=== PATIENT | male | born 1955 | race Caucasian/White ===

== ENCOUNTER 2016-12-10 18:22 | Emergency (ER) | payer OTHER ==
[~2016-12-10] VITALS: Ht 170.2 cm; Wt 74.8 kg
[~2016-12-10 18:22] MED LIST: SULF1TAB38 PO
[2016-12-10] MEDS ORDERED: LACTATED RINGERS 1,000 ML IV ONE (18:32)
[2016-12-10 18:40] LABS: BASOPHILS # (AUTO) 0.1 10^3/uL (0.0-0.1); BASOPHILS % (AUTO) 1 % (0-10); EOSINOPHILS # (AUTO) 0.1 10^3/uL (0.0-0.3); EOSINOPHILS % (AUTO) 1 % (0-10); LYMPHOCYTES # (AUTO) 2.7 X 10^3 (1.0-4.0); LYMPHOCYTES % (AUTO) 22 % (12-44); MEAN CORPUSCULAR HEMOGLOBIN 33 PG (25-34); MEAN CORPUSCULAR HGB CONC 35 G/DL (32-36); MEAN CORPUSCULAR VOLUME 93 FL (80-99); MEAN PLATELET VOLUME 10.1 FL (7.4-10.4); MONOCYTES # (AUTO) 0.9 X 10^3 (0.0-1.0); MONOCYTES % (AUTO) 7 % (0-12); NEUTROPHILS # (AUTO) 8.6 X 10^3 (1.8-7.8); NEUTROPHILS % (AUTO) 70 % (42-75); PLATELET COUNT 273 10^3/uL (130-400); RED BLOOD COUNT 4.94 10^6/uL (4.35-5.85); RED CELL DISTRIBUTION WIDTH 12.7 % (10.0-14.5); WHITE BLOOD COUNT 12.4 10^3/uL (4.3-11.0)
[2016-12-10 18:53] LABS: ALANINE AMINOTRANSFERASE 24 U/L (0-55); ALBUMIN 4.3 G/DL (3.2-4.5); ALCOHOL 284 MG/DL (<10); ANION GAP 13 MMOL/L (5-14); ASPARTATE AMINO TRANSFERASE 26 U/L (5-34); BLOOD UREA NITROGEN 15 MG/DL (7-18); BUN/CREATININE RATIO 16; CARBON DIOXIDE 23 MMOL/L (21-32); CHLORIDE 106 MMOL/L (98-107); CREATININE SERUM 0.96 MG/DL (0.60-1.30); GFR ESTIMATED > 60; GLUCOSE 95 MG/DL (70-105); POTASSIUM 4.1 MMOL/L (3.6-5.0); SODIUM 142 MMOL/L (135-145); TOTAL PROTEIN 7.6 G/DL (6.4-8.2)
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
[2016-12-10 19:55] VITALS: BP 135/93
== END 2016-12-10 19:54 | disposition home or self-care (01) ==
LOC: ER 18:22 → EDUNIT# 18:22 → ER 19:54
DX: F10.129 Alcohol abuse with intoxication, unspecified (principal); R45.1 Restlessness and agitation; Y90.8 Blood alcohol level of 240 mg/100 ml or more
CPT/HCPCS: 36415; 80053; 80306; 80320; 85025; 96360

== ENCOUNTER 2018-05-24 10:47 | Observation (INO) | payer OTHER ==
[2018-05-24] VITALS (11 sets, daily range): BP systolic 116–158; BP diastolic 83–103
[~2018-05-24] VITALS: Ht 167.6 cm; Wt 74.1 kg
[2018-05-24] MEDS ORDERED: ADENOSINE 6 MG/2 ML (ADENOCARD) VIAL IV ONE (10:51)
[2018-05-24] MEDS ORDERED: DILTIAZEM 25 MG/5 ML INJ (CARDIZEM) VIAL ONE (10:53)
[2018-05-24] MEDS ORDERED: DILTIAZEM 125 MG/25 ML IV (CARDIZEM) IV ONE (10:54)
--- NOTE | 2018-05-24 11:09 | ED Cardiac General ---
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 He had the sense of pounding in his chest and pressure is morning and came to the emergency room. He was immediately found to have a heart rate of 160 with a blood pressure of 120/100. This appeared to be atrial fibrillation with a rapid ventricular response. He has not had any previous history of heart disease or atrial fibrillation. He reports that he has had a heart murmur for years. The patient admits to drinking vodka every day. Timing/Duration: 1 hour Severity: mild, moderate Location: central Activities at Onset: activity Prior CP/Workup: no prior chest pain Modifying Factors: improves with exercise Associated Systoms: Shortness of Air, Weakness Allergies and Home Medications Allergies Coded Allergies: No Known Drug Allergies (Unverified , 02/11/12) Patient Home Medication List Home Medication List Reviewed: Yes Review of Systems Review of Systems Constitutional: see HPI EENTM: No Symptoms Reported Respiratory: No Symptoms Reported Cardiovascular: No Symptoms Reported Gastrointestinal: No Symptoms Reported Genitourinary: No Symptoms Reported Musculoskeletal: no symptoms reported Skin: no symptoms reported Psychiatric/Neurological: No Symptoms Reported Endocrine: No Symptoms Reported Hematologic/Lymphatic: No Symptoms Reported Past Sbpnkaz-Wbydui-Yvbced Hx Patient Social History Recent Hopitalizations: No Past Medical History Abdominal, Orthopedic Fractures Physical Exam Vital Signs Vital Signs - First Documented 05/24/18 10:47 Temp 97.2 Pulse 142 Resp 18 B/P (MAP) 124/108 (113) Pulse Ox 9 Capillary Refill : Height, Weight, BMI Height: 5'7" Weight: 165lbs. oz. [id number]; 25.84 BMI Method:Stated General Appearance: No Apparent Distress, WD/WN HEENT: Normal ENT Inspection Neck: Full Range of Motion, Normal Inspection, Non Tender Respiratory: Chest Non Tender, Lungs Clear, Normal Breath Sounds, No Accessory Muscle Use, No Respiratory Distress Cardiovascular: Systolic Murmur (grade 2-3 at apex), Irregularly Irregular, Tachycardia Gastrointestinal: Normal Bowel Sounds, No Organomegaly, No Pulsatile Mass, Non Tender Extremity: Normal Capillary Refill, Normal Inspection, Normal Range of Motion, Non Tender, No Calf Tenderness, No Pedal Edema Neurologic/Psychiatric: Alert, Oriented x3, No Motor/Sensory Deficits, Normal Mood/Affect Skin: Normal Color, Warm/Dry, Other Lymphatic: No Adenopathy Progress/Results/Core Measures Results/Orders My Orders Orders - CORINNA VALENTINE MD Adenosine Injection (Adenocard Injection (05/24/18 10:51) Diltiazem Injection (Cardizem Injection) (05/24/18 10:53) Diltiazem Iv For Drip (Cardizem Iv For D (05/24/18 10:54) Medications Given in ED Current Medications Medications Dose Ordered Sig/Vibha Route Start Time Stop Time Status Last Admin Dose Admin Adenosine 6 mg STK-MED ONCE IV 05/24/18 10:51 05/24/18 10:55 DC 05/24/18 10:55 6 MG Diltiazem HCl 25 mg STK-MED ONCE .ROUTE 05/24/18 10:53 05/24/18 10:57 DC 05/24/18 10:58 25 MG Vital Signs/I&O 05/24/18 05/24/18 10:47 12:05 Temp 97.2 Pulse 142 84 Resp 18 18 B/P (MAP) 124/108 (113) 116/83 (94) Pulse Ox 9 94 Departure Communication (Admissions) The patient subsequently reverted to sinus rhythm. The case was discussed by Dr. Thomason cardiology on-call. The patient will be admitted for workup and medications. [address] Parra of the hospitalist service. Impression Primary Impression: atrial fibrillation with RVR Disposition: ADMITTED INPATIENT Condition: Improved Admissions Decision to Admit Reason: Admit from ER (General) Decision to Admit/Date: May 24, 2018 Time/Decision to Admit Time: 12:18 Departure-Patient Inst. Referrals: SHAMEKA HERNANDES MD (PCP/Family) Primary Care Physician CORINNA VALENTINE MD May 24, 2018 11:09
[2018-05-24] MEDS ORDERED: NS IV 1000 ML 1,000 ML IV SCH (12:15)
[2018-05-24] MEDS ORDERED: DILTIAZEM 25 MG/5 ML INJ (CARDIZEM) VIAL IVP ONE (12:15)
[2018-05-24 12:25] LABS: BASOPHILS # (AUTO) 0.1 10^3/uL (0.0-0.1); BASOPHILS % (AUTO) 1 % (0-10); EOSINOPHILS # (AUTO) 0.1 10^3/uL (0.0-0.3); EOSINOPHILS % (AUTO) 1 % (0-10); HEMATOCRIT 34 % (40-54); HEMOGLOBIN 11.1 G/DL (13.3-17.7); LYMPHOCYTES # (AUTO) 2.3 X 10^3 (1.0-4.0); LYMPHOCYTES % (AUTO) 25 % (12-44); MEAN CORPUSCULAR HEMOGLOBIN 28 PG (25-34); MEAN CORPUSCULAR HGB CONC 33 G/DL (32-36); MEAN CORPUSCULAR VOLUME 84 FL (80-99); MEAN PLATELET VOLUME 10.8 FL (7.4-10.4); MONOCYTES % (AUTO) 11 % (0-12); NEUTROPHILS # (AUTO) 5.8 X 10^3 (1.8-7.8); NEUTROPHILS % (AUTO) 63 % (42-75); PLATELET COUNT 262 10^3/uL (130-400); RED CELL DISTRIBUTION WIDTH 19.3 % (10.0-14.5); WHITE BLOOD COUNT 9.2 10^3/uL (4.3-11.0)
[2018-05-24 12:43] LABS: ALANINE AMINOTRANSFERASE 23 U/L (0-55); ALBUMIN 4.2 GM/DL (3.2-4.5); ALKALINE PHOSPHATASE 81 U/L (40-136); BILIRUBIN,TOTAL 0.9 MG/DL (0.1-1.0); BUN/CREATININE RATIO 13; CARBON DIOXIDE 18 MMOL/L (21-32); CHLORIDE 105 MMOL/L (98-107); CREATININE SERUM 1.07 MG/DL (0.60-1.30); GFR ESTIMATED > 60; GLUCOSE 132 MG/DL (70-105); POTASSIUM 3.6 MMOL/L (3.6-5.0); SODIUM 138 MMOL/L (135-145); TOTAL PROTEIN 7.6 GM/DL (6.4-8.2)
[2018-05-24] MEDS ORDERED: VIT59LIQ SL (14:19)
[2018-05-24] MEDS ORDERED: MILK1CAP2 PO (14:19)
--- NOTE | 2018-05-24 14:57 | Consultation-Cardiology ---
HPI-Cardiology Cardiology Consultation: Date of Consultation 05/24/18 Date of Admission Attending Physician Chante Prara MD Admitting Physician Estrada Moran MD Consulting Physician Sukhjinder THOMASON MD HPI: Time Seen by Provider: 13:00 Chief Complaint: chest discomfort, shortness of breath This is a 63 year old gentleman who denies any past medical or cardiac history. He does have a history of significant ETOH use (likely abuse). He presents with chest discomfort, shortness of breath and palpitations at 10am today. However, he has been having chest discomfort in the recent past as well. He was found to be in AF RVR but converted spontaneously to SR on cardizem and adenosine. TCW-Qpqzsg-Vkpces Hx Patient Social History Alcohol Use: Regular Use Recreational Drug Use: No Smoking Status: Never a Smoker Recent Foreign Travel: No Recent Infectious Disease Expo: No Hospitalization with Isolation: Denies Physical Abuse Screen: No Sexual Abuse: No Past Medical History PMH As described under Assessment. Allergies and Home Medications Allergies Coded Allergies: No Known Drug Allergies (Unverified , 02/11/12) Home Medications Milk Thistle Seed Extract 140 Mg Capsule, 140 MG PO DAILY PRN for NEEDED, ( Reported) Vit B2/Niacin/B-6/B-12/D-Panth 59 Ml Liquid, 1 TBS SL DAILY PRN for VITAMINS, ( Reported) Patient Home Medication List Home Medication List Reviewed: Yes Physical Exam-Cardiology Physical Exam Vital Signs/I&O 05/24/18 05/24/18 05/24/18 05/24/18 10:47 12:05 13:55 14:01 Temp 97.2 Pulse 142 84 75 Resp 18 18 B/P (MAP) 124/108 (113) 116/83 (94) Pulse Ox 9 94 95 O2 Delivery Room Air 05/24/18 14:10 Pulse Ox 95 O2 Delivery Room Air Capillary Refill : Less Than 3 Seconds Constitutional: appears stated age, AAO x 3; No apparent distress; well- developed, well-nourished HEENT: PERRL; No normal ENT inspection, No TMs normal, No pharynx normal, No scleral icterus (R), No scleral icterus (L), No pale conjunctivae (R), No pale conjunctivae (L), No photophobia, No TM abnormal (R), No TM abnormal (L), No pharyngeal erythema, No tonsillar exudate, No other, No discharge, No EOMI; hearing is well preserved; No hard of hearing; oral hygience is good; No ulceration, No xanthelasmas are seen Neck: No non-tender, No full range of motion, No supple, No normal inspection, No carotid bruit, No limited range of motion, No lymphadenopathy (R), No lymphadenopathy (L), No tender lateral, No tender midline, No thyromegaly, No other; carotid pulses are 2 + bilaterally; No with good upstrokes Respiratory: No accessory muscle use, No respiratory distress, No chest tender , No chest expansion is symmetric; chest is bilaterally symmetric; No lungs clear to percussion; lungs clear to auscultation; No crackles, No rhonchi, No rales, No stridor, No wheezing, No pleural rub, No other Cardiovascular: regular rate-rhythm; No irregularly irregular, No extra beats, No parasternal heave is noted, No JVD, No edema, No bradycardia, No tachycardia , No point of maximal impulse, No cardiac thrills are palpable; S1 and S2; No gallop/S3, No gallop/S4, No diastolic murmur; systolic murmur; No friction rub, No click, No other Gastrointestinal: No tender, No soft, No round, No distended, No pulsatile mass , No organomegaly, No guarding, No rebound, No tenderness, No hernia, No mass, No audible bowel sounds, No abnormal bowel sounds, No abdominal bruits, No spleenomegaly, No other Rectal: deferred Extremities: No normal range of motion, No non-tender, No normal inspection, No pedal edema, No calf tenderness, No normal capillary refill, No pelvis stable , No calf tenderness, No inflammation, No pedal edema, No slow capillary refill , No swelling, No other, No abrasion, No clubbing, No cyanosis, No ecchymosis, No laceration, No no lower extremity edema bilateral, No significant edema, No tenderness, No wound Neurologic/Psychiatric: no motor/sensory deficits, alert, normal mood/affect, oriented x 3, power is 5/5 both on sides Skin: No normal color, No warm/dry, No cyanosis, No cool, No diaphoresis, No damp, No ecchymosis, No jaundice, No mottled, No pallor, No rash, No tattoos/ piercings, No ulcerations, No rash on exposed areas, No ulcerations on exposed areas, No other Data Review Labs Laboratory Tests 05/24/18 09:51: White Blood Count 9.2, Red Blood Count 4.00L, Hemoglobin 11.1L, Hematocrit 34L, Mean Corpuscular Volume 84, Mean Corpuscular Hemoglobin 28, Mean Corpuscular Hemoglobin Concent 33, Red Cell Distribution Width 19.3H, Platelet Count 262, Mean Platelet Volume 10.8H, Neutrophils (%) (Auto) 63, Lymphocytes (%) (Auto) 25 , Monocytes (%) (Auto) 11, Eosinophils (%) (Auto) 1, Basophils (%) (Auto) 1, Neutrophils # (Auto) 5.8, Lymphocytes # (Auto) 2.3, Monocytes # (Auto) 1.0, Eosinophils # (Auto) 0.1, Basophils # (Auto) 0.1, Sodium Level 138, Potassium Level 3.6, Chloride Level 105, Carbon Dioxide Level 18L, Anion Gap 15H, Blood Urea Nitrogen 14, Creatinine 1.07, Estimat Glomerular Filtration Rate > 60, BUN/ Creatinine Ratio 13, Glucose Level 132H, Calcium Level 9.0, Corrected Calcium 8.8, Total Bilirubin 0.9, Aspartate Amino Transf (AST/SGOT) 28, Alanine Aminotransferase (ALT/SGPT) 23, Alkaline Phosphatase 81, Troponin I < 0.30, Total Protein 7.6, Albumin 4.2 ECG Impression ECG Initial ECG Impression: Atrial Fibrillation w/RVR A/P-Cardiology Assessment/Admission Diagnosis AF with RVR, Systolic murmur, Alcoholism, shortness of breath, Chest pain Plan AF with RVR, converted to sinus rhythm on cardizem. Based on the medical history I have, the CHADSVASC is zero. Therefore Aspirin 325mg is recommended. Etiology likely ETOH abuse. will need Echo and likely stress test (as an outpatient). Systolic murmur: Echocardiogram. Need to rule out structural heart disease. ETOH abuse: strongly recommended to quit. Shortness of breath - no evidence of CHF on examination. Echo. Chest discomfort: first trop negative. will do a rule out. Discussed AF at length with the patient. Thank you for your consultation. Please call me if you have any questions. Magalis Thomason MD, FACP, FACC, FSCAI, FHRS, CCDS Interventional Cardiology Cardiac Electrophysiology Vascular Medicine and Endovascular Interventions Clinical Quality Measures AMI/AHF: ASA po Prior to arrival: No DVT/VTE Risk/Contraindication: Risk Factor Score Per Nursin RFS Level Per Nursing on Admit: 2=Moderate Sukhjinder THOMASON MD May 24, 2018 2:57 pm
--- NOTE | 2018-05-24 17:12 | History & Physical-Hospitalist ---
History of Present Illness HPI/Chief Complaint This is a 63-year-old white male with no previous medical history of atrial fibrillation. He presents the emergency room with complaints of increased shortness of breath dizziness and chest discomfort. He was found to be in A. fib with RVR with a rate of 160 with EKG changes consistent with either rate and rate related ischemia or LVH with repolarization changes. At the time of my interview he is feeling fine and denies having any chest pain or shortness of breath. He is in sinus rhythm with no ectopy and a normal blood pressure. In retrospect he notes that this has probably happened several times before. He correlates this with the fact that he drinks a pint of vodka every evening. Source: patient Exam Limitations: no limitations Date Seen 05/24/18 Time Seen by Provider: 14:45 Attending Physician Chante Parra MD PCP Estrada Moran MD Referring Physician Date of Admission May 24, 2018 at 1:18 pm Home Medications & Allergies Home Medications Reviewed patient Home Medication Reconciliation performed by pharmacy medication reconciliations robotic weld technician and/or nursing. Patients Allergies have been reviewed. Allergies Allergies Coded Allergies No Known Drug Allergies (Unverified02/11/12) Past Upkpzsy-Xjyhza-Cdfqeu Hx Past Med/Social Hx: Reviewed Nursing Past Med/Soc Hx Patient Social History Marrital Status: Employed/Student: employed Alcohol Use: Regular Use Number of Drinks Today: FF Alcohol Beverage of Choice: Vodka Recreational Drug Use: No Smoking Status: Never a Smoker Type Used: Smokeless Tobacco Physical Abuse Screen: No Sexual Abuse: No Recent Foreign Travel: No Contact w/other who traveled: No Recent Hopitalizations: No Recent Infectious Disease Expo: No Past Medical History Surgeries: Abdominal, Orthopedic Musculoskeletal: Fractures Family History No Pertinent Family Hx Review of Systems Constitutional: see HPI EENTM: no symptoms reported Respiratory: short of breath Cardiovascular: chest pain Gastrointestinal: no symptoms reported Genitourinary: no symptoms reported Musculoskeletal: back pain (Sciatic), muscle weakness Skin: no symptoms reported Psychiatric/Neurological: No Symptoms Reported Physical Exam Physical Exam Vital Signs Vital Signs - First Documented 05/24/18 05/24/18 10:47 13:21 Temp 97.2 Pulse 142 Resp 18 B/P (MAP) 124/108 (113) Pulse Ox 9 O2 Delivery Room Air Capillary Refill : Less Than 3 Seconds Height, Weight, BMI Height: 5'6.00" Weight: 164lbs. 0.0oz. [id number]; 26.5 BMI Method:Stated General Appearance: No Apparent Distress, WD/WN HEENT: TMs Normal, Normal ENT Inspection Neck: Full Range of Motion, Normal Inspection, Non Tender, Supple Respiratory: Chest Non Tender, Lungs Clear, Normal Breath Sounds, No Accessory Muscle Use, No Respiratory Distress Cardiovascular: Regular Rate, Rhythm, No Gallop, Systolic Murmur (Area for 6) Gastrointestinal: Normal Bowel Sounds, No Organomegaly, No Pulsatile Mass, Non Tender, Soft Rectal: Deferred Back: Normal Inspection, No CVA Tenderness, No Vertebral Tenderness Extremity: Normal Capillary Refill, Normal Inspection, Normal Range of Motion, Non Tender, No Calf Tenderness, No Pedal Edema Neurologic/Psychiatric: Alert, Oriented x3, No Motor/Sensory Deficits, Normal Mood/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 Assessment/Plan Admission Diagnosis A. fib with RVR Systolic murmur Anemia with a normal MCV Heavy alcohol use Plan is to continue overnight monitoring start 325 mg of aspirin per recommendation, consider continuing diltiazem as an outpatient. Echo report pending. Will also obtain chest x-ray. We'll also Hemoccult stools although the patient said he had a colonoscopy when he was age 49. Admission Status: Observation Clinical Quality Measures AMI/AHF: ASA po Prior to arrival: No DVT/VTE Risk/Contraindication: Risk Factor Score Per Nursin RFS Level Per Nursing on Admit: 2=Moderate Copy Copies To 1: ESTRADA MORAN MD, KATHLEEN M MD May 24, 2018 17:12
[2018-05-24] MEDS ORDERED: LORazepam 0.5 MG (ATIVAN) TABLET PO PRN (17:15)
--- NOTE | 2018-05-24 18:09 | Diagnostic Imaging Report ---
EXAM: CHEST 1 VIEW, AP/PA ONLY. INDICATION: Chest pain. COMPARISON: Chest radiograph 02/24/2009. FINDINGS: Normal heart size and central pulmonary vascularity. Elevation of the right hemidiaphragm is new since the prior exam. No dense consolidation, pleural effusion, or pneumothorax. No acute osseous findings. IMPRESSION: 1. Elevation of the right hemidiaphragm is new since the prior exam. 2. Remainder unremarkable. Dictated by: Dictated on workstation # [id number]
[2018-05-25] VITALS (12 sets, daily range): BP systolic 105–140; BP diastolic 71–118
[2018-05-25 04:02] LABS: BASOPHILS # (AUTO) 0.1 10^3/uL (0.0-0.1); BASOPHILS % (AUTO) 1 % (0-10); EOSINOPHILS # (AUTO) 0.2 10^3/uL (0.0-0.3); EOSINOPHILS % (AUTO) 2 % (0-10); HEMATOCRIT 33 % (40-54); HEMOGLOBIN 10.9 G/DL (13.3-17.7); LYMPHOCYTES # (AUTO) 1.9 X 10^3 (1.0-4.0); LYMPHOCYTES % (AUTO) 23 % (12-44); MEAN CORPUSCULAR HEMOGLOBIN 28 PG (25-34); MEAN CORPUSCULAR HGB CONC 33 G/DL (32-36); MEAN CORPUSCULAR VOLUME 83 FL (80-99); MEAN PLATELET VOLUME 10.6 FL (7.4-10.4); MONOCYTES % (AUTO) 12 % (0-12); NEUTROPHILS # (AUTO) 5.2 X 10^3 (1.8-7.8); NEUTROPHILS % (AUTO) 62 % (42-75); PLATELET COUNT 227 10^3/uL (130-400); RED BLOOD COUNT 3.95 10^6/uL (4.35-5.85); RED CELL DISTRIBUTION WIDTH 19.2 % (10.0-14.5); WHITE BLOOD COUNT 8.3 10^3/uL (4.3-11.0)
[2018-05-25 04:25] LABS: SODIUM 137 MMOL/L (135-145)
[2018-05-25 04:26] LABS: ALANINE AMINOTRANSFERASE 20 U/L (0-55); ALBUMIN 3.6 GM/DL (3.2-4.5); ALKALINE PHOSPHATASE 61 U/L (40-136); BILIRUBIN,TOTAL 1.2 MG/DL (0.1-1.0); BUN/CREATININE RATIO 14; CALCIUM 8.6 MG/DL (8.5-10.1); CARBON DIOXIDE 20 MMOL/L (21-32); CHLORIDE 105 MMOL/L (98-107); CREATININE SERUM 0.91 MG/DL (0.60-1.30); GFR ESTIMATED > 60; GLUCOSE 89 MG/DL (70-105); MAGNESIUM 2.1 MG/DL (1.8-2.4); POTASSIUM 3.5 MMOL/L (3.6-5.0); TOTAL PROTEIN 6.5 GM/DL (6.4-8.2)
[2018-05-25] MEDS ORDERED: ASPIRIN E.C. 325 MG (ECOTRIN) TABLET PO SCH (09:00)
[2018-05-25] MEDS ORDERED: ASPIRIN E.C. 81 MG (ECOTRIN) TAB PO SCH (09:00)
--- NOTE | 2018-05-25 09:47 | Progress Note-Hospitalist ---
Subjective HPI/CC On Admission Date Seen by Provider: May 25, 2018 Time Seen by Provider: 09:00 This is a 63-year-old white male with no previous medical history of atrial fibrillation. He presents the emergency room with complaints of increased shortness of breath dizziness and chest discomfort. He was found to be in A. fib with RVR with a rate of 160 with EKG changes consistent with either rate and rate related ischemia or LVH with repolarization changes. At the time of my interview he is feeling fine and denies having any chest pain or shortness of breath. He is in sinus rhythm with no ectopy and a normal blood pressure. In retrospect he notes that this has probably happened several times before. He correlates this with the fact that he drinks a pint of vodka every evening. Subjective/Events-last exam Patient didn't sleep well last night but is otherwise without complaint. He denies having any further chest discomfort. Chest x-ray shows elevation of the right hemidiaphragm that's new. Hemoglobin has dropped to 10 Hemoccult stools are pending. An EKG was obtained this morning that shows diffuse T-wave inversion and LVH. Echocardiogram results are pending. Objective Exam Vital Signs Vital Signs Date Time Temp Pulse Resp B/P (MAP) Pulse Ox O2 Delivery O2 Flow Rate FiO2 05/25/18 09:00 83 32 140/80 (100) 95 Room Air 05/24/18 23:42 98.7 Capillary Refill : Less Than 3 Seconds General Appearance: No Apparent Distress, WD/WN, Anxious HEENT: Normal ENT Inspection, Pharynx Normal Neck: Normal Inspection, Non Tender, Supple Respiratory: Chest Non Tender, Lungs Clear, Normal Breath Sounds, No Accessory Muscle Use, No Respiratory Distress Cardiovascular: Regular Rate, Rhythm, No Edema, No Gallop, Normal Peripheral Pulses, Systolic Murmur (3/6) Gastrointestinal: Normal Bowel Sounds, No Organomegaly, No Pulsatile Mass, Non Tender, Soft Rectal: Deferred Back: Normal Inspection, No CVA Tenderness, No Vertebral Tenderness Extremity: Normal Capillary Refill, Normal Inspection, Normal Range of Motion, Non Tender, No Calf Tenderness Neurologic/Psychiatric: Alert, Oriented x3, No Motor/Sensory Deficits, Normal Mood/Affect Skin: Normal Color, Warm/Dry, Other (Acne rosacea) Results/Procedures Lab Laboratory Tests 05/24/18 09:51 05/25/18 03:01 Patient resulted labs reviewed. Imaging: Reviewed Imaging Films, Reviewed Imaging Report Assessment/Plan Assessment and Plan Assess & Plan/Chief Complaint 1. A. fib with RVR still in sinus rhythm. 2. Chest pain at the time of A. fib now with diffuse T-wave inversion. 3. Systolic murmur echocardiogram pending. 4. Anemia with a further drop in hemoglobin Hemoccult stool pending. 5. Elevation of the right hemidiaphragm of uncertain etiology. With both the history of alcohol abuse and anemia sonogram will be pursued either as an outpatient or if he is kept for heart catheter may get it as an inpatient 6. Acute and chronic alcohol abuse no evidence of withdrawal- counseled again Discharge planning per Dr. Thomason Clinical Quality Measures AMI/AHF: ASA po Prior to arrival: No DVT/VTE Risk/Contraindication: Risk Factor Score Per Nursin RFS Level Per Nursing on Admit: 2=Moderate Copy Copies To 1: SHAMEKA HERNANDES MD, KATHLEEN M MD May 25, 2018 09:47
[2018-05-25] MEDS ORDERED: ASPI325T32 PO (13:00)
--- NOTE | 2018-05-25 13:11 | Cardiology Progress Note ---
Cardiology SOAP Progress Note Subjective: No overnight cardiac symptoms. Objective: I&O/Vital Signs 05/25/18 05/25/18 05/25/18 05/25/18 02:00 03:00 04:00 04:00 Pulse 53 54 56 Resp 17 14 22 B/P (MAP) 105/83 (90) 117/82 (94) Pulse Ox 94 96 95 9 O2 Delivery Room Air Room Air Room Air Room Air 05/25/18 05/25/18 05/25/18 05/25/18 05:00 06:00 07:00 07:00 Pulse 60 57 60 60 Resp 19 20 16 B/P (MAP) 122/83 (96) 129/86 (100) 134/118 (123) Pulse Ox 95 90 94 O2 Delivery Room Air Room Air Room Air 05/25/18 05/25/18 05/25/18 05/25/18 08:00 08:00 09:00 10:00 Pulse 68 83 88 Resp 16 32 45 B/P (MAP) 123/88 (100) 140/80 (100) 125/75 (92) Pulse Ox 95 93 95 93 O2 Delivery Room Air Room Air Room Air Room Air 05/25/18 05/25/18 11:00 12:00 Pulse 64 63 Resp 32 12 B/P (MAP) 132/103 (113) 124/90 (101) Pulse Ox 94 94 O2 Delivery Room Air Room Air 05/25/18 00:00 Intake Total 1500 ml Output Total 775 ml Balance 725 ml Weight (Pounds): 163 Weight (Ounces): 6.0 Weight (Calculated Kilograms): [id number] Constitutional: appears stated age, AAO x 3; No apparent distress; well- developed, well-nourished Respiratory: No accessory muscle use, No respiratory distress, No chest tender , No chest expansion is symmetric; chest is bilaterally symmetric; No lungs clear to percussion; lungs clear to auscultation; No crackles, No rhonchi, No rales, No stridor, No wheezing, No pleural rub, No other Cardiovascular: regular rate-rhythm; No irregularly irregular, No extra beats, No parasternal heave is noted, No JVD, No edema, No bradycardia, No tachycardia , No point of maximal impulse, No cardiac thrills are palpable; S1 and S2; No gallop/S3, No gallop/S4, No diastolic murmur; systolic murmur; No friction rub, No click, No other Gastrointestional: No tender, No soft, No round, No distended, No pulsatile mass, No organomegaly, No guarding, No rebound, No tenderness, No hernia, No mass, No audible bowel sounds, No abnormal bowel sounds, No abdominal bruits, No spleenomegaly, No other Extremities: No normal range of motion, No non-tender, No normal inspection, No pedal edema, No calf tenderness, No normal capillary refill, No pelvis stable , No calf tenderness, No inflammation, No pedal edema, No slow capillary refill , No swelling, No other, No abrasion, No clubbing, No cyanosis, No ecchymosis, No laceration, No no lower extremity edema bilateral, No significant edema, No tenderness, No wound Neurologic/Psychiatric: no motor/sensory deficits, alert, normal mood/affect, oriented x 3, power is 5/5 both on sides Skin: No normal color, No warm/dry, No cyanosis, No cool, No diaphoresis, No damp, No ecchymosis, No jaundice, No mottled, No pallor, No rash, No tattoos/ piercings, No ulcerations, No rash on exposed areas, No ulcerations on exposed areas, No other Results/Procedures: Labs Laboratory Tests 05/24/18 15:17: Magnesium Level 1.8, Troponin I < 0.30 05/25/18 03:01: Magnesium Level 2.1, White Blood Count 8.3, Red Blood Count 3.95L, Hemoglobin 10.9L, Hematocrit 33L, Mean Corpuscular Volume 83, Mean Corpuscular Hemoglobin 28, Mean Corpuscular Hemoglobin Concent 33, Red Cell Distribution Width 19.2H, Platelet Count 227, Mean Platelet Volume 10.6H, Neutrophils (%) (Auto) 62, Lymphocytes (%) (Auto) 23, Monocytes (%) (Auto) 12, Eosinophils (%) (Auto) 2, Basophils (%) (Auto) 1, Neutrophils # (Auto) 5.2, Lymphocytes # (Auto) 1.9, Monocytes # (Auto) 1.0, Eosinophils # (Auto) 0.2, Basophils # (Auto) 0.1, Sodium Level 137, Potassium Level 3.5L, Chloride Level 105, Carbon Dioxide Level 20L, Anion Gap 12, Blood Urea Nitrogen 13, Creatinine 0.91, Estimat Glomerular Filtration Rate > 60, BUN/Creatinine Ratio 14, Glucose Level 89, Calcium Level 8.6, Corrected Calcium 8.9, Total Bilirubin 1.2H, Aspartate Amino Transf (AST/SGOT) 22, Alanine Aminotransferase (ALT/SGPT) 20, Alkaline Phosphatase 61, Total Protein 6.5, Albumin 3.6 A/P: Assessment/Dx: AF with RVR, converted to sinus rhythm. Aortic stenosis, Aortic insufficiency, Mitral regurgitation Alcoholism, shortness of breath, Chest pain, LVH with repolarization changes Plan: AF with RVR, converted to sinus rhythm on cardizem. Based on the medical history I have, the CHADSVASC is zero. Therefore Aspirin 325mg is recommended. Etiology likely ETOH abuse. No further atrial fibrillation on telemetry. Patient can be discharged with Holter monitor for 48 hours and event monitor which he can both get on Sunday. Moderate aortic stenosis with mean gradient of 20 mmHg and aortic valve area 1.1 cm. Need to follow clinically. Discussed at length with the patient. Moderate aortic insufficiency: Will continue to monitor clinically. Normal LV size. Moderate mitral regurgitation: Will continue to follow clinically. Normal LV function. LVH with secondary repolarization changes: New T-wave inversions are noted. However the patient denies any further chest pain. Could be secondary to aortic stenosis or hypertensive heart disease. ETOH abuse: strongly recommended to quit. Shortness of breath - no evidence of CHF on examination. Echocardiogram showed normal LV function. Chest discomfort: Serial troponin are negative. EKG shows T-wave inversions which are likely due to LVH. I'll recommend nuclear stress test on Sunday which is in 2 days. Discussed AF at length with the patient. Thank you for your consultation. Please call me if you have any questions. Magalis Thomason MD, FACP, FACC, FSCAI, FHRS, CCDS Interventional Cardiology Cardiac Electrophysiology Vascular Medicine and Endovascular Interventions Clinical Quality Measures AMI/AHF: ASA po Prior to arrival: Sukhjinder Ely MD May 25, 2018 1:11 pm
--- NOTE | 2018-05-25 13:13 | Discharge Summary-Hospitalist ---
Diagnosis/Chief Complaint Date of Admission May 24, 2018 at 13:18 Date of Discharge May 25, 2018 Discharge Date: May 25, 2018 Discharge Time: 13:00 Admission Diagnosis A. fib with RVR Systolic murmur Anemia with a normal MCV Heavy alcohol use Plan is to continue overnight monitoring start 325 mg of aspirin per recommendation, consider continuing diltiazem as an outpatient. Echo report pending. Will also obtain chest x-ray. We'll also Hemoccult stools although the patient said he had a colonoscopy when he was age 49. Discharge Diagnosis A. fib with RVR-resolved Aortic stenosis with aortic regurgitation Left ventricular hypertrophy Mitral regurgitation Elevation of the right hemidiaphragm of uncertain significance Alcohol abuse Discharge Summary Procedures/Consulations echocardiogram Dr. Thomason Discharge Physical Exam Allergies: Coded Allergies: No Known Drug Allergies (Unverified , 02/11/12) Vitals & I&Os Vital Signs Date Time Temp Pulse Resp B/P (MAP) Pulse Ox O2 Delivery O2 Flow Rate FiO2 05/25/18 12:00 63 12 124/90 (101) 94 Room Air 05/24/18 23:42 98.7 General Appearance: No Apparent Distress, WD/WN HEENT: TMs Normal, Normal ENT Inspection, Pharynx Normal Respiratory: Chest Non Tender, Lungs Clear, Normal Breath Sounds, No Accessory Muscle Use, No Respiratory Distress Cardiovascular: Regular Rate, Rhythm, No Gallop, Normal Peripheral Pulses, Systolic Murmur (2/3) Gastrointestinal: Normal Bowel Sounds, No Organomegaly, No Pulsatile Mass, Non Tender, Soft Extremity: Normal Capillary Refill, Normal Inspection, Normal Range of Motion, Non Tender, No Calf Tenderness Skin: Normal Color, Warm/Dry, Other (acne rosacea) Neurologic/Psychiatric: Alert, Oriented x3, No Motor/Sensory Deficits, Normal Mood/Affect, food manager II-XII Norm as Tested Hospital Course the patient presented to the emergency room in atrial fibrillation with rapid ventricular response and ST segment changes suspicious for ischemia. Serial cardiac enzymes are negative. The patient was given adenosine which revealed atrial fibrillation and then was given Cardizem which resulted in conversion to sinus rhythm. Echocardiogram revealed aortic stenosis with left ventricular hypertrophy atrial regurgitation and mitral regurgitation. Official report is pending at the time of this dictation. Dr. Thomason saw the patient in consultation and was comfortable with the patient going home on an event recorder and a follow-up appointment for a stress test 2 days after discharge. the patient was counseled about cessation of alcohol and he agreed to be compliant with this. chest x-ray did show elevation of the right hemidiaphragm of uncertain etiology. The patient was stable at the time of discharge in sinus rhythm with EKG changes that showed T-wave inversion that were felt to be secondary to LVH. Labs (last 24 hrs) Laboratory Tests 05/24/18 15:17: Magnesium Level 1.8, Troponin I < 0.30 05/25/18 03:01: Magnesium Level 2.1, White Blood Count 8.3, Red Blood Count 3.95L, Hemoglobin 10.9L, Hematocrit 33L, Mean Corpuscular Volume 83, Mean Corpuscular Hemoglobin 28, Mean Corpuscular Hemoglobin Concent 33, Red Cell Distribution Width 19.2H, Platelet Count 227, Mean Platelet Volume 10.6H, Neutrophils (%) (Auto) 62, Lymphocytes (%) (Auto) 23, Monocytes (%) (Auto) 12, Eosinophils (%) (Auto) 2, Basophils (%) (Auto) 1, Neutrophils # (Auto) 5.2, Lymphocytes # (Auto) 1.9, Monocytes # (Auto) 1.0, Eosinophils # (Auto) 0.2, Basophils # (Auto) 0.1, Sodium Level 137, Potassium Level 3.5L, Chloride Level 105, Carbon Dioxide Level 20L, Anion Gap 12, Blood Urea Nitrogen 13, Creatinine 0.91, Estimat Glomerular Filtration Rate > 60, BUN/Creatinine Ratio 14, Glucose Level 89, Calcium Level 8.6, Corrected Calcium 8.9, Total Bilirubin 1.2H, Aspartate Amino Transf (AST/SGOT) 22, Alanine Aminotransferase (ALT/SGPT) 20, Alkaline Phosphatase 61, Total Protein 6.5, Albumin 3.6 Patient resulted labs reviewed. Imaging: Reviewed Imaging Films, Reviewed Imaging Report Discussion & Recommendations Discharge Planning: >30 minutes discharge planning Discharge Home Medications: Active Scripts Active Aspirin EC (Aspirin) 325 Mg Tablet.dr 325 Mg PO DAILY 30 Days Reported B Complex Sublingual Liquid (Vit B2/Niacin/B-6/B-12/D-Panth) 59 Ml Liquid 1 Tbs SL DAILY PRN Milk Thistle (Milk Thistle Seed Extract) 140 Mg Capsule 140 Mg PO DAILY PRN Condition at discharge stable Instructions to patient/family Please see electronic discharge instructions given to patient. Clinical Quality Measures AMI/AHF: ASA po Prior to arrival: No DVT/VTE Risk/Contraindication: Risk Factor Score Per Nursin RFS Level Per Nursing on Admit: 2=Moderate JOVANY THOMAS MD May 25, 2018 13:13
== END 2018-05-25 13:02 | disposition home or self-care (01) ==
LOC: EDUNIT# 10:47 → ER 10:48 → ICU 13:18 → UNDOADMOB 13:18 → ICU 13:50 → UNDODISOB 05-25 13:30
PROVIDERS: ADMIT Internal Medicine; ATTEND Internal Medicine
DX: I48.91 Unspecified atrial fibrillation (principal); I08.0 Rheumatic disorders of both mitral and aortic valves; F10.10 Alcohol abuse, uncomplicated; Z79.82 Long term (current) use of aspirin; R06.02 Shortness of breath; R07.9 Chest pain, unspecified; R01.1 Cardiac murmur, unspecified; D64.9 Anemia, unspecified
CPT/HCPCS: 36415; 71045; 80053; 83735; 84484; 85025; 87081; 93005; 93306; 96374; 96375; G0378

== ENCOUNTER → 2018-05-27 | Outpatient (CLI) | payer OTHER ==
[~2018-05-27] VITALS: Ht 167.6 cm; Wt 73.9 kg
[~2018-05-27] MED LIST changes: +ASPI325T32 PO; +ATOR40TA PO; +CATHETER FLUSH 10 ML SYR IV PRN; +LISI-556 PO; +METO-333 PO; +MILK1CAP2 PO; +REGADENOSON 0.4 MG/5 ML SYR (LEXISCAN) IV ONE; +VIT59LIQ SL
[2018-05-27 12:26] VITALS: BP 122/93
[2018-05-27 14:07] VITALS: BP 137/97
--- NOTE | 2018-05-27 14:07 | Cardiology Stress Test Report ---
Stress Test Report Type of NM Stress Test: Test Type: LEXISCAN 0.4MG/5ML Date of Procedure/Referring: Date of Procedure: May 27, 2018 PCP Sukhjinder Thomason MD Admitting Physician Estrada Moran MD Indications: Chest pain, paroxysmal atrial fibrillation, frequent PVCs. Baseline Heart Rate: 71 Baseline Blood Pressure: Blood Pressure Systolic: 137 Blood Pressure Diastolic: 97 Baseline EKG: Baseline EKG: sinus rhythm with frequent PVCs. Summary & Conclusion: Summary: The patient was brought to the stress lab after informed consent was taken. Stress test was performed according to the Lexiscan protocol. 0.4 mg of IV Lexiscan was given. Low-grade exercise was performed. Baseline EKG showed sinus rhythm at 71 BPM with numerous RVOT origin PVC's. Initial blood pressure was 137/97 mmHg. Maximum heart rate was 117 bpm and blood pressure 191/109 mmHg. Patient did not have any chest pain, arrhythmias or ST segment changes during the stress test. 10.69 mCi of Myoview were given for rest imaging and 29.9 mCi of Myoview given for stress imaging. Transient ischemic dilatation score 1.03, EF 46 percent percent. Normal wall motion. Mild intensity, moderate sized anterior reversible defect. Conclusion: Pharmacological stress test was negative for ischemia. Borderline LV function with no wall motion abnormalities. Severe hypertension. RVOT origin frequent PVCs. Evidence of anterior ischemia, coronary angiography is recommended. Sukhjinder THOMASON MD May 27, 2018 2:07 pm
--- NOTE | 2018-05-29 15:53 | Physician Query-Final Dx ---
ALDEN ORTEGA 05/29/18 1553: Clinic Account Progress/Dx Physician Query: Please give diagnosis Date of Service May 27, 2018 at 10:53 Sukhjinder MUJICA MD 05/29/18 1617: Clinic Account Progress/Dx Physician Query: Please give diagnosis DIAGNOSIS: Diagnosis Chest pain, PAF, PVCs ALDEN ORTEGA May 29, 2018 15:53 Sukhjinder MUJICA MD May 29, 2018 16:17
== END ==
LOC: CARD 10:53
PROVIDERS: ATTEND Internal Medicine Interventional Cardiology
DX: R07.9 Chest pain, unspecified (principal); I48.0 Paroxysmal atrial fibrillation; I49.3 Ventricular premature depolarization
CPT/HCPCS: 78452; 93017

== ENCOUNTER 2018-05-30 07:30 | Day surgery (SDC) | payer OTHER ==
[2018-05-30] VITALS (8 sets, daily range): BP systolic 115–141; BP diastolic 63–93
[~2018-05-30] VITALS: Ht 167.6 cm; Wt 73.9 kg
[~2018-05-30 07:30] MED LIST changes: -ATOR40TA PO; -CATHETER FLUSH 10 ML SYR IV PRN; -LISI-556 PO; -METO-333 PO; -REGADENOSON 0.4 MG/5 ML SYR (LEXISCAN) IV ONE
[2018-05-30] MEDS ORDERED: LIDOCAINE 1% INJ 20 ML 20 ML VIAL ONE (07:33)
[2018-05-30] MEDS ORDERED: HEParin (CATH LAB) 2,000 ML IV ONE (07:33)
[2018-05-30] MEDS ORDERED: NS IV 1000 ML 1,000 ML IV SCH ×2 (07:45→10:49)
[2018-05-30 08:07] LABS: HEMOGLOBIN 12.1 G/DL (13.3-17.7); MEAN PLATELET VOLUME 10.5 FL (7.4-10.4); RED BLOOD COUNT 4.36 10^6/uL (4.35-5.85); RED CELL DISTRIBUTION WIDTH 19.6 % (10.0-14.5); WHITE BLOOD COUNT 12.5 10^3/uL (4.3-11.0)
[2018-05-30] MEDS ORDERED: MIDAZOLAM 5 MG/5 ML (VERSED) VIAL ONE (08:24)
[2018-05-30] MEDS ORDERED: fentaNYL INJECTION 100 MCG/2 ML AMP ONE (08:24)
[2018-05-30] MEDS ORDERED: VERAPAMIL 5 MG/2 ML (CALAN) VIAL IV ONE (08:24)
[2018-05-30 08:25] LABS: PROTHROMBIN TIME PATIENT 13.1 SEC (12.2-14.7)
[2018-05-30] MEDS ORDERED: NITRO DRIP 25000 MCG/D5W 250 ML IV ONE (08:25)
[2018-05-30] MEDS ORDERED: HEParin 1000 UNIT/ML (10ML VIAL) FOR BOLUS ONE (08:25)
[2018-05-30 08:31] LABS: ALANINE AMINOTRANSFERASE 22 U/L (0-55); ALBUMIN 4.3 GM/DL (3.2-4.5); ALKALINE PHOSPHATASE 62 U/L (40-136); BILIRUBIN,TOTAL 1.6 MG/DL (0.1-1.0); BUN/CREATININE RATIO 8; CALCIUM 9.3 MG/DL (8.5-10.1); CARBON DIOXIDE 23 MMOL/L (21-32); CHLORIDE 104 MMOL/L (98-107); CHOLESTEROL 166 MG/DL (< 200); CREATININE SERUM 1.04 MG/DL (0.60-1.30); GFR ESTIMATED > 60; GLUCOSE 103 MG/DL (70-105); HDL CHOLESTEROL 47 MG/DL (40-60); POTASSIUM 3.8 MMOL/L (3.6-5.0); SODIUM 137 MMOL/L (135-145); TOTAL PROTEIN 7.9 GM/DL (6.4-8.2); TRIGLYCERIDES 95 MG/DL (<150); VLDL CHOLESTEROL 19 MG/DL (5-40)
[2018-05-30] MEDS ORDERED: FLU QUADRIvalent (5+ YOA) 2018-2019 (AFLURIA) 0.5 ML IM ONE (09:00)
--- NOTE | 2018-05-30 10:49 | Cardiac Procedure Note-CS/ASA ---
Pre-Procedure Note Pre-Op Procedure Note H&P Reviewed The H&P was reviewed, patient examined and no changes noted. Date H&P Reviewed: May 30, 2018 Time H&P Reviewed: 09:30 Conscious Sedation Pre-Proced Time Reviewed: 09:30 ASA Class: 3 Airway Mallampati Classification: ([place] appropriate class) I. II. III, IV Lungs Heart ASA score ASA 1: a normal healthy patient ASA 2: a patient with a mild systemic disease (mid diabetes, controlled hypertension, obesity ASA 3: a patient with a severe systemic disease that limits activity (angina , COPD, prior Myocardial infarction) ASA 4: a patient with an incapacitating disease that is a constant threat to life (CHF, renal failure) ASA 5: a moribund patient not expected to survive 24 hrs. (ruptured aneurysm) ASA 6: a declared brain patient whose organs are being harvested. For emergent operations, add the letter E after the classification Grade 1 Sedation Plan: Analgesia, Amnesia, Plan communicated to team members, Discussed options with patient/fam, Discussed risks with patient/fam Note The patient is an appropriate candidate to undergo the planned procedure, sedation, and anesthesia. The patient immediately re-assessed prior to indication. Sukhjinder MUJICA MD May 30, 2018 10:49 am
--- NOTE | 2018-05-30 10:49 | Coronary Angiography Report ---
Coronary Angiography Report DATE OF PROCEDURE: 05/30/18 INDICATION: Chest pain, T wave inversions on EKG, PAF, PVCs, Aortic stenosis. PREOPERATIVE DIAGNOSIS: Chest pain, T wave inversions on EKG, PAF, PVCs, Aortic stenosis. POSTOPERATIVE DIAGNOSIS: Severe CAD, Severe aortic stenosis. HISTORY: 63 year old male with recent admission for chest pain and PAF. Converted to sinus rhythm. T wave inversions were noted on EKG. Abnormal nuclear stress test. Echo revealed atleast moderate with gradient of 20mmhg and ALEKS 1.1 cm2. Therefore, the patient was scheduled for coronary angiography. PROCEDURES PERFORMED: 1.Coronary angiography. 2.Left heart catheterization. 3. Aortic arch angiography. COMPLICATIONS: None. SPECIMENS: None. ESTIMATED BLOOD LOSS: 10 mL ANESTHESIA: Conscious sedation ANTICOAGULATION: IV heparin CONTRAST: 125 ml. FLUOROSCOPY: 6.1 minutes. FLOUROSCOPY DOSE: 469 mgy. PROCEDURE DETAILS: The patient is a 63 male and was brought to the [facility] after informed consent was taken. All the risks and complications were explained in detail; this included the risk of bleeding, vascular damage, stroke , [place] and even . The patient was draped and prepped in the usual sterile fashion. Access was gained in the right radial artery with a 6 Amharic sheath. Coronary angiography and left heart catheterization was performed with the [place] catheter. Aortic arch angiogram was performed with the [place] catheter. FINDINGS: 1.Left main: Calcified distal left main with at least 50 percent stenosis. 2.LAD: Severe ostial LAD stenosis. Stenosis severity 90 percent. The LAD divides into a large first diagonal artery as well as the regular LAD. 3.Left circumflex artery: Moderate mid disease. 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 4.RCA: Mild diffuse disease is noted. 5.Left heart catheterization: LV pressure 159/2 mmHg. LVEDP 19 mmHg. Aortic pressure 77/60 mmHg. Normal LV function with no wall motion abnormalities. Pullback across the aortic valve showed a peak to peak gradient of at least 72 mmHg. Heavily calcified aortic valve. 6. Aortic arch angiogram: No evidence of aneurysm or dissection. Patent proximal segments of the great arteries including brachycephalic artery, common carotid artery and left subclavian artery. CONCLUSIONS: Distal left main disease with severe ostial LAD disease. Severe aortic stenosis with normal LV function. Cardiac surgery consultation for aortic valve replacement, CABG. history of PAF. Continue aspirin, start Lipitor, low-dose beta jb and ELIA inhibitor. Magalis Thomason MD, FACP, FACC, [facility] Interventional Cardiology Sukhjinder THOMASON MD May 30, 2018 10:49
[2018-05-30] MEDS ORDERED: PATIENT MAY USE OWN MEDS, ALL PO SCH (11:00)
[2018-05-30] MEDS ORDERED: ATOR40TA PO (11:11)
[2018-05-30] MEDS ORDERED: METO-333 PO (11:12)
[2018-05-30] MEDS ORDERED: LISI-556 PO (11:13)
--- NOTE | 2018-05-30 11:16 | Discharge Inst-Post CATH ---
Discharge Inst-CATH Post Cardiac Cath D/C Inst Follow Up/Plan Dr Salvador Calles is making arrangements. Dr Thomason - 2-3 weeks CARDIAC CATH DISCHARGE INSTRUCTIONS *Hold Metformin for 48 hours post heart cath. ACTIVITY * Go Home directly and rest. * Limit activity of the leg (or wrist if it was used) for 7 days including aerobics, swimming, jogging, bicycling, etc. * Restrict stair-climbing for 7 days if possible, if not, climb up with your non -cath leg, then bring together on the same step. * Avoid lifting, pushing, pulling or excessive movement of the affected extremity for 7 days. * Customary sexual activity may be resumed after 2 days-use caution not to use a position that strains or causes pain to the affected extremity. * No driving for 24 hours. * NO SMOKING. * Avoid straining for bowel movements for 7 days. * Gentle walking on level ground is allowed. * Returning to work will depend on the type of procedure and the results. Your doctor will discuss this with you. CALL YOUR DOCTOR FOR ANY OF THE FOLLOWING: *If bleeding from the puncture site occurs- Apply gentle pressure to site with clean cloth and call your doctor or EMS. * If a knot or lump forms under the skin, increases in size, or causes pain. * If bruising appears to be worsening or moving further down your leg instead of disappearing. * Temperature above 101 F. CARE OF YOUR GROIN INCISION; * Bruising or purple discoloration of the skin near the puncture site is common. * You may shower only, no bathtub bathing for 5 days. Be careful to avoid slipping as your leg may feel stiff. * If a closure device was used on your femoral artery, please see the attached guide regarding care of the device and your leg. * Leave the dressing on, until removed by office staff. CARE OF YOUR WRIST INCISION; * Bruising or purple discoloration of the skin near the puncture site is common. * You may shower. * DO NOT submerge wrist. * Leave dressing on, until removed by office staff.. Sukhjinder THOMASON MD May 30, 2018 11:16 am
--- NOTE | 2018-05-30 13:42 | Cardiology Discharge Summary ---
Diagnosis/Chief Complaint Date of Admission 05/30/2018 Date of Discharge 05/30/2018 Admission Diagnosis Chest pain, abnormal nuclear stress test Final/Discharge Diagnosis Severe CAD, severe aortic stenosis Chief Complaint/HPI Chief Complaint/HPI 63 year old male with recent admission for chest pain and PAF. Converted to sinus rhythm. T wave inversions were noted on EKG. Abnormal nuclear stress test. Echo revealed atleast moderate with gradient of 20mmhg and ALEKS 1.1 cm2. Therefore, the patient was scheduled for coronary angiography. Discharge Summary Procedures Coronary angiography shows moderate to severe distal left main disease, severe ostial LAD stenosis. Severe aortic stenosis Discharge Physical Examination Unremarkable. Hospital Course Unremarkable. Pending Labs Laboratory Tests 05/30/18 07:53: White Blood Count 12.5, Red Blood Count 4.36, Hemoglobin 12.1, Hematocrit 36, Mean Corpuscular Volume 83, Mean Corpuscular Hemoglobin 28, Mean Corpuscular Hemoglobin Concent 33, Red Cell Distribution Width 19.6, Platelet Count 291, Mean Platelet Volume 10.5, Prothrombin Time 13.1, INR Comment 1.0, Activated Partial Thromboplast Time 33, Sodium Level 137, Potassium Level 3.8, Chloride Level 104, Carbon Dioxide Level 23, Anion Gap 10, Blood Urea Nitrogen 8, Creatinine 1.04, Estimat Glomerular Filtration Rate > 60, BUN/Creatinine Ratio 8 , Glucose Level 103, Calcium Level 9.3, Corrected Calcium 9.1, Total Bilirubin 1.6, Aspartate Amino Transf (AST/SGOT) 17, Alanine Aminotransferase (ALT/SGPT) 22, Alkaline Phosphatase 62, Total Protein 7.9, Albumin 4.3, Triglycerides Level 95, Cholesterol Level 166, LDL Cholesterol Direct 107, VLDL Cholesterol 19 , HDL Cholesterol 47 Discussion & Recommendations Discussion Patient will be recommended cardiac surgery. My office will get an appointment at with cardiac surgery early next week. Follow up appt.: Dr Thomason after surgery. Dicharge Diet: Cardiac Diet Activity as Tolerated: Yes Home Medications Reviewed patient Home Medication Reconciliation performed by pharmacy medication reconciliations medical coding technician and/or nursing. Patients Allergies have been reviewed. Discharge Home Medications: Reviewed and agree with Discharge Medication list on patient's Discharge Instruction sheet Condition at discharge Stable. Instructions to patient/family Dr Salvador Calles is making arrangements. Dr Thomason - 2-3 weeks Sukhjinder THOMASON MD May 30, 2018 1:42 pm
[2018-05-31] MEDS ORDERED: ASPIRIN E.C. 81 MG (ECOTRIN) TAB PO SCH (09:00)
== END 2018-05-30 13:40 | disposition home or self-care (01) ==
LOC: CATH 07:30
PROVIDERS: ATTEND Internal Medicine Interventional Cardiology
DX: I25.10 Atherosclerotic heart disease of native coronary artery without angina pectoris (principal); I35.0 Nonrheumatic aortic (valve) stenosis; I48.0 Paroxysmal atrial fibrillation; F10.10 Alcohol abuse, uncomplicated; Z79.82 Long term (current) use of aspirin; Z79.899 Other long term (current) drug therapy
CPT/HCPCS: 36221; 36415; 80053; 80061; 85027; 85610; 85730; 87081; 93458

== ENCOUNTER → 2018-07-04 | Outpatient (CLI) | payer OTHER ==
[~2018-07-04] MED LIST changes: +ATOR40TA PO; +LISI-556 PO; +METO-333 PO
--- NOTE | 2018-07-04 13:42 | Diagnostic Imaging Report ---
INDICATION: Persistent cough. PA and lateral chest. FINDINGS: There are postop changes from valve repair surgery. Heart size and pulmonary vascularity are normal. Lungs are clear. There are no effusions or pneumothoraces. IMPRESSION: No acute abnormalities in the chest. Dictated by: Dictated on workstation # [id number]
== END ==
LOC: RAD 10:21
DX: R05 Cough (principal)
CPT/HCPCS: 71046

== ENCOUNTER → 2018-08-12 | Outpatient (CLI) | payer OTHER ==
--- NOTE | 2018-08-12 09:28 | Diagnostic Imaging Report ---
INDICATION: Status post heart surgery 2 months ago. Patient fell 3-4 days ago now has pain anterior bilateral ribs. Time of exam 9:28 AM Multiple views bilateral ribs were obtained. There are postop changes of median sternotomy. Sternotomy sutures appear to be intact. No displaced rib fracture is detected. No parenchymal contusion, effusion or pneumothorax is seen Hemidiaphragm is elevated. IMPRESSION: No definite displaced rib fractures detected. Dictated by: Dictated on workstation # [id number]
== END ==
LOC: RAD 08:48
DX: R07.81 Pleurodynia (principal); W19.XXXA Unspecified fall, initial encounter; Z98.890 Other specified postprocedural states
CPT/HCPCS: 71110

== ENCOUNTER 2018-09-06 15:38 | Outpatient (RCR) | payer OTHER | END 2018-10-08 | disposition home or self-care (01) | LOC: CR 15:38 | PROVIDERS: ATTEND Internal Medicine Interventional Cardiology | DX: Z48.812 Encounter for surgical aftercare following surgery on the circulatory system (principal); Z95.1 Presence of aortocoronary bypass graft | CPT/HCPCS: 93798 ==

== ENCOUNTER → 2018-10-23 | Outpatient (CLI) | payer OTHER ==
--- NOTE | 2018-10-23 18:03 | Diagnostic Imaging Report ---
EXAMINATION: Cervical spine. INDICATION: Neck pain. AP, lateral, and odontoid views were obtained. FINDINGS: The previous CT cervical spine exam of 10/16/2009 noted moderate cervical spondylosis in the lower cervical spine. In the interval since the previous exam, the degenerative changes have progressed fairly significantly. There is now considerable narrowing of the disc spaces at each level from C3-4 to C6-7. There is also osteophyte formation along the ventral aspects of each vertebral body. There is no fracture or acute bony abnormality identified. There is no sign of retropharyngeal edema. The lung apices are clear. IMPRESSION: 1. There is no evidence for an acute bony abnormality. 2. The degenerative disease involving the cervical spine seen previously has progressed, and there is now severe degenerative disc and bony disease at every level from C3-4 to C6-7. 3. If there is clinical concern regarding spinal stenosis or nerve root encroachment, then MRI would be recommended for additional study. Dictated by: Dictated on workstation # [id number]
== END ==
LOC: RAD 16:47
PROVIDERS: ATTEND Nurse Practitioner Family
DX: M47.22 Other spondylosis with radiculopathy, cervical region (principal); M50.11 Cervical disc disorder with radiculopathy, high cervical region; M89.9 Disorder of bone, unspecified
CPT/HCPCS: 72040

== ENCOUNTER → 2019-08-01 | Outpatient (CLI) | payer OTHER ==
--- NOTE | 2019-08-01 17:48 | Diagnostic Imaging Report ---
HISTORY: Persistent cough. TECHNIQUE: Two views of the chest. COMPARISON: 07/04/2018 FINDINGS: There is persistent elevation of the right hemidiaphragm which is unchanged. No new consolidation is seen. The cardiac silhouette is stable in size. Sternotomy wires and post-CABG changes are seen. There is no pleural effusion or pneumothorax. IMPRESSION: 1. Stable elevation of the right hemidiaphragm with no acute pulmonary abnormality seen. Dictated by: Dictated on workstation # [id number]
== END ==
LOC: RAD 16:17
PROVIDERS: ATTEND Nurse Practitioner Family
DX: R05 Cough (principal); Z95.1 Presence of aortocoronary bypass graft
CPT/HCPCS: 71046

== ENCOUNTER 2019-09-10 | Outpatient (RCR) | payer OTHER | END 2019-11-27 | disposition home or self-care (01) | LOC: CARD | PROVIDERS: ATTEND Internal Medicine Interventional Cardiology | DX: I07.1 Rheumatic tricuspid insufficiency (principal); I48.0 Paroxysmal atrial fibrillation; Q23.0 Congenital stenosis of aortic valve; I25.10 Atherosclerotic heart disease of native coronary artery without angina pectoris; Z95.2 Presence of prosthetic heart valve | CPT/HCPCS: 93306 ==

== ENCOUNTER 2020-10-14 15:44 | Emergency (ER) | payer MEDICARE, OTHER ==
[~2020-10-14] VITALS: Ht 167.7 cm; Wt 72.5 kg
--- NOTE | 2020-10-14 16:27 | ED Fall/Injury ---
General Chief Complaint: Trauma-Non Activation Stated Complaint: FALL / NOSE AND HEAD LACERATION Nursing Triage Note: Pt brought to ED by jaz. Jaz reports pt is a heavy drinker and has drank 2 pints of vodka today. Jaz reports hearing a loud bang and rushed downstairs to find bathroom sink ripped off the wall, a pool of blood on the floor and the pt on the couch holding head. Pt was unaware of anything that happened. Pt denies complaints at this time and does not want to be at the ED. Source: patient Exam Limitations: other (intoxicated ) History of Present Illness Date Seen by Provider: Oct 14, 2020 Time Seen by Provider: 16:14 Initial Comments This is a well-appearing 65-year-old male who was dropped off at the ER by his grandson due to fall. Patient states he drinks 1 pint of vodka daily and has probably consumed 1/2 a pint today. He does not recall falling or any events surrounding the fall. He currently denies any headache, neck pain, face pain, nausea, vomiting, chest pain, abdominal pain or any extremity pain. Location Injury Occurred: home Occurred: just prior to arrival (he believes [employer] ) Severity: mild Injuries/Pain Location: face Context: unknown Loss of Consciousness: unsure Allergies and Home Medications Allergies Coded Allergies: No Known Drug Allergies (Unverified , 02/11/12) Home Medications Aspirin 325 Mg Tablet.dr, 325 MG PO DAILY Prescribed by: VIOLETA TURK on 05/25/18 1300 Atorvastatin Calcium 40 Mg Tablet, 40 MG PO DAILY Prescribed by: Sukhjinder MUJICA on 05/30/18 1111 Lisinopril 5 Mg Tablet, 5 MG PO DAILY Prescribed by: Sukhjinder MUJICA on 05/30/18 1113 Metoprolol Tartrate 25 Mg Tablet, 25 MG PO BID Prescribed by: Sukhjinder MUJICA on 05/30/18 1112 Milk Thistle Seed Extract 140 Mg Capsule, 140 MG PO DAILY PRN for NEEDED, (Reported) Vit B2/Niacin/B-6/B-12/D-Panth 59 Ml Liquid, 1 TBS SL DAILY PRN for VITAMINS, (Reported) Patient Home Medication List Home Medication List Reviewed: Yes Review of Systems Review of Systems Constitutional: no symptoms reported Eyes: No Symptoms Reported Ears, Nose, Mouth, Throat: no symptoms reported Respiratory: no symptoms reported Cardiovascular: no symptoms reported Gastrointestinal: no symptoms reported Genitourinary: no symptoms reported Musculoskeletal: no symptoms reported Skin: no symptoms reported Psychiatric/Neurological: No Symptoms Reported Past Xvvzmqj-Whtiqx-Gbnznn Hx Patient Social History Alcohol Use: Regular Use Number of Drinks Today: FF Alcohol Beverage of Choice: Vodka Type Used: Smokeless Tobacco 2nd Hand Smoke Exposure: No Recent Infectious Disease Expo: No Recent Hopitalizations: No Past Medical History Surgeries: Yes (BROKEN FEMUR 08/1992, REPEATED 05/1993, CARPAL TUNNEL RIGHT X2) Abdominal, Cardiac, Orthopedic Respiratory: No Cardiac: Yes (open heart surgery, valve replacement) Neurological: No Gastrointestinal: No Musculoskeletal: Yes (Carpal tunnel syndrome) Fractures Endocrine: No Cancer: No Psychosocial: Yes (Alcoholism) Family Medical History No Pertinent Family Hx Physical Exam Vital Signs Vital Signs - First Documented 10/14/20 15:55 Temp 36.5 Pulse 89 Resp 20 B/P (MAP) 113/76 (88) Pulse Ox 96 O2 Delivery Room Air Capillary Refill : Less Than 3 Seconds Height, Weight, BMI Height: 5'6.00" Weight: 163lbs. 0.0oz. 73.248424dl; 25.00 BMI Method:Stated General Appearance: WD/WN, no apparent distress HEENT: PERRL/EOMI, pharynx normal, other (swollen nose, deviated septum. ) Neck: full range of motion, supple, normal inspection Cardiovascular: normal peripheral pulses, regular rate, rhythm, no murmur Respiratory: chest non-tender, lungs clear, normal breath sounds, no respiratory distress Gastrointestinal: normal bowel sounds, non tender, soft Extremities: normal range of motion, non-tender, normal inspection, no pedal edema Neurologic/Psychiatric: no motor/sensory deficits, alert; No normal mood/affect (acutely intoxicated ); oriented x 3 Skin: normal color, warm/dry, other (small superficial abrasion on forehead ) [place] Coma Score Best Eye Response: (4) Open Spontaneously Best Verbal Response: (5) Oriented Best Motor Response: (6) Obeys Commands [place] Total: 15 Progress/Results/Core Measures Results/Orders My Orders Orders - LYNDSAY SANCHEZ APRN Ct Head/Face/Cervical Wo (10/14/20 16:20) Vital Signs/I&O 10/14/20 10/14/20 15:55 17:31 Temp 36.5 36.5 Pulse 89 83 Resp 20 20 B/P (MAP) 113/76 (88) 103/97 (88) Pulse Ox 96 94 O2 Delivery Room Air Room Air Blood Pressure Mean: 88 Progress Progress Note : Progress Note Pt. examined and in no acute distress. States he is an alcoholic and drinks daily. He is unsure of what caused his injuries and his grandson is unable to be located. He has no complaints at this time, however he has obvious facial trauma. Will obtain CT head, face, and C-spine. CT neg for acute findings. Patient yelling from FT-2 "I want to get the fuck out of here". Reviewed findings with him and warning signs to monitor for. RN discussed discharge with patient grandson. Reviewed discharge plan with patient and he is agreeable with plan. Diagnostic Imaging Diagonstic Imaging: CT Plain Films/CT/US/NM/MRI: c-spine, head, other Comments NAME: LAURA NOYOLA [facility] REC#: [id number] PT STATUS: REG ER : [id number] PHYSICIAN: LYNDSAY SANCHEZ APRN ADMIT DATE: 10/14/20/ER Signed Date of Exam:10/14/20 CT HEAD/FACE/CERVICAL WO PROCEDURE: CT head, face, and cervical spine without contrast. TECHNIQUE: Multiple contiguous axial images were obtained through the head, neck, and facial bones without the use of intravenous contrast. Sagittal and coronal reformations through the cervical spine and facial bones were also performed. Auto Exposure Controls were utilized during the CT exam to meet ALARA standards for radiation dose reduction. INDICATION: Fall. Facial trauma. Scalp contusion. Head and neck pain. COMPARISON: 10/16/2009. FINDINGS: CT head: No large acute territorial ischemia, mass, or hemorrhage. No midline shift or mass effect. Decreased attenuation is seen in the periventricular and subcortical white matter. The ventricles and cortical sulci are prominent. The basilar cisterns are patent and unremarkable. The calvarium is intact. CT face: No acute facial fractures are visualized. The mandible, zygomatic arches, and pterygoid plates are intact. The bilateral TMJ demonstrate normal articulation. No nasal bone fractures. The bony nasal septum is slightly deviated to the right without fracture. The paranasal sinuses and mastoid air cells are well pneumatized. The globes and orbits are symmetric and unremarkable. No evidence of orbital rim fracture. CT cervical spine: No acute fracture or dislocation is seen in the cervical spine. No focal osseous lesions. There is grade 1 anterolisthesis of C2 on C3. Reversal of the normal lordotic curvature of the cervical spine is seen centered at the C3 level. Vertebral body heights are well-maintained. The craniocervical junction is well-maintained. Moderate degenerative changes are seen in the cervical spine. Soft tissues of the neck are unremarkable. The included lung apices are clear. IMPRESSION: 1. No hemorrhage or focal intra-axial mass. No CT evidence of large acute territorial ischemia. 2. No acute fracture or dislocation in the cervical spine. 3. No acute facial fractures. 4. Generalized parenchymal volume loss with chronic microvascular disease. 5. Reversal of the normal lordotic curvature of the cervical spine centered at C3 with grade 1 anterolisthesis of C2 on C3. Dictated by: Dictated on workstation # [id number] Dict: 10/14/20 170 Trans: 10/14/20 171 [facility] [id number] Interpreted by: SHIVA RAM DO Electronically signed by: SHIVA RAM DO 10/14/20 1715 Reviewed: Reviewed by Me Departure Impression Primary Impression: Abrasion Additional Impressions: Unwitnessed fall Contusion of nose Disposition: 01 HOME, SELF-CARE Condition: Stable/Unchanged Departure-Patient Inst. Decision time for Depature: 17:19 Referrals: SHAMEKA HERNANDES MD (PCP/Family) Primary Care Physician Patient Instructions: Alcohol Abuse and Alcoholism (DC), Preventing Falls Add. Discharge Instructions: 1. Observe the patient for 24-48 hours. Contact your family physician, or return to the ER immediately if any of the following are observed: -Repeated vomiting, especially more than 3 times in 12 hours. -Confusion, delirium, or disorientation -Blurred vision or double vision -A difference in pupil size comparing left to right -Twitching or convulsions -Clear or bloody fluid from the nose or ears -Persistent headaches -Weakness of face, arm, or leg muscles -Difficulty in rousing the patient (the patient should be awakened every two hours during the first night). -Take nothing stronger than Tylenol or Advil for pain. -Do NOT drink alcohol 2. Return for any new or concerning symptoms. 3. Complete brain rest: No TV, music, reading, tablets or phones. Follow up with your doctor. All discharge instructions reviewed with patient and/or family. Voiced understanding. LYNDSAY SANCHEZ APRN Oct 14, 2020 16:27
--- NOTE | 2020-10-14 17:17 | Diagnostic Imaging Report ---
PROCEDURE: CT head, face, and cervical spine without contrast. TECHNIQUE: Multiple contiguous axial images were obtained through the head, neck, and facial bones without the use of intravenous contrast. Sagittal and coronal reformations through the cervical spine and facial bones were also performed. Auto Exposure Controls were utilized during the CT exam to meet ALARA standards for radiation dose reduction. INDICATION: Fall. Facial trauma. Scalp contusion. Head and neck pain. COMPARISON: 10/16/2009. FINDINGS: CT head: No large acute territorial ischemia, mass, or hemorrhage. No midline shift or mass effect. Decreased attenuation is seen in the periventricular and subcortical white matter. The ventricles and cortical sulci are prominent. The basilar cisterns are patent and unremarkable. The calvarium is intact. CT face: No acute facial fractures are visualized. The mandible, zygomatic arches, and pterygoid plates are intact. The bilateral TMJ demonstrate normal articulation. No nasal bone fractures. The bony nasal septum is slightly deviated to the right without fracture. The paranasal sinuses and mastoid air cells are well pneumatized. The globes and orbits are symmetric and unremarkable. No evidence of orbital rim fracture. CT cervical spine: No acute fracture or dislocation is seen in the cervical spine. No focal osseous lesions. There is grade 1 anterolisthesis of C2 on C3. Reversal of the normal lordotic curvature of the cervical spine is seen centered at the C3 level. Vertebral body heights are well-maintained. The craniocervical junction is well-maintained. Moderate degenerative changes are seen in the cervical spine. Soft tissues of the neck are unremarkable. The included lung apices are clear. IMPRESSION: 1. No hemorrhage or focal intra-axial mass. No CT evidence of large acute territorial ischemia. 2. No acute fracture or dislocation in the cervical spine. 3. No acute facial fractures. 4. Generalized parenchymal volume loss with chronic microvascular disease. 5. Reversal of the normal lordotic curvature of the cervical spine centered at C3 with grade 1 anterolisthesis of C2 on C3. Dictated by: Dictated on workstation # [id number]
[2020-10-14 17:31] VITALS: BP 103/97
== END 2020-10-14 17:31 | disposition home or self-care (01) ==
LOC: EDUNIT# 15:44 → ER 15:47
DX: S00.33XA Contusion of nose, initial encounter (principal); S00.81XA Abrasion of other part of head, initial encounter; R40.2410 Glasgow coma scale score 13-15, unspecified time; Z79.82 Long term (current) use of aspirin; W19.XXXA Unspecified fall, initial encounter
CPT/HCPCS: 70450; 70486; 72125

== ENCOUNTER 2020-10-21 00:30 | Emergency (ER) | payer MEDICARE ==
[~2020-10-21] VITALS: Ht 167.7 cm; Wt 72.5 kg
[~2020-10-21 00:30] MED LIST changes: -LISI-556 PO; +LISI-729 PO
[2020-10-21] MEDS ORDERED: fentaNYL INJECTION 100 MCG/2 ML AMP IVP ONE ×2 (02:15→07:45)
[2020-10-21 02:21] LABS: BASOPHILS # (AUTO) 0.1 10^3/uL (0.0-0.1); BASOPHILS % (AUTO) 0 % (0-10); EOSINOPHILS % (AUTO) 0 % (0-10); HEMATOCRIT 39 % (40-54); HEMOGLOBIN 13.2 g/dL (13.3-17.7); LYMPHOCYTES # (AUTO) 0.5 10^3/uL (1.0-4.0); LYMPHOCYTES % (AUTO) 3 % (12-44); MEAN CORPUSCULAR HEMOGLOBIN 35 pg (25-34); MEAN CORPUSCULAR HGB CONC 34 g/dL (32-36); MEAN CORPUSCULAR VOLUME 105 fL (80-99); MEAN PLATELET VOLUME 10.2 fL (9.0-12.2); MONOCYTES % (AUTO) 6 % (0-12); NEUTROPHILS # (AUTO) 13.4 10^3/uL (1.8-7.8); NEUTROPHILS % (AUTO) 89 % (42-75); PLATELET COUNT 329 10^3/uL (130-400)
[2020-10-21 02:39] LABS: ALBUMIN 4.1 GM/DL (3.2-4.5); CHLORIDE 90 MMOL/L (98-107); POTASSIUM 3.3 MMOL/L (3.6-5.0); SODIUM 131 MMOL/L (135-145)
[2020-10-21 02:40] LABS: CALCIUM 8.4 MG/DL (8.5-10.1)
[2020-10-21 02:41] LABS: GLUCOSE 161 MG/DL (70-105)
[2020-10-21 02:42] LABS: TOTAL PROTEIN 8.6 GM/DL (6.4-8.2)
[2020-10-21 02:43] LABS: BILIRUBIN,TOTAL 2.9 MG/DL (0.1-1.0); CARBON DIOXIDE 18 MMOL/L (21-32)
[2020-10-21 02:44] LABS: BAND NEUTROPHILS 1 %; LYMPHOCYTES % (MANUAL) 2 %; MONOCYTES % (MANUAL) 4 %; NEUTROPHILS % (MANUAL) 93 %; RBC MORPH NORMAL
[2020-10-21 02:45] LABS: ALKALINE PHOSPHATASE 127 U/L (40-136); CREATININE SERUM 1.08 MG/DL (0.60-1.30); GFR ESTIMATED > 60
[2020-10-21 02:46] LABS: BUN/CREATININE RATIO 8
[2020-10-21 02:48] LABS: ALANINE AMINOTRANSFERASE 76 U/L (0-55)
[2020-10-21 02:50] LABS: ERYTHROCYTE SEDIMENTATION RATE 54 MM/HR (0-30)
[2020-10-21] MEDS ORDERED: morphine INJ 10 MG/ML 1ML (SYR OR VIAL) IVP STA ×2 (03:10→04:35)
[2020-10-21] MEDS ORDERED: cefTRIAXone FOR IV USE 1,000 MG in WATER (STERILE) FOR INJECTION 10 ML IV ONE (03:15)
[2020-10-21] MEDS ORDERED: LORazepam INJ 2 MG/ML (ATIVAN) VIAL IVP ONE (03:15)
--- NOTE | 2020-10-21 03:44 | ED Upper Extremity ---
General Chief Complaint: Upper Extremity Stated Complaint: POSS BROKEN RT WRIST Nursing Triage Note: right hand swelling x3 days, no known injury worse since 1800 10/20/20 Nursing Sepsis Screen: No Definite Risk Source: patient Exam Limitations: no limitations (VIRGIE JIMÉNEZ MD) History of Present Illness Date Seen by Provider: Oct 21, 2020 Time Seen by Provider: 00:55 Initial Comments This 65-year-old gentleman presents to the emergency room with acute onset of right hand pain, swelling, erythema, and ecchymosis that started within the past 24 hours. He does not recall injuring his hand but does admit to daily drinking alcohol. He admits he may have injured it without recognizing it or remembering it due to alcohol use. He retains sensation and capillary refill in his fi ngers. Range of motion throughout the hand and wrist is significantly reduced. He has pain into the wrist and extending up the distal forearm. He is afebrile. He reports having a history of gout in his hand once previously but states that was more localized to the joint. He denies use of any anticoagulants. (VIRGIE JIMÉNEZ MD) Allergies and Home Medications Allergies Coded Allergies: No Known Drug Allergies (Unverified , 02/11/12) Home Medications Aspirin 325 Mg Tablet.dr, 325 MG PO DAILY Prescribed by: VIOLETA TURK on 05/25/18 1300 Atorvastatin Calcium 40 Mg Tablet, 40 MG PO DAILY Prescribed by: Sukhjinder MUJICA on 05/30/18 1111 Colchicine 0.6 Mg Tablet, 0.6 MG PO BID 1 tablet 3 times a day on the first day of flare and then 2 times a day until symptoms resolve. Prescribed by: JACQUIE MERINO on 10/21/20 1020 Hydrocodone/Acetaminophen 1 Each Tablet, 1 TAB PO Q6H PRN for PAIN-MODERATE (5- 7) Prescribed by: JACQUIE MERINO on 10/21/20 1021 Lisinopril 5 Mg Tablet, 5 MG PO DAILY Prescribed by: Sukhjinder MUJICA on 05/30/18 1113 Methylprednisolone 4 Mg Tab.ds.pk, 4 MG PO UD PER DOSE PACK INSTRUCTIONS Prescribed by: JACQUIE MERINO on 10/21/20 1020 Metoprolol Tartrate 25 Mg Tablet, 25 MG PO BID Prescribed by: Sukhjinder MUJICA on 05/30/18 1112 Milk Thistle Seed Extract 140 Mg Capsule, 140 MG PO DAILY PRN for NEEDED, (Reported) Vit B2/Niacin/B-6/B-12/D-Panth 59 Ml Liquid, 1 TBS SL DAILY PRN for VITAMINS, (Reported) Patient Home Medication List Home Medication List Reviewed: Yes (VIRGIE JIMÉNEZ MD) Home Medication List Reviewed: Yes (JACQUIE MERINO) Review of Systems Constitutional: no symptoms reported EENTM: no symptoms reported Respiratory: no symptoms reported Cardiovascular: no symptoms reported Gastrointestinal: no symptoms reported Genitourinary: no symptoms reported Musculoskeletal: see HPI Skin: see HPI Psychiatric/Neurological: No Symptoms Reported (VIRGIE JIMÉNEZ MD) Past Yknwzso-Jrzdoe-Oihbbf Hx Past Med/Social Hx: Reviewed Nursing Past Med/Soc Hx (VIRGIE JIMÉNEZ MD) Patient Social History Alcohol Use: Regular Use Number of Drinks Today: 1 Alcohol Beverage of Choice: Vodka Type Used: Smokeless Tobacco 2nd Hand Smoke Exposure: No Recent Infectious Disease Expo: No Recent Hopitalizations: No (VIRGIE JIMÉNEZ MD) Immunizations Up To Date Tetanus Booster (TDap): Less than 5yrs (VIRGIE JIMÉNEZ MD) Past Medical History Surgeries: Yes (BROKEN FEMUR 08/1992, REPEATED 05/1993, CARPAL TUNNEL RIGHT X2) Abdominal, Cardiac, Orthopedic, Valve Replacement Respiratory: No Cardiac: Yes Coronary Artery Disease, High Cholesterol, Valvular Heart Disease (Aortic valve stenosis) Neurological: No Genitourinary: No Gastrointestinal: No Musculoskeletal: Yes (Carpal tunnel syndrome) Fractures Endocrine: No HEENT: No Cancer: No Psychosocial: Yes Anxiety Integumentary: No Blood Disorders: No (VIRGIE JIMÉNEZ MD) Family Medical History No Pertinent Family Hx (VIRGIE JIMÉNEZ MD) Physical Exam Vital Signs Vital Signs - First Documented 10/21/20 00:37 Temp 36.2 Pulse 89 Resp 18 B/P (MAP) 139/96 (110) Pulse Ox 98 O2 Delivery Room Air (JACQUIE MERINO) Vital Signs Capillary Refill : Less Than 3 Seconds (VIRGIE JIMÉNEZ MD) Height, Weight, BMI Height: 5'6.00" Weight: 163lbs. 0.0oz. 73.368361cj; 25.00 BMI Method:Stated General Appearance: WD/WN, mild distress HEENT: normal ENT inspection Neck: normal inspection Cardiovascular: regular rate, rhythm, no edema, no murmur Respiratory: lungs clear, normal breath sounds, no respiratory distress Gastrointestinal: non tender, soft Shoulder: normal inspection, non-tender Elbow/Forearm: normal inspection, non-tender, no evidence of injury, normal ROM Wrist: Yes bone tenderness, Yes limited ROM, Yes pain, Yes swelling Hand: Right, bone tenderness, ecchymosis, limited ROM, stiffness, swelling Neurologic/Tendon: responds to pain, no evidence tendon injury Neurologic/Psychiatric: social director II-XII nml as tested, no motor/sensory deficits, alert, normal mood/affect, oriented x 3, other (Tremor) Skin: warm/dry, ecchymosis, other (Warmth and erythema of the right hand) (VIRGIE JIMÉNEZ MD) Procedures/Interventions Progress Joint aspiration right carpal/wrist. Sterile technique was observed in all procedure. Skin was thoroughly cleaned and scrubbed using chlorhexidine and sterile saline, flushed and then soaked for 2 minutes with iodine. Was allowed to dry and then recleaned with chlorhexidine and sterile saline after being draped in the usual sterile fashion. The skin was prepped with a wheal of 1 cc of 1% lidocaine superficially. The landmarks were ascertained and in the usual dorsal approach we placed a 27- gauge 1-1/2 inch needle into the carpal joint aspirating 2.5 cc of thick, turbid brownish-yellow aspirate. Needle entered the skin lateral to the right tendon of the extensor carpi radialis brevis and tendon of the extensor pollicis longus muscles respectively. Skin was recleaned using chlorhexidine, dried using sterile gauze and a sterile bandage was applied. The patient was not bleeding and tolerated the procedure very well. (JACQUIE MERINO) Progress/Results/Core Measures Results/Orders Lab Results Laboratory Tests Test 10/21/20 02:00 10/21/20 02:05 10/21/20 04:17 10/21/20 07:35 Range/Units White Blood Count 15.0 H 4.3-11.0 10^3/uL Red Blood Count 3.74 L 4.30-5.52 10^6/uL Hemoglobin 13.2 L 13.3-17.7 g/dL Hematocrit 39 L 40-54 % Mean Corpuscular Volume 105 H 80-99 fL Mean Corpuscular Hemoglobin 35 H 25-34 pg Mean Corpuscular Hemoglobin Concent 34 32-36 g/dL Red Cell Distribution Width 13.1 10.0-14.5 % Platelet Count 329 130-400 10^3/uL Mean Platelet Volume 10.2 9.0-12.2 fL Immature Granulocyte % (Auto) 1 % Neutrophils (%) (Auto) 89 H 42-75 % Lymphocytes (%) (Auto) 3 L 12-44 % Monocytes (%) (Auto) 6 0-12 % Eosinophils (%) (Auto) 0 0-10 % Basophils (%) (Auto) 0 0-10 % Neutrophils # (Auto) 13.4 H 1.8-7.8 10^3/uL Lymphocytes # (Auto) 0.5 L 1.0-4.0 10^3/uL Monocytes # (Auto) 1.0 0.0-1.0 10^3/uL Eosinophils # (Auto) 0.0 0.0-0.3 10^3/uL Basophils # (Auto) 0.1 0.0-0.1 10^3/uL Immature Granulocyte # (Auto) 0.1 0.0-0.1 10^3/uL Neutrophils % (Manual) 93 % Lymphocytes % (Manual) 2 % Monocytes % (Manual) 4 % Band Neutrophils 1 % Blood Morphology Comment NORMAL Erythrocyte Sedimentation Rate 54 H 0-30 MM/HR Prothrombin Time 13.1 12.2-14.7 SEC INR Comment 1.0 0.8-1.4 Sodium Level 131 L 135-145 MMOL/L Potassium Level 3.3 L 3.6-5.0 MMOL/L Chloride Level 90 L 98-107 MMOL/L Carbon Dioxide Level 18 L 21-32 MMOL/L Anion Gap 23 H 5-14 MMOL/L Blood Urea Nitrogen 9 7-18 MG/DL Creatinine 1.08 0.60-1.30 MG/DL Estimat Glomerular Filtration Rate > 60 BUN/Creatinine Ratio 8 Glucose Level 161 H 70-105 MG/DL Uric Acid 7.0 2.6-7.2 MG/DL Calcium Level 8.4 L 8.5-10.1 MG/DL Corrected Calcium 8.3 L 8.5-10.1 MG/DL Total Bilirubin 2.9 H 0.1-1.0 MG/DL Aspartate Amino Transf (AST/SGOT) 99 H 5-34 U/L Alanine Aminotransferase (ALT/SGPT) 76 H 0-55 U/L Alkaline Phosphatase 127 40-136 U/L C-Reactive Protein High Sensitivity 9.26 H 0.00-0.50 MG/DL Total Protein 8.6 H 6.4-8.2 GM/DL Albumin 4.1 3.2-4.5 GM/DL Lactic Acid Level 2.63 *H 1.42 0.50-2.00 MMOL/L Body Fluid Source SYNOVIAL Body Fluid Color DRK YELLOW Body Fluid Appearance MKD CLDY Body Fluid WBC 491312 /uL Body Fluid RBC 04561 /uL Body Fluid Polynuclear WBCs 91 % Body Fluid Mononuclear WBCs % Body Fluid Lymphocytes 9 % Body Fluid Other Cells % Body Fluid Crystals SEE FOOTNOTE (JACQUIE MERINO) My Orders Orders - JACQUIE MERINO Fentanyl Injection (Sublimaze Injection (10/21/20 07:45) Body Fluid Cell Count (10/21/20 07:36) Crystals,Body Fluid (10/21/20 07:36) Body Fluid Culture (10/21/20 07:36) Lactated Ringers (Lr 1000 Ml Iv Solution (10/21/20 07:45) Methylprednisolone Sod Succ (Solu-Medrol (10/21/20 10:15) Colchicine Tablet (Colcrys Tablet) (10/21/20 10:15) (JACQUIE MERINO) Medications Given in ED Current Medications Medications Dose Ordered Sig/Vibha Route Start Time Stop Time Status Last Admin Dose Admin Ceftriaxone Sodium 1000 mg/ Sterile Water 10 ml @ 200 mls/hr ONCE ONCE IV 10/21/20 03:15 10/21/20 03:17 DC 10/21/20 03:29 200 MLS/HR Fentanyl Citrate 50 mcg ONCE ONCE IVP 10/21/20 07:45 10/21/20 07:46 DC 10/21/20 07:50 50 MCG Fentanyl Citrate 75 mcg ONCE ONCE IVP 10/21/20 02:15 10/21/20 02:16 DC 10/21/20 02:14 75 MCG Lactated Ringer's 1,000 ml @ 0 mls/hr Q0M ONCE IV 10/21/20 07:45 10/21/20 07:46 DC 10/21/20 07:50 1,000 MLS/HR Lorazepam 1 mg ONCE ONCE IVP 10/21/20 03:15 10/21/20 03:16 DC 10/21/20 03:30 1 MG (JACQUIE MERINO) Vital Signs/I&O 10/21/20 10/21/20 10/21/20 00:37 02:14 06:30 Temp 36.2 36.2 Pulse 89 107 Resp 18 18 B/P (MAP) 139/96 (110) 150/97 (114) Pulse Ox 98 96 O2 Delivery Room Air Room Air (JACQUIE MERINO) Blood Pressure Mean: 110 Progress Progress Note #1: Time: 04:51 Progress Note Initial plain films showed no fractures or dislocations. Labs were obtained to evaluate for gout and infection. WBC, CRP, and ESR were all elevated. Uric aci d was normal. I discussed the case with Dr. Claros at [facility]. He is not available in the morning to address this patient's infection. He recommended checking with [place]. I then spoke with Dr. Jones at [facility] in [place]. He recommended advanced imaging with CT or MRI. I am to call him back if there is evidence of abscess. If there is only cellulitis, he recommends admission locally with IV antibiotic therapy until improvement. CT of the hand and forearm was obtained. Unfortunately, because of the patient's inability to completely straighten his arm, we did not get good views of the hand. Wrist and forearm were obtained. There appears to be moderate panarthritis of the carpal bones. And effusion and inflammation of the carpal joint likely representing synovitis or infectious etiology. Aspiration is recommended if there is suspicion of infectious process. Patient was given Ativan for tremors related to alcohol withdrawal. Progress Note #2: Time: 06:44 Progress Note More complete imaging of the hand was obtained with CT. The read was similar, suggesting inflammatory process of the joint capsule, possibly infectious. I discussed the case again with Dr. Jones who requires aspiration and assessment of synovial fluid for crystals before determining if transfer is appropriate. Case was discussed with Dr. Merino who will be assuming ER care of this patient. Patient is stable regarding withdrawal symptoms and pain at this time. He reports his last alcoholic beverage was on October 19. Progress Note #3: Progress Note 10/23/20, 10:41 -I followed up with patient by phone. He reports that the colchicine and steroids have him proved his condition tremendously. Pain and swelling is down. He still has some stiffness but has resumed function of his hand and wrist. (VIRGIE JIMÉNEZ MD) Progress Note #1: Progress Note Assumed care of the patient after shift change and agree with the above documented history and physical exam. Plan is to aspirate his wrist joint using a standard, sterile dorsal approach lateral to the extensor carpi radialis brevis and extensor pollicis longus. Plan to put a small wheal of lidocaine in the skin superficial to the joint. We have continue to enforce his n.p.o. status. We will give him a liter of lactated ringer since he is feeling thirsty. He is not tachycardic. He does have mildly dry oral mucosa. 50 mcg of fentanyl for discomfort were ordered. Cell culture, cell count, crystal examination of the synovial fluid was ordered. Based on the results of this we will contact the surgeon if it does appear to be bacterial which is highly suspicious. Progress Note #2: Time: 10:08 Progress Note The aspirate is consistent with a gout and pseudogout inflammatory arthropathy. There is not any bacteria identified on initial cell count. Cultures have been obtained. Were going to discontinue antibiotics and give him a dose of Solu- Medrol, colchicine p.o. and encourage Tylenol. Patient has a history of coronary artery disease so he is not a candidate for NSAIDs. Will encourage follow-up within the next [address] Hernandes to examine starting allopurinol. Patient states he did have 1 flare of this and his second proximal MCP years ago but it spontaneously resolved over a couple days. We did extensive counseling on prevention and treatment of gout flares. We encouraged him to decrease his alcohol intake as well as dietary changes. We will provide him with a handout. Return precautions were given. We did call and advise [facility] that we were no longer going to need a transfer. (JACQUIE MERINO) Initial ECG Impression: 2nd Degree AV Block (VIRGIE JIMÉNEZ MD) Diagnostic Imaging Diagonstic Imaging: Xray Plain Films/CT/US/NM/MRI: hand (and wrist) Comments X-rays of the right hand and wrist were reviewed by me. Due to degenerative changes and questionable widening of the scapholunate space, interpretation by stat rad was sought. No fractures or dislocations were identified. Degenerative changes were noted. Reviewed: Reviewed by Me Diagonstic Imaging: CT Plain Films/CT/US/NM/MRI: forearm, hand Comments CT of the forearm and incomplete CT of the right hand were reviewed by me and stat rad report reviewed. There is significant effusion and inflammation of the carpal joint capsule. This likely represents synovitis or infectious or inflammatory etiology if suspicion for infectious process aspiration is recom mended. 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 Diagonstic Imaging: CT Plain Films/CT/US/NM/MRI: other (Repeat CT scan of the right hand with more complete view) Comments Repeat CT with more complete view demonstrates similar findings of joint capsule inflammation, possibly suggested infectious cause. No additional abscesses were identified. (VIRGIE JIMÉNEZ MD) Comments [facility] [place], [place] NAME: LAURA NOYOLA [facility] REC#: [id number] PT STATUS: REG ER : 1955 PHYSICIAN: VIRGIE JIMÉNEZ MD ADMIT DATE: 10/21/20/ER Draft Date of Exam:10/21/20 WRIST, RIGHT, 3 VIEWS OR MORE HISTORY: Right wrist pain and swelling TECHNIQUE: 3 views of the right wrist COMPARISON: None FINDINGS: There are moderate degenerative changes at the base of the right thumb and in the carpus. The scapholunate ligament is upper normal in width. There is chondrocalcinosis. The ulnar styloid process is flattened, may be from old trauma or possibly erosive change although the distal ulna is well-corticated and smooth. No acute fracture is seen. Alignment appears normal. No definite cortical erosions are seen. There is moderate soft tissue swelling about the right wrist. No radiopaque foreign body or soft tissue gas is seen. IMPRESSION: 1. Chronic findings in the wrist with no acute osseous abnormality seen. 2. Soft tissue swelling about the right wrist. Dictated on workstation # [id number] Dict: 10/21/20 0656 Trans: 10/21/20 07 ELLYN [id number] Interpreted by: MISSAEL RODRIGUEZ MD Electronically signed by: [facility] [place], [place] NAME: LAURA NOYOLA [facility] REC#: [id number] PT STATUS: REG ER : 1955 PHYSICIAN: VIRGIE JIMÉNEZ MD ADMIT DATE: 10/21/20/ER Draft Date of Exam:10/21/20 HAND, RIGHT, 3 VIEWS HISTORY: Right hand pain and swelling COMPARISON: 11/01/2010 TECHNIQUE: 3 views of the right hand FINDINGS: The scapholunate interval is upper normal in width. There are moderate degenerative changes at the base of the thumb and in the carpus. Advanced degenerative changes are seen in the interphalangeal joints, particularly the distal interphalangeal joints. There is chondrocalcinosis. A hook osteophyte is seen at the 3rd metacarpal head, may be due to CPPD arthropathy. No cortical erosion is seen. There is diffuse moderate soft tissue swelling about the right hand. No soft tissue gas or radiopaque foreign body seen. IMPRESSION: 1. Chronic findings in the right hand with no acute osseous abnormality seen. 2. Moderate diffuse soft tissue swelling about the right hand. Dictated on workstation # [id number] Dict: 10/21/20 0654 Trans: 10/21/20 07 ELLYN [id number] Interpreted by: MISSAEL RODRIGUEZ MD Electronically signed by: Marisela [facility] [place], [place] NAME: LAURA NOYOLA [facility] REC#: [id number] PT STATUS: REG ER : 1955 PHYSICIAN: VIRGIE JIMÉNEZ MD ADMIT DATE: 10/21/20/ER Signed Date of Exam:10/21/20 CT EXTREMITY UPPER RIGHT W PROCEDURE: CT right upper extremity with contrast. TECHNIQUE: Axial images were obtained through the right upper extremity after intravenous contrast and reformatted into coronal and sagittal oblique planes. Auto Exposure Controls were utilized during the CT exam to meet ALARA standards for radiation dose reduction. INDICATION: Swelling of the right hand COMPARISON: Radiographs from the same day FINDINGS: Evaluation is performed from the elbow down to the wrist. No acute fracture is seen in the right forearm. The wrist and carpus are dictated separately. No cortical erosion or periosteal reaction is seen to suggest osteomyelitis in the forearm. There are degenerative changes in the elbow. There is no elbow joint effusion. There is moderate fluid in the 6th extensor compartment tendon sheath. No focal muscular atrophy is seen. No soft tissue fluid collections are seen in the forearm. IMPRESSION: 1. No CT evidence of osteomyelitis in the right forearm. No rim-enhancing soft tissue fluid collections in the forearm. 2. Tenosynovitis of the 6th extensor compartment, may be infectious or inflammatory. 3. Additional findings at the wrist and hand, please refer to separately dictated report. Dictated by: Dictated on workstation # [id number] Dict: 10/21/20701 Trans: 10/21/20922 [facility] [id number] Interpreted by: MISSAEL RODRIGUEZ MD Electronically signed by: MISSAEL RODRIGUEZ MD 10/21/20922 Reviewed: Reviewed Night [facility] Study, Reviewed by Me Comments [facility] [place] [place] NAME: LAURA NOYOLA [facility] REC#: [id number] PT STATUS: REG ER : 1955 PHYSICIAN: VIRGIE JIMÉNEZ MD ADMIT DATE: 10/21/20/ER Signed Date of Exam:10/21/20 CT EXTREMITY UPPER RIGHT W PROCEDURE: CT right upper extremity with contrast. TECHNIQUE: Axial images were obtained through the right upper extremity after intravenous contrast and reformatted into coronal and sagittal oblique planes. Auto Exposure Controls were utilized during the CT exam to meet ALARA standards for radiation dose reduction. INDICATION: Swelling and cellulitis of the right hand. Evaluate for abscess. COMPARISON: Radiographs from the same day. FINDINGS: There is motion artifact during the exam resulting in suboptimal evaluation, particularly at the wrist and distal forearm. No acute fracture is seen in the right wrist. There are phgmxoei-qu-ajosky degenerative changes in the carpus. There is dorsal tilt of the lunate, suggestive of dorsal intercalated segmental instability. There is chondrocalcinosis in the carpus. No cortical erosions are seen. There is complete joint space loss in the second and third MCP joints. The ulnar styloid process appears absent, but the distal ulna is well-corticated. There is ulnar deviation at the second and third MCP joints. There is severe degenerative change in the interphalangeal joints. There is marked soft tissue swelling about the wrist. There is fluid about the carpus with surrounding enhancement, appears to be a carpal joint effusion. There appears to be some fluid at the third MCP joint, with synovitis. There is a mildly rim-enhancing irregular fluid collection located within the first dorsal interosseous muscle measuring about 1.4 x 0.7 cm on axial imaging and 1.4 cm craniocaudal. IMPRESSION: 1. Effusion and synovitis of the right carpus. This is nonspecific, but given concern for infection, aspiration could be considered. 2. Joint effusion/synovitis at the third MCP joint. 3. Irregular small hypodense intramuscular region in the first dorsal interosseous muscle, could represent a small abscess. 4. Extensive chronic osseous findings in the right hand with no CT findings of osteomyelitis, although MRI is more sensitive. Dictated by: Dictated on workstation # [id number] Dict: 10/21/20820 Trans: 10/21/20922 [facility] [id number] Interpreted by: MISSAEL RODRIGUEZ MD Electronically signed by: MISSAEL RODRIGUEZ MD 10/21/20922 Reviewed: Reviewed Night [facility] Study, Reviewed by Me (JACQUIE MERINO) Departure Impression Primary Impression: Gout attack Qualified Codes: M10.9 - Gout, unspecified Additional Impression: Pseudogout of right wrist Disposition: 01 HOME, SELF-CARE Condition: Stable Departure-Patient Inst. Decision time for Depature: 10:11 (JACQUIE MERINO) Referrals: SHAMEKA HERNANDES MD (PCP/Family) Primary Care Physician Patient Instructions: Gout (DC), Calcium Pyrophosphate Deposition Disease, Low Purine Diet Add. Discharge Instructions: Unfortunately you have the pleasure of having gout and pseudogout which are 2 very similar diseases that cause crystals to form in your joint spaces which can be exceedingly painful and cause a lot of swelling. These will flare when exposed to risk factors such as cold weather, dehydration, alcohol and you should do your best to avoid these stimuli. Review the handout for further instructions on dietary changes. To get this flare under control we have given you some steroids and I would expect you to pick up attendant the Medrol Dosepak from the pharmacy and take it to completion. Steroids can sometimes give you an extra feeling of energy feeling wired or even difficulty sleeping at night and this is temporary. We have started you on colchicine to get this under control as well. Colchicine should be taken twice a day until the flare resolves. You should take colchicine a total of 3 times on the first day and then twice daily from then on until you are no longer having swelling and pain in your wrist. You should avoid NSAIDs such as ibuprofen, Aleve, naproxen as these are liable to cause problems with your heart disease. Aspirin daily is okay. Tylenol 650 mg every 6 hours as necessary for pain. Heat can be helpful for resolution of symptoms. Topical creams such as icy hot, Biofreeze, capsaicin oil etc. can be helpful for pain. If you have severe, intractable pain despite this then you may use 1 tablet of hydrocodone every 6 hours as necessary for breakthrough pain. Hydrocodone will cause constipation as well as can contribute to drowsiness and should not be mixed with alcohol. Colace or MiraLAX can be helpful for opiate related constipation. Return to the ER promptly if you have redness and swelling going up your arm above the elbow or you experience fever or new worrisome symptoms. Plan to follow-up within the next 1 to 2 weeks with your primary care provider for reexamination and to discuss other medical therapies that may help prevent gout flares as well as managing your risk factors such as alcohol intake and diet. All discharge instructions reviewed with patient and/or family. Voiced understanding. Scripts Hydrocodone/Acetaminophen (Hydrocodone-Acetamin 5-325 mg) 1 Each Tablet 1 TAB PO Q6H PRN for PAIN-MODERATE (5-7), #12 TAB 0 Refills Prov: JACQUIE MERINO 10/21/20 Methylprednisolone (Methylprednisolone Dose Pack) 4 Mg Tab.ds.pk 4 MG PO UD for 6 Days, #21 PKG 0 Refills PER DOSE PACK INSTRUCTIONS Prov: JACQUIE MERINO 10/21/20 Colchicine (Colchicine) 0.6 Mg Tablet 0.6 MG PO BID for 7 Days, #15 TAB 0 Refills 1 tablet 3 times a day on the first day of flare and then 2 times a day until symptoms resolve. Prov: JACQUIE MERINO 10/21/20 Copy Copies To 1: SHAMEKA HERNANDES MD, JOSHUA T MD Oct 21, 2020 03:44 JACQUIE MERINO Oct 21, 2020 07:23
[2020-10-21 04:10] LABS: PROTHROMBIN TIME PATIENT 13.1 SEC (12.2-14.7)
--- NOTE | 2020-10-21 07:00 | Diagnostic Imaging Report ---
HISTORY: Right hand pain and swelling COMPARISON: 11/01/2010 TECHNIQUE: 3 views of the right hand FINDINGS: The scapholunate interval is upper normal in width. There are moderate degenerative changes at the base of the thumb and in the carpus. Advanced degenerative changes are seen in the interphalangeal joints, particularly the distal interphalangeal joints. There is chondrocalcinosis. A hook osteophyte is seen at the 3rd metacarpal head, may be due to CPPD arthropathy. No cortical erosion is seen. There is diffuse moderate soft tissue swelling about the right hand. No soft tissue gas or radiopaque foreign body seen. IMPRESSION: 1. Chronic findings in the right hand with no acute osseous abnormality seen. 2. Moderate diffuse soft tissue swelling about the right hand. Dictated by: Dictated on workstation # [id number]
--- NOTE | 2020-10-21 07:01 | Diagnostic Imaging Report ---
HISTORY: Right wrist pain and swelling TECHNIQUE: 3 views of the right wrist COMPARISON: None FINDINGS: There are moderate degenerative changes at the base of the right thumb and in the carpus. The scapholunate ligament is upper normal in width. There is chondrocalcinosis. The ulnar styloid process is flattened, may be from old trauma or possibly erosive change although the distal ulna is well-corticated and smooth. No acute fracture is seen. Alignment appears normal. No definite cortical erosions are seen. There is moderate soft tissue swelling about the right wrist. No radiopaque foreign body or soft tissue gas is seen. IMPRESSION: 1. Chronic findings in the wrist with no acute osseous abnormality seen. 2. Soft tissue swelling about the right wrist. Dictated by: Dictated on workstation # [id number]
[2020-10-21] MEDS ORDERED: LACTATED RINGERS 1,000 ML IV ONE (07:45)
--- NOTE | 2020-10-21 08:42 | Diagnostic Imaging Report ---
PROCEDURE: CT right upper extremity with contrast. TECHNIQUE: Axial images were obtained through the right upper extremity after intravenous contrast and reformatted into coronal and sagittal oblique planes. Auto Exposure Controls were utilized during the CT exam to meet ALARA standards for radiation dose reduction. INDICATION: Swelling and cellulitis of the right hand. Evaluate for abscess. COMPARISON: Radiographs from the same day. FINDINGS: There is motion artifact during the exam resulting in suboptimal evaluation, particularly at the wrist and distal forearm. No acute fracture is seen in the right wrist. There are dtvegqum-wl-exhuhf degenerative changes in the carpus. There is dorsal tilt of the lunate, suggestive of dorsal intercalated segmental instability. There is chondrocalcinosis in the carpus. No cortical erosions are seen. There is complete joint space loss in the second and third MCP joints. The ulnar styloid process appears absent, but the distal ulna is well-corticated. There is ulnar deviation at the second and third MCP joints. There is severe degenerative change in the interphalangeal joints. There is marked soft tissue swelling about the wrist. There is fluid about the carpus with surrounding enhancement, appears to be a carpal joint effusion. There appears to be some fluid at the third MCP joint, with synovitis. There is a mildly rim-enhancing irregular fluid collection located within the first dorsal interosseous muscle measuring about 1.4 x 0.7 cm on axial imaging and 1.4 cm craniocaudal. IMPRESSION: 1. Effusion and synovitis of the right carpus. This is nonspecific, but given concern for infection, aspiration could be considered. 2. Joint effusion/synovitis at the third MCP joint. 3. Irregular small hypodense intramuscular region in the first dorsal interosseous muscle, could represent a small abscess. 4. Extensive chronic osseous findings in the right hand with no CT findings of osteomyelitis, although MRI is more sensitive. Dictated by: Dictated on workstation # [id number]
--- NOTE | 2020-10-21 08:46 | Diagnostic Imaging Report ---
PROCEDURE: CT right upper extremity with contrast. TECHNIQUE: Axial images were obtained through the right upper extremity after intravenous contrast and reformatted into coronal and sagittal oblique planes. Auto Exposure Controls were utilized during the CT exam to meet ALARA standards for radiation dose reduction. INDICATION: Swelling of the right hand COMPARISON: Radiographs from the same day FINDINGS: Evaluation is performed from the elbow down to the wrist. No acute fracture is seen in the right forearm. The wrist and carpus are dictated separately. No cortical erosion or periosteal reaction is seen to suggest osteomyelitis in the forearm. There are degenerative changes in the elbow. There is no elbow joint effusion. There is moderate fluid in the 6th extensor compartment tendon sheath. No focal muscular atrophy is seen. No soft tissue fluid collections are seen in the forearm. IMPRESSION: 1. No CT evidence of osteomyelitis in the right forearm. No rim-enhancing soft tissue fluid collections in the forearm. 2. Tenosynovitis of the 6th extensor compartment, may be infectious or inflammatory. 3. Additional findings at the wrist and hand, please refer to separately dictated report. Dictated by: Dictated on workstation # [id number]
[2020-10-21 09:05] LABS: BODY FLUID SOURCE SYNOVIAL
[2020-10-21 09:06] LABS: BODY FLUID APPEARENCE MKD CLDY; BODY FLUID COLOR DRK YELLOW; BODY FLUID RBC COUNT 38000 /uL; BODY FLUID WBC TOTAL COUNT 164600 /uL
[2020-10-21 09:07] LABS: LYMPHOCYTES,BODY FLUID 9 %
[2020-10-21] MEDS ORDERED: methylPREDNISolone 125 MG (Solu-MEDROL) VIAL IVP ONE (10:15)
[2020-10-21] MEDS ORDERED: COLCHICINE 0.6 MG (COLCRYS) TABLET PO ONE (10:15)
[2020-10-21] MEDS ORDERED: ACHD5005 PO (10:20)
[2020-10-21] MEDS ORDERED: METH4TAB10 PO (10:20)
[2020-10-21] MEDS ORDERED: COLC0.6T59 PO (10:20)
[2020-10-21 10:26] VITALS: BP 132/105
== END 2020-10-21 10:26 | disposition home or self-care (01) ==
LOC: EDUNIT# 00:30 → ER 00:33
DX: M10.9 Gout, unspecified (principal); M11.231 Other chondrocalcinosis, right wrist; E78.00 Pure hypercholesterolemia, unspecified; Z79.82 Long term (current) use of aspirin; Z79.52 Long term (current) use of systemic steroids
CPT/HCPCS: 36415; 73110; 73130; 73201; 80053; 83605; 84550; 85007; 85027; 85610; 85652; 86141; 87040; 87070; 87205; 89051; 89060; 96361; 96374; 96375; 96376

== ENCOUNTER → 2021-09-03 | Day surgery (SDC) | payer MEDICARE ==
[~2021-09-03] VITALS: Ht 167.7 cm; Wt 80.0 kg
[~2021-09-03] MED LIST changes: +ACHD5005 PO; +COLC0.6T59 PO; -LISI-729 PO; +LISI5TAB20 PO; +METH4TAB10 PO; +MIDAZOLAM 2 MG/2 ML (VERSED) VIAL ONE; +PROPOFOL INJECTION 50 ML IV ONE
--- NOTE | 2021-09-03 10:15 | ED GI ---
General Chief Complaint: Foreign Body Stated Complaint: FB IN RECTUM Nursing Triage Note: AMB TO ED REPORTS THAT HE HAS A TOOTH BRUSH IN RECTUM Source of Information: Patient History of Present Illness Date Seen by Provider: Sep 03, 2021 Time Seen by Provider: 09:40 Initial Comments PT ARRIVES VIA POV FROM HOME PT STATES HE HAS A TOOTBRUSH STUCK IN HIS RECTUM STATES THE BRISTLE PART OF THE BRUSH IS BROKEN OFF STATES HE PUT IT IN THERE HIMSELF AROUND NOON YESTERDAY THEN STATES "I DIDN'T EVEN KNOW IT WAS IN THERE TIL TODAY" STATES HIS BUTT WAS HURTING TODAY--STATES HE HAS BEEN TRYING TO DIG IT OUT PT STATES HE HAS BEEN PASSING GAS BUT HAS NOT HAD A BM SINCE THIS OCCURRED NO NAUSEA/VOMITING NO ABDOMINAL PAIN NO FEVER NO URINARY SYMPTOMS DENIES HISTORY OF SIMILAR. PCP: DR. HERNANDES Allergies and Home Medications Allergies Coded Allergies: No Known Drug Allergies (Unverified , 02/11/12) Patient Home Medication List Home Medication List Reviewed: Yes Aspirin (Aspirin EC) 325 Mg Tablet.dr, 325 MG PO DAILY Prescribed by: VIOLETA TURK on 05/25/18 1300 Atorvastatin Calcium (Lipitor) 40 Mg Tablet, 40 MG PO DAILY Prescribed by: Sukhjinder MUJICA on 05/30/18 1111 Colchicine (Colchicine) 0.6 Mg Tablet, 0.6 MG PO BID Prescribed by: JACQUIE CHOUDHURY on 10/21/20 1020 Hydrocodone/Acetaminophen (Hydrocodone-Acetamin 5-325 mg) 1 Each Tablet, 1 TAB PO Q6H PRN for PAIN-MODERATE (5-7) Prescribed by: JACQUIE CHOUDHURY on 10/21/20 1021 Lisinopril (Lisinopril) 5 Mg Tablet, 5 MG PO DAILY Prescribed by: Sukhjinder MUJICA on 05/30/18 1113 Methylprednisolone (Methylprednisolone Dose Pack) 4 Mg Tab.ds.pk, 4 MG PO UD Prescribed by: JACQUIE CHOUDHURY on 10/21/20 1020 Metoprolol Tartrate (Metoprolol Tartrate) 25 Mg Tablet, 25 MG PO BID Prescribed by: Sukhjinder MUJICA on 05/30/18 1112 Milk Thistle Seed Extract (Milk Thistle) 140 Mg Capsule, 140 MG PO DAILY PRN for NEEDED, (Reported) Entered as Reported by: KENROY CLEANING on 05/24/181418 Vit B2/Niacin/B-6/B-12/D-Panth (B Complex Sublingual Liquid) 59 Ml Liquid, 1 TBS SL DAILY PRN for VITAMINS, (Reported) Entered as Reported by: KENROY CLEANING on 05/24/181418 Review of Systems Review of Systems Constitutional: no symptoms reported Respiratory: No Symptoms Reported Cardiovascular: No Symptoms Reported Gastrointestinal: See HPI Genitourinary: No Symptoms Reported Past Xrafvrc-Tlklga-Rmvhrh Hx Patient Social History Tobacco Use?: No Substance use?: No Alcohol Use?: Yes Alcohol Frequency: Daily Pt feels they are or have been: No Immunizations Up To Date Tetanus Booster (TDap): Less than 5yrs First/Initial COVID19 Vaccinat: MARCH COVID19 Vaccine 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: [employer] Past Medical History Surgery/Hospitalization HX: LEFT HIP ORIF Surgeries: Yes (BROKEN FEMUR 08/1992, REPEATED 05/1993, CARPAL TUNNEL RIGHT X2) Abdominal, Cardiac, CABG, Orthopedic, Valve Replacement Respiratory: No Cardiac: Yes (CABG) Coronary Artery Disease, High Cholesterol, Valvular Heart Disease Neurological: No Genitourinary: No Gastrointestinal: No Musculoskeletal: Yes (Carpal tunnel syndrome;LEFT HIP FX/ORIF-SURGERY X 2) Fractures Endocrine: No HEENT: No Cancer: No Psychosocial: Yes Anxiety Integumentary: No Blood Disorders: No Family Medical History No Pertinent Family Hx Physical Exam Vital Signs Vital Signs - First Documented 09/03/21 09:16 Pulse 120 Resp 18 B/P (MAP) 125/91 (102) Pulse Ox 98 Capillary Refill : Less Than 3 Seconds Height/Weight/BMI Height: 5'6.00" Weight: 163lbs. 0.0oz. [id number]; 28.00 BMI Method:Stated General Appearance: WD/WN, no apparent distress, other (+ ODOR OF ETOH, TALKS VERY LOUDLY; WALKS WITHOUT DIFFICULTY) Respiratory: normal breath sounds Cardiovascular: regular rate, rhythm, no murmur Gastrointestinal: non tender, soft Rectal: other (EXTERNAL EXAM WITH SMALL BRUISE AT 2:00, MILD INFLAMMATION TO PERIRECTAL AREA. NO GROSS BLEEDING, BUT PINK TINGE ON TISSUE AFTER EXAM. RECTAL EXAM IS WITHOUT PALPABLE MASS OR FOREIGN BODY. NO GROSS BLOOD OR DISCHARGE. ) Extremities: normal inspection Back: no CVA tenderness Progress/Results/Core Measures Results/Orders Lab Results Laboratory Tests Test 09/03/21 10:15 09/03/21 10:29 Range/Units White Blood Count 7.8 4.3-11.0 10^3/uL Red Blood Count 4.07 L 4.30-5.52 10^6/uL Hemoglobin 13.8 13.3-17.7 g/dL Hematocrit 40 40-54 % Mean Corpuscular Volume 98 80-99 fL Mean Corpuscular Hemoglobin 34 25-34 pg Mean Corpuscular Hemoglobin Concent 35 32-36 g/dL Red Cell Distribution Width 13.8 10.0-14.5 % Platelet Count 260 130-400 10^3/uL Mean Platelet Volume 10.4 9.0-12.2 fL Immature Granulocyte % (Auto) 0 % Neutrophils (%) (Auto) 58 42-75 % Lymphocytes (%) (Auto) 27 12-44 % Monocytes (%) (Auto) 11 0-12 % Eosinophils (%) (Auto) 1 0-10 % Basophils (%) (Auto) 2 0-10 % Neutrophils # (Auto) 4.6 1.8-7.8 10^3/uL Lymphocytes # (Auto) 2.1 1.0-4.0 10^3/uL Monocytes # (Auto) 0.9 0.0-1.0 10^3/uL Eosinophils # (Auto) 0.1 0.0-0.3 10^3/uL Basophils # (Auto) 0.1 0.0-0.1 10^3/uL Immature Granulocyte # (Auto) 0.0 0.0-0.1 10^3/uL Sodium Level 141 135-145 MMOL/L Potassium Level 3.1 L 3.6-5.0 MMOL/L Chloride Level 102 98-107 MMOL/L Carbon Dioxide Level 23 21-32 MMOL/L Anion Gap 16 H 5-14 MMOL/L Blood Urea Nitrogen 13 7-18 MG/DL Creatinine 0.99 0.60-1.30 MG/DL Estimat Glomerular Filtration Rate 75 BUN/Creatinine Ratio 13 Glucose Level 108 H 70-105 MG/DL Calcium Level 8.3 L 8.5-10.1 MG/DL Corrected Calcium 8.5 8.5-10.1 MG/DL Total Bilirubin 1.0 0.1-1.0 MG/DL Aspartate Amino Transf (AST/SGOT) 50 H 5-34 U/L Alanine Aminotransferase (ALT/SGPT) 31 0-55 U/L Alkaline Phosphatase 97 40-136 U/L Total Protein 7.6 6.4-8.2 GM/DL Albumin 3.7 3.2-4.5 GM/DL Serum Alcohol 181 H <10 MG/DL Urine Opiates Screen NEGATIVE NEGATIVE Urine Oxycodone Screen NEGATIVE NEGATIVE Urine Methadone Screen NEGATIVE NEGATIVE Urine Propoxyphene Screen NEGATIVE NEGATIVE Urine Barbiturates Screen NEGATIVE NEGATIVE Ur Tricyclic Antidepressants Screen NEGATIVE NEGATIVE Urine Phencyclidine Screen NEGATIVE NEGATIVE Urine Amphetamines Screen POSITIVE H NEGATIVE Urine Methamphetamines Screen POSITIVE H NEGATIVE Urine Benzodiazepines Screen NEGATIVE NEGATIVE Urine Cocaine Screen NEGATIVE NEGATIVE Urine Cannabinoids Screen NEGATIVE NEGATIVE My Orders Orders - DAMARIS HUITRON DO Acute Abd Series (09/03/21 09:53) Ed Iv/Invasive Line Start (09/03/21 09:53) Alcohol (09/03/21 09:53) Cbc With Automated Diff (09/03/21 09:53) Comprehensive Metabolic Panel (09/03/21 09:53) Drug Screen Stat (Urine) (09/03/21 09:53) Vital Signs/I&O 09/03/21 09:16 Pulse 120 Resp 18 B/P (MAP) 125/91 (102) Pulse Ox 98 Blood Pressure Mean: 102 Diagnostic Imaging Comments ABDOMEN XRAYS--PER RADIOLOGIST REPORT AT 1030 FINDINGS: The patient is status post prior sternotomy and bypass grafting. There has been aortic valve replacement as well as placement of an atrial appendage exclusion device. There is stable elevation of the right hemidiaphragm. The lungs appear clear. Pulmonary vascularity is normal The bowel gas pattern appears nonobstructed. No abnormal bowel dilation is evident. There is no definable foreign body. There had been a previous left proximal femoral ORIF. IMPRESSION: 1. Stable appearance the chest without evidence of an acute cardiopulmonary process 2. Nonobstructive bowel gas pattern. No identified foreign body. Reviewed: Reviewed by Me Departure Communication (Admissions) [id number]--SPOKE WITH DR. VAZQUEZ, SURGEON, HE ADVISES TO CALL IN OR AND ENDOSCOPY CREW. 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 VAZQUEZ HERE TO SEE PT, IS ANESTHESIA Impression Primary Impression: Rectal foreign body Additional Impressions: Alcohol intoxication Methamphetamine use Disposition: 09 ADMITTED INPATIENT (TO OR/ENDOSCOPY LAB) Condition: Stable Admissions Decision to Admit Reason: Admit from ER (General) (TO OR/ENDOSCOPY LAB) Decision to Admit/Date: Sep 03, 2021 Time/Decision to Admit Time: 09:52 Departure-Patient Inst. Referrals: SHAMEKA HERNANDES MD (PCP/Family) Primary Care Physician DAMARIS HUITRON DO Sep 03, 2021 10:15
--- NOTE | 2021-09-03 10:19 | Diagnostic Imaging Report ---
Acute abdominal series with PA chest. INDICATION: Abdominal pain. Comparison made with the chest radiograph from 08/01/2019. FINDINGS: The patient is status post prior sternotomy and bypass grafting. There has been aortic valve replacement as well as placement of an atrial appendage exclusion device. There is stable elevation of the right hemidiaphragm. The lungs appear clear. Pulmonary vascularity is normal The bowel gas pattern appears nonobstructed. No abnormal bowel dilation is evident. There is no definable foreign body. There had been a previous left proximal femoral ORIF. IMPRESSION: 1. Stable appearance the chest without evidence of an acute cardiopulmonary process 2. Nonobstructive bowel gas pattern. No identified foreign body. Dictated by: Dictated on workstation # [id number]
[2021-09-03 10:23] LABS: BASOPHILS # (AUTO) 0.1 10^3/uL (0.0-0.1); BASOPHILS % (AUTO) 2 % (0-10); EOSINOPHILS # (AUTO) 0.1 10^3/uL (0.0-0.3); EOSINOPHILS % (AUTO) 1 % (0-10); HEMATOCRIT 40 % (40-54); HEMOGLOBIN 13.8 g/dL (13.3-17.7); LYMPHOCYTES # (AUTO) 2.1 10^3/uL (1.0-4.0); LYMPHOCYTES % (AUTO) 27 % (12-44); MEAN CORPUSCULAR HEMOGLOBIN 34 pg (25-34); MEAN CORPUSCULAR HGB CONC 35 g/dL (32-36); MEAN CORPUSCULAR VOLUME 98 fL (80-99); MEAN PLATELET VOLUME 10.4 fL (9.0-12.2); MONOCYTES # (AUTO) 0.9 10^3/uL (0.0-1.0); MONOCYTES % (AUTO) 11 % (0-12); NEUTROPHILS # (AUTO) 4.6 10^3/uL (1.8-7.8); NEUTROPHILS % (AUTO) 58 % (42-75); PLATELET COUNT 260 10^3/uL (130-400); WHITE BLOOD COUNT 7.8 10^3/uL (4.3-11.0)
[2021-09-03 10:33] LABS: ALBUMIN 3.7 GM/DL (3.2-4.5); POTASSIUM 3.1 MMOL/L (3.6-5.0)
[2021-09-03 10:34] LABS: CALCIUM 8.3 MG/DL (8.5-10.1)
[2021-09-03 10:36] LABS: TOTAL PROTEIN 7.6 GM/DL (6.4-8.2)
[2021-09-03 10:39] LABS: CREATININE SERUM 0.99 MG/DL (0.60-1.30)
[2021-09-03 10:48] LABS: AMPHETAMINE SCREEN, URINE POSITIVE (NEGATIVE); BARBITURATE SCREEN URINE NEGATIVE (NEGATIVE); BENZODIAZEPINES SCREEN URINE NEGATIVE (NEGATIVE); CANNABINOID SCREEN, URINE NEGATIVE (NEGATIVE); COCAINE SCREEN URINE NEGATIVE (NEGATIVE); METHADONE STAT NEGATIVE (NEGATIVE); METHAMPHETAMINE SCREEN URINE S POSITIVE (NEGATIVE); OPIATE SCREEN URINE NEGATIVE (NEGATIVE); OXYCODONE STAT NEGATIVE (NEGATIVE); PROPOXYPHENE STAT NEGATIVE (NEGATIVE); TRICYCLIC ANTIDEPRESSANTS SCRE NEGATIVE (NEGATIVE)
--- NOTE | 2021-09-03 11:27 | Consultation - Surgery ---
History of Present Illness History of Present Illness Patient Consulted On(freda/time) 09/03/21 11:23 Date Seen by Provider: Sep 03, 2021 Time Seen by Provider: 11:23 History of Present Illness Consult requested by Dr. Piedra for foreign body in rectum Patient is a 66-year-old male who presented to emergency department after having a foreign body which he states is a toothbrush that is stuck into the rectum. He did eat yesterday afternoon or morning. Patient is having uncomfortable sensation. No sharp pain no blood in the stool. Patient has no abdominal pain. He has attempted to try to remove it also had his girlfriend tried to remove it without any success. Patient is positive for methamphetamines and alcohol. Patient no other complaints at this time. Denies any nausea vomiting fever sweats chills shortness of breath or chest pain Allergies and Home Medications Allergies Coded Allergies: No Known Drug Allergies (Unverified , 02/11/12) Patient Home Medication List Home Medication List Reviewed: Yes Aspirin (Aspirin EC) 325 Mg Tablet.dr, 325 MG PO DAILY Prescribed by: VIOLETA TURK on 05/25/18 1300 Atorvastatin Calcium (Lipitor) 40 Mg Tablet, 40 MG PO DAILY Prescribed by: Sukhjinder MUJICA on 05/30/18 1111 Colchicine (Colchicine) 0.6 Mg Tablet, 0.6 MG PO BID Prescribed by: JACQUIE CHOUDHURY on 10/21/20 1020 Hydrocodone/Acetaminophen (Hydrocodone-Acetamin 5-325 mg) 1 Each Tablet, 1 TAB PO Q6H PRN for PAIN-MODERATE (5-7) Prescribed by: JACQUIE CHOUDHURY on 10/21/20 1021 Lisinopril (Lisinopril) 5 Mg Tablet, 5 MG PO DAILY Prescribed by: Sukhjinder MUJICA on 05/30/18 1113 Methylprednisolone (Methylprednisolone Dose Pack) 4 Mg Tab.ds.pk, 4 MG PO UD Prescribed by: JACQUIE CHOUDHURY on 10/21/20 1020 Metoprolol Tartrate (Metoprolol Tartrate) 25 Mg Tablet, 25 MG PO BID Prescribed by: Sukhjinder MUJICA on 05/30/18 1112 Milk Thistle Seed Extract (Milk Thistle) 140 Mg Capsule, 140 MG PO DAILY PRN for NEEDED, (Reported) Entered as Reported by: KENROY CLEANING on 05/24/18 1419 Vit B2/Niacin/B-6/B-12/D-Panth (B Complex Sublingual Liquid) 59 Ml Liquid, 1 TBS SL DAILY PRN for VITAMINS, (Reported) Entered as Reported by: KENROY CLEANING on 05/24/18 1419 Past Hfpysnq-Nlicgl-Hafddu Hx Patient Social History Smoking Status: Former Smoker Type Used: Smokeless Tobacco 2nd Hand Smoke Exposure: No Recent Hopitalizations: No Alcohol Use?: Yes Substance type: Amphetamines Have you traveled recently?: No Immunizations Up To Date Tetanus Booster (TDap): Less than 5yrs Surgeries History of Surgeries: Yes (BROKEN FEMUR 08/1992, REPEATED 05/1993, CARPAL TUNNEL RIGHT X2) Surgeries: Abdominal, Cardiac, CABG, Orthopedic, Valve Replacement Respiratory History of Respiratory Disorde: No Cardiovascular History of Cardiac Disorders: Yes (CABG) Cardiac Disorders: Coronary Artery Disease, High Cholesterol, Valvular Heart Disease Neurological History of Neurological Disord: No Genitourinary History of Genitourinary Disor: No Gastrointestinal History of Gastrointestinal Di: No Musculoskeletal History of Musculoskeletal Dis: Yes (Carpal tunnel syndrome;LEFT HIP FX/ORIF- SURGERY X 2) Musculoskeletal Disorders: Fractures Endocrine History of Endocrine Disorders: No HEENT History of HEENT Disorders: No Cancer History of Cancer: No Psychosocial History of Psychiatric Problem: Yes Behavioral Health Disorders: Anxiety Integumentary History of Skin or Integumenta: No Blood Transfusions History of Blood Disorders: No Reviewed Nursing Assessment Reviewed/Agree w Nursing PMH: Yes Family Medical History Significant Family History: No Pertinent Family Hx Review of Systems-General Constitutional: No chills, No diaphoresis EENTM: No blurred vision, No double vision Respiratory: No cough, No dyspnea on exertion Cardiovascular: No chest pain, No palpitations Gastrointestinal: No abdominal pain; other (rectal discomfort) Genitourinary: No decreased output, No discharge Musculoskeletal: No gout, No joint pain Skin: No change in color, No change in hair/nails Psychiatric/Neurological: Denies Depressed, Denies Emotional Problems All Other Systems Reviewed Negative Unless Noted: Yes (Negative excepted noted.) Physical Exam-General Problems Physical Exam Vital Signs Vital Signs - First Documented 09/03/21 09:16 Pulse 120 Resp 18 B/P (MAP) 125/91 (102) Pulse Ox 98 Capillary Refill : Less Than 3 Seconds General Appearance: WD/WN, no apparent distress HEENT: PERRL/EOMI, normal ENT inspection Neck: non-tender, supple Respiratory: chest non-tender, no respiratory distress, no accessory muscle use Cardiovascular: regular rate, rhythm, no JVD Gastrointestinal: non tender, soft Rectal: other (no palpable abnormality, slight bruising at anus) Back: no CVA tenderness Extremities: non-tender, normal inspection Neurologic/Psychiatric: alert, normal mood/affect, oriented x 3 Skin: normal color, warm/dry Lymphatic: no adenopathy Data Review Labs Laboratory Tests 09/03/21 10:15: White Blood Count 7.8, Red Blood Count 4.07L, Hemoglobin 13.8, Hematocrit 40, Mean Corpuscular Volume 98, Mean Corpuscular Hemoglobin 34, Mean Corpuscular Hemoglobin Concent 35, Red Cell Distribution Width 13.8, Platelet Count 260, Mean Platelet Volume 10.4, Immature Granulocyte % (Auto) 0, Neutrophils (%) (A uto) 58, Lymphocytes (%) (Auto) 27, Monocytes (%) (Auto) 11, Eosinophils (%) (Auto) 1, Basophils (%) (Auto) 2, Neutrophils # (Auto) 4.6, Lymphocytes # (Auto) 2.1, Monocytes # (Auto) 0.9, Eosinophils # (Auto) 0.1, Basophils # (Auto) 0.1, Immature Granulocyte # (Auto) 0.0, Sodium Level 141, Potassium Level 3.1L, Chloride Level 102, Carbon Dioxide Level 23, Anion Gap 16H, Blood Urea Nitrogen 13, Creatinine 0.99, Estimat Glomerular Filtration Rate 75, BUN/Creatinine Ratio 13, Glucose Level 108H, Calcium Level 8.3L, Corrected Calcium 8.5, Total Bilirubin 1.0, Aspartate Amino Transf (AST/SGOT) 50H, Alanine Aminotransferase (ALT/SGPT) 31, Alkaline Phosphatase 97, Total Protein 7.6, Albumin 3.7, Serum Alcohol 181H 09/03/21 10:29: Urine Opiates Screen NEGATIVE, Urine Oxycodone Screen NEGATIVE, Urine Methadone Screen NEGATIVE, Urine Propoxyphene Screen NEGATIVE, Urine Barbiturates Screen NEGATIVE, Ur Tricyclic Antidepressants Screen NEGATIVE, Urine Phencyclidine Screen NEGATIVE, Urine Amphetamines Screen POSITIVEH, Urine Methamphetamines Screen POSITIVEH, Urine Benzodiazepines Screen NEGATIVE, Urine Cocaine Screen NEGATIVE, Urine Cannabinoids Screen NEGATIVE Assessment/Plan Assessment/Plan Assessment/Plan foreign body rectum meth/alcohol + Discussed risk and benefits of doing a flexible sigmoidoscopy all indicated procedures. Patient also understands may need surgical intervention if perforation or any other problem where he also may need a colostomy. Patient understands all risk and benefits and will wishes to proceed. Patient to go to the OR for procedure. KORY VAZQUEZ DO Sep 03, 2021 11:27
[2021-09-03 11:50] VITALS: BP 112/83
[2021-09-03 12:00] VITALS: BP 121/83
[2021-09-03 12:10] VITALS: BP 115/88
--- NOTE | 2021-09-03 12:19 | Discharge Inst-Simple/Standard ---
Discharge Inst-Standard Patient Instructions/Follow Up Plan of Care/Instructions/FU: Teresa 1 month, any issues before that be seen at that time. Need to have colonoscopy. Activity as Tolerated: Yes Discharge Diet: Regular Diet KORY VAZQUEZ DO Sep 03, 2021 12:19
[2021-09-03 12:20] VITALS: BP 132/105
--- NOTE | 2021-09-03 12:23 | Progress Note-Post Operative ---
Post-Operative Progess Note Surgeon (s)/Supervisor Stave Cutting (s) Surgeon KORY VAZQUEZ DO Supervisor Stave Cutting: na Pre-Operative Diagnosis foreign body rectum Post-Operative Diagnosis retcal irritation, small rectal polyp, no foreign body. Procedure & Operative Findings Date of Procedure 09/03/21 Procedure Performed/Findings flex sig Anesthesia Type mac Estimated Blood Loss Estimated blood loss (mL): none Specimens/Packing Specimens Removed na KORY VAZQUEZ DO Sep 03, 2021 12:23
[2021-09-03 13:28] VITALS: BP 145/100
--- NOTE | 2021-09-03 14:39 | OPERATIVE REPORT ---
DATE OF SERVICE: 09/03/2021 PREOPERATIVE DIAGNOSIS: Foreign body in rectum. POSTOPERATIVE DIAGNOSIS: Rectal irritation, small rectal polyp. No foreign body. PROCEDURE: Flexible sigmoidoscopy. SURGEON: Kory Moore DO ANESTHESIA: MAC. ESTIMATED BLOOD LOSS: None. COMPLICATIONS: None. INDICATIONS: The patient is a 66-year-old male, who bleed. He has a toothbrush in the rectum. He states that he believes it is there since yesterday around noon or so. He has some rectal irritation. He states that he has tried multiple attempts of having removed and his girlfriend tried as well, but states unable to have it removed. He was discussed risks and benefits of procedure and wishes to proceed, this was not visualized on x-ray. DESCRIPTION OF PROCEDURE: The patient was taken to the operating suite, placed in left lateral recumbent position. Timeout was performed. Digital rectal exam was performed. No palpable polyps, masses or ulcerations. No foreign body palpable. Scope was inserted into the rectum, noting some rectal irritation. A small rectal polyp present as well. Scope was then continued slowly advanced through the rectum into the sigmoid colon until encountering significant stool load. No foreign body visualized. Scope was unable to be passed by the stool. Therefore, the scope was then slowly retracted back. No polyps, masses, ulcerations or foreign body visualized in the sigmoid colon. As the scope was being slowly withdrawn in the rectum, noting rectal irritation and a small polyp present. Scope was retroflexed noting no other pathology. Scope was returned to its normal position, slowly withdrawn until completely removed. The patient tolerated procedure well without any complications and taken to recovery room in stable condition. RECOMMENDATIONS: The patient if has any change in condition, he should be reevaluated at that time. I think the sensation that he is having is from rectal irritation from the previous foreign body. If he has any change in condition, he should be returned to the Emergency Department at that time. The patient will need a full colonoscopy to take care of small rectal polyp and also to evaluate the remainder of the colon. The patient will have an appointment in approximately 1 month to discuss proceeding with this. Any issues before that be seen at that time. Cc: Dr. Moran - requested, unable to deliver. Job ID: [id number] DocumentID: [id number] Dictated Date: 09/03/2021 12:46:21 Publicity Writer Date: 09/03/2021 14:39:12 Dictated By: KORY MOORE DO
--- NOTE | 2021-09-04 10:38 | Anesthesia-General Post-Op ---
MAC Post Op Complications Complications None Follow Up Care/Instructions Patient Instructions None needed. Anesthesiology Discharge Order Discharge Order Patient discharged, Chart reviewed, no apparent adverse anesthesia problems noted READINGPAWAN CRNA Sep 04, 2021 10:38
== END ==
LOC: EDUNIT# 08:45 → ER 08:47 → SDC 11:09
PROVIDERS: ATTEND Surgery
DX: K62.1 Rectal polyp (principal); Z79.82 Long term (current) use of aspirin; Z79.899 Other long term (current) drug therapy; I25.10 Atherosclerotic heart disease of native coronary artery without angina pectoris; E78.00 Pure hypercholesterolemia, unspecified
CPT/HCPCS: 45330; 74022; 80053; 80306; 85025; 99284; G0480; 36415; 80320

== ENCOUNTER 2021-09-18 15:41 | Emergency (ER) | payer MEDICARE ==
[~2021-09-18] VITALS: Ht 168 cm; Wt 72.6 kg
[~2021-09-18 15:41] MED LIST changes: -MIDAZOLAM 2 MG/2 ML (VERSED) VIAL ONE; -PROPOFOL INJECTION 50 ML IV ONE
[2021-09-18 15:57] LABS: BASOPHILS # (AUTO) 0.1 10^3/uL (0.0-0.1); BASOPHILS % (AUTO) 1 % (0-10); EOSINOPHILS % (AUTO) 0 % (0-10); HEMATOCRIT 38 % (40-54); HEMOGLOBIN 13.1 g/dL (13.3-17.7); LYMPHOCYTES # (AUTO) 1.2 X 10^3 (1.0-4.0); LYMPHOCYTES % (AUTO) 13 % (12-44); MEAN CORPUSCULAR HEMOGLOBIN 33 pg (25-34); MEAN CORPUSCULAR HGB CONC 35 g/dL (32-36); MEAN CORPUSCULAR VOLUME 95 fL (80-99); MEAN PLATELET VOLUME 9.7 fL (9.0-12.2); MONOCYTES # (AUTO) 0.9 X 10^3 (0.0-1.0); MONOCYTES % (AUTO) 10 % (0-12); NEUTROPHILS # (AUTO) 7.1 X 10^3 (1.8-7.8); NEUTROPHILS % (AUTO) 76 % (42-75); PLATELET COUNT 315 10^3/uL (130-400); WHITE BLOOD COUNT 9.4 10^3/uL (4.3-11.0)
[2021-09-18] MEDS ORDERED: LORazepam INJ 2 MG/ML (ATIVAN) VIAL IVP ONE ×2 (16:00→17:45)
[2021-09-18] MEDS ORDERED: LACTATED RINGERS 1,000 ML IV SCH (16:00)
[2021-09-18 16:03] LABS: BILIRUBIN,URINE NEGATIVE (NEGATIVE); CLARITY,URINE CLEAR; COLOR,URINE YELLOW; GLUCOSE, URINE (UA) 1+ (NEGATIVE); KETONES,URINE NEGATIVE (NEGATIVE); LEUKOCYTE ESTERASE ,URINE NEGATIVE (NEGATIVE); NITRITE,URINE NEGATIVE (NEGATIVE); PH,URINE 7.5 (5-9); PROTEIN,URINE 1+ (NEGATIVE)
--- NOTE | 2021-09-18 16:03 | ED General ---
General Stated Complaint: CHILLS,RANGEL,SOB,SHAKY Source of Information: Patient Exam Limitations: No Limitations History of Present Illness Date Seen by Provider: Sep 18, 2021 Time Seen by Provider: 15:59 Initial Comments to ER by EMS from home with reports of fever chills nausea vomiting high blood pressure. He drinks 5-6 drinks of whiskey a day and has not had any since yesterday because he did not feel like drinking today. EMS arrived and gave Zofran for nausea. He does feel quite anxious as well. Does report some left lower abdominal tenderness to palpation. Was here on for reported toothbrush inserted into the rectum. Not able to be seen on x-ray or sigmoidoscopy in OR due to the stool burden. He was methamphetamine positive at that time. Unclear if this was a delusion or if he actually did put a toothbrush up there. Timing/Duration: 1-2 Days Severity: Moderate Associated Systoms: Denies Symptoms Allergies and Home Medications Allergies Coded Allergies: No Known Drug Allergies (Unverified , 02/11/12) Patient Home Medication List Home Medication List Reviewed: Yes Aspirin (Aspirin EC) 325 Mg Tablet.dr, 325 MG PO DAILY Prescribed by: VIOLETA TURK on 05/25/18 1300 Atorvastatin Calcium (Lipitor) 40 Mg Tablet, 40 MG PO DAILY Prescribed by: Sukhjinder MUJICA on 05/30/18 1111 Colchicine (Colchicine) 0.6 Mg Tablet, 0.6 MG PO BID Prescribed by: JACQUIE CHOUDHURY on 10/21/20 1020 Hydrocodone/Acetaminophen (Hydrocodone-Acetamin 5-325 mg) 1 Each Tablet, 1 TAB P O Q6H PRN for PAIN-MODERATE (5-7) Prescribed by: JACQUIE CHOUDHURY on 10/21/20 1021 Lisinopril (Lisinopril) 5 Mg Tablet, 5 MG PO DAILY Prescribed by: Sukhjinder MUJICA on 05/30/18 1113 Methylprednisolone (Methylprednisolone Dose Pack) 4 Mg Tab.ds.pk, 4 MG PO UD Prescribed by: JACQUIE CHOUDHURY on 10/21/20 1020 Metoprolol Tartrate (Metoprolol Tartrate) 25 Mg Tablet, 25 MG PO BID Prescribed by: Sukhjinder MUJICA on 05/30/18 1112 Milk Thistle Seed Extract (Milk Thistle) 140 Mg Capsule, 140 MG PO DAILY PRN for NEEDED, (Reported) Entered as Reported by: KENROY CLEANING on 05/24/18 1419 Trazodone HCl (Trazodone HCl) 50 Mg Tablet, 50 MG PO HS Prescribed by: GREY DUMONT on 09/18/21 1742 Vit B2/Niacin/B-6/B-12/D-Panth (B Complex Sublingual Liquid) 59 Ml Liquid, 1 TBS SL DAILY PRN for VITAMINS, (Reported) Entered as Reported by: KENROY CLEANING on 05/24/18 1419 Review of Systems Review of Systems Constitutional: see HPI, chills, fever, weakness EENTM: see HPI Respiratory: no symptoms reported Cardiovascular: no symptoms reported Genitourinary: no symptoms reported Musculoskeletal: no symptoms reported Skin: no symptoms reported Psychiatric/Neurological: See HPI, Anxiety Immunological/Allergic: no symptoms reported Past Afylvqb-Otyhnu-Kusohd Hx Immunizations Up To Date Tetanus Booster (TDap): Less than 5yrs First/Initial COVID19 Vaccinat: MARCH Past Medical History Surgery/Hospitalization HX: LEFT HIP ORIF Surgeries: Yes (BROKEN FEMUR 08/1992, REPEATED 05/1993, CARPAL TUNNEL RIGHT X2) Abdominal, Cardiac, CABG, Orthopedic, Valve Replacement Respiratory: No Cardiac: Yes (CABG) Coronary Artery Disease, High Cholesterol, Valvular Heart Disease Neurological: No Genitourinary: No Gastrointestinal: No Musculoskeletal: Yes (Carpal tunnel syndrome;LEFT HIP FX/ORIF-SURGERY X 2) Fractures Endocrine: No HEENT: No Cancer: No Psychosocial: Yes Anxiety Integumentary: No Blood Disorders: No Family Medical History No Pertinent Family Hx Physical Exam Vital Signs Vital Signs - First Documented 09/18/21 15:43 Temp 36.3 Pulse 106 Resp 22 B/P (MAP) 187/130 (149) Pulse Ox 95 O2 Delivery Room Air Capillary Refill : Height, Weight, BMI Height: 5'6.00" Weight: 163lbs. 0.0oz. 73.092127zz; 28.00 BMI Method:Stated General Appearance: No Apparent Distress, WD/WN, Other (Anxious appearing hypertensive tachycardic 180/100; gcs 15, alert and oriented. ) Eyes: Bilateral Eye Normal Inspection, Bilateral Eye PERRL, Bilateral Eye EOMI HEENT: PERRL/EOMI, TMs Normal Respiratory: No Accessory Muscle Use, No Respiratory Distress Cardiovascular: Normal Peripheral Pulses, Tachycardia Gastrointestinal: Normal Bowel Sounds, Soft, Tenderness (Slight tenderness to palpation left lower abdomen) Extremity: Normal Capillary Refill, Normal Inspection Neurologic/Psychiatric: Alert, Oriented x3 Skin: Normal Color, Warm/Dry Focused Exam Lactate Level 09/18/21 15:55: Lactic Acid Level 6.10*H Lactic Acid Level Laboratory Tests Test 09/18/21 15:55 Lactic Acid Level 6.10 MMOL/L (0.50-2.00) *H Progress/Results/Core Measures Suspected Sepsis SIRS Temperature: Pulse: Respiratory Rate: Laboratory Tests 09/18/21 15:50: White Blood Count 9.4 Blood Pressure / Mean: 09/18/21 15:55: Lactic Acid Level 6.10*H Laboratory Tests 09/18/21 15:50: Creatinine 0.82, INR Comment 1.0, Platelet Count 315, Total Bilirubin 1.4H Results/Orders Lab Results Laboratory Tests Test 09/18/21 15:44 09/18/21 15:50 09/18/21 15:55 Range/Units Influenza Type A (RT-PCR) Not Detected Not Detecte Influenza Type B (RT-PCR) Not Detected Not Detecte SARS-CoV-2 RNA (RT-PCR) Not Detected Not Detecte White Blood Count 9.4 4.3-11.0 10^3/uL Red Blood Count 3.97 L 4.30-5.52 10^6/uL Hemoglobin 13.1 L 13.3-17.7 g/dL Hematocrit 38 L 40-54 % Mean Corpuscular Volume 95 80-99 fL Mean Corpuscular Hemoglobin 33 25-34 pg Mean Corpuscular Hemoglobin Concent 35 32-36 g/dL Red Cell Distribution Width 13.6 10.0-14.5 % Platelet Count 315 130-400 10^3/uL Mean Platelet Volume 9.7 9.0-12.2 fL Immature Granulocyte % (Auto) 0 % Neutrophils (%) (Auto) 76 H 42-75 % Lymphocytes (%) (Auto) 13 12-44 % Monocytes (%) (Auto) 10 0-12 % Eosinophils (%) (Auto) 0 0-10 % Basophils (%) (Auto) 1 0-10 % Neutrophils # (Auto) 7.1 1.8-7.8 X 10^3 Lymphocytes # (Auto) 1.2 1.0-4.0 X 10^3 Monocytes # (Auto) 0.9 0.0-1.0 X 10^3 Eosinophils # (Auto) 0.0 0.0-0.3 10^3/uL Basophils # (Auto) 0.1 0.0-0.1 10^3/uL Immature Granulocyte # (Auto) 0.0 0.0-0.1 10^3/uL Prothrombin Time 13.3 12.2-14.7 SEC INR Comment 1.0 0.8-1.4 Activated Partial Thromboplast Time 30 24-35 SEC Sodium Level 136 135-145 MMOL/L Potassium Level 3.0 L 3.6-5.0 MMOL/L Chloride Level 94 L 98-107 MMOL/L Carbon Dioxide Level 24 21-32 MMOL/L Anion Gap 18 H 5-14 MMOL/L Blood Urea Nitrogen 8 7-18 MG/DL Creatinine 0.82 0.60-1.30 MG/DL Estimat Glomerular Filtration Rate 94 BUN/Creatinine Ratio 10 Glucose Level 137 H 70-105 MG/DL Calcium Level 8.0 L 8.5-10.1 MG/DL Corrected Calcium 8.1 L 8.5-10.1 MG/DL Total Bilirubin 1.4 H 0.1-1.0 MG/DL Aspartate Amino Transf (AST/SGOT) 44 H 5-34 U/L Alanine Aminotransferase (ALT/SGPT) 34 0-55 U/L Alkaline Phosphatase 79 40-136 U/L Total Protein 7.6 6.4-8.2 GM/DL Albumin 3.9 3.2-4.5 GM/DL Serum Alcohol < 10 <10 MG/DL Urine Color YELLOW Urine Clarity CLEAR Urine pH 7.5 5-9 Urine Specific [place] 1.020 1.016-1.022 Urine Protein 1+ H NEGATIVE Urine Glucose (UA) 1+ H NEGATIVE Urine Ketones NEGATIVE NEGATIVE Urine Nitrite NEGATIVE NEGATIVE Urine Bilirubin NEGATIVE NEGATIVE Urine Urobilinogen 0.2 < = 1.0 MG/DL Urine Leukocyte Esterase NEGATIVE NEGATIVE Urine RBC (Auto) 1+ H NEGATIVE Urine RBC NONE /HPF Urine WBC 0-2 /HPF Urine Squamous Epithelial Cells RARE /HPF Urine Renal Epithelial Cells NONE /HPF Urine Crystals NONE /LPF Urine Bacteria NEGATIVE /HPF Urine Casts NONE /LPF Urine Mucus NEGATIVE /LPF Urine Culture Indicated CULTURE PENDING Lactic Acid Level 6.10 *H 0.50-2.00 MMOL/L Urine Opiates Screen NEGATIVE NEGATIVE Urine Oxycodone Screen NEGATIVE NEGATIVE Urine Methadone Screen NEGATIVE NEGATIVE Urine Propoxyphene Screen NEGATIVE NEGATIVE Urine Barbiturates Screen NEGATIVE NEGATIVE Ur Tricyclic Antidepressants Screen NEGATIVE NEGATIVE Urine Phencyclidine Screen NEGATIVE NEGATIVE Urine Amphetamines Screen POSITIVE H NEGATIVE Urine Methamphetamines Screen POSITIVE H NEGATIVE Urine Benzodiazepines Screen NEGATIVE NEGATIVE Urine Cocaine Screen NEGATIVE NEGATIVE Urine Cannabinoids Screen NEGATIVE NEGATIVE My Orders Orders - GREY DUMONT FEDERAL JUDGE Cbc With Automated Diff (09/18/21 15:47) Comprehensive Metabolic Panel (09/18/21 15:47) Blood Culture (09/18/21 15:47) Sputum Culture (09/18/21 15:47) Urinalysis (09/18/21 15:47) Urine Culture (09/18/21 15:47) Protime With Inr (09/18/21 15:47) Partial Thromboplastin Time (09/18/21 15:47) Chest 1 View, Ap/Pa Only (09/18/21 15:47) Ed Iv/Invasive Line Start (09/18/21 15:47) Ed Iv/Invasive Line Start (09/18/21 15:47) Vital Signs Adult Sepsis Patie Q15M (09/18/21 15:47) O2 (09/18/21 15:47) Remove Rings In Anticipation O (09/18/21 15:47) Lactic Acid Analyzer (09/18/21 15:47) Lorazepam Injection (Ativan Injection) (09/18/21 16:00) Lactated Ringers (Lr 1000 Ml Iv Solution (09/18/21 16:00) Alcohol (09/18/21 15:47) Drug Screen Stat (Urine) (09/18/21 15:47) Ct Abdomen/Pelvis W (09/18/21 15:47) Covid 19 Inhouse Test (09/18/21 15:47) Influenza A And B By Pcr (09/18/21 15:47) Iohexol Injection (Omnipaque 350 Mg/Ml 1 (09/18/21 16:30) Received Contrast (Hold Metformin- Contr (09/18/21 16:30) Ns (Ivpb) (Sodium Chloride 0.9% Ivpb Bag (09/18/21 16:30) Lorazepam Injection (Ativan Injection) (09/18/21 17:45) Medications Given in ED Current Medications Medications Dose Ordered Sig/Vibha Route Start Time Stop Time Status Last Admin Dose Admin Iohexol 100 ml ONCE ONCE IV 09/18/21 16:30 09/18/21 16:31 DC 09/18/21 17:04 92 ML Lorazepam 2 mg ONCE ONCE IVP 09/18/21 16:00 09/18/21 16:01 DC 09/18/21 16:27 2 MG Sodium Chloride 100 ml ONCE ONCE IV 09/18/21 16:30 09/18/21 16:31 DC 09/18/21 17:04 80 ML Vital Signs/I&O 09/18/21 15:43 Temp 36.3 Pulse 106 Resp 22 B/P (MAP) 187/130 (149) Pulse Ox 95 O2 Delivery Room Air Capillary Refill : Departure Communication (Admissions) 0544-he feels quite a bit better after 2 mg IV lorazepam. However, still has some tremors, anxiety and tachycardia noted. I will give another 2 mg. He plans to go home and drink. He states that after a heavy tee he does not feel like eating or drinking much the next day. He like to get some Ensure and try that. He also would like something to help him sleep at night because he does not sleep well. I will do trazodone 50 mg at at bedtime. Lactic acid was quite elevated but is likely secondary to his liver disease. I do not find any other infectious symptoms or labs. Alert and oriented and appreciative of care. Impression Primary Impression: Methamphetamine use Additional Impression: Alcohol withdrawal Disposition: 01 HOME, SELF-CARE Condition: Stable Departure-Patient Inst. Decision time for Depature: 17:02 Referrals: SHAMEKA HERNANDES MD (PCP/Family) Primary Care Physician Patient Instructions: Alcohol Withdrawal (DC) Scripts Trazodone HCl (Trazodone HCl) 50 Mg Tablet 50 MG PO HS, #10 TAB Prov: GREY DUMONT FEDERAL JUDGE 09/18/21 GREY DUMONT FEDERAL JUDGE Sep 18, 2021 16:03
[2021-09-18 16:09] LABS: ALBUMIN 3.9 GM/DL (3.2-4.5)
[2021-09-18 16:10] LABS: CHLORIDE 94 MMOL/L (98-107); PROTHROMBIN TIME PATIENT 13.3 SEC (12.2-14.7); SODIUM 136 MMOL/L (135-145)
[2021-09-18 16:10] LABS: BACTERIA,URINE NEGATIVE /HPF; SQUAMOUS EPITHELIAL CELL,UR RARE /HPF; WBC,URINE 0-2 /HPF
[2021-09-18 16:12] LABS: GLUCOSE 137 MG/DL (70-105); TOTAL PROTEIN 7.6 GM/DL (6.4-8.2)
[2021-09-18 16:13] LABS: CARBON DIOXIDE 24 MMOL/L (21-32)
[2021-09-18 16:14] LABS: BILIRUBIN,TOTAL 1.4 MG/DL (0.1-1.0)
[2021-09-18 16:15] LABS: AMPHETAMINE SCREEN, URINE POSITIVE (NEGATIVE); BARBITURATE SCREEN URINE NEGATIVE (NEGATIVE); BENZODIAZEPINES SCREEN URINE NEGATIVE (NEGATIVE); CANNABINOID SCREEN, URINE NEGATIVE (NEGATIVE); COCAINE SCREEN URINE NEGATIVE (NEGATIVE); METHADONE STAT NEGATIVE (NEGATIVE); METHAMPHETAMINE SCREEN URINE S POSITIVE (NEGATIVE); OPIATE SCREEN URINE NEGATIVE (NEGATIVE); OXYCODONE STAT NEGATIVE (NEGATIVE); PROPOXYPHENE STAT NEGATIVE (NEGATIVE); TRICYCLIC ANTIDEPRESSANTS SCRE NEGATIVE (NEGATIVE)
[2021-09-18 16:16] LABS: ALKALINE PHOSPHATASE 79 U/L (40-136); CREATININE SERUM 0.82 MG/DL (0.60-1.30); GFR ESTIMATED 94
[2021-09-18 16:17] LABS: BUN/CREATININE RATIO 10
[2021-09-18 16:19] LABS: ALANINE AMINOTRANSFERASE 34 U/L (0-55)
[2021-09-18] MEDS ORDERED: HOLD METFORMIN - RECEIVED CONTRAST 20 ML VIAL IV SCH (16:30)
[2021-09-18] MEDS ORDERED: NS 100 ML (IVPB) BAG IV ONE (16:30)
[2021-09-18] MEDS ORDERED: IOHEXOL 350 MG/ML 100 ML (OMNIPAQUE 350) VIAL IV ONE (16:30)
--- NOTE | 2021-09-18 17:04 | Diagnostic Imaging Report ---
INDICATION: Fever, left lower quadrant pain. TECHNIQUE: Single view chest 4:40 PM. CORRELATION STUDY: 08/01/2019 FINDINGS: Prior sternotomy changes with presence of a perclosure device. Heart size, mediastinum and vasculature overall relatively stable. There has been increase in the severity of the elevation of the right diaphragm with right lung volume loss. Lung go overall appearing relatively clear. IMPRESSION: 1. Postoperative changes sternotomy. Slight increasing progression of the elevated right diaphragm with right lung volume loss. No acute abnormality. Dictated by: Dictated on workstation # [id number]
--- NOTE | 2021-09-18 17:26 | Diagnostic Imaging Report ---
PROCEDURE: CT abdomen and pelvis with contrast. TECHNIQUE: Multiple contiguous axial images were obtained through the abdomen and pelvis after administration of intravenous contrast. Auto Exposure Controls were utilized during the CT exam to meet ALARA standards for radiation dose reduction. All CT scans use one or more of the following dose optimizing techniques: automated exposure control, MA and/or KvP adjustment based on patient size and exam type or iterative reconstruction. INDICATION: Left lower quadrant pain. Fever. Chills. Shortness of air. COMPARISON: Abdominal series radiographs 09/03/2021. FINDINGS: Elevation of the right hemidiaphragm results in some atelectasis in the right lung base. Diffuse fatty infiltration of the liver. The gallbladder, pancreas, spleen, adrenals, kidneys, collecting systems and bladder are negative. Normal appendix. No free intraperitoneal air or fluid. No lymphadenopathy. No evidence of bowel obstruction or inflammation. Advanced spondylotic changes in the lumbar spine. Bilateral L4 pars defects with grade 2 anterolisthesis. There are also bilateral L5 pars defects with grade 1 anterolisthesis. No acute appearing osseous findings. Partially visualized sternotomy. Partially visualized left femoral intramedullary floridalma. Small fat-containing right inguinal hernia. IMPRESSION: 1. No acute CT findings in the abdomen or pelvis. 2. Hepatic steatosis. 3. Advanced spondylotic changes in the lumbar spine including bilateral L4 and L5 pars defects with anterolisthesis. Dictated by: Dictated on workstation # [id number]
[2021-09-18] MEDS ORDERED: TRZ50T PO (17:42)
[2021-09-18 18:04] VITALS: BP 156/123
== END 2021-09-18 18:04 | disposition home or self-care (01) ==
LOC: EDUNIT# 15:41 → ER 15:42
DX: F15.90 Other stimulant use, unspecified, uncomplicated (principal); F10.239 Alcohol dependence with withdrawal, unspecified; E78.00 Pure hypercholesterolemia, unspecified; I25.10 Atherosclerotic heart disease of native coronary artery without angina pectoris; F41.9 Anxiety disorder, unspecified; Z20.822 Contact with and (suspected) exposure to COVID-19; Z79.82 Long term (current) use of aspirin; Z79.899 Other long term (current) drug therapy
CPT/HCPCS: 71045; 74177; 80053; 80306; 81000; 83605; 85025; 85610; 85730; 87040; 87088; 87636; 96361; 96374; 96376; 99284; G0480; 36415; 80320

== ENCOUNTER 2022-01-14 16:06 | Emergency (ER) | payer MEDICARE, OTHER ==
[~2022-01-14] VITALS: Ht 170.1 cm; Wt 77.1 kg
[~2022-01-14 16:06] MED LIST changes: +TRZ50T PO
--- NOTE | 2022-01-14 16:39 | ED General ---
General Chief Complaint: General Problems/Pain Stated Complaint: LEGS SWELLING/CHEST PAIN HAS BEEN DRINKING Nursing Triage Note: pt to room by wheelchair. pt states he is intoxicated and has had a pint of liquor today. pt states his kids brought him here today and "he does not know why." pt checked in for "leg swelling, chest pain, and intoxication," however pt states he does not know why he is here. pt denies having any pain and states his legs do not look swollen to him Source of Information: Patient, Family Exam Limitations: Intoxication (LILI SYKES) History of Present Illness Date Seen by Provider: January 14, 2022 Time Seen by Provider: 16:39 Initial Comments Patient is a 66-year-old male with a history of coronary artery disease and alcohol abuse who presents to ED for evaluation. Initially on arrival patient states he does not know why he is here. Patient was dropped off by his grandkids. After contacting [facility] they state patient wanted to go to the ER. Patient states he has no current complaints however he has been having some intermittent chest pain over the past several months. Also reports daily shortness of breath without any worsening breathing today. States he drinks about a pint of [place] deluxe daily. Denies nausea, vomiting, abdominal pain, cough, current chest pain, headache, dizziness. Patient does appear intoxicated. Patient denies of any leg swelling, leg pain, history of diabetes or hypertension. Difficulty obtaining history from patient secondary to his intoxication. Grandkids state that patient was wanting to get evaluated for his chest pain and leg swelling. Patient denies fever, back pain, joint pain, weakness, visual disturbances, hallucinations, unilateral muscle weakness or sensory changes (LILI SYKES) Allergies and Home Medications Allergies Coded Allergies: No Known Drug Allergies (Unverified , 02/11/12) Patient Home Medication List Home Medication List Reviewed: Yes (LILI SYKES) Albuterol Sulfate (Proair Hfa) 1 Puff Puff, 2 PUFF IH Q4H PRN for shortness of breath Prescribed by: CHIQUITA THOMPSON on 01/14/22 1902 Amoxicillin/Potassium Clav (Amox Tr-K Clv 875-125 mg Tab) 875 Mg-125 Mg Tablet, 1 EACH PO BID Prescribed by: CHIQUITA THOMPSON on 01/14/22 190 Aspirin (Aspirin EC) 325 Mg Tablet.dr, 325 MG PO DAILY Prescribed by: VIOLETA TURK on 05/25/18 1300 Atorvastatin Calcium (Lipitor) 40 Mg Tablet, 40 MG PO DAILY Prescribed by: Sukhjinder MUJICA on 05/30/18 1111 Azithromycin (Azithromycin) 250 Mg Tablet, 250 MG PO UD Prescribed by: CHIQUITA THOMPSON on 01/14/22 190 Colchicine (Colchicine) 0.6 Mg Tablet, 0.6 MG PO BID Prescribed by: JACQUIE CHOUDHURY on 10/21/20 1020 Furosemide (Lasix) 20 Mg Tablet, 20 MG PO DAILY Prescribed by: CHIQUITA THOMPSON on 01/14/221901 Hydrocodone/Acetaminophen (Hydrocodone-Acetamin 5-325 mg) 1 Each Tablet, 1 TAB PO Q6H PRN for PAIN-MODERATE (5-7) Prescribed by: JACQUIE CHOUDHURY on 10/21/20 1021 Lisinopril (Lisinopril) 5 Mg Tablet, 5 MG PO DAILY Prescribed by: Sukhjinder MUJICA on 05/30/18 1113 Methylprednisolone (Methylprednisolone Dose Pack) 4 Mg Tab.ds.pk, 4 MG PO UD Prescribed by: JACQUIE CHOUDHURY on 10/21/20 1020 Metoprolol Tartrate (Metoprolol Tartrate) 25 Mg Tablet, 25 MG PO BID Prescribed by: Sukhjinder MUJICA on 05/30/18 1112 Milk Thistle Seed Extract (Milk Thistle) 140 Mg Capsule, 140 MG PO DAILY PRN for NEEDED, (Reported) Entered as Reported by: KENROY CLEANING on 05/24/18 1419 Trazodone HCl (Trazodone HCl) 50 Mg Tablet, 50 MG PO HS Prescribed by: GREY DUMONT on 09/18/21 1742 Vit B2/Niacin/B-6/B-12/D-Panth (B Complex Sublingual Liquid) 59 Ml Liquid, 1 TBS SL DAILY PRN for VITAMINS, (Reported) Entered as Reported by: KENROY CLEANING on 05/24/18 1419 Discontinued Medications Albuterol Sulfate (Proair Hfa) 1 Puff Puff, 2 PUFF IH Q4H Prescribed by: CHIQUITA THOMPSON on 01/14/221818 Amoxicillin/Potassium Clav (Amox Tr-K Clv 875-125 mg Tab) 875 Mg-125 Mg Tablet, 1 EACH PO BID Prescribed by: CHIQUITA THOMPSON on 01/14/221818 Amoxicillin/Potassium Clav (Amox Tr-K Clv 875-125 mg Tab) 875 Mg-125 Mg Tablet, 1 EACH PO BID Prescribed by: CHIQUITA THOMPSON on 01/14/22 185 Azithromycin (Azithromycin) 250 Mg Tablet, 250 MG PO UD Prescribed by: CHIQUITA THOMPSON on 01/14/221818 Furosemide (Lasix) 20 Mg Tablet, 20 MG PO DAILY Prescribed by: CHIQUITA THOMPSON on 01/14/221829 Review of Systems Review of Systems Constitutional: No chills, No diaphoresis, No malaise, No weakness EENTM: No vision loss, No dental problems, No mouth swelling Respiratory: short of breath Cardiovascular: chest pain; No edema Gastrointestinal: No abdominal pain, No diarrhea, No nausea, No vomiting Musculoskeletal: No back pain, No joint pain Skin: No change in color (LILI SYKES) All Other Systems Reviewed Negative Unless Noted: Yes (LILI SYKES) Past Egkirwk-Gdqbfo-Ynogak Hx Immunizations Up To Date Tetanus Booster (TDap): Less than 5yrs First/Initial COVID19 Vaccinat: MARCH 2021 (LILI SYKES) Past Medical History Surgery/Hospitalization HX: LEFT HIP ORIF Surgeries: Yes (BROKEN FEMUR 08/1992, REPEATED 05/1993, CARPAL TUNNEL RIGHT X2) Abdominal, Cardiac, CABG, Orthopedic, Valve Replacement Respiratory: No Cardiac: Yes (CABG) Coronary Artery Disease, High Cholesterol, Valvular Heart Disease Neurological: No Genitourinary: No Gastrointestinal: No Musculoskeletal: Yes (Carpal tunnel syndrome;LEFT HIP FX/ORIF-SURGERY X 2) Fractures Endocrine: No HEENT: No Cancer: No Psychosocial: Yes Anxiety Integumentary: No Blood Disorders: No (LILI SYKES) Family Medical History No Pertinent Family Hx (LILI SYKES) Physical Exam Vital Signs Vital Signs - First Documented 01/14/22 16:20 Pulse 89 Resp 22 B/P (MAP) 135/91 (106) Pulse Ox 93 (DAMARIS HUITRON DO) Vital Signs Capillary Refill : (LILI SYKES) Height, Weight, BMI Height: 5'6.00" Weight: 163lbs. 0.0oz. 73.540089vh; 26.00 BMI Method:Stated General Appearance: No Apparent Distress, WD/WN Eyes: Bilateral Eye Normal Inspection, Bilateral Eye PERRL, Bilateral Eye EOMI HEENT: PERRL/EOMI, TMs Normal, Normal ENT Inspection, Pharynx Normal Neck: Full Range of Motion, Normal Inspection, Non Tender, Supple Respiratory: Chest Non Tender, Lungs Clear, Normal Breath Sounds, No Accessory Muscle Use, No Respiratory Distress Cardiovascular: Regular Rate, Rhythm, No Edema, No Gallop, No JVD Gastrointestinal: Normal Bowel Sounds, No Organomegaly, Non Tender Back: Normal Inspection, No CVA Tenderness Extremity: Normal Capillary Refill, Normal Inspection, Normal Range of Motion, Non Tender Neurologic/Psychiatric: Alert, Oriented x3, No Motor/Sensory Deficits, Normal Mood/Affect, operations vice president II-XII Norm as Tested Skin: Normal Color, Warm/Dry (LILI SYKES) Progress/Results/Core Measures Suspected Sepsis SIRS Temperature: Pulse: 89 Respiratory Rate: 22 Laboratory Tests 01/14/22 16:40: White Blood Count 6.7 Blood Pressure 135 /91 Mean: 106 Laboratory Tests 01/14/22 16:40: Creatinine 0.98, INR Comment 1.0, Platelet Count 190, Total Bilirubin 0.8 (LILI SYKES) Results/Orders Lab Results Laboratory Tests Test 01/14/22 16:40 01/14/22 17:50 Range/Units White Blood Count 6.7 4.3-11.0 10^3/uL Red Blood Count 3.77 L 4.30-5.52 10^6/uL Hemoglobin 12.0 L 13.3-17.7 g/dL Hematocrit 36 L 40-54 % Mean Corpuscular Volume 95 80-99 fL Mean Corpuscular Hemoglobin 32 25-34 pg Mean Corpuscular Hemoglobin Concent 34 32-36 g/dL Red Cell Distribution Width 15.2 H 10.0-14.5 % Platelet Count 190 130-400 10^3/uL Mean Platelet Volume 9.7 9.0-12.2 fL Immature Granulocyte % (Auto) 0 % Neutrophils (%) (Auto) 42 42-75 % Lymphocytes (%) (Auto) 46 H 12-44 % Monocytes (%) (Auto) 9 0-12 % Eosinophils (%) (Auto) 2 0-10 % Basophils (%) (Auto) 1 0-10 % Neutrophils # (Auto) 2.8 1.8-7.8 10^3/uL Lymphocytes # (Auto) 3.1 1.0-4.0 10^3/uL Monocytes # (Auto) 0.6 0.0-1.0 10^3/uL Eosinophils # (Auto) 0.1 0.0-0.3 10^3/uL Basophils # (Auto) 0.1 0.0-0.1 10^3/uL Immature Granulocyte # (Auto) 0.0 0.0-0.1 10^3/uL Prothrombin Time 14.0 12.2-14.7 SEC INR Comment 1.0 0.8-1.4 Activated Partial Thromboplast Time 30 24-35 SEC Sodium Level 143 135-145 MMOL/L Potassium Level 3.7 3.6-5.0 MMOL/L Chloride Level 106 98-107 MMOL/L Carbon Dioxide Level 23 21-32 MMOL/L Anion Gap 14 5-14 MMOL/L Blood Urea Nitrogen 19 H 7-18 MG/DL Creatinine 0.98 0.60-1.30 MG/DL Estimat Glomerular Filtration Rate 85 BUN/Creatinine Ratio 19 Glucose Level 99 70-105 MG/DL Calcium Level 8.0 L 8.5-10.1 MG/DL Corrected Calcium 8.1 L 8.5-10.1 MG/DL Magnesium Level 1.9 1.6-2.4 MG/DL Total Bilirubin 0.8 0.1-1.0 MG/DL Aspartate Amino Transf (AST/SGOT) 54 H 5-34 U/L Alanine Aminotransferase (ALT/SGPT) 44 0-55 U/L Alkaline Phosphatase 61 40-136 U/L Myoglobin 100.3 H 10.0-92.0 NG/ML Troponin I < 0.028 <0.028 NG/ML B-Type Natriuretic Peptide 113.7 H <100.0 PG/ML Total Protein 7.1 6.4-8.2 GM/DL Albumin 3.9 3.2-4.5 GM/DL Serum Alcohol 373 *H <10 MG/DL Urine Opiates Screen NEGATIVE NEGATIVE Urine Oxycodone Screen NEGATIVE NEGATIVE Urine Methadone Screen NEGATIVE NEGATIVE Urine Propoxyphene Screen NEGATIVE NEGATIVE Urine Barbiturates Screen NEGATIVE NEGATIVE Ur Tricyclic Antidepressants Screen NEGATIVE NEGATIVE Urine Phencyclidine Screen NEGATIVE NEGATIVE Urine Amphetamines Screen NEGATIVE NEGATIVE Urine Methamphetamines Screen NEGATIVE NEGATIVE Urine Benzodiazepines Screen POSITIVE H NEGATIVE Urine Cocaine Screen NEGATIVE NEGATIVE Urine Cannabinoids Screen NEGATIVE NEGATIVE (DAMARIS HUITRON DO) Vital Signs/I&O 01/14/22 01/14/22 16:20 18:46 Pulse 89 94 Resp 22 20 B/P (MAP) 135/91 (106) 137/95 Pulse Ox 93 94 (DAMARIS HUITRON DO) Vital Signs/I&O Capillary Refill : (LILI SYKES) Blood Pressure Mean: 106 ECG Comment Sinus rhythm, 90 bpm, QRS duration 116 MS, QTc 448 MS. (LILI SYKES) Departure Communication (PCP) Patient was intoxicated on arrival. Reports drinking a pint of [place] deluxe daily. Patient initially was unaware why he was here. After sitting down and talking to patient for length amount of time he states he would like to be checked out with lab work. Difficulty obtaining history as he was intoxicated. He states he has been having intermittent chest pain shortness of breath for sev eral months. No increasing chest pain or shortness of breath today. Denies of any current chest pain or abdominal pain at this time. Patient initially states his family sent him here as they were concerned that his legs were swollen. He states his legs do not appear swollen. Does maybe have some very mild swelling to the feet bilateral. Denies of any pain, redness or bruising. He reports chronic numbness and tingling to the lower extremity. Equal pulses bilateral. Patient EKG showed no evidence of ST elevation, depression. Patient with normal white blood count. Hemoglobin of 12. Normal kidney function, liver function. He has no abdominal tenderness on palpation. Initial troponin was negative. Slight elevated BNP around 113. Chest x-ray shows interval development of mid right basilar atelectasis versus infiltrate. Stable elevation of the right hemidiaphragm. Patient denies history of smoking. Patient believes he may have underlying COPD. Does have a nebulizer at home which he does not use. Patient oxygen level was ranging between 94 to 89% on room air. Does report a cough. Did have a small right pleural effusion. Patient with history of coronary artery disease. Patient is unclear if he is taking a blood thinner. Due to patient's current health history I will treat for potential pneumonia with azithromycin and Augmentin. Patient does have core morbidities. Once again difficulty obtaining history from patient as he is intoxicated and states he has been coughing. Concern for the slight elevation in his BNP. We will try a trial of 4 days worth of Lasix at 20 mg due to the mild swelling in the lower extremities and the slight elevated BNP. Concerned that patient may not follow-up with primary care physician. I strongly recommend follow-up with cardiology for further evaluation of this ongoing chest pain and shortness of breath. Recommend recheck of the chest x-ray. If not able to see Dr. Hernandes recommend follow-up with [facility]. Recommend returning if symptoms worsen. Patient did become tearful here in the ED and concern for his alcohol consumption. He states he has been drinking alcohol for several years since loss of his and daughter. No suicidal or homicidal thoughts discussed the importance of health maintenance and following up with PCP. Discussed the complications of alcohol on the heart. Patient acknowledges. Provided outpatient resources for alcohol detox. Return precautions were discussed with patient. . (LILI SYKES) Impression Primary Impression: Alcohol intoxication Disposition: 01 HOME, SELF-CARE Condition: Stable Departure-Patient Inst. Decision time for Depature: 18:17 (LILI SYKES) Referrals: SHAMEKA HERNANDES MD (PCP/Family) Primary Care Physician Patient Instructions: Alcohol Intoxication ED Scripts Amoxicillin/Potassium Clav (Amox Tr-K Clv 875-125 mg Tab) 875 Mg-125 Mg Tablet 1 EACH PO BID for 5 Days, #10 TAB Prov: LILI SYKES 01/14/22 Azithromycin (Azithromycin) 250 Mg Tablet 250 MG PO UD, #6 TAB TAKE 2 TABLETS ON DAY ONE THEN TAKE 1 TABLET DAILY FOR FOUR MORE DAYS Prov: LILI SYKES 01/14/22 Furosemide (Lasix) 20 Mg Tablet 20 MG PO DAILY for 4 Days, #4 TAB Prov: LILI SYKES 01/14/22 Albuterol Sulfate (PROAIR HFA) 1 Puff Puff 2 PUFF IH Q4H PRN for shortness of breath, #1 EA 1 PUFF = 90 MCG Prov: LILI SYKES 01/14/22 ATTENDING PHYSICIAN NOTE: I WAS PHYSICALLY PRESENT ER PHYSICIAN, BUT I WAS NOT INVOLVED IN ANY DECISION MAKING OR ANY CARE OF THIS PATIENT. (DAMARIS HUITRON DO) LILI SYKES January 14, 2022 16:39 DAMARIS HUITRON DO January 18, 2022 06:14
[2022-01-14] MEDS ORDERED: NS IV 1000 ML 1,000 ML IV STA (16:42)
[2022-01-14] MEDS ORDERED: ASPIRIN 81 MG CHEW (CHILDREN'S ASA) PO ONE (16:45)
[2022-01-14 16:49] LABS: BASOPHILS # (AUTO) 0.1 10^3/uL (0.0-0.1); BASOPHILS % (AUTO) 1 % (0-10); EOSINOPHILS # (AUTO) 0.1 10^3/uL (0.0-0.3); EOSINOPHILS % (AUTO) 2 % (0-10); HEMATOCRIT 36 % (40-54); LYMPHOCYTES # (AUTO) 3.1 10^3/uL (1.0-4.0); LYMPHOCYTES % (AUTO) 46 % (12-44); MEAN CORPUSCULAR HEMOGLOBIN 32 pg (25-34); MEAN CORPUSCULAR HGB CONC 34 g/dL (32-36); MEAN CORPUSCULAR VOLUME 95 fL (80-99); MEAN PLATELET VOLUME 9.7 fL (9.0-12.2); MONOCYTES # (AUTO) 0.6 10^3/uL (0.0-1.0); MONOCYTES % (AUTO) 9 % (0-12); NEUTROPHILS # (AUTO) 2.8 10^3/uL (1.8-7.8); NEUTROPHILS % (AUTO) 42 % (42-75); PLATELET COUNT 190 10^3/uL (130-400); WHITE BLOOD COUNT 6.7 10^3/uL (4.3-11.0)
[2022-01-14 16:59] LABS: ALBUMIN 3.9 GM/DL (3.2-4.5); POTASSIUM 3.7 MMOL/L (3.6-5.0)
[2022-01-14 17:02] LABS: TOTAL PROTEIN 7.1 GM/DL (6.4-8.2)
[2022-01-14 17:04] LABS: BILIRUBIN,TOTAL 0.8 MG/DL (0.1-1.0)
[2022-01-14 17:05] LABS: CREATININE SERUM 0.98 MG/DL (0.60-1.30)
[2022-01-14 17:08] LABS: MAGNESIUM 1.9 MG/DL (1.6-2.4)
--- NOTE | 2022-01-14 17:22 | Diagnostic Imaging Report ---
CLINICAL INDICATION: Patient with chest pain. EXAM: Portable chest x-ray upright view. COMPARISON: Chest x-ray dated 09/18/2021. FINDINGS: There is stable elevation of the right hemidiaphragm. There is interval development of mild right basilar and right midlung field atelectasis, but subtle superimposed infiltrates cannot be completely excluded. There is blunting of the right costophrenic angle and small right pleural effusion may be present. Left lung is clear and stable. Pulmonary vasculature and cardiac silhouette are within normal limits. Stable postop change to the chest with sternotomy wires and mediastinal clips. There is no pneumothorax. There are degenerative spurs involving the thoracic spine. IMPRESSION: 1: There is interval development of mild right basilar atelectasis versus infiltrate. Stable elevation of right hemidiaphragm. 2: The remainder of this exam shows no significant interval change compared to the prior study of comparison. Dictated by: Dictated on workstation # [id number]
[2022-01-14 18:11] LABS: AMPHETAMINE SCREEN, URINE NEGATIVE (NEGATIVE); BARBITURATE SCREEN URINE NEGATIVE (NEGATIVE); BENZODIAZEPINES SCREEN URINE POSITIVE (NEGATIVE); CANNABINOID SCREEN, URINE NEGATIVE (NEGATIVE); COCAINE SCREEN URINE NEGATIVE (NEGATIVE); METHADONE STAT NEGATIVE (NEGATIVE); OPIATE SCREEN URINE NEGATIVE (NEGATIVE); OXYCODONE STAT NEGATIVE (NEGATIVE); PROPOXYPHENE STAT NEGATIVE (NEGATIVE); TRICYCLIC ANTIDEPRESSANTS SCRE NEGATIVE (NEGATIVE)
[2022-01-14] MEDS ORDERED: AMOX1TAB12 PO ×3 (18:19→19:02)
[2022-01-14] MEDS ORDERED: AZIT250T12 PO ×2 (18:19→19:02)
[2022-01-14] MEDS ORDERED: RT-ALBUINH IH ×2 (18:19→19:02)
[2022-01-14] MEDS ORDERED: FURO-125 PO ×2 (18:30→19:02)
[2022-01-14] MEDS ORDERED: FUROSEMIDE 20 MG (LASIX) TAB ONE (18:38)
[2022-01-14 18:46] VITALS: BP 137/95
[2022-01-15] MEDS ORDERED: FUROSEMIDE 40 MG (LASIX) TAB PO SCH (09:00)
== END 2022-01-14 18:48 | disposition home or self-care (01) ==
LOC: EDUNIT# 16:06 → ER 16:08
DX: F10.229 Alcohol dependence with intoxication, unspecified (principal); Y90.8 Blood alcohol level of 240 mg/100 ml or more
CPT/HCPCS: 71045; 80053; 80306; 83735; 83874; 83880; 84484; 85025; 85610; 85730; 93005; 93041; 99284; G0480; 36415; 80320

== ENCOUNTER 2023-07-11 07:40 | Emergency (ER) | payer MEDICARE, OTHER ==
[~2023-07-11] VITALS: Ht 167.7 cm; Wt 74.8 kg
[~2023-07-11 07:40] MED LIST changes: +ALBU8.5H6 IH; +AMOX1TAB12 PO; +AZIT250T12 PO; +FURO-125 PO
--- NOTE | 2023-07-11 07:48 | ED Fall/Injury ---
General Stated Complaint: FALL History of Present Illness Date Seen by Provider: Jul 11, 2023 Time Seen by Provider: 07:47 Initial Comments 68-year-old male presents with left ankle pain and swelling. He reports that yesterday afternoon he was walking in his kitchen when he stumbled and fell. He has swelling to the left ankle and difficulty bearing weight. Allergies and Home Medications Allergies Coded Allergies: No Known Drug Allergies (Unverified , 02/11/12) Patient Home Medication List Home Medication List Reviewed: Yes Albuterol Sulfate (Ventolin Hfa) 1 Puff Puff, 2 PUFF IH Q4H PRN for shortness of breath Prescribed by: CHIQUITA THOMPSON on 01/14/221901 Amoxicillin/Potassium Clav (Amox Tr-K Clv 875-125 mg Tab) 875 Mg-125 Mg Tablet, 1 EACH PO BID Prescribed by: CHIQUITA THOMPSON on 01/14/221901 Aspirin (Aspirin EC) 325 Mg Tablet.dr, 325 MG PO DAILY Prescribed by: VIOLETA TURK on 05/25/18 1300 Atorvastatin Calcium (Lipitor) 40 Mg Tablet, 40 MG PO DAILY Prescribed by: Sukhjinder MUJICA on 05/30/18 1111 Azithromycin (Azithromycin) 250 Mg Tablet, 250 MG PO UD Prescribed by: CHIQUITA THOMPSON on 01/14/221901 Colchicine (Colchicine) 0.6 Mg Tablet, 0.6 MG PO BID Prescribed by: JACQUIE CHOUDHURY on 10/21/20 1020 Furosemide (Lasix) 20 Mg Tablet, 20 MG PO DAILY Prescribed by: CHIQUITA THOMPSON on 01/14/221901 Hydrocodone/Acetaminophen (Hydrocodone-Acetamin 5-325 mg) 1 Each Tablet, 1 TAB PO Q6H PRN for PAIN-MODERATE (5-7) Prescribed by: JACQUIE CHOUDHURY on 10/21/20 1021 Lisinopril (Lisinopril) 5 Mg Tablet, 5 MG PO DAILY Prescribed by: Sukhjinder MUJICA on 05/30/18 1113 Methylprednisolone (Methylprednisolone Dose Pack) 4 Mg Tab.ds.pk, 4 MG PO UD Prescribed by: JACQUIE CHOUDHURY on 10/21/20 1020 Metoprolol Tartrate (Metoprolol Tartrate) 25 Mg Tablet, 25 MG PO BID Prescribed by: Sukhjinder MUJICA on 05/30/18 1112 Milk Thistle Seed Extract (Milk Thistle) 140 Mg Capsule, 140 MG PO DAILY PRN for NEEDED, (Reported) Entered as Reported by: KENROY CLEANING on 05/24/18 1419 Trazodone HCl (Trazodone HCl) 50 Mg Tablet, 50 MG PO HS Prescribed by: GREY DUMONT on 09/18/21 1742 Vit B2/Niacin/B-6/B-12/D-Panth (B Complex Sublingual Liquid) 59 Ml Liquid, 1 TBS SL DAILY PRN for VITAMINS, (Reported) Entered as Reported by: KENROY CLEANING on 05/24/18 141 Review of Systems Review of Systems Constitutional: see HPI; No chills, No fever Eyes: No Symptoms Reported Respiratory: no symptoms reported Cardiovascular: no symptoms reported Gastrointestinal: no symptoms reported Musculoskeletal: see HPI Skin: see HPI Psychiatric/Neurological: No Symptoms Reported Past Occmcfg-Aaawsk-Flfznh Hx Immunizations Up To Date Tetanus Booster (TDap): Less than 5yrs First/Initial COVID19 Vaccinat: MARCH 2021 Past Medical History Surgery/Hospitalization HX: LEFT HIP ORIF Surgeries: Yes (BROKEN FEMUR 08/1992, REPEATED 05/1993, CARPAL TUNNEL RIGHT X2) Abdominal, Cardiac, CABG, Orthopedic, Valve Replacement Respiratory: No Cardiac: Yes (CABG) Coronary Artery Disease, High Cholesterol, Valvular Heart Disease Neurological: No Genitourinary: No Gastrointestinal: No Musculoskeletal: Yes (Carpal tunnel syndrome;LEFT HIP FX/ORIF-SURGERY X 2) Fractures Endocrine: No HEENT: No Cancer: No Psychosocial: Yes Anxiety Integumentary: No Blood Disorders: No Family Medical History No Pertinent Family Hx Physical Exam Vital Signs Vital Signs - First Documented 07/11/23 07:48 Temp 37.5 Pulse 133 Resp 20 B/P (MAP) 111/71 (84) Pulse Ox 95 Capillary Refill : Height, Weight, BMI Height: 5'6.00" Weight: 163lbs. 0.0oz. 73.964108td; 26.00 BMI Method:Stated General Appearance: WD/WN, no apparent distress Cardiovascular: regular rate, rhythm, no edema Respiratory: lungs clear, normal breath sounds, no respiratory distress Gastrointestinal: non tender, soft Extremities: normal capillary refill, swelling (Left ankle) Neurologic/Psychiatric: alert, normal mood/affect, oriented x 3 Skin: ecchymosis (Left ankle) Progress/Results/Core Measures Results/Orders My Orders Orders - MARIZA MCGUIRE DO Ankle, Left, 3 Views (07/11/23 08:00) Ortho Glass (07/11/23 08:26) Crutches (07/11/23 08:26) Vital Signs/I&O 07/11/23 07/11/23 07:48 08:45 Temp 37.5 37.5 Pulse 133 133 Resp 20 20 B/P (MAP) 111/71 (84) 111/71 Pulse Ox 95 95 Progress Progress Note : Progress Note Patient's x-ray was ordered reviewed with initial interpretation distal fibula fracture with final interpretation per radiology report. Patient to be splinted with a posterior and sugar-tong splint, provided crutches and recommended follow-up with air pollution specialist in the next couple days for definitive care. Patient was stable and discharged home Diagnostic Imaging Diagonstic Imaging: Xray Plain Films/CT/US/NM/MRI: ankle Comments Date of Exam:07/11/23 ANKLE, LEFT, 3 VIEWS INDICATION: Fall yesterday down stairs, continued ankle pain and swelling TECHNIQUE: Three views of the left ankle 8:27 AM CORRELATION STUDY: None FINDINGS: Obliquely oriented fracture of the distal fibula diaphyseal shaft. There is lateral and dorsal displacement of the distal fracture fragment approximately one 3rd of the width of the bone. Distal tibia intact. There is however prominence of the medial ankle clear space with what appears to be slight lateral subluxation of the talus regards to the distal tibia. Rather prominent soft tissue swelling present. Vascular calcification is noted. IMPRESSION: Mildly displaced obliquely oriented fracture distal left fibula diaphyseal shaft. Findings suggest underlying ligamentous injury as well with a slight lateral subluxation of the talus regards to the distal tibia. Associated soft tissue swelling.. Reviewed: Reviewed by Me, Reviewed/Discussed Departure Impression Primary Impression: Fracture of distal end of left fibula Qualified Codes: S82.832A - Other fracture of upper and lower end of left fibula, initial encounter for closed fracture Disposition: HOME, SELF-CARE Condition: Stable Departure-Patient Inst. Referrals: PAWAN ALEJANDRO MD, RICK D MD (PCP/Family) Primary Care Physician Patient Instructions: Ankle fracture, How to Use Crutches Add. Discharge Instructions: Please keep leg elevated when not ambulating. Do not bear weight on your left leg and use crutches. Please call Dr. Alejandro's office upon discharge or the air pollution specialist of your choice for follow-up in the next couple days for definitive care. Ice for the next 24 hours for 15 to 20 minutes at a time 4-5 times daily MARIZA MCGUIRE DO Jul 11, 2023 07:48
[2023-07-11 08:45] VITALS: BP 111/71
--- NOTE | 2023-07-11 08:48 | Diagnostic Imaging Report ---
INDICATION: Fall yesterday down stairs, continued ankle pain and swelling TECHNIQUE: Three views of the left ankle 8:27 AM CORRELATION STUDY: None FINDINGS: Obliquely oriented fracture of the distal fibula diaphyseal shaft. There is lateral and dorsal displacement of the distal fracture fragment approximately one 3rd of the width of the bone. Distal tibia intact. There is however prominence of the medial ankle clear space with what appears to be slight lateral subluxation of the talus regards to the distal tibia. Rather prominent soft tissue swelling present. Vascular calcification is noted. IMPRESSION: Mildly displaced obliquely oriented fracture distal left fibula diaphyseal shaft. Findings suggest underlying ligamentous injury as well with a slight lateral subluxation of the talus regards to the distal tibia. Associated soft tissue swelling.. Dictated by: Dictated on workstation # [id number]
== END 2023-07-11 09:17 | disposition home or self-care (01) ==
LOC: EDUNIT# 07:40 → ER 07:41
DX: S82.832A Other fracture of upper and lower end of left fibula, initial encounter for closed fracture (principal); W01.0XXA Fall on same level from slipping, tripping and stumbling without subsequent striking against object, initial encounter; Y93.01 Activity, walking, marching and hiking
CPT/HCPCS: 73610

== ENCOUNTER 2023-07-12 18:47 | Inpatient (IN) | payer MEDICARE ==
[~2023-07-12] VITALS: Ht 170.2 cm; Wt 84.0 kg
--- NOTE | 2023-07-12 18:53 | ED General ---
General Chief Complaint: Respiratory Problems Stated Complaint: WEAKNESS Source of Information: Patient (POOR HISTORIAN), EMS, Old Records History of Present Illness Date Seen by Provider: Jul 12, 2023 Time Seen by Provider: 18:47 Initial Comments PT ARRIVES VIA EMS FROM HOME--PT LIVES ALONE, STATES HE HAS 1 OR 2 GIRLS THAT COME IN TO HELP HIM\\ PT WAS HERE YESTERDAY FOR LEFT ANKLE FRACTURE, SPLINT IS IN PLACE, BUT SPLINT IS FILTHY. PT RETURNS TODAY FOR A MULTITUDE OF COMPLAINTS. PT IS UNABLE TO STATE WHEN SYMPTOMS BEGAN C/O GENERALIZED WEAKNESS C/O SHORTNESS OF BREATH, ESPECIALLY WITH EXERTION "JUST DON'T FEEL GOOD" "HURTS ALL OVER" HE STATES HE HAS NOT HAD VERY MUCH TO EAT TODAY, HAS BEEN DRINKING SOME GATORADE NOT SURE HOW MUCH HE IS URINATING NO CHEST PAIN NO ABDOMINAL PAIN OR NAUSEA/VOMITING/DIARRHEA PT WITH LONGSTANDING ALCOHOLISM--DRINKS AT LEAST 2 PINTS OF HARD LIQUOR / DAY. HAS NOT HAD ANY ALCOHOL FOR 2 OR 3 DAYS PT ALSO USES MARIJUANA ON REGULAR BASIS AND HAS HISTORY OF METHAMPHETAMINE USE--STATES HE SMOKES IT HAS HISTORY OF ATRIAL FIBRILLATION, NOT CURRENTLY ON BLOOD THINNERS. HE HAS HISTORY OF CAD WITH CABG Allergies and Home Medications Allergies Coded Allergies: No Known Drug Allergies (Unverified , 02/11/12) Patient Home Medication List Home Medication List Reviewed: Yes Albuterol Sulfate (Ventolin Hfa) 1 Puff Puff, 2 PUFF IH Q4H PRN for shortness of breath Prescribed by: CHIQUITA THOMPSON on 01/14/221901 Amoxicillin/Potassium Clav (Amox Tr-K Clv 875-125 mg Tab) 875 Mg-125 Mg Tablet, 1 EACH PO BID Prescribed by: CHIQUITA THOMPSON on 01/14/221901 Aspirin (Aspirin EC) 325 Mg Tablet.dr, 325 MG PO DAILY Prescribed by: VIOLETA TURK on 05/25/18 1300 Atorvastatin Calcium (Lipitor) 40 Mg Tablet, 40 MG PO DAILY Prescribed by: Sukhjinder MUJICA on 05/30/18 1111 Azithromycin (Azithromycin) 250 Mg Tablet, 250 MG PO UD Prescribed by: CHIQUITA THOMPSON on 01/14/221901 Colchicine (Colchicine) 0.6 Mg Tablet, 0.6 MG PO BID Prescribed by: JACQUIE CHOUDHURY on 10/21/20 1020 Furosemide (Lasix) 20 Mg Tablet, 20 MG PO DAILY Prescribed by: CHIQUITA THOMPSON on 01/14/22 1902 Hydrocodone/Acetaminophen (Hydrocodone-Acetamin 5-325 mg) 1 Each Tablet, 1 TAB PO Q6H PRN for PAIN-MODERATE (5-7) Prescribed by: JACQUIE CHOUDHURY on 10/21/20 1021 Lisinopril (Lisinopril) 5 Mg Tablet, 5 MG PO DAILY Prescribed by: Sukhjinder MUJICA on 05/30/18 1113 Methylprednisolone (Methylprednisolone Dose Pack) 4 Mg Tab.ds.pk, 4 MG PO UD Prescribed by: JACQUIE CHOUDHURY on 10/21/20 1020 Metoprolol Tartrate (Metoprolol Tartrate) 25 Mg Tablet, 25 MG PO BID Prescribed by: Sukhjinder MUJICA on 05/30/18 1112 Milk Thistle Seed Extract (Milk Thistle) 140 Mg Capsule, 140 MG PO DAILY PRN for NEEDED, (Reported) Entered as Reported by: [employer] on 05/24/18 1419 Trazodone HCl (Trazodone HCl) 50 Mg Tablet, 50 MG PO HS Prescribed by: GREY DUMONT on 09/18/21 1742 Vit B2/Niacin/B-6/B-12/D-Panth (B Complex Sublingual Liquid) 59 Ml Liquid, 1 TBS SL DAILY PRN for VITAMINS, (Reported) Entered as Reported by: [employer] on 05/24/18 1419 Review of Systems Review of Systems Constitutional: see HPI, malaise, weakness Respiratory: see HPI, dyspnea on exertion Cardiovascular: No chest pain Gastrointestinal: see HPI; No abdominal pain, No constipation, No diarrhea; loss of appetite; No nausea, No vomiting Genitourinary: see HPI Musculoskeletal: see HPI Skin: no symptoms reported Psychiatric/Neurological: No Symptoms Reported Hematologic/Lymphatic: No Symptoms Reported Immunological/Allergic: no symptoms reported Past Zgxvufd-Yyrwym-Alaymo Hx Patient Social History Tobacco Use?: No Smokeless Tobacco Frequency: Current Everyday User Substance use?: Yes Substance type: Amphetamines, Methamphetamine, Marijuana Substance frequency: Daily Alcohol Use?: Yes Alcohol type: Hard Liquor Alcohol Frequency: Daily Immunizations Up To Date Tetanus Booster (TDap): Less than 5yrs First/Initial COVID19 Vaccinat: MARCH 2021 Second COVID19 Vaccination Navdeep: MARCH 2021 Third COVID19 Vaccination Date: MARCH 2021 Past Medical History Surgery/Hospitalization HX: LEFT HIP ORIF Surgeries: Yes (BROKEN FEMUR 08/1992, REPEATED 05/1993, CARPAL TUNNEL RIGHT X2) Abdominal, Cardiac, CABG, Orthopedic, Valve Replacement Respiratory: No Cardiac: Yes (CABG) Atrial Fibrillation, Coronary Artery Disease, High Cholesterol, Hypertension, Valvular Heart Disease Neurological: No Genitourinary: No Gastrointestinal: No Musculoskeletal: Yes (Carpal tunnel syndrome;LEFT HIP FX/ORIF-SURGERY X 2;GOUT/PSEUDOGOUT) Fractures, Gout Endocrine: No HEENT: No Cancer: No Psychosocial: Yes Anxiety Integumentary: No Blood Disorders: No Family Medical History No Pertinent Family Hx Physical Exam Vital Signs Vital Signs - First Documented 07/12/23 18:50 Temp 37.6 Pulse 117 Resp 18 B/P (MAP) 114/59 (77) Pulse Ox 96 O2 Delivery Nasal Cannula O2 Flow Rate 2.00 Capillary Refill : Height, Weight, BMI Height: 5'6.00" Weight: 163lbs. 0.0oz. 73.073275gz; 26.00 BMI Method:Stated General Appearance: WD/WN, Other (VERY TREMULOUS. SOMEWHAT LETHARGIC. ) HEENT: PERRL/EOMI Neck: Full Range of Motion, Normal Inspection Respiratory: Normal Breath Sounds, No Accessory Muscle Use, No Respiratory Distress Cardiovascular: No Edema, No JVD, No Murmur, Irregularly Irregular, Tachycardia Gastrointestinal: Normal Bowel Sounds, Non Tender, Soft Back: No CVA Tenderness Extremity: Normal Capillary Refill, Other (RIGHT LEG APPEARS NORMAL; LEFT LOWER LEG IN SPLINT. ) Neurologic/Psychiatric: Alert, Oriented x3, No Motor/Sensory Deficits, safety net maker II- XII Norm as Tested, Other (ANXIOUS) Skin: Normal Color, Warm/Dry Focused Exam Sepsis Stage: Sepsis Possible Source: Unknown Lactate Level 07/12/23 18:58: Lactic Acid Level 9.06*H 07/12/23 21:26: Lactic Acid Level 3.63*H Time of Focused Exam: 21:30 Respiratory: Normal Breath Sounds, No Accessory Muscle Use, No Respiratory Distress Cardiovascular: Irregularly Irregular, Tachycardia Capillary Refill: Less Than 3 Seconds Skin: normal color, warm/dry Lactic Acid Level Laboratory Tests Test 07/12/23 18:58 07/12/23 21:26 Lactic Acid Level 9.06 MMOL/L (0.50-2.00) *H 3.63 MMOL/L (0.50-2.00) *H Within 3hrs of presentation: Admin fluids, Admin ABX, Blood cultures prior to ABX's, Focus exam, Lactate level Progress/Results/Core Measures Suspected Sepsis SIRS Temperature: Pulse: Respiratory Rate: Laboratory Tests 07/12/23 18:58: White Blood Count 18.8H Blood Pressure / Mean: 07/12/23 18:58: Lactic Acid Level 9.06*H 07/12/23 21:26: Lactic Acid Level 3.63*H Laboratory Tests 07/12/23 18:58: Creatinine 1.67H, INR Comment 1.2, Platelet Count 191, Total Bilirubin 3.9H Results/Orders Lab Results Laboratory Tests Test 07/12/23 18:58 07/12/23 19:17 07/12/23 19:30 07/12/23 19:43 Range/Units White Blood Count 18.8 H 4.3-11.0 10^3/uL Red Blood Count 1.72 L 4.30-5.52 10^6/uL Hemoglobin 5.7 *L 13.3-17.7 g/dL Hematocrit 19 *L 40-54 % Mean Corpuscular Volume 108 H 80-99 fL Mean Corpuscular Hemoglobin 33 25-34 pg Mean Corpuscular Hemoglobin Concent 31 L 32-36 g/dL Red Cell Distribution Width 21.0 H 10.0-14.5 % Platelet Count 191 130-400 10^3/uL Mean Platelet Volume 11.5 9.0-12.2 fL Immature Granulocyte % (Auto) 2 % Neutrophils (%) (Auto) 83 H 42-75 % Lymphocytes (%) (Auto) 2 L 12-44 % Monocytes (%) (Auto) 13 H 0-12 % Eosinophils (%) (Auto) 0 0-10 % Basophils (%) (Auto) 0 0-10 % Neutrophils # (Auto) 15.6 H 1.8-7.8 10^3/uL Lymphocytes # (Auto) 0.5 L 1.0-4.0 10^3/uL Monocytes # (Auto) 2.4 H 0.0-1.0 10^3/uL Eosinophils # (Auto) 0.0 0.0-0.3 10^3/uL Basophils # (Auto) 0.0 0.0-0.1 10^3/uL Immature Granulocyte # (Auto) 0.3 H 0.0-0.1 10^3/uL Neutrophils % (Manual) 86 % Lymphocytes % (Manual) 6 % Monocytes % (Manual) 8 % Nucleated Red Blood Cells 2 Polychromasia SLIGHT Anisocytosis MODERATE Erythrocyte Sedimentation Rate 72 H 0-30 MM/HR Prothrombin Time 15.3 H 12.2-14.7 SEC INR Comment 1.2 0.8-1.4 Activated Partial Thromboplast Time 29 24-35 SEC D-Dimer 0.77 H 0.00-0.49 UG/ML Sodium Level 133 L 135-145 MMOL/L Potassium Level 3.2 L 3.6-5.0 MMOL/L Chloride Level 93 L 98-107 MMOL/L Carbon Dioxide Level 18 L 21-32 MMOL/L Anion Gap 22 H 5-14 MMOL/L Blood Urea Nitrogen 44 H 7-18 MG/DL Creatinine 1.67 H 0.60-1.30 MG/DL Estimat Glomerular Filtration Rate 44 BUN/Creatinine Ratio 26 Glucose Level 161 H 70-105 MG/DL Lactic Acid Level 9.06 *H 0.50-2.00 MMOL/L Calcium Level 9.0 8.5-10.1 MG/DL Corrected Calcium 9.1 8.5-10.1 MG/DL Magnesium Level 1.8 1.6-2.4 MG/DL Total Bilirubin 3.9 H 0.1-1.0 MG/DL Aspartate Amino Transf (AST/SGOT) 174 H 5-34 U/L Alanine Aminotransferase (ALT/SGPT) 119 H 0-55 U/L Alkaline Phosphatase 107 40-136 U/L Total Creatine Kinase 147 30-200 U/L Creatine Kinase MB 4.0 <6.6 NG/ML Myoglobin 354.2 H 10.0-92.0 NG/ML Troponin I 0.618 *H <0.028 NG/ML C-Reactive Protein High Sensitivity 11.66 H 0.00-0.50 MG/DL B-Type Natriuretic Peptide 1283.0 H <100.0 PG/ML Total Protein 7.3 6.4-8.2 GM/DL Albumin 3.9 3.2-4.5 GM/DL Amylase Level 48 25-125 U/L Lipase 26 8-78 U/L Serum Alcohol < 10 <10 MG/DL Urine Color ORANGE Urine Clarity CLOUDY Urine pH 5.5 5-9 Urine Specific [place] 1.025 H 1.016-1.022 Urine Protein 1+ H NEGATIVE Urine Glucose (UA) NEGATIVE NEGATIVE Urine Ketones 1+ H NEGATIVE Urine Nitrite NEGATIVE NEGATIVE Urine Bilirubin 2+ H NEGATIVE Urine Urobilinogen 2.0 < = 1.0 MG/DL Urine Leukocyte Esterase NEGATIVE NEGATIVE Urine RBC (Auto) TRACE H NEGATIVE Urine RBC 2-5 H /HPF Urine WBC 2-5 /HPF Urine Squamous Epithelial Cells RARE /HPF Urine Crystals NONE /LPF Urine Bacteria FEW H /HPF Urine Casts PRESENT /LPF Urine Hyaline Casts 10-25 H /LPF Urine Mucus SMALL H /LPF Urine Culture Indicated CULTURE PENDING Urine Opiates Screen NEGATIVE NEGATIVE Urine Oxycodone Screen NEGATIVE NEGATIVE Urine Methadone Screen NEGATIVE NEGATIVE Urine Barbiturates Screen NEGATIVE NEGATIVE Ur Tricyclic Antidepressants Screen NEGATIVE NEGATIVE Urine Phencyclidine Screen NEGATIVE NEGATIVE Urine Amphetamines Screen NEGATIVE NEGATIVE Urine Methamphetamines Screen NEGATIVE NEGATIVE Urine Benzodiazepines Screen NEGATIVE NEGATIVE Urine Cocaine Screen NEGATIVE NEGATIVE Urine Cannabinoids Screen POSITIVE H NEGATIVE Influenza Type A (RT-PCR) Not Detected Not Detecte Influenza Type B (RT-PCR) Not Detected Not Detecte SARS-CoV-2 RNA (RT-PCR) Not Detected Not Detecte Test 07/12/23 21:26 Range/Units Lactic Acid Level 3.63 *H 0.50-2.00 MMOL/L My Orders Orders - DAMARIS HUITRON DO Ed Iv/Invasive Line Start (07/12/23 18:49) Catheter(Urinary) Insert & Ass 03,15 (07/12/23 18:49) O2 (07/12/23 18:49) Monitor-Rhythm Ecg Trace Only (07/12/23 18:49) Alcohol (07/12/23 18:49) Amylase (07/12/23 18:49) Bnp Joan (07/12/23 18:49) Cbc And Automated Diff (07/12/23 18:49) Comprehensive Metabolic Panel (07/12/23 18:49) Creatine Kinase (07/12/23 18:49) Creatine Kinase Mb (07/12/23 18:49) Hs C Reactive Protein (07/12/23 18:49) Fibrin Degradation Products (07/12/23 18:49) Lactic Acid Analyzer (07/12/23 18:49) Lipase (07/12/23 18:49) Magnesium (07/12/23 18:49) Protime With Inr (07/12/23 18:49) Partial Thromboplastin Time (07/12/23 18:49) Ua Culture If Indicated (07/12/23 18:49) Erythrocyte Sedimentation Rate (07/12/23 18:49) Myoglobin Serum (07/12/23 18:49) Troponin I [place] (07/12/23 18:49) Chest 1 View, Ap/Pa Only (07/12/23 18:49) Ed Iv/Invasive Line Start (07/12/23 18:49) Lactated Ringers 1,000 Ml (Lactated Ring (07/12/23 19:00) Lidocaine 2% (Urojet) (Lidocaine 2% (Uro (07/12/23 19:00) Drug Screen Stat (Urine) (07/12/23 18:51) Lorazepam Injection (Lorazepam Injection (07/12/23 19:00) Blood Culture (07/12/23 18:58) Urine Culture (07/12/23 18:58) Ed Iv/Invasive Line Start (07/12/23 18:58) Ed Iv/Invasive Line Start (07/12/23 18:58) Vital Signs Adult Sepsis Patie Q15M (07/12/23 18:58) O2 (07/12/23 18:58) Remove Rings In Anticipation O (07/12/23 18:58) Ekg Tracing (07/12/23 19:20) Manual Differential (07/12/23 18:58) Red Cells Leukocytes Reduced (07/12/23 19:21) Pantoprazole Injection (Pantoprazole Inj (07/12/23 19:30) Type And Screen (07/12/23 19:21) Ct [place] Chest/Noang Abd-Pelv W (07/12/23 19:23) Covid 19 Inhouse Test (07/12/23 19:27) Influenza A And B By Pcr (07/12/23 19:27) Hepatitis Panel Acute (07/12/23 19:28) Hiv 1&2 Antibody (07/12/23 19:28) Fecal Occult Bedside (07/12/23 19:31) Ed Iv/Invasive Line Start (07/12/23 19:33) Ns Iv 1000 Ml (Ns Iv 1000 Ml) (07/12/23 19:45) Iohexol Injection (Omnipaque 350 Mg/Ml 1 (07/12/23 19:45) Received Contrast (Hold Metformin- Contr (07/12/23 19:45) Ns (Ivpb) 100 Ml (Sodium Chloride 0.9% 1 (07/12/23 19:45) Ed Iv/Invasive Line Start (07/12/23 19:45) Ns Iv 1000 Ml (Ns Iv 1000 Ml) (07/12/23 19:45) Red Cells Leukocytes Reduced (07/12/23 19:45) Ns Iv 500 Ml (Ns Iv 500 Ml) (07/12/23 20:27) Lorazepam Injection (Lorazepam Injection (07/12/23 21:00) Medications Given in ED Current Medications Medications Dose Ordered Sig/Vibha Route Start Time Stop Time Status Last Admin Dose Admin Iohexol 100 ml ONCE ONCE IV 07/12/23 19:45 07/12/23 19:57 DC 07/12/23 20:10 75 ML Lactated Ringer's 1,000 ml @ 0 mls/hr Q0M ONCE IV 07/12/23 19:00 07/12/23 19:01 DC 07/12/23 19:04 1,000 MLS/HR Lidocaine HCl 10 ml ONCE ONCE TOP 07/12/23 19:00 07/12/23 19:01 DC 07/12/23 19:04 10 ML Lorazepam 2 mg ONCE ONCE IVP 07/12/23 19:00 07/12/23 19:01 DC 07/12/23 19:03 1 MG Lorazepam 2 mg ONCE ONCE IVP 07/12/23 21:00 07/12/23 21:01 DC 07/12/23 20:58 2 MG Pantoprazole 80 mg ONCE ONCE IV 07/12/23 19:30 07/12/23 19:31 DC 07/12/23 19:43 80 MG Sodium Chloride 100 ml ONCE ONCE IV 07/12/23 19:45 07/12/23 19:57 DC 07/12/23 20:10 80 ML Vital Signs/I&O 07/12/23 07/12/23 07/12/23 07/12/23 18:50 18:55 20:34 20:54 Temp 37.6 37.6 37.5 Pulse 117 113 Resp 18 22 17 B/P (MAP) 114/59 (77) 94/80 110/75 Pulse Ox 96 95 92 O2 Delivery Nasal Cannula Nasal Cannula Nasal Cannula Nasal Cannula O2 Flow Rate 2.00 2.00 3.00 4.00 07/12/23 07/12/23 21:11 21:28 Temp 37.5 38.6 Pulse 122 Resp 16 16 B/P (MAP) 115/84 111/97 Pulse Ox 93 O2 Delivery Nasal Cannula Nasal Cannula O2 Flow Rate 4.00 07/12/23 23:59 Intake Total 2000 ml Balance 2000 ml Capillary Refill : Progress Note : Progress Note VITALS ON ARRIVAL: TEMP 37.6=99.6, HR 117, RR 18, BP 114/54, O2 SAT 96% ON 2L/NC SEPSIS PROTOCOL INITIATED GIVEN: -IV FLUIDS -ATIVAN ORDERED ON ARRIVAL DUE TO SIGNIFICANT TREMORS. -ANTIBIOTICS LABS: -CBC WITH WBC 18.8, HGB 5.7, PLT 191,000 -CMP WITH NA 133, K 3.2, CL 93, CO2 18, ANION GAP 22, BUN 44, CR 1.67, GLU 161, BILI 3.9, AST 174, ALT 119, ALK PHOS 107 -MG 1.8 -CK 147 -CK-MB 4.0 -VELVET 354.2 -AMYLASE/LIPASE NORMAL -TROPONIN 0.618 -BNP 1283 -LACTIC ACID 9.06 -PT 15.3/PTT 29/ INR 1.2 -D-DIMER 0.77 -UA WITH 1+ PROTEIN, 1+ KETONES, FEW BACTERIA -UDS + FOR MARIJUANA -ETOH < 10 -COVID/FLU NEGATIVE EKG WITH DIFFUSE INFERIOR AND ANTERIOR/LATERAL ST DEPRESSION/ISCHEMIC CHANGES CXR--ATELECTASIS/INFILTRATE IN LEFT LUNG BASE CT ANGIOGRAM CHEST/ABDOMEN/PELVIS--NO ACUTE FINDINGS. PT HAD SOME LOW BP'S IN 80'S-90'S SYSTOLIC--BP UP WITH FLUIDS, ALSO GIVEN BLOOD TRANSFUSION HAD BM AND WAS BLACK/TARRY AND HEMOCCULT + 2024--PT IS VERY CONFUSED, TALKING NON-STOP COMPLETELY NON-SENSICIAL, SOMEWHAT AGITATED, REACHING FOR THINGS, ADDITIONAL ATIVAN ORDERED 2129--PT HAS SPIKED TEMP OF 101.3 HR DOWN, BP UP, AT TIME OF ADMIT REVIEWED PRIOR RECORDS, INCLUDING ER VISITS/ADMITS/H&P'S/CONSULTS/DISCHARGE SUMMARIES/TESTS/PROCEDURES. ECG Initial ECG Impression Date: Jul 12, 2023 Initial ECG Impression Time: 19:40 Initial ECG Rate: 123 Initial ECG Rhythm: A Fib/Flutter Initial ECG Intervals IL -N/A QRS 102 QT/QTC 315/388 Initial ECG Impression: Atrial Fibrillation w/RVR Initial ECG Comparisson: Changed Comment INTERPRETED BY ME Diagnostic Imaging Comments CXR--PER RADIOLOGIST REPORT AT 1934 FINDINGS: The heart size is stable. There is some elevation of the right hemidiaphragm. There is some left basilar discoid atelectasis and/or pneumonitis. There is no pleural effusion or pneumothorax. Mediastinum is unremarkable. There has been previous median sternotomy. IMPRESSION: Minimal discoid atelectasis and/or pneumonitis in the left lung base. Unchanged elevation of the right hemidiaphragm. CT ANGIOGRAM OF CHEST / ABDOMEN-PELVIS--PER RADIOLOGIST REPORT AT 2054 CTA chest: No evidence of pulmonary emboli to the subsegmental pulmonary arteries. No aneurysm or dissection of the thoracic aorta. The heart size is within normal limits. No pericardial effusion is present. There is no mediastinal, hilar, or axillary lymphadenopathy. There is elevation of the right hemidiaphragm with right basilar atelectasis. No focal masses or consolidations. No pleural effusion or pneumothorax. No acute osseous abnormalities. CT abdomen and pelvis: There is hepatic steatosis. No focal hepatic lesions. The portal vein is patent. The gallbladder is decompressed. The spleen, pancreas, adrenal glands, and kidneys have a normal appearance. There is no pathologically enlarged mesenteric or retroperitoneal adenopathy. The bowel loops are nondilated. The appendix is visualized in the right lower quadrant and has a normal appearance. There is no free fluid or free air. No acute osseous abnormalities. There is grade 1 anterolisthesis of L4 on L5 and L5 on S1. Bilateral pars defects are seen at L4 and L5. There is calcified aortic and iliac atherosclerotic plaque without aneurysm. The urinary bladder is decompressed with Epps in place. There is no free air, loculated collection, or adenopathy in the pelvis. IMPRESSION: 1. No evidence of pulmonary emboli to the subsegmental pulmonary arteries. 2. Elevated right hemidiaphragm with right basilar atelectasis. 3. Hepatic steatosis. 4. Grade 1 anterolisthesis of L4 on L5 and L5 on S1 with bilateral pars defects at L4 and L5. Reviewed: Reviewed by Me Critical Care Note Critical Care Start Time: 18:47 Stop Time: 21:30 Departure Communication (Admissions) Family Conversation 2044--REPORT TO E-ICU PHYSICIAN 2054--SPOKE WITH DR. VAZQUEZ HERE IN ER FOR SURGICAL CONSULT 2099--SPOKE WITH DR. SPAIN, HOSPITALIST, ACCEPTS PT FOR ADMIT Impression Primary Impression: GI bleed Additional Impressions: Severe anemia Elevated troponin ISCHEMIC CHANGES ON EKG Alcoholism ALCOHOL WITHDRAWL WITH DELIRIUM AND TREMORS Closed left ankle fracture Chronic atrial fibrillation CHF (congestive heart failure) Lactic acid acidosis Severe sepsis SEVERE SEPSIS UNKNOWN ETIOLOGY Marijuana use History of methamphetamine use Acute renal insufficiency Elevated liver enzymes Disposition: ADMITTED INPATIENT Condition: Stable Admissions Decision to Admit Reason: Admit from ER (General) Decision to Admit/Date: Jul 12, 2023 Time/Decision to Admit Time: 21:00 Departure-Patient Inst. Referrals: SHAMEKA HERNANDES MD (PCP/Family) Primary Care Physician DAMARIS HUITRON DO Jul 12, 2023 18:53
[2023-07-12] MEDS ORDERED: LIDOCAINE UROJET 2% GEL 10 ML PKG TOP ONE (19:00)
[2023-07-12] MEDS ORDERED: LACTATED RINGERS 1,000 ML 1,000 ML IV ONE (19:00)
[2023-07-12 19:08] LABS: BASOPHILS % (AUTO) 0 % (0-10); EOSINOPHILS % (AUTO) 0 % (0-10); LYMPHOCYTES # (AUTO) 0.5 10^3/uL (1.0-4.0); LYMPHOCYTES % (AUTO) 2 % (12-44); MEAN CORPUSCULAR HEMOGLOBIN 33 pg (25-34); MEAN CORPUSCULAR HGB CONC 31 g/dL (32-36); MEAN CORPUSCULAR VOLUME 108 fL (80-99); MEAN PLATELET VOLUME 11.5 fL (9.0-12.2); MONOCYTES # (AUTO) 2.4 10^3/uL (0.0-1.0); MONOCYTES % (AUTO) 13 % (0-12); NEUTROPHILS # (AUTO) 15.6 10^3/uL (1.8-7.8); NEUTROPHILS % (AUTO) 83 % (42-75); PLATELET COUNT 191 10^3/uL (130-400); WHITE BLOOD COUNT 18.8 10^3/uL (4.3-11.0)
[2023-07-12 19:17] LABS: ALBUMIN 3.9 GM/DL (3.2-4.5); CHLORIDE 93 MMOL/L (98-107); POTASSIUM 3.2 MMOL/L (3.6-5.0); SODIUM 133 MMOL/L (135-145)
[2023-07-12 19:19] LABS: AMYLASE 48 U/L (25-125)
[2023-07-12 19:20] LABS: GLUCOSE 161 MG/DL (70-105); HEMATOCRIT 19 % (40-54); HEMOGLOBIN 5.7 g/dL (13.3-17.7); TOTAL PROTEIN 7.3 GM/DL (6.4-8.2)
[2023-07-12 19:21] LABS: BILIRUBIN,TOTAL 3.9 MG/DL (0.1-1.0); CARBON DIOXIDE 18 MMOL/L (21-32)
[2023-07-12 19:23] LABS: ALKALINE PHOSPHATASE 107 U/L (40-136); CREATININE SERUM 1.67 MG/DL (0.60-1.30); GFR ESTIMATED 44
[2023-07-12 19:24] LABS: BUN/CREATININE RATIO 26
[2023-07-12 19:26] LABS: ALANINE AMINOTRANSFERASE 119 U/L (0-55); MAGNESIUM 1.8 MG/DL (1.6-2.4)
[2023-07-12 19:27] LABS: CREATINE KINASE 147 U/L (30-200); LIPASE 26 U/L (8-78)
[2023-07-12 19:28] LABS: INR 1.2 (0.8-1.4); PROTHROMBIN TIME PATIENT 15.3 SEC (12.2-14.7)
[2023-07-12 19:29] LABS: ERYTHROCYTE SEDIMENTATION RATE 72 MM/HR (0-30)
[2023-07-12] MEDS ORDERED: PANTOPRAZOLE INJECTION 40 MG VIAL IV ONE (19:30)
[2023-07-12 19:31] LABS: FIBRIN DEGRADATION PRODUCTS 0.77 UG/ML (0.00-0.49)
--- NOTE | 2023-07-12 19:33 | Diagnostic Imaging Report ---
INDICATION: Shortness of breath. Comparison is made with prior examination of 01/14/2022. FINDINGS: The heart size is stable. There is some elevation of the right hemidiaphragm. There is some left basilar discoid atelectasis and/or pneumonitis. There is no pleural effusion or pneumothorax. Mediastinum is unremarkable. There has been previous median sternotomy. IMPRESSION: Minimal discoid atelectasis and/or pneumonitis in the left lung base. Unchanged elevation of the right hemidiaphragm. Dictated by: Dictated on workstation # [id number]
[2023-07-12 19:38] LABS: BACTERIA,URINE FEW /HPF; BILIRUBIN,URINE 2+ (NEGATIVE); CLARITY,URINE CLOUDY; COLOR,URINE ORANGE; GLUCOSE, URINE (UA) NEGATIVE (NEGATIVE); KETONES,URINE 1+ (NEGATIVE); LEUKOCYTE ESTERASE ,URINE NEGATIVE (NEGATIVE); NITRITE,URINE NEGATIVE (NEGATIVE); PH,URINE 5.5 (5-9); PROTEIN,URINE 1+ (NEGATIVE); SQUAMOUS EPITHELIAL CELL,UR RARE /HPF
[2023-07-12] MEDS ORDERED: HOLD METFORMIN - RECEIVED CONTRAST 20 ML VIAL IV SCH (19:45)
[2023-07-12] MEDS ORDERED: NS 100 ML (IVPB) BAG IV ONE (19:45)
[2023-07-12] MEDS ORDERED: NS IV 1000 ML 1,000 ML IV SCH ×2 (19:45)
[2023-07-12] MEDS ORDERED: IOHEXOL 350 MG/ML 100 ML (OMNIPAQUE 350) VIAL IV ONE (19:45)
[2023-07-12 19:47] LABS: ANISOCYTOSIS MODERATE; LYMPHOCYTES % (MANUAL) 6 %; MONOCYTES % (MANUAL) 8 %; NEUTROPHILS % (MANUAL) 86 %; NUCLEATED RED BLOOD CELLS 2; POLYCHROMASIA SLIGHT
[2023-07-12 19:54] LABS: AMPHETAMINE SCREEN, URINE NEGATIVE (NEGATIVE); BARBITURATE SCREEN URINE NEGATIVE (NEGATIVE); CANNABINOID SCREEN, URINE POSITIVE (NEGATIVE); COCAINE SCREEN URINE NEGATIVE (NEGATIVE); METHADONE STAT NEGATIVE (NEGATIVE); OPIATE SCREEN URINE NEGATIVE (NEGATIVE); OXYCODONE STAT NEGATIVE (NEGATIVE); TRICYCLIC ANTIDEPRESSANTS SCRE NEGATIVE (NEGATIVE)
[2023-07-12] MEDS ORDERED: NS IV 500 ML 500 ML ONE (20:27)
[2023-07-12 20:34] VITALS: BP 94/80
--- NOTE | 2023-07-12 20:50 | Diagnostic Imaging Report ---
INDICATION: Chest pain. Dyspnea. Elevated D-dimer. Recent left tibia and fibula fracture. Abdominal pain. CTA chest, abdomen and pelvis Thin axial sections through the chest, abdomen and pelvis are obtained following intravenous contrast bolus. Multiplanar MIP images were reconstructed and reviewed. All CT scans use one or more of the following dose optimizing techniques: automated exposure control, MA and/or KvP adjustment based on patient size and exam type or iterative reconstruction. COMPARISON: 09/18/2021. CTA chest: No evidence of pulmonary emboli to the subsegmental pulmonary arteries. No aneurysm or dissection of the thoracic aorta. The heart size is within normal limits. No pericardial effusion is present. There is no mediastinal, hilar, or axillary lymphadenopathy. There is elevation of the right hemidiaphragm with right basilar atelectasis. No focal masses or consolidations. No pleural effusion or pneumothorax. No acute osseous abnormalities. CT abdomen and pelvis: There is hepatic steatosis. No focal hepatic lesions. The portal vein is patent. The gallbladder is decompressed. The spleen, pancreas, adrenal glands, and kidneys have a normal appearance. There is no pathologically enlarged mesenteric or retroperitoneal adenopathy. The bowel loops are nondilated. The appendix is visualized in the right lower quadrant and has a normal appearance. There is no free fluid or free air. No acute osseous abnormalities. There is grade 1 anterolisthesis of L4 on L5 and L5 on S1. Bilateral pars defects are seen at L4 and L5. There is calcified aortic and iliac atherosclerotic plaque without aneurysm. The urinary bladder is decompressed with Epps in place. There is no free air, loculated collection, or adenopathy in the pelvis. IMPRESSION: 1. No evidence of pulmonary emboli to the subsegmental pulmonary arteries. 2. Elevated right hemidiaphragm with right basilar atelectasis. 3. Hepatic steatosis. 4. Grade 1 anterolisthesis of L4 on L5 and L5 on S1 with bilateral pars defects at L4 and L5. Dictated by: Dictated on workstation # [id number]
[2023-07-12 20:54] VITALS: BP 110/75
[2023-07-12 21:11] VITALS: BP 115/84
[2023-07-12 21:28] VITALS: BP 111/97
[2023-07-12] MEDS ORDERED: SENNA W/DOCUSATE TABLET PO PRN (23:00)
[2023-07-12] MEDS ORDERED: D5 1/2 NS 1,000 ML IV 1,000 ML IV PRN (23:00)
[2023-07-12] MEDS ORDERED: 1/2 NS IV SOLUTION 1000 ML 1,000 ML IV PRN (23:00)
[2023-07-12] MEDS ORDERED: ONDANSETRON INJECTION 4 MG/2 ML (SDV) IV PRN (23:00)
[2023-07-12] MEDS ORDERED: ONDANSETRON 4 MG ORAL DISSOLVE TABLET SL PRN (23:00)
[2023-07-12] MEDS ORDERED: LORazepam 1 MG TABLET PO PRN (23:00)
[2023-07-12] MEDS ORDERED: ANTACID SUSPENSION 30 ML UDC PO PRN (23:00)
[2023-07-12] MEDS ORDERED: EPINEPHrine 1 MG INJECTION 4 MG in NS (IVPB) 250 ML 248 ML IV SCH (23:00)
[2023-07-12 23:07] VITALS: BP 92/41
[2023-07-12] MEDS: NS + KCL 20 MEQ/L 1000 ML 1,000 ML IV SCH (23:15)
[2023-07-12] MEDS: CEFEPIME 1,000 MG/NS 50 ML IVPB IV SCH ×2 (23:15)
[2023-07-12] MEDS: RT-ALBUTEROL SULF 2.5 MG/3 ML PRE-MIX VIAL INH PRN (23:28)
[2023-07-12] MEDS: NOREPINEPHRINE 8 MG/250 ML 250 ML IV SCH (23:29)
[2023-07-12] MEDS: VASOPRESSIN INJECTION 20 UNIT in NS (IVPB) 100 ML 100 ML IV SCH (23:29)
[2023-07-12] MEDS: PANTOPRAZOLE DRIP 200 MG/NS 100 ML IV SCH ×2 (23:46)
[2023-07-13] VITALS (12 sets, daily range): BP systolic 91–150; BP diastolic 54–96
--- NOTE | 2023-07-13 01:12 | Tele-ICU Progress Note ---
Progress Note 68M with CAD, etoh abuse/dependence being admitted with multiple medical problems. Seen in ED yesterday for ankle fracture. Labs not checked. Discharged with a spling and instructions for ortho follow up. He otherwise had no reported complaints. He returns today with weakness, SOB and WORKMAN. A/P: - EtOH: on arrival showing early withdrawal signs. EtOH negative. CIWA initiated. - severe sepsis: severe lactic acidosis with LA initially 9, then 3.6 then 1.6. Secondary to sepsis vs hypovolemia/hypoperfusion. Cultures pending. Cefepime ongoing. - anemia: secondary to acute blood loss. 2nd unit infusing. - GIB: NPO. Protonix BID. Surgery consult for EGD. - ARLYN: mild with creatinine 1.6. Volume resuscitation ongoing. - hyperbilirubinemia: likely secondary to etoh. Repeat in AM. No concerning RUQ pain. - troponemia: likely demand in setting of acute anemia. Trend troponins. No AC secondary to GIB. Initial 0.61, repeat 0.3. - afib: chronic. Rate 111. Monitor on tele. Hold AC in setting of GIB. - ankle fx: pain control, supportive care Patient assessed via real time audiovisual communication system. CCT 22 min Focused Exam Lactate Level 07/12/23 18:58: Lactic Acid Level 9.06*H 07/12/23 21:26: Lactic Acid Level 3.63*H 07/12/23 22:27: Lactic Acid Level 1.69 Height, Weight, BMI Height: 5'6.00" Weight: 163lbs. 0.0oz. 73.535512iw; 26.54 BMI Method:Stated Time of Focused Exam: 21:30 Lactic Acid Level Laboratory Tests Test 07/12/23 21:26 07/12/23 22:27 Lactic Acid Level 3.63 MMOL/L (0.50-2.00) *H 1.69 MMOL/L (0.50-2.00) EFRAÍN GOMEZ MD Jul 13, 2023 01:12
[2023-07-13 02:07] LABS: BASOPHILS % (AUTO) 0 % (0-10); HEMOGLOBIN 7.1 g/dL (13.3-17.7); MEAN CORPUSCULAR VOLUME 100 fL (80-99); MONOCYTES % (AUTO) 18 % (0-12)
[2023-07-13 02:09] LABS: EOSINOPHILS % (AUTO) 0 % (0-10); HEMATOCRIT 22 % (40-54); LYMPHOCYTES # (AUTO) 0.9 10^3/uL (1.0-4.0); LYMPHOCYTES % (AUTO) 7 % (12-44); MEAN CORPUSCULAR HEMOGLOBIN 32 pg (25-34); MEAN CORPUSCULAR HGB CONC 32 g/dL (32-36); MEAN PLATELET VOLUME 11.4 fL (9.0-12.2); MONOCYTES # (AUTO) 2.7 10^3/uL (0.0-1.0); NEUTROPHILS # (AUTO) 10.8 10^3/uL (1.8-7.8); NEUTROPHILS % (AUTO) 74 % (42-75); PLATELET COUNT 123 10^3/uL (130-400); WHITE BLOOD COUNT 14.5 10^3/uL (4.3-11.0)
[2023-07-13 02:16] LABS: POTASSIUM 3.6 MMOL/L (3.6-5.0)
[2023-07-13 02:17] LABS: ALBUMIN 3.2 GM/DL (3.2-4.5)
[2023-07-13 02:18] LABS: CALCIUM 7.7 MG/DL (8.5-10.1)
[2023-07-13 02:19] LABS: TOTAL PROTEIN 5.9 GM/DL (6.4-8.2)
[2023-07-13 02:21] LABS: BILIRUBIN,TOTAL 3.5 MG/DL (0.1-1.0)
[2023-07-13 02:23] LABS: CREATININE SERUM 1.35 MG/DL (0.60-1.30); PHOSPHORUS 4.1 MG/DL (2.3-4.7)
[2023-07-13 02:26] LABS: MAGNESIUM 1.5 MG/DL (1.6-2.4)
[2023-07-13] MEDS ORDERED: RT-ALBUTEROL SULF 2.5 MG/3 ML PRE-MIX VIAL ONE (04:54)
[2023-07-13] MEDS ORDERED: methylPREDNISolone INJ 40 MG/ML VIAL IV ONE (05:00)
[2023-07-13] MEDS ORDERED: RT-ALBUTEROL SULF 2.5 MG/3 ML PRE-MIX VIAL INH PRN (05:00)
[2023-07-13] MEDS: RT-ALBUTEROL SULF 2.5 MG/3 ML PRE-MIX VIAL INH PRN (05:07)
[2023-07-13] MEDS ORDERED: NS IV 500 ML 500 ML IV PRN (05:15)
[2023-07-13] MEDS ORDERED: POTASSIUM CL 10MEQ/50ML IVPB 200 ML IV ONE (05:26)
[2023-07-13] MEDS ORDERED: MAGNESIUM 1 GM/100 ML IVPB 400 ML IV ONE (05:26)
[2023-07-13] MEDS: NS + KCL 20 MEQ/L 1000 ML 1,000 ML IV SCH ×4 (05:40→22:00)
[2023-07-13] MEDS: POTASSIUM CL 10MEQ/50ML IVPB 50 ML IV SCH ×3 (05:40→07:30)
[2023-07-13] MEDS: MAGNESIUM 1 GM/100 ML IVPB 100 ML IV SCH ×4 (05:40→08:41)
[2023-07-13] MEDS: POTASSIUM CHLORIDE 20 MEQ TABLET PO SCH (05:45)
[2023-07-13] MEDS: POTASSIUM BICARB 20 MEQ effervescent TABLET PO SCH (05:45)
[2023-07-13] MEDS ORDERED: NS (IVPB) 50 ML 50 ML ONE (06:49)
[2023-07-13] MEDS: CEFEPIME 1,000 MG/NS 50 ML IVPB IV SCH ×6 (06:54→23:11)
[2023-07-13] MEDS ORDERED: RT-Ipratropium/Albuterol NEB 3 ML VIAL INH SCH ×2 (07:00→08:00)
[2023-07-13 08:26] LABS: ABG BASE EXCESS -0.9 MMOL/L (-2.5-2.5); ABG OXYGEN SATURATION 96 % (94-100); ABG PCO2 36 MMHG (35-45); ABG PH 7.42 (7.37-7.43); ABG PO2 75 MMHG (79-93); ABG TCO2 24.5 MMOL/L (21.0-31.0)
[2023-07-13 08:28] LABS: INSPIRED O2 40%; VENTILATOR NO
--- NOTE | 2023-07-13 08:52 | Consultation-Cardiology ---
HPI-Cardiology Cardiology Consultation: Date of Consultation 07/13/23 Time Seen by a Provider: 08:45 Date of Admission 07-12-23 Attending Physician Rachell,[facility] Physician Admitting Physician Admitting Physician: Jarred Diggs MD Attending Physician: Jarred Diggs MD Consulting Physician Maria Arriola MD HPI: Chief Complaint: PAF NSTEMI Mr. Noyola is a 68 yr old male admitted to ICU 4 from the ED. He is currently lethargic and on Bi-pap. Unable to obtain any information from the patient d/t AMS. Review of ED records show he was seen in the ED on 07-11-23 d/t left ankle fracture and was to see Dr. Youngblood. He came is yesterday with gen weakness and SOB. Review of Systems-Cardiology Review of Systems Other comments Unable to obtain d/t AMS DPW-Cnjblz-Jjhqqa Hx Patient Social History 2nd Hand Smoke Exposure: No Alcohol Use?: Yes Substance type: Amphetamines, Methamphetamine, Marijuana Pt feels they are or have been: No Immunizations Up To Date Tetanus Booster (TDap): Less than 5yrs Past Medical History PMH As described under Assessment. Family Medical History Family Medical History: Unable to obtain Allergies and Home Medications Allergies Coded Allergies: No Known Drug Allergies (Unverified , 02/11/12) Patient Home Medication List Aspirin (Aspirin EC) 81 Mg Tablet., 81 MG PO DAILY, (Reported) Entered as Reported by: AIMEE SANTAMARIA on 07/16/23846 Last Action: Reviewed Magnesium Citrate and Oxide (Magnesium) 250 Mg Capsule, 250 MG PO DAILY, (Report ed) Entered as Reported by: AIMEE SANTAMARIA on 07/16/23846 Last Action: Reviewed Multivitamin (Multivitamin) 1 Each Tablet, 1 EACH PO DAILY, (Reported) Entered as Reported by: AIMEE SANTAMARIA on 07/16/23846 Last Action: Reviewed Omeprazole Magnesium (Omeprazole Magnesium) 20 Mg Capsule., 20 MG PO DAILY PRN for HEARTBURN, (Reported) Entered as Reported by: AIMEE SANTAMARIA on 07/16/23846 Last Action: Reviewed Discontinued Medications Albuterol Sulfate (Ventolin Hfa) 1 Puff Puff, 2 PUFF IH Q4H PRN for shortness of breath Discontinued Reason: No Longer Taking Prescribed by: CHIQUITA THOMPSON on 01/14/221901 Last Action: Discontinued Amoxicillin/Potassium Clav (Amox Tr-K Clv 875-125 mg Tab) 875 Mg-125 Mg Tablet, 1 EACH PO BID Discontinued Reason: No Longer Taking Prescribed by: CHIQUITA THOMPSON on 01/14/221901 Last Action: Discontinued Aspirin (Aspirin EC) 325 Mg Tablet.dr, 325 MG PO DAILY Discontinued Reason: No Longer Taking Prescribed by: VIOLETA TURK on 05/25/18 1300 Last Action: Discontinued Atorvastatin Calcium (Lipitor) 40 Mg Tablet, 40 MG PO DAILY Discontinued Reason: No Longer Taking Prescribed by: Sukhjinder THOMASON on 05/30/18 1111 Last Action: Discontinued Azithromycin (Azithromycin) 250 Mg Tablet, 250 MG PO UD Discontinued Reason: No Longer Taking Prescribed by: CHIQUITA THOMPSON on 01/14/221901 Last Action: Discontinued Colchicine (Colchicine) 0.6 Mg Tablet, 0.6 MG PO BID Discontinued Reason: No Longer Taking Prescribed by: JACQUIE CHOUDHURY on 10/21/20 1020 Last Action: Discontinued Furosemide (Lasix) 20 Mg Tablet, 20 MG PO DAILY Discontinued Reason: No Longer Taking Prescribed by: CHIQUITA THOMPSON on 01/14/221901 Last Action: Discontinued Hydrocodone/Acetaminophen (Hydrocodone-Acetamin 5-325 mg) 1 Each Tablet, 1 TAB PO Q6H PRN for PAIN-MODERATE (5-7) Discontinued Reason: No Longer Taking Prescribed by: JACQUIE CHOUDHURY on 10/21/20 1021 Last Action: Discontinued Lisinopril (Lisinopril) 5 Mg Tablet, 5 MG PO DAILY Discontinued Reason: No Longer Taking Prescribed by: Sukhjinder THOMASON on 05/30/18 1113 Last Action: Discontinued Methylprednisolone (Methylprednisolone Dose Pack) 4 Mg Tab.ds.pk, 4 MG PO UD Discontinued Reason: No Longer Taking Prescribed by: JACQUIE CHOUDHURY on 10/21/20 1020 Last Action: Discontinued Metoprolol Tartrate (Metoprolol Tartrate) 25 Mg Tablet, 25 MG PO BID Discontinued Reason: No Longer Taking Prescribed by: Sukhjinder THOMASON on 05/30/18 1112 Last Action: Discontinued Milk Thistle Seed Extract (Milk Thistle) 140 Mg Capsule, 140 MG PO DAILY PRN for NEEDED, (Reported) Discontinued Reason: No Longer Taking Entered as Reported by: [employer] on 05/24/18 141 Last Action: Discontinued Trazodone HCl (Trazodone HCl) 50 Mg Tablet, 50 MG PO HS Discontinued Reason: No Longer Taking Prescribed by: GREY DUMONT on 09/18/21 1742 Last Action: Discontinued Vit B2/Niacin/B-6/B-12/D-Panth (B Complex Sublingual Liquid) 59 Ml Liquid, 1 TBS SL DAILY PRN for VITAMINS, (Reported) Discontinued Reason: No Longer Taking Entered as Reported by: [employer] on 05/24/18 141 Last Action: Discontinued Physical Exam-Cardiology Physical Exam Vital Signs/I&O 07/17/23 07/17/23 07/18/23 07/18/23 23:03 23:44 02:50 03:10 Temp 37.1 36.1 Pulse 79 81 76 Resp 20 20 19 19 B/P (MAP) 133/89 (104) 143/97 (112) Pulse Ox 94 86 96 O2 Delivery Nasal Cannula NIV Bilevel O2 Flow Rate 2.00 35.00 35.00 35.00 2.00 35.00 07/18/23 07/18/23 07:16 07:44 Temp 35.6 Pulse 73 Resp 16 B/P (MAP) 129/84 (99) Pulse Ox 99 93 O2 Delivery NIV Bilevel Nasal Cannula O2 Flow Rate 2.00 07/18/23 00:00 Intake Total 815 ml Output Total 450 ml Balance 365 ml Capillary Refill : Less Than 3 Seconds Constitutional: other (AMS; lethargic) Neck: No carotid bruit; carotid pulses are 2 + bilaterally Respiratory: other (lung sounds coarse throughout; currently on Bi-pap tx) Cardiovascular: regular rate-rhythm; No JVD; S1 and S2, systolic murmur Gastrointestinal: soft, audible bowel sounds Extremities: other (dressing to left ankle - not removed), no lower extremity edema bilateral Neurologic/Psychiatric: other (moves extremities) Skin: normal color, warm/dry; No rash on exposed areas, No ulcerations on ex posed areas Data Review Labs Laboratory Tests 07/18/23 05:45: White Blood Count 8.7, Red Blood Count 3.36L, Hemoglobin 10.9L, Hematocrit 33L, Mean Corpuscular Volume 97, Mean Corpuscular Hemoglobin 32, Mean Corpuscular Hemoglobin Concent 34, Red Cell Distribution Width 17.1H, Platelet Count 217, Mean Platelet Volume 10.8, Immature Granulocyte % (Auto) 1, Neutrophils (%) (Auto) 74, Lymphocytes (%) (Auto) 8L, Monocytes (%) (Auto) 15H, Eosinophils (%) (Auto) 2, Basophils (%) (Auto) 0, Neutrophils # (Auto) 6.4, Lymphocytes # (Auto) 0.7L, Monocytes # (Auto) 1.3H, Eosinophils # (Auto) 0.2, Basophils # (Auto) 0.0, Immature Granulocyte # (Auto) 0.1, Sodium Level 135, Potassium Level 3.4L, Chloride Level 103, Carbon Dioxide Level 23, Anion Gap 9, Blood Urea Nitrogen 9, Creatinine 0.72, Estimat Glomerular Filtration Rate 99, BUN/Creatinine Ratio 13, Glucose Level 95, Calcium Level 6.5L, Corrected Calcium 7.5L, Phosphorus Level 2.7, Magnesium Level 1.5L, Total Bilirubin 2.3H, Aspartate Amino Transf (AST/SGOT) 78H, Alanine Aminotransferase (ALT/SGPT) 75H, Alkaline Phosphatase 116, Total Protein 5.6L, Albumin 2.8L Microbiology 07/12/23 MRSA Screen - Final, Complete MRSA not isolated 07/12/23 Blood Culture - Preliminary, Resulted 07/12/23 Urine Culture - Final, Complete NO GROWTH Radiology NAME: LAURA NOYOLA [facility] REC#: [id number] PT STATUS: REG ER : 1955 PHYSICIAN: DAMARIS HUITRON DO ADMIT DATE: 07/12/23/ER Signed Date of Exam:07/12/23 CHEST 1 VIEW, AP/PA ONLY INDICATION: Shortness of breath. Comparison is made with prior examination of 01/14/2022. FINDINGS: The heart size is stable. There is some elevation of the right hemidiaphragm. There is some left basilar discoid atelectasis and/or pneumonitis. There is no pleural effusion or pneumothorax. Mediastinum is unremarkable. There has been previous median sternotomy. IMPRESSION: Minimal discoid atelectasis and/or pneumonitis in the left lung base. Unchanged elevation of the right hemidiaphragm. Dictated by: Dictated on workstation # [id number] Dict: 07/12/231929 Trans: 07/12/231937 [id number] Interpreted by: NEFTALY MORALES MD Electronically signed by: NEFTALY MORALES MD 07/12/231937 NAME: LAURA NOYOLA [facility] REC#: [id number] PT STATUS: REG ER : 1955 PHYSICIAN: DAMARIS HUITRON DO ADMIT DATE: 07/12/23/ER Signed Date of Exam:07/12/23 CT CONNOR CHEST/NOANG ABD-PELV W INDICATION: Chest pain. Dyspnea. Elevated D-dimer. Recent left tibia and fibula fracture. Abdominal pain. CTA chest, abdomen and pelvis Thin axial sections through the chest, abdomen and pelvis are obtained following intravenous contrast bolus. Multiplanar MIP images were reconstructed and reviewed. All CT scans use one or more of the following dose optimizing techniques: automated exposure control, MA and/or KvP adjustment based on patient size and exam type or iterative reconstruction. COMPARISON: 09/18/2021. CTA chest: No evidence of pulmonary emboli to the subsegmental pulmonary arteries. No aneurysm or dissection of the thoracic aorta. The heart size is within normal limits. No pericardial effusion is present. There is no mediastinal, hilar, or axillary lymphadenopathy. There is elevation of the right hemidiaphragm with right basilar atelectasis. No focal masses or consolidations. No pleural effusion or pneumothorax. No acute osseous abnormalities. CT abdomen and pelvis: There is hepatic steatosis. No focal hepatic lesions. The portal vein is patent. The gallbladder is decompressed. The spleen, pancreas, adrenal glands, and kidneys have a normal appearance. There is no pathologically enlarged mesenteric or retroperitoneal adenopathy. The bowel loops are nondilated. The appendix is visualized in the right lower quadrant and has a normal appearance. There is no free fluid or free air. No acute osseous abnormalities. There is grade 1 anterolisthesis of L4 on L5 and L5 on S1. Bilateral pars defects are seen at L4 and L5. There is calcified aortic and iliac atherosclerotic plaque without aneurysm. The urinary bladder is decompressed with Epps in place. There is no free air, loculated collection, or adenopathy in the pelvis. IMPRESSION: 1. No evidence of pulmonary emboli to the subsegmental pulmonary arteries. 2. Elevated right hemidiaphragm with right basilar atelectasis. 3. Hepatic steatosis. 4. Grade 1 anterolisthesis of L4 on L5 and L5 on S1 with bilateral pars defects at L4 and L5. ECG Impression ECG Comment A-fib A/P-Cardiology Assessment/Admission Diagnosis GIB - management per medical/eICU services Sepsis - management per medical/eICU services Pneumonia - management per medical services NSTEMI - likely Type 2 d/t profound anemia H/O PAF - h/o SHAWN ligation at time of CABG 06-11-2018 at [facility] - PAF seen on EKG on 07-12 and 07/13/2023 CAD - Cardiac cath by Dr. Thomason 05-30-2018: Distal left main disease with severe ostial LAD disease. Severe aortic stenosis with normal LV function. Referred for CABG/AoVR at that time - H/O 3 vessel CABG 06-11-2018 (RSVG to the first OM; RSVG to the first diagonal; ANTHONY to the mid-distal LAD) with ligation SHAWN; AoV replacement with 23 mm pericardial tissue valve with Maya Magna ease, model 3300TFX by Dr. Wren at [facility] H/O AoVR - AoV replacement with 23 mm pericardial tissue valve with Maya Magna ease, model 3300TFX by Dr. Wren at [facility] - Echocardiogram of 08-29-[address] Thomason showed LVEF 55-65%. PASP 35-40 m mHg H/O methamphetamine use - smokes per ED report Marijuana use - (+) at the time of this admission ETOH abuse - PER ED report: DRINKS AT LEAST 2 PINTS OF HARD LIQUOR / DAY. HAS NOT HAD ANY ALCOHOL FOR 2 OR 3 DAYS Discussion and Recomendations Complex management issue d/t multiple co-morbidities as outline above Management of sepsis per medical services/eICU GIB - management by medical services - H/H improved following transfusion of 2 units - advise Hgb be 10mg/dL d/t CAD and PAF PAF - likely d/t supply/demand imbalance d/t critical anemia - h/o SHAWN ligation at time of CABG 2017 at [facility] - start Amiodarone for rhythm/rate control NSTEMI vs Type 2 d/t profound anemia Sepsis - management per medical services Heavy ETOH/methamphetamine/marijuana usage - management of withdrawal per medical/eICU services Liver enzyme elevation - management per medical services Monitor lab closely Further recs will be based on his hospital course We have reviewed the records from [facility] We would like to thank medical services for this consult AYDEE ANDERSON Jul 13, 2023 08:52
[2023-07-13] MEDS ORDERED: PANTOPRAZOLE INJECTION 40 MG VIAL IV SCH (09:00)
--- NOTE | 2023-07-13 09:25 | Diagnostic Imaging Report ---
INDICATION: Followup. Dyspnea. Sepsis. COMPARISON: 07/12/2023 FINDINGS: Single frontal radiographic view of the chest was obtained and shows normal cardiac silhouette and pulmonary vasculature. Lungs show moderate asymmetric elevation of the right hemidiaphragm, but are otherwise clear. There is no large effusion or pneumothorax. Sternotomy wires are noted. Osseous structures show no gross acute abnormalities. IMPRESSION: 1. Asymmetric elevation of the right hemidiaphragm, but no new focal infiltrate or evidence of failure. Dictated by: Dictated on workstation # [id number]
--- NOTE | 2023-07-13 09:39 | History & Physical-Hospitalist ---
History of Present Illness HPI/Chief Complaint Pt is a 68yoCM with a PMH of a -fib, CAD s/p CABG, HTN, HLD, Labes who presented to the emergency department due to weakness. He was seen in the emergency department on the first due to a fall and ankle pain. He apparently had fallen on the and did not seek care until his grandson got home and brought him to the hospital. He was found to have a left left ankle fracture. This was splinted and he was discharged and sent home. It is unclear what exactly happened since that time as the grandson had left for work and thought he had been fine after leaving the ER. He returned to the emergency department with weakness. He was found to have a GI bleed and his hemoglobin was 5.7. The patient is unable to provide me any of this history and this all comes from the records and from his son Armin. He was also found to have a lactic acidosis of 9.06. He had an elevated troponin of 0.618. He was requiring nasal cannula in the ER but needed BiPAP upon arrival to the ICU. He had reported shortness of breath to the emergency department but did not to me. He states he wants BiPAP off but did say he would be okay with a tube in his throat to help him breathe if it was needed. He was ultimately willing to put BiPAP back on. He has been given a unit of blood nad Hgb has increased to 7.1. Source: patient Date Seen 07/13/23 Time Seen by a Provider: 09:35 Attending Physician No,Local Physician PCP Admitting Physician: Jarred Diggs MD Attending Physician: Jarred Diggs MD Referring Physician Date of Admission Jul 12, 2023 at 21:39 Home Medications & Allergies Home Medications Reviewed patient Home Medication Reconciliation performed by pharmacy medication reconciliations technician chemical cleaning and/or nursing. Patients Allergies have been reviewed. Allergies Allergies Coded Allergies No Known Drug Allergies (Unverified02/11/12) Past Lzwahfb-Eeoimg-Rpdskp Hx Patient Social History Marrital Status: Employed/Student: retired Tobacco Use?: No Smokeless Tobacco Frequency: Current Everyday User Use of E-Cig and/or Vaping dev: No Substance use?: Yes Substance type: Amphetamines, Methamphetamine, Marijuana Substance frequency: Daily Alcohol Use?: Yes Alcohol type: Hard Liquor Additional alcohol type: [place] DELUXE Alcohol Frequency: Daily Additional Alcohol Comments: STATES IS WITHDRAWLING FROM [place] LAST DRINK 3 DAYS AGO Pt feels they are or have been: No Immunizations Up To Date First/Initial COVID19 Vaccinat: MARCH 2021 Second COVID19 Vaccination Navdeep: MARCH 2021 Tetanus Booster (TDap): Unknown Current Status Advance Directives: No Communicates: Verbally Primary Language: Greek Preferred Spoken Language: Greek Is interpretation needed?: No Sensory deficits: Vision impairment Implanted or Applied Medical D: None Past Medical History Surgeries: Abdominal, Cardiac, CABG, Orthopedic, Valve Replacement Atrial Fibrillation, Coronary Artery Disease, High Cholesterol, Hypertension, Valvular Heart Disease Fractures, Gout Anxiety Blood Disorders: No Family Medical History No Pertinent Family Hx Review of Systems Constitutional: see HPI Physical Exam Physical Exam Vital Signs Vital Signs - First Documented 07/12/23 07/12/23 18:50 23:07 Temp 37.6 Pulse 117 Resp 18 B/P (MAP) 114/59 (77) Pulse Ox 96 O2 Delivery Nasal Cannula O2 Flow Rate 2.00 FiO2 32 Capillary Refill : Less Than 3 Seconds Height, Weight, BMI Height: 5'6.00" Weight: 163lbs. 0.0oz. 73.759254rr; 26.54 BMI Method:Stated General Appearance: Chronically ill, Mild Distress HEENT: PERRL/EOMI; No Scleral Icterus (L), No Scleral Icterus (R) Respiratory: Other (increased work of breathing, decreased breath sounds) Cardiovascular: No Murmur, Irregularly Irregular Gastrointestinal: Normal Bowel Sounds, Soft Neurologic/Psychiatric: Alert, Oriented x3 Results Results/Procedures Labs Laboratory Tests 07/12/23 18:58 07/13/23 02:01 Patient resulted labs reviewed. Imaging: Reviewed Imaging Report Imaging [facility]. [place], [place] NAME: LAURA NOYOLA [facility] REC#: [id number] PT STATUS: REG ER : 1955 PHYSICIAN: DAMARIS HUITRON DO ADMIT DATE: 07/12/23/ER Signed Date of Exam:07/12/23 CHEST 1 VIEW, AP/PA ONLY INDICATION: Shortness of breath. Comparison is made with prior examination of 01/14/2022. FINDINGS: The heart size is stable. There is some elevation of the right hemidiaphragm. There is some left basilar discoid atelectasis and/or pneumonitis. There is no pleural effusion or pneumothorax. Mediastinum is unremarkable. There has been previous median sternotomy. IMPRESSION: Minimal discoid atelectasis and/or pneumonitis in the left lung base. Unchanged elevation of the right hemidiaphragm. Dictated by: Dictated on workstation # [id number] Dict: 07/12/231929 Trans: 07/12/231937 [id number] Interpreted by: NEFTALY MORALES MD Electronically signed by: NEFTALY MORALES MD 07/12/231937 [facility] [place], [place] NAME: LAURA NOYOLA [facility] REC#: [id number] PT STATUS: REG ER : 1955 PHYSICIAN: DAMARIS HUITRON DO ADMIT DATE: 07/12/23/ER Signed Date of Exam:07/12/23 CT CONNOR CHEST/NOANG ABD-PELV W INDICATION: Chest pain. Dyspnea. Elevated D-dimer. Recent left tibia and fibula fracture. Abdominal pain. CTA chest, abdomen and pelvis Thin axial sections through the chest, abdomen and pelvis are obtained following intravenous contrast bolus. Multiplanar MIP images were reconstructed and reviewed. All CT scans use one or more of the following dose optimizing techniques: automated exposure control, MA and/or KvP adjustment based on patient size and exam type or iterative reconstruction. COMPARISON: 09/18/2021. CTA chest: No evidence of pulmonary emboli to the subsegmental pulmonary arteries. No aneurysm or dissection of the thoracic aorta. The heart size is within normal limits. No pericardial effusion is present. There is no mediastinal, hilar, or axillary lymphadenopathy. There is elevation of the right hemidiaphragm with right basilar atelectasis. No focal masses or consolidations. No pleural effusion or pneumothorax. No acute osseous abnormalities. CT abdomen and pelvis: There is hepatic steatosis. No focal hepatic lesions. The portal vein is patent. The gallbladder is decompressed. The spleen, pancreas, adrenal glands, and kidneys have a normal appearance. There is no pathologically enlarged mesenteric or retroperitoneal adenopathy. The bowel loops are nondilated. The appendix is visualized in the right lower quadrant and has a normal appearance. There is no free fluid or free air. No acute osseous abnormalities. There is grade 1 anterolisthesis of L4 on L5 and L5 on S1. Bilateral pars defects are seen at L4 and L5. There is calcified aortic and iliac atherosclerotic plaque without aneurysm. The urinary bladder is decompressed with Epps in place. There is no free air, loculated collection, or adenopathy in the pelvis. IMPRESSION: 1. No evidence of pulmonary emboli to the subsegmental pulmonary arteries. 2. Elevated right hemidiaphragm with right basilar atelectasis. 3. Hepatic steatosis. 4. Grade 1 anterolisthesis of L4 on L5 and L5 on S1 with bilateral pars defects at L4 and L5. Dictated by: Dictated on workstation # [id number] Dict: 07/12/232039 Trans: 07/12/232053 [id number] [id number] Interpreted by: SHIVA RAM DO Electronically signed by: SHIVA RAM DO 07/12/232053 Assessment/Plan Admission Diagnosis GI Bleed Admission Status: Inpatient Order (span 2 midnights) Reason for Inpatient Admission: see below Assessment and Plan GI Bleed Alcohol abuse Lactic acidosis 1 unit transfused, 2 more ordered Telemetry [facility] Surgery consulted, appreciate recs Protonix Banana Bag Acute respiratory failure On BiPAP currently TeleICU consulted Consents to vent if needed MAT protocol Cefepime prophylactically for now A fib CAD/so CABG HTN NSTEMI Cardiology consulted, appreciate recs Amiodarone ordered No anticoagulation due to GI bleed Telemetry Called and spoke with son who reports pt has been a long standing alcoholic and has attempted to get sober preivously. Discussed prognosis at this time and difficulties currently with GIB and, elevated troponin/a fib. He expressed understanding and plans to come to the hospital later today. DEON SKINNER MD Jul 13, 2023 09:39
[2023-07-13] MEDS ORDERED: NS IV 500 ML 500 ML IV SCH (10:00)
[2023-07-13] MEDS ORDERED: AMIODARONE FOR BOLUS 150 MG in NS (IVPB) 100 ML 100 ML IV ONE (10:00)
[2023-07-13] MEDS: THIAMINE INJECTION 100 MG, FOLIC ACID INJECTION 1 MG, MAGNESIUM SULFATE 2 GM, MULTIVITA... IV SCH ×5 (10:24)
[2023-07-13] MEDS: VASOPRESSIN INJECTION 20 UNIT in NS (IVPB) 100 ML 100 ML IV SCH ×2 (10:26→22:25)
[2023-07-13] MEDS: RT-Ipratropium/Albuterol NEB 3 ML VIAL INH SCH ×4 (10:44→21:09)
[2023-07-13] MEDS: AMIODARONE FOR DRIP 450 MG in NORMAL SALINE (EXCEL) 250 ML 250 ML IV SCH ×2 (10:50→18:25)
[2023-07-13 13:21] LABS: HEPATITIS C ANTIBODY C Non-Reactive (Non-Reactive)
[2023-07-13] MEDS ORDERED: FUROSEMIDE INJECTION 40 MG/4 ML VIAL IVP ONE (14:30)
[2023-07-13] MEDS: NOREPINEPHRINE 8 MG/250 ML 250 ML IV SCH (15:27)
--- NOTE | 2023-07-13 15:30 | Consultation - Surgery ---
History of Present Illness History of Present Illness Patient Consulted On(freda/time) 07/13/23 11:21 Date Seen by Provider: Jul 13, 2023 Time Seen by Provider: 11:21 History of Present Illness Consult requested for possible GI bleed. Tod is a 68 year old male who with recent left ankle fracture. He was having weakness and brought to ED by grandson. Patient not able to provide any information at the time of me seeing him. Had hgb 5.7 and transfused prbc. He is currently on bipap. Hgb is up to 7.1. No family at bedside. Elevated troponin and lactic. Allergies and Home Medications Allergies Coded Allergies: No Known Drug Allergies (Unverified , 02/11/12) Patient Home Medication List Home Medication List Reviewed: Yes Albuterol Sulfate (Ventolin Hfa) 1 Puff Puff, 2 PUFF IH Q4H PRN for shortness of breath Prescribed by: CHIQUITA THOMPSON on 01/14/22 190 Amoxicillin/Potassium Clav (Amox Tr-K Clv 875-125 mg Tab) 875 Mg-125 Mg Tablet, 1 EACH PO BID Prescribed by: CHIQUITA THOMPSON on 01/14/22 190 Aspirin (Aspirin EC) 325 Mg Tablet.dr, 325 MG PO DAILY Prescribed by: VIOLETA TURK on 05/25/18 1300 Atorvastatin Calcium (Lipitor) 40 Mg Tablet, 40 MG PO DAILY Prescribed by: Sukhjinder MUJICA on 05/30/18 1111 Azithromycin (Azithromycin) 250 Mg Tablet, 250 MG PO UD Prescribed by: CHIQUITA THOMPSON on 01/14/22 190 Colchicine (Colchicine) 0.6 Mg Tablet, 0.6 MG PO BID Prescribed by: JACQUIE CHOUDHURY on 10/21/20 1020 Furosemide (Lasix) 20 Mg Tablet, 20 MG PO DAILY Prescribed by: CHIQUITA THOMPSON on 01/14/22 190 Hydrocodone/Acetaminophen (Hydrocodone-Acetamin 5-325 mg) 1 Each Tablet, 1 TAB PO Q6H PRN for PAIN-MODERATE (5-7) Prescribed by: JACQUIE CHOUDHURY on 10/21/20 1021 Lisinopril (Lisinopril) 5 Mg Tablet, 5 MG PO DAILY Prescribed by: Sukhjinder MUJICA on 05/30/18 1113 Methylprednisolone (Methylprednisolone Dose Pack) 4 Mg Tab.ds.pk, 4 MG PO UD Prescribed by: JACQUIE CHOUDHURY on 10/21/20 1020 Metoprolol Tartrate (Metoprolol Tartrate) 25 Mg Tablet, 25 MG PO BID Prescribed by: Sukhjinder MUJICA on 05/30/18 1112 Milk Thistle Seed Extract (Milk Thistle) 140 Mg Capsule, 140 MG PO DAILY PRN for NEEDED, (Reported) Entered as Reported by: KENROY CLEANING on 05/24/18 1419 Trazodone HCl (Trazodone HCl) 50 Mg Tablet, 50 MG PO HS Prescribed by: GREY DUMONT on 09/18/21 1742 Vit B2/Niacin/B-6/B-12/D-Panth (B Complex Sublingual Liquid) 59 Ml Liquid, 1 TBS SL DAILY PRN for VITAMINS, (Reported) Entered as Reported by: KENROY CLEANING on 05/24/18 1419 Past Eavfviz-Sdvlgk-Opccyb Hx Patient Social History Type Used: Smokeless Tobacco 2nd Hand Smoke Exposure: No Recent Hopitalizations: No Alcohol Use?: Yes Substance type: Amphetamines, Methamphetamine, Marijuana Immunizations Up To Date Tetanus Booster (TDap): Less than 5yrs Surgeries History of Surgeries: Yes (BROKEN FEMUR 08/1992, REPEATED 05/1993, CARPAL TUNNEL RIGHT X2) Surgeries: Abdominal, Cardiac, CABG, Orthopedic, Valve Replacement Respiratory History of Respiratory Disorde: No Cardiovascular History of Cardiac Disorders: Yes (CABG) Cardiac Disorders: Atrial Fibrillation, Coronary Artery Disease, High Cholester ol, Hypertension, Valvular Heart Disease Neurological History of Neurological Disord: No Genitourinary History of Genitourinary Disor: No Gastrointestinal History of Gastrointestinal Di: No Musculoskeletal History of Musculoskeletal Dis: Yes (Carpal tunnel syndrome;LEFT HIP FX/ORIF- SURGERY X 2;GOUT/PSEUDOGOUT) Musculoskeletal Disorders: Fractures, Gout Endocrine History of Endocrine Disorders: No HEENT History of HEENT Disorders: No Cancer History of Cancer: No Psychosocial History of Psychiatric Problem: Yes Behavioral Health Disorders: Anxiety Integumentary History of Skin or Integumenta: No Blood Transfusions History of Blood Disorders: No Reviewed Nursing Assessment Reviewed/Agree w Nursing PMH: Yes Family Medical History Significant Family History: No Pertinent Family Hx Review of Systems-General ROS-Unable to Obtain: unable to obtain secondary to condition Physical Exam-General Problems Physical Exam Vital Signs Vital Signs - First Documented 07/12/23 07/12/23 18:50 23:07 Temp 37.6 Pulse 117 Resp 18 B/P (MAP) 114/59 (77) Pulse Ox 96 O2 Delivery Nasal Cannula O2 Flow Rate 2.00 FiO2 32 Capillary Refill : Less Than 3 Seconds General Appearance: WD/WN, no apparent distress, other (on bipap) HEENT: normal ENT inspection Neck: non-tender, full range of motion, supple Respiratory: chest non-tender, no respiratory distress, no accessory muscle use Cardiovascular: regular rate, rhythm, no JVD Gastrointestinal: non tender, soft Rectal: deferred Back: normal inspection, no CVA tenderness Extremities: non-tender, other (left lower extremity in brace) Neurologic/Psychiatric: No alert; other (does not communicate with me on bipap) Skin: normal color, warm/dry Lymphatic: no adenopathy Data Review Labs Laboratory Tests 07/12/23 18:58: White Blood Count 18.8H, Red Blood Count 1.72L, Hemoglobin 5.7*L, Hematocrit 19*L, Mean Corpuscular Volume 108H, Mean Corpuscular Hemoglobin 33, Mean Corpuscular Hemoglobin Concent 31L, Red Cell Distribution Width 21.0H, Platelet Count 191, Mean Platelet Volume 11.5, Immature Granulocyte % (Auto) 2, Neutrophils (%) (Auto) 83H, Lymphocytes (%) (Auto) 2L, Monocytes (%) (Auto) 13H, Eosinophils (%) (Auto) 0, Basophils (%) (Auto) 0, Neutrophils # (Auto) 15.6H, Lymphocytes # (Auto) 0.5L, Monocytes # (Auto) 2.4H, Eosinophils # (Auto) 0.0, Basophils # (Auto) 0.0, Immature Granulocyte # (Auto) 0.3H, Neutrophils % (Manual) 86, Lymphocytes % (Manual) 6, Monocytes % (Manual) 8, Nucleated Red Blood Cells 2, Polychromasia SLIGHT, Anisocytosis MODERATE, Erythrocyte Sedimentation Rate 72H, Prothrombin Time 15.3H, INR Comment 1.2, Activated Partial Thromboplast Time 29, D-Dimer 0.77H, Sodium Level 133L, Potassium Level 3.2L, Chloride Level 93L, Carbon Dioxide Level 18L, Anion Gap 22H, Blood Urea Nitrogen 44H, Creatinine 1.67H, Estimat Glomerular Filtration Rate 44, BUN/Creatinine Ratio 26, Glucose Level 161H, Lactic Acid Level 9.06*H, Calcium Level 9.0, Corrected Calcium 9.1, Magnesium Level 1.8, Total Bilirubin 3.9H, Aspartate Amino Transf (AST/SGOT) 174H, Alanine Aminotransferase (ALT/SGPT) 119H , Alkaline Phosphatase 107, Total Creatine Kinase 147, Creatine Kinase MB 4.0, Myoglobin 354.2H, Troponin I 0.618*H, C-Reactive Protein High Sensitivity 11.66H , B-Type Natriuretic Peptide 1283.0H, Total Protein 7.3, Albumin 3.9, Amylase Level 48, Lipase 26, Serum Alcohol < 10 07/12/23 19:17: Urine Color ORANGE, Urine Clarity CLOUDY, Urine pH 5.5, Urine Specific [place] 1.025H, Urine Protein 1+H, Urine Glucose (UA) NEGATIVE, Urine Ketones 1+H, Urine Nitrite NEGATIVE, Urine Bilirubin 2+H, Urine Urobilinogen 2.0, Urine Leukocyte Esterase NEGATIVE, Urine RBC (Auto) TRACEH, Urine RBC 2-5H, Urine WBC 2-5, Urine Squamous Epithelial Cells RARE, Urine Crystals NONE, Urine Bacteria FEWH, Urine Casts PRESENT, Urine Hyaline Casts 10-25H, Urine Mucus SMALLH, Urine Culture Indicated CULTURE PENDING, Urine Opiates Screen NEGATIVE, Urine Oxycodone Screen NEGATIVE, Urine Methadone Screen NEGATIVE, Urine Barbiturates Screen NEGATIVE, Ur Tricyclic Antidepressants Screen NEGATIVE, Urine Phencyclidine Screen NEGATIVE, Urine Amphetamines Screen NEGATIVE, Urine Methamphetamines Screen NEGATIVE, Urine Benzodiazepines Screen NEGATIVE, Urine Cocaine Screen NEGATIVE, Urine Cannabinoids Screen POSITIVEH 07/12/23 19:30: Influenza Type A (RT-PCR) Not Detected, Influenza Type B (RT-PCR) Not Detected, SARS-CoV-2 RNA (RT-PCR) Not Detected 07/12/23 19:43: Hepatitis A IgM Antibody Non-Reactive, Hepatitis B Surface Antigen Non-Reactive, Hepatitis B Core IgM Antibody Non-Reactive, Hepatitis C Antibody Non-Reactive, HIV (1&2) Ag and Ab Screen Referral Non-Reactive 07/12/23 21:26: Lactic Acid Level 3.63*H 07/12/23 22:27: Lactic Acid Level 1.69, Troponin I 0.393*H 07/13/23 01:35: Glucometer 120H 07/13/23 02:01: Troponin I 0.496*H, White Blood Count 14.5H, Red Blood Count 2.20L, Hemoglobin 7.1#L, Hematocrit 22L, Mean Corpuscular Volume 100H, Mean Corpuscular Hemoglobin 32, Mean Corpuscular Hemoglobin Concent 32, Red Cell Distribution Width 20.6H, Platelet Count 123L, Mean Platelet Volume 11.4, Immature Granulocyte % (Auto) 1, Neutrophils (%) (Auto) 74, Lymphocytes (%) (Auto) 7L, Monocytes (%) (Auto) 18H, Eosinophils (%) (Auto) 0, Basophils (%) (Auto) 0, Neutrophils # (Auto) 10.8H, Lymphocytes # (Auto) 0.9L, Monocytes # (Auto) 2.7H, Eosinophils # (Auto) 0.0, Basophils # (Auto) 0.0, Immature Granulocyte # (Auto) 0.1, Percent Immature Platelet Fraction 8.1H, Sodium Level 138, Potassium Level 3.6, Chloride Level 103, Carbon Dioxide Level 20L, Anion Gap 15H, Blood Urea Nitrogen 42H, Creatinine 1.35H, Estimat Glomerular Filtration Rate 57, BUN/Creatinine Ratio 31, Glucose Level 109H, Calcium Level 7.7L, Corrected Calcium 8.3L, Phosphorus Level 4.1, Magnesium Level 1.5L, Total Bilirubin 3.5H, Aspartate Amino Transf (AST/SGOT) 146H, Alanine Aminotransferase (ALT/SGPT) 96H, Alkaline Phosphatase 90, Total Protein 5.9L, Albumin 3.2, Triglycerides Level 129, Cholesterol Level 133, LDL Cholesterol Direct 94, VLDL Cholesterol 26, HDL Cholesterol 28L 07/13/23 08:13: Arterial Blood pH 7.42, Arterial Blood Partial Pressure CO2 36, Arterial Blood Partial Pressure O2 75L, Arterial Blood HCO3 23, Arterial Blood Total CO2 24.5, Arterial Blood Oxygen Saturation 96, Arterial Blood Base Excess -0.9, Blood Gas Ventilator Setting NO, Blood Gas Inspired Oxygen 40% 07/13/23 08:26: Ammonia 31 07/13/23 11:19: Glucometer 169H Assessment/Plan Assessment/Plan Assessment/Plan anemia possible gi bleed etoh withdrawal left ankle fracture currently on bipap follow hgb and transfuse as needed protonix bid NPO May need EGD. KORY GHOSH DO Jul 13, 2023 15:30
--- NOTE | 2023-07-13 15:37 | Consultation-Cardiology ---
HPI-Cardiology Cardiology Consultation: Date of Consultation 07/13/23 Time Seen by a Provider: 09:30 Date of Admission Attending Physician Rachell,Local Physician Admitting Physician Admitting Physician: Jarred Diggs MD Attending Physician: Jarred Diggs MD Physician requesting consult: Dr Contreras Consulting Physician JACINTA MCNULTY MD, MA, FACP, FACC, FSCAI, CCDS HPI: Chief Complaint: Reason for Card consult: Elevated troponin Mr. Lopes is a 68 yr old male admitted to ICU 4 from the ED. He is currently lethargic and on Bi-pap. Unable to obtain any information from the patient d/t AMS. Review of ED records show he was seen in the ED on 07-11-23 d/t left ankle fracture and was to see Dr. Youngblood. He came is yesterday with gen weakness and SOB. Review of Systems-Cardiology Review of Systems Constitutional: other (unable to provide ROS) YDH-Ephtwo-Ofmkkg Hx Patient Social History Marrital Status: Employed/Student: retired 2nd Hand Smoke Exposure: No Alcohol Use?: Yes Substance type: Amphetamines, Methamphetamine, Marijuana Pt feels they are or have been: No Immunizations Up To Date Tetanus Booster (TDap): Less than 5yrs Past Medical History PMH As described under Assessment. Family Medical History Family Medical History: Unable to obtain Allergies and Home Medications Allergies Coded Allergies: No Known Drug Allergies (Unverified , 02/11/12) Patient Home Medication List Home Medication List Reviewed: Yes Albuterol Sulfate (Ventolin Hfa) 1 Puff Puff, 2 PUFF IH Q4H PRN for shortness of breath Prescribed by: CHIQUITA THOMPSON on 01/14/221901 Amoxicillin/Potassium Clav (Amox Tr-K Clv 875-125 mg Tab) 875 Mg-125 Mg Tablet, 1 EACH PO BID Prescribed by: CHIQUITA THOMPSON on 01/14/221901 Aspirin (Aspirin EC) 325 Mg Tablet., 325 MG PO DAILY Prescribed by: VIOLETA TURK on 05/25/18 1300 Atorvastatin Calcium (Lipitor) 40 Mg Tablet, 40 MG PO DAILY Prescribed by: Sukhjinder THOMASON on 05/30/18 1111 Azithromycin (Azithromycin) 250 Mg Tablet, 250 MG PO UD Prescribed by: CHIQUITA THOMPSON on 01/14/221901 Colchicine (Colchicine) 0.6 Mg Tablet, 0.6 MG PO BID Prescribed by: JACQUIE CHOUDHURY on 10/21/20 1020 Furosemide (Lasix) 20 Mg Tablet, 20 MG PO DAILY Prescribed by: CHIQUITA THOMPSON on 01/14/221901 Hydrocodone/Acetaminophen (Hydrocodone-Acetamin 5-325 mg) 1 Each Tablet, 1 TAB PO Q6H PRN for PAIN-MODERATE (5-7) Prescribed by: JACQUIE CHOUDHURY on 10/21/20 1021 Lisinopril (Lisinopril) 5 Mg Tablet, 5 MG PO DAILY Prescribed by: Sukhjinder THOMASON on 05/30/18 1113 Methylprednisolone (Methylprednisolone Dose Pack) 4 Mg Tab.ds.pk, 4 MG PO UD Prescribed by: JACQUIE CHOUDHURY on 10/21/20 1020 Metoprolol Tartrate (Metoprolol Tartrate) 25 Mg Tablet, 25 MG PO BID Prescribed by: Sukhjinder THOMASON on 05/30/18 1112 Milk Thistle Seed Extract (Milk Thistle) 140 Mg Capsule, 140 MG PO DAILY PRN for NEEDED, (Reported) Entered as Reported by: KENROY CLEANING on 05/24/18 1419 Trazodone HCl (Trazodone HCl) 50 Mg Tablet, 50 MG PO HS Prescribed by: GREY DUMONT on 09/18/21 1742 Vit B2/Niacin/B-6/B-12/D-Panth (B Complex Sublingual Liquid) 59 Ml Liquid, 1 TBS SL DAILY PRN for VITAMINS, (Reported) Entered as Reported by: KENROY CLEANING on 05/24/18 1419 Physical Exam-Cardiology Physical Exam Vital Signs/I&O 07/13/23 07/13/23 07/13/23 07/13/23 04:00 04:03 05:00 05:00 Pulse 109 105 Resp 28 28 B/P (MAP) 96/78 (84) 99/74 (82) Pulse Ox 99 100 100 O2 Delivery Nasal Cannula Nasal Cannula NIV Bilevel Nasal Cannula O2 Flow Rate 4.00 2.00 40.00 4.00 07/13/23 07/13/23 07/13/23 07/13/23 05:09 06:00 07:00 07:00 Pulse 104 107 104 106 Resp 33 B/P (MAP) 107/81 (90) 100/89 (93) Pulse Ox 100 100 100 O2 Delivery NIV Bilevel NIV Bilevel O2 Flow Rate 40.00 40.00 40.00 07/13/23 07/13/23 07/13/23 07/13/23 07:00 07:52 08:00 08:00 Temp 36.4 Pulse 107 101 Resp 37 B/P (MAP) 96/76 (83) Pulse Ox 100 99 99 O2 Delivery NIV Bilevel NIV Bilevel O2 Flow Rate 40.00 40.00 FiO2 40 07/13/23 07/13/23 07/13/23 07/13/23 09:00 10:00 10:41 10:44 Pulse 99 93 97 101 Resp 34 B/P (MAP) 95/73 (82) 84/65 (72) 91/69 Pulse Ox 99 99 100 O2 Delivery NIV Bilevel NIV Bilevel O2 Flow Rate 40.00 40.00 40.00 07/13/23 07/13/23 07/13/23 07/13/23 11:00 11:15 12:00 12:03 Temp 36.5 Pulse 96 95 B/P (MAP) 90/62 (71) 112/59 (79) Pulse Ox 100 100 100 O2 Delivery NIV Bilevel NIV Bilevel NIV Bilevel O2 Flow Rate 40.00 40.00 FiO2 40 07/13/23 07/13/23 07/13/23 07/13/23 12:43 12:44 13:00 13:03 Temp 36.2 36.1 Pulse 94 95 90 90 Resp 34 29 31 B/P (MAP) 107/67 118/71 (92) 118/71 Pulse Ox 100 100 100 O2 Delivery NIV Bilevel NIV Bilevel NIV Bilevel O2 Flow Rate 40.00 FiO2 40 40 07/13/23 07/13/23 07/13/23 07/13/23 14:00 14:32 14:44 15:00 Temp 36.2 Pulse 87 85 86 88 Resp 11 22 17 32 B/P (MAP) 116/88 (98) 119/65 131/66 (90) Pulse Ox 100 100 100 100 O2 Delivery NIV Bilevel NIV Bilevel NIV Bilevel O2 Flow Rate 40.00 40.00 40.00 FiO2 40 07/13/23 00:00 Intake Total 2050 ml Output Total 0 ml Balance 2050 ml Capillary Refill : Less Than 3 Seconds Constitutional: other Neck: carotid pulses are 2 + bilaterally Respiratory: other Cardiovascular: regular rate-rhythm, S1 and S2, systolic murmur Gastrointestinal: soft, audible bowel sounds Extremities: other, no lower extremity edema bilateral Neurologic/Psychiatric: other Skin: normal color, warm/dry Data Review Labs Laboratory Tests 07/12/23 18:58: White Blood Count 18.8H, Red Blood Count 1.72L, Hemoglobin 5.7*L, Hematocrit 19*L, Mean Corpuscular Volume 108H, Mean Corpuscular Hemoglobin 33, Mean Corpuscular Hemoglobin Concent 31L, Red Cell Distribution Width 21.0H, Platelet Count 191, Mean Platelet Volume 11.5, Immature Granulocyte % (Auto) 2, Neutrophils (%) (Auto) 83H, Lymphocytes (%) (Auto) 2L, Monocytes (%) (Auto) 13H, Eosinophils (%) (Auto) 0, Basophils (%) (Auto) 0, Neutrophils # (Auto) 15.6H, Lymphocytes # (Auto) 0.5L, Monocytes # (Auto) 2.4H, Eosinophils # (Auto) 0.0, Basophils # (Auto) 0.0, Immature Granulocyte # (Auto) 0.3H, Neutrophils % (Manual) 86, Lymphocytes % (Manual) 6, Monocytes % (Manual) 8, Nucleated Red Blood Cells 2, Polychromasia SLIGHT, Anisocytosis MODERATE, Erythrocyte Sedimentation Rate 72H, Prothrombin Time 15.3H, INR Comment 1.2, Activated Partial Thromboplast Time 29, D-Dimer 0.77H, Sodium Level 133L, Potassium Level 3.2L, Chloride Level 93L, Carbon Dioxide Level 18L, Anion Gap 22H, Blood Urea Nitrogen 44H, Creatinine 1.67H, Estimat Glomerular Filtration Rate 44, BUN/Creatinine Ratio 26, Glucose Level 161H, Lactic Acid Level 9.06*H, Calcium Level 9.0, Corrected Calcium 9.1, Magnesium Level 1.8, Total Bilirubin 3.9H, Aspartate Amino Transf (AST/SGOT) 174H, Alanine Aminotransferase (ALT/SGPT) 119H , Alkaline Phosphatase 107, Total Creatine Kinase 147, Creatine Kinase MB 4.0, Myoglobin 354.2H, Troponin I 0.618*H, C-Reactive Protein High Sensitivity 11.66H , B-Type Natriuretic Peptide 1283.0H, Total Protein 7.3, Albumin 3.9, Amylase Level 48, Lipase 26, Serum Alcohol < 10 07/12/23 19:17: Urine Color ORANGE, Urine Clarity CLOUDY, Urine pH 5.5, Urine Specific [place] 1.025H, Urine Protein 1+H, Urine Glucose (UA) NEGATIVE, Urine Ketones 1+H, Urine Nitrite NEGATIVE, Urine Bilirubin 2+H, Urine Urobilinogen 2.0, Urine Leukocyte Esterase NEGATIVE, Urine RBC (Auto) TRACEH, Urine RBC 2-5H, Urine WBC 2-5, Urine Squamous Epithelial Cells RARE, Urine Crystals NONE, Urine Bacteria FEWH, Urine Casts PRESENT, Urine Hyaline Casts 10-25H, Urine Mucus SMALLH, Urine Culture Indicated CULTURE PENDING, Urine Opiates Screen NEGATIVE, Urine Oxycodone Screen NEGATIVE, Urine Methadone Screen NEGATIVE, Urine Barbiturates Screen NEGATIVE, Ur Tricyclic Antidepressants Screen NEGATIVE, Urine Phencyclidine Screen NEGATIVE, Urine Amphetamines Screen NEGATIVE, Urine Methamphetamines Screen NEGATIVE, Urine Benzodiazepines Screen NEGATIVE, Urine Cocaine Screen NEGATIVE, Urine Cannabinoids Screen POSITIVEH 07/12/23 19:30: Influenza Type A (RT-PCR) Not Detected, Influenza Type B (RT-PCR) Not Detected, SARS-CoV-2 RNA (RT-PCR) Not Detected 07/12/23 19:43: Hepatitis A IgM Antibody Non-Reactive, Hepatitis B Surface Antigen Non-Reactive, Hepatitis B Core IgM Antibody Non-Reactive, Hepatitis C Antibody Non-Reactive, HIV (1&2) Ag and Ab Screen Referral Non-Reactive 07/12/23 21:26: Lactic Acid Level 3.63*H 07/12/23 22:27: Lactic Acid Level 1.69, Troponin I 0.393*H 07/13/23 01:35: Glucometer 120H 07/13/23 02:01: Troponin I 0.496*H, White Blood Count 14.5H, Red Blood Count 2.20L, Hemoglobin 7.1#L, Hematocrit 22L, Mean Corpuscular Volume 100H, Mean Corpuscular Hemoglobin 32, Mean Corpuscular Hemoglobin Concent 32, Red Cell Distribution Width 20.6H, Platelet Count 123L, Mean Platelet Volume 11.4, Immature Granulocyte % (Auto) 1, Neutrophils (%) (Auto) 74, Lymphocytes (%) (Auto) 7L, Monocytes (%) (Auto) 18H, Eosinophils (%) (Auto) 0, Basophils (%) (Auto) 0, Neutrophils # (Auto) 10.8H, Lymphocytes # (Auto) 0.9L, Monocytes # (Auto) 2.7H, Eosinophils # (Auto) 0.0, Basophils # (Auto) 0.0, Immature Granulocyte # (Auto) 0.1, Percent Immature Platelet Fraction 8.1H, Sodium Level 138, Potassium Level 3.6, Chloride Level 103, Carbon Dioxide Level 20L, Anion Gap 15H, Blood Urea Nitrogen 42H, Creatinine 1.35H, Estimat Glomerular Filtration Rate 57, BUN/Creatinine Ratio 31, Glucose Level 109H, Calcium Level 7.7L, Corrected Calcium 8.3L, Phosphorus Level 4.1, Magnesium Level 1.5L, Total Bilirubin 3.5H, Aspartate Amino Transf (AST/SGOT) 146H, Alanine Aminotransferase (ALT/SGPT) 96H, Alkaline Phosphatase 90, Total Protein 5.9L, Albumin 3.2, Triglycerides Level 129, Cholesterol Level 133, LDL Cholesterol Direct 94, VLDL Cholesterol 26, HDL Cholesterol 28L 07/13/23 08:13: Arterial Blood pH 7.42, Arterial Blood Partial Pressure CO2 36, Arterial Blood Partial Pressure O2 75L, Arterial Blood HCO3 23, Arterial Blood Total CO2 24.5, Arterial Blood Oxygen Saturation 96, Arterial Blood Base Excess -0.9, Blood Gas Ventilator Setting NO, Blood Gas Inspired Oxygen 40% 07/13/23 08:26: Ammonia 31 07/13/23 11:19: Glucometer 169H Microbiology 07/12/23 Urine Culture - Final, Complete NO GROWTH A/P-Cardiology Assessment/Admission Diagnosis GIB - management per medical/eICU services Sepsis - management per medical/eICU services Pneumonia - management per medical services NSTEMI - likely Type 2 d/t profound anemia (reduce supply, increased demand) - Echo on 07-13-23: LVEF 45-50%, mod to severe MAC, mod MR, mod TR, PASP 60-65 mmHg H/O PAF - h/o SHAWN ligation at time of CABG 06-11-2018 at [facility] - PAF seen on EKG on 07-12 and 07/13/2023 CAD - Cardiac cath by Dr. Thomason 05-30-2018: Distal left main disease with severe ostial LAD disease. Severe aortic stenosis with normal LV function. Referred for CABG/AoVR at that time - H/O 3 vessel CABG 06-11-2018 (RSVG to the first OM; RSVG to the first diagonal; ANTHONY to the mid-distal LAD) with ligation SHAWN; AoV replacement with 23 mm pericardial tissue valve with Maya Magna ease, model 3300TFX by Dr. Wren at [facility] H/O AoVR - AoV replacement with 23 mm pericardial tissue valve with Maya Magna ease, model [id number] by Dr. Wren at [facility] - Echocardiogram of 08-29-[address] Thomason showed LVEF 55-65%. PASP 35-40 mmHg H/O methamphetamine use - smokes per ED report Marijuana use - (+) at the time of this admission ETOH abuse - PER ED report: DRINKS AT LEAST 2 PINTS OF HARD LIQUOR / DAY. HAS NOT HAD ANY ALCOHOL FOR 2 OR 3 DAYS Discussion and Recomendations Complex management issue d/t multiple co-morbidities as outline above Management of sepsis per medical services/eICU GIB and Type 2 ME - management by medical services - H/H improved following transfusion of 2 units - advise Hgb be 10mg/dL d/t CAD and NSTEMI (Type 2 due profound supply demand imbalance) PAF - h/o SHAWN ligation at time of CABG 2017 at [facility] protects to some degree against ischemic stroke - cannot give OAC due to profound anemia due to active GIB - start Amiodarone for rhythm/rate control Sepsis - management per medical services Heavy ETOH/methamphetamine/marijuana usage - management of withdrawal per medical/eICU services Liver enzyme elevation - management per medical services Monitor lab closely Further recs will be based on his hospital course We have reviewed the records from [facility] We would like to thank Medical services for this consult JACINTA MCNULTY MD FACP [facility] CCDS Jul 13, 2023 15:37
[2023-07-13] MEDS: inSUlin ASPART 1 UNIT/0.01 ML (PER UNIT) SQ SCH (18:15)
[2023-07-13] MEDS: PANTOPRAZOLE DRIP 200 MG/NS 100 ML IV SCH ×2 (22:00)
[2023-07-14] VITALS (9 sets, daily range): BP systolic 99–156; BP diastolic 67–95
[2023-07-14] MEDS: RT-Ipratropium/Albuterol NEB 3 ML VIAL INH SCH ×6 (02:36→22:03)
[2023-07-14 04:35] LABS: BASOPHILS % (AUTO) 0 % (0-10); EOSINOPHILS % (AUTO) 0 % (0-10); HEMOGLOBIN 8.5 g/dL (13.3-17.7); WHITE BLOOD COUNT 10.8 10^3/uL (4.3-11.0)
[2023-07-14 04:38] LABS: HEMATOCRIT 25 % (40-54); LYMPHOCYTES # (AUTO) 0.5 10^3/uL (1.0-4.0); LYMPHOCYTES % (AUTO) 4 % (12-44); MEAN CORPUSCULAR HEMOGLOBIN 33 pg (25-34); MEAN CORPUSCULAR HGB CONC 34 g/dL (32-36); MEAN CORPUSCULAR VOLUME 97 fL (80-99); MEAN PLATELET VOLUME 11.2 fL (9.0-12.2); MONOCYTES # (AUTO) 1.5 10^3/uL (0.0-1.0); MONOCYTES % (AUTO) 14 % (0-12); NEUTROPHILS # (AUTO) 8.7 10^3/uL (1.8-7.8); NEUTROPHILS % (AUTO) 80 % (42-75); PLATELET COUNT 139 10^3/uL (130-400)
[2023-07-14 04:51] LABS: ALBUMIN 2.9 GM/DL (3.2-4.5)
[2023-07-14 04:52] LABS: POTASSIUM 3.5 MMOL/L (3.6-5.0)
[2023-07-14 04:53] LABS: CALCIUM 6.9 MG/DL (8.5-10.1)
[2023-07-14 04:54] LABS: TOTAL PROTEIN 5.4 GM/DL (6.4-8.2)
[2023-07-14 04:56] LABS: BILIRUBIN,TOTAL 2.4 MG/DL (0.1-1.0)
[2023-07-14 04:57] LABS: PHOSPHORUS 2.6 MG/DL (2.3-4.7)
[2023-07-14 04:58] LABS: CREATININE SERUM 0.96 MG/DL (0.60-1.30)
[2023-07-14 05:00] LABS: MAGNESIUM 2.2 MG/DL (1.6-2.4)
[2023-07-14] MEDS: NS + KCL 20 MEQ/L 1000 ML 1,000 ML IV SCH ×3 (05:08→17:57)
[2023-07-14] MEDS ORDERED: POTASSIUM CL 10MEQ/50ML IVPB 200 ML IV ONE (05:13)
[2023-07-14] MEDS: POTASSIUM CL 10MEQ/50ML IVPB 50 ML IV SCH ×4 (05:46→08:02)
[2023-07-14] MEDS: POTASSIUM CHLORIDE 20 MEQ TABLET PO SCH (05:58)
[2023-07-14] MEDS: POTASSIUM BICARB 20 MEQ effervescent TABLET PO SCH (05:58)
[2023-07-14] MEDS: MAGNESIUM 1 GM/100 ML IVPB 100 ML IV SCH (05:58)
[2023-07-14] MEDS: inSUlin ASPART 1 UNIT/0.01 ML (PER UNIT) SQ SCH ×4 (05:59→17:51)
[2023-07-14] MEDS: CEFEPIME 1,000 MG/NS 50 ML IVPB IV SCH ×6 (06:41→18:02)
[2023-07-14] MEDS: VASOPRESSIN INJECTION 20 UNIT in NS (IVPB) 100 ML 100 ML IV SCH ×2 (07:35→19:28)
--- NOTE | 2023-07-14 08:20 | Progress Note - Surgery ---
Subjective Date Seen by a Provider: Jul 14, 2023 Time Seen by a Provider: 08:20 Subjective/Events-last exam Alert this morning and having conversation with me. Is not having any abdominal pain. Has some pain in the left leg where he broke his ankle. Some slight confusion about events that got him admitted. Denies n/v fever sweats chills shortness of breath or chest pain at this time. Focused Exam Lactate Level 07/12/23 18:58: Lactic Acid Level 9.06*H 07/12/23 21:26: Lactic Acid Level 3.63*H 07/12/23 22:27: Lactic Acid Level 1.69 Time of Focused Exam: 21:30 Objective Exam Vital Signs Date Time Temp Pulse Resp B/P (MAP) Pulse Ox O2 Delivery O2 Flow Rate FiO2 07/14/23 08:00 87 32 145/35 (95) 99 Nasal Cannula 4.00 07/14/23 07:25 36.5 Nasal Cannula 4.00 07/14/23 07:00 80 07/14/23 07:00 84 29 144/84 (110) 100 NIV Bilevel 40.00 07/14/23 06:30 NIV Bilevel 40.00 07/14/23 06:00 89 20 116/85 (95) 99 Nasal Cannula 4.00 07/14/23 05:14 Nasal Cannula 4.00 07/14/23 05:00 80 26 118/87 (97) 99 NIV Bilevel 40.00 07/14/23 04:00 98 NIV Bilevel 40 07/14/23 04:00 81 19 118/54 (75) 98 NIV Bilevel 40.00 07/14/23 03:00 79 27 115/72 (86) 97 NIV Bilevel 40.00 07/14/23 02:36 84 26 98 40.00 07/14/23 02:00 92 32 107/68 (81) 98 NIV Bilevel 40.00 07/14/23 01:00 84 22 117/43 (67) 98 NIV Bilevel 40.00 07/14/23 01:00 90 07/14/23 00:00 100 NIV Bilevel 40 07/14/23 00:00 36.4 07/14/23 00:00 81 24 129/90 (103) 100 NIV Bilevel 40.00 07/13/23 23:00 80 24 128/56 (80) 99 NIV Bilevel 40.00 07/13/23 22:00 85 26 148/39 (75) 100 NIV Bilevel 40.00 07/13/23 21:09 87 24 99 40.00 07/13/23 21:00 81 22 150/71 (97) 99 NIV Bilevel 40.00 07/13/23 20:00 84 22 152/73 (99) 100 NIV Bilevel 40.00 07/13/23 20:00 100 NIV Bilevel 40 07/13/23 19:54 36.6 07/13/23 19:00 85 22 135/81 (99) 100 NIV Bilevel 40.00 07/13/23 19:00 85 07/13/23 18:38 82 28 100 40.00 07/13/23 18:00 85 23 139/108 (113) 93 NIV Bilevel 40.00 07/13/23 17:59 36.2 82 31 143/54 94 NIV Bilevel 40 07/13/23 17:00 79 26 120/72 (89) 99 NIV Bilevel 40.00 07/13/23 16:51 98 NIV Bilevel 40 07/13/23 16:01 36.2 89 21 130/96 100 NIV Bilevel 40 07/13/23 16:00 86 130/96 (101) 100 NIV Bilevel 40.00 07/13/23 15:56 36.2 07/13/23 15:41 37.0 93 28 118/88 96 NIV Bilevel 40 07/13/23 15:00 88 32 131/66 (90) 100 NIV Bilevel 40.00 07/13/23 14:44 36.2 86 17 119/65 100 NIV Bilevel 40 07/13/23 14:32 85 22 100 40.00 07/13/23 14:00 87 11 116/88 (98) 100 NIV Bilevel 40.00 07/13/23 13:03 36.1 90 31 118/71 100 NIV Bilevel 40 07/13/23 13:00 90 29 118/71 (92) 100 NIV Bilevel 40.00 07/13/23 12:44 95 07/13/23 12:43 36.2 94 34 107/67 100 NIV Bilevel 40 07/13/23 12:03 100 NIV Bilevel 40 07/13/23 12:00 95 112/59 (79) 100 NIV Bilevel 40.00 07/13/23 11:15 36.5 07/13/23 11:00 96 90/62 (71) 100 NIV Bilevel 40.00 07/13/23 10:44 101 34 100 40.00 07/13/23 10:41 97 91/69 07/13/23 10:00 93 84/65 (72) 99 NIV Bilevel 40.00 07/13/23 09:00 99 95/73 (82) 99 NIV Bilevel 40.00 I & O 07/14/23 07:00 Intake Total 5227.2 ml Output Total 3425 ml Balance 1802.2 ml Capillary Refill : Less Than 3 Seconds General Appearance: No Apparent Distress, Chronically ill HEENT: PERRL/EOMI, Normal ENT Inspection; No Scleral Icterus (L), No Scleral Icterus (R) Neck: Full Range of Motion, Normal Inspection Respiratory: Chest Non Tender, No Accessory Muscle Use, No Respiratory Distress Cardiovascular: No Murmur, Irregularly Irregular Gastrointestinal: non tender, soft Extremity: Normal Capillary Refill, Other (left leg splinted) Neurologic/Psychiatric: Alert, Oriented x3 Skin: Normal Color, Warm/Dry Lymphatic: No Adenopathy Results Lab Laboratory Tests 07/13/23 08:26: Ammonia 31 07/13/23 11:19: Glucometer 169H 07/13/23 17:48: Glucometer 277H 07/14/23 00:57: Glucometer 133H 07/14/23 04:06: White Blood Count 10.8, Red Blood Count 2.58L, Hemoglobin 8.5L, Hematocrit 25L, Mean Corpuscular Volume 97, Mean Corpuscular Hemoglobin 33, Mean Corpuscular Hemoglobin Concent 34, Red Cell Distribution Width 19.1H, Platelet Count 139, Mean Platelet Volume 11.2, Immature Granulocyte % (Auto) 1, Neutrophils (%) (Auto) 80H, Lymphocytes (%) (Auto) 4L, Monocytes (%) (Auto) 14H, Eosinophils (%) (Auto) 0, Basophils (%) (Auto) 0, Neutrophils # (Auto) 8.7H, Lymphocytes # (Auto) 0.5L, Monocytes # (Auto) 1.5H, Eosinophils # (Auto) 0.0, Basophils # (Auto) 0.0, Immature Granulocyte # (Auto) 0.1, Percent Immature Platelet Fraction 8.2H, Sodium Level 139, Potassium Level 3.5L, Chloride Level 109H, Carbon Dioxide Level 20L, Anion Gap 10, Blood Urea Nitrogen 27H, Creatinine 0.96, Estimat Glomerular Filtration Rate 86, BUN/Creatinine Ratio 28, Glucose Level 133H, Calcium Level 6.9L, Corrected Calcium 7.8L, Phosphorus Level 2.6, Magnesium Level 2.2, Total Bilirubin 2.4H, Aspartate Amino Transf (AST/SGOT) 131H, Alanine Aminotransferase (ALT/SGPT) 91H, Alkaline Phosphatase 104, Total Protein 5.4L, Albumin 2.9L Microbiology 07/12/23 MRSA Screen - Final, Complete MRSA not isolated 07/12/23 Blood Culture - Preliminary, Resulted 07/12/23 Urine Culture - Final, Complete NO GROWTH Assessment/Plan Assessment/Plan Assessment/Plan anemia possible gi bleed etoh withdrawal left ankle fracture off bipap follow hgb and transfuse as needed - 4 units prbc at this time may need EGD if needing further transfusion, since off bipap now safer if needs to be done. protonix bid Start clears KORY GHOSH DO Jul 14, 2023 08:20
[2023-07-14] MEDS: THIAMINE INJECTION 100 MG, FOLIC ACID INJECTION 1 MG, MAGNESIUM SULFATE 2 GM, MULTIVITA... IV SCH ×5 (09:07)
[2023-07-14] MEDS: NOREPINEPHRINE 8 MG/250 ML 250 ML IV SCH (09:08)
--- NOTE | 2023-07-14 09:50 | Diagnostic Imaging Report ---
EXAM: CHEST 1 VIEW, AP/PA ONLY INDICATION: Dyspnea. Sepsis. COMPARISON: 07/13/2023. FINDINGS: Elevation the right hemidiaphragm is stable. Sternotomy. Left atrial appendage occlusion device. Left PICC tip mid SVC. No pleural effusion or pneumothorax. Stable heart size and pulmonary vascularity. IMPRESSION: Stable chest including marked elevation of the right hemidiaphragm. Dictated by: Dictated on workstation # [id number]
--- NOTE | 2023-07-14 10:35 | CONSULTATION REPORT ---
DATE OF SERVICE: 07/13/2023 INPATIENT CONSULTATION ROOM: ICU, bed #4. SERVICE: Orthopedic Service. CHIEF COMPLAINT: Right ankle pain. HISTORY OF PRESENT ILLNESS: This 68-year-old male, who is currently admitted for inpatient care due to profound weakness and multiple comorbidities. At the time of the consult, he was sedated and sleeping. Patient had fallen at home 2 days ago and was evaluated in the emergency department and x-rays noted a right ankle fracture and he was placed into a splint and discharged home the following day, however, he was readmitted due to increasing weakness and is currently being evaluated for multiple medical issues including acute substance withdrawal. He does have a history of illicit drug use, tobacco use and alcohol consumption. He is currently being treated for sepsis. MEDICATIONS: Recent medical list include albuterol, amoxicillin, aspirin, atorvastatin, azithromycin, colchicine, furosemide, [place] 5/325, lisinopril, methylprednisone, metoprolol, trazodone and vitamin supplement. PHYSICAL EXAMINATION: Right ankle examination today showed mild diffuse swelling. Skin was otherwise intact and right lower extremity was immobilized with a large air splint. Capillary refill was 2 seconds throughout the toes. Range of motion and tenderness was unable to be assessed due to patient's status. Review of x-rays, three views, right ankle from [facility] dated 07/12/2023, showed a mildly displaced Dhaliwal B lateral malleolus fracture. There was no evidence of significant widening of either the syndesmosis or mortise. No other acute changes or bony abnormalities were noted. IMPRESSION: Stable right ankle lateral malleolus fracture. PLAN: [ ] and I had evaluated his x-rays and we have recommended continued immobilization upon discharge from hospital. We recommend he will be converted to a tall Cam walker boot. Weightbearing as tolerated. We recommend outpatient followup as well. Dr. Youngblood, I believe was notified when the patient was initially evaluated in the emergency department, but he can follow up with doctors [ ] or with Dr. Youngblood. Job ID: [id number] DocumentID: [id number] Dictated Date: 07/14/2023 09:22:53 [employer] Installer Date: 07/14/2023 10:33:00 Dictated By: ADRIANNA JOLLEY
[2023-07-14] MEDS ORDERED: FUROSEMIDE INJECTION 40 MG/4 ML VIAL IVP NR ×2 (10:45→17:00)
[2023-07-14] MEDS ORDERED: NS IV 500 ML 500 ML IV SCH (10:45)
[2023-07-14] MEDS ORDERED: POTASSIUM CHLORIDE 20 MEQ TABLET PO NR (11:00)
[2023-07-14] MEDS: AMIODARONE 200 MG TABLET PO SCH ×2 (11:04→20:52)
--- NOTE | 2023-07-14 11:39 | Tele-ICU Progress Note ---
Subjective Date Seen by a Provider: Jul 14, 2023 Time Seen by a Provider: 11:32 Subjective/Events-last exam 68M with CAD, etoh abuse/dependence being admitted with multiple medical problems. Seen in ED yesterday for ankle fracture. Labs not checked. Discharged with a spling and instructions for ortho follow up. He otherwise had no reported complaints. He returns today with weakness, SOB and WORKMAN. A/P: - EtOH: on arrival showing early withdrawal signs. EtOH negative. CIWA IN PLACE - severe sepsis: severe lactic acidosis with LA initially 9, then 3.6 then 1.6. Secondary to sepsis vs hypovolemia/hypoperfusion. Cultures pending. Cefepime ongoing. - anemia: secondary to acute blood loss. Received 4 units of prbc's now stable - GIB: NPO. Protonix BID. Surgery consult appreciated - ARLYN: mild with creatinine 1.6. Volume resuscitation ongoing. improving - Abnormal Liver profile due to Etoh and bleedind . trend improving - troponemia: likely demand in setting of acute anemia. Trend troponins. No AC secondary to GIB. Initial 0.61, repeat 0.3. - afib: chronic. Rate 111. Monitor on tele. Hold AC in setting of GIB. - ankle fx: pain control, supportive care. Ortho consult appreciated Patient assessed via real time audiovisual communication system. CCT 20 min Sepsis Event Evaluation Height, Weight, BMI Height: 5'6.00" Weight: 163lbs. 0.0oz. [id number]; 28.65 BMI Method:Stated Focused Exam Lactate Level 07/12/23 18:58: Lactic Acid Level 9.06*H 07/12/23 21:26: Lactic Acid Level 3.63*H 07/12/23 22:27: Lactic Acid Level 1.69 Time of Focused Exam: 21:30 Exam Exam Patient acknowledged, consented, and participated in this virtual visit which was conducted using real time audio/video Vital Signs Date Time Temp Pulse Resp B/P (MAP) Pulse Ox O2 Delivery O2 Flow Rate FiO2 07/14/23 11:00 89 26 131/78 (99) 99 Nasal Cannula 4.00 07/14/23 10:46 96 Nasal Cannula 4.00 07/14/23 10:00 89 36 158/73 (87) 100 Nasal Cannula 4.00 07/14/23 09:00 93 35 131/102 (112) 98 Nasal Cannula 4.00 07/14/23 08:00 100 Nasal Cannula 4.00 07/14/23 08:00 87 32 145/35 (95) 99 Nasal Cannula 4.00 07/14/23 07:25 36.5 Nasal Cannula 4.00 07/14/23 07:00 80 07/14/23 07:00 84 29 144/84 (110) 100 NIV Bilevel 40.00 07/14/23 06:30 NIV Bilevel 40.00 07/14/23 06:00 89 20 116/85 (95) 99 Nasal Cannula 4.00 07/14/23 05:14 Nasal Cannula 4.00 07/14/23 05:00 80 26 118/87 (97) 99 NIV Bilevel 40.00 07/14/23 04:00 98 NIV Bilevel 40 07/14/23 04:00 81 19 118/54 (75) 98 NIV Bilevel 40.00 07/14/23 03:00 79 27 115/72 (86) 97 NIV Bilevel 40.00 07/14/23 02:36 84 26 98 40.00 07/14/23 02:00 92 32 107/68 (81) 98 NIV Bilevel 40.00 07/14/23 01:00 84 22 117/43 (67) 98 NIV Bilevel 40.00 07/14/23 01:00 90 07/14/23 00:00 100 NIV Bilevel 40 07/14/23 00:00 36.4 07/14/23 00:00 81 24 129/90 (103) 100 NIV Bilevel 40.00 07/13/23 23:00 80 24 128/56 (80) 99 NIV Bilevel 40.00 07/13/23 22:00 85 26 148/39 (75) 100 NIV Bilevel 40.00 07/13/23 21:09 87 24 99 40.00 07/13/23 21:00 81 22 150/71 (97) 99 NIV Bilevel 40.00 07/13/23 20:00 84 22 152/73 (99) 100 NIV Bilevel 40.00 07/13/23 20:00 100 NIV Bilevel 40 07/13/23 19:54 36.6 07/13/23 19:00 85 22 135/81 (99) 100 NIV Bilevel 40.00 07/13/23 19:00 85 07/13/23 18:38 82 28 100 40.00 07/13/23 18:00 85 23 139/108 (113) 93 NIV Bilevel 40.00 07/13/23 17:59 36.2 82 31 143/54 94 NIV Bilevel 40 07/13/23 17:00 79 26 120/72 (89) 99 NIV Bilevel 40.00 07/13/23 16:51 98 NIV Bilevel 40 07/13/23 16:01 36.2 89 21 130/96 100 NIV Bilevel 40 07/13/23 16:00 86 130/96 (101) 100 NIV Bilevel 40.00 07/13/23 15:56 36.2 07/13/23 15:41 37.0 93 28 118/88 96 NIV Bilevel 40 07/13/23 15:00 88 32 131/66 (90) 100 NIV Bilevel 40.00 07/13/23 14:44 36.2 86 17 119/65 100 NIV Bilevel 40 07/13/23 14:32 85 22 100 40.00 07/13/23 14:00 87 11 116/88 (98) 100 NIV Bilevel 40.00 07/13/23 13:03 36.1 90 31 118/71 100 NIV Bilevel 40 07/13/23 13:00 90 29 118/71 (92) 100 NIV Bilevel 40.00 07/13/23 12:44 95 07/13/23 12:43 36.2 94 34 107/67 100 NIV Bilevel 40 07/13/23 12:03 100 NIV Bilevel 40 07/13/23 12:00 95 112/59 (79) 100 NIV Bilevel 40.00 I & O 07/14/23 07:00 Intake Total 5227.2 ml Output Total 3425 ml Balance 1802.2 ml Height & Weight Height: 5'6.00" Weight: 163lbs. 0.0oz. 73.068722ur; 28.65 BMI Method:Stated General Appearance: No Apparent Distress, Chronically ill HEENT: PERRL/EOMI, Normal ENT Inspection; No Scleral Icterus (L), No Scleral Icterus (R) Neck: Full Range of Motion, Normal Inspection Respiratory: Chest Non Tender, No Accessory Muscle Use, No Respiratory Distress Cardiovascular: No Murmur, Irregularly Irregular Capillary Refill: Less Than 3 Seconds Gastrointestinal: non tender, soft Extremity: Normal Capillary Refill, Other (left leg splinted) Neurologic/Psychiatric: Alert, Oriented x3 Skin: Normal Color, Warm/Dry Lymphatic: No Adenopathy Results Lab Laboratory Tests 07/12/23 18:58 07/13/23 02:01 07/14/23 04:06 Assessment/Plan Assessment/Plan as above Critical Care: Critically Ill Patient Time spent with patient (mins): 20 ALFA MCNAMARA MD Jul 14, 2023 11:39
--- NOTE | 2023-07-14 12:22 | Progress Note - Hospitalist ---
Subjective HPI/CC On Admission Date Seen by Provider: Jul 14, 2023 Pt is a 68yoCM with a PMH of a -fib, CAD s/p CABG, HTN, HLD, Labes who presented to the emergency department due to weakness. He was seen in the emergency department on the first due to a fall and ankle pain. He apparently had fallen on the and did not seek care until his grandson got home and brought him to the hospital. He was found to have a left left ankle fracture. This was splinted and he was discharged and sent home. It is unclear what exactly happened since that time as the grandson had left for work and thought he had been fine after leaving the ER. He returned to the emergency department with weakness. He was found to have a GI bleed and his hemoglobin was 5.7. The patient is unable to provide me any of this history and this all comes from the records and from his son Armin. He was also found to have a lactic acidosis of 9.06. He had an elevated troponin of 0.618. He was requiring nasal cannula in the ER but needed BiPAP upon arrival to the ICU. He had reported shortness of breath to the emergency department but did not to me. He states he wants BiPAP off but did say he would be okay with a tube in his throat to help him breathe if it was needed. He was ultimately willing to put BiPAP back on. He has been given a unit of blood nad Hgb has increased to 7.1. Subjective/Events-last exam Pt reports doing much better today. No complaints. sBreathing improved. No belly pain. Returned to room to talk to son and family and updated on progress. ALl questions answered. RN with no new concerns. Focused Exam Lactate Level 07/12/23 18:58: Lactic Acid Level 9.06*H 07/12/23 21:26: Lactic Acid Level 3.63*H 07/12/23 22:27: Lactic Acid Level 1.69 Time of Focused Exam: 21:30 Objective Exam Vital Signs Vital Signs Date Time Temp Pulse Resp B/P (MAP) Pulse Ox O2 Delivery O2 Flow Rate FiO2 07/14/23 12:02 36.9 91 32 99/81 99 Nasal Cannula 4.00 07/14/23 04:00 40 Capillary Refill : Less Than 3 Seconds General Appearance: No Apparent Distress, Chronically ill Respiratory: Lungs Clear, No Respiratory Distress, Other (slightly labored breathing but much better than yesterday) Cardiovascular: Regular Rate, Rhythm Gastrointestinal: Normal Bowel Sounds, Soft Neurologic/Psychiatric: Alert, Oriented x3 Results/Procedures Lab Laboratory Tests 07/14/23 04:06 Patient resulted labs reviewed. Imaging: Reviewed Imaging Report Assessment/Plan Assessment and Plan Assess & Plan/Chief Complaint GI Bleed Alcohol abuse Lactic acidosis 4 units of pRBCs given so far, [address] Arriola Telemetry [facility] Surgery consulted, appreciate recs Protonix Banana Bag Hgb improved Acute respiratory failure Off BiPAP this AM TeleICU consulted MAT protocol Cefepime prophylactically given but will DC and monitor off abx as cultures negative A fib CAD/so CABG HTN NSTEMI- type II [place] Cardiology consulted, appreciate recs Amiodarone gtt No anticoagulation due to GI bleed Telemetry DVT ppx: SCDs only due to GI bleed but high risk Critical Care Critically Ill Patient DEON SKINNER MD Jul 14, 2023 12:21
--- NOTE | 2023-07-14 12:52 | Progress Note - Cardiology ---
Cardiology SOAP Progress Note Subjective: Gen malaise Shortness of breath No cp or palp or syncope No n/v/d Has gen weakness but does not report focal weakness Objective: I&O/Vital Signs 07/14/23 07/14/23 07/14/23 07/14/23 01:00 01:00 02:00 02:36 Pulse 90 84 92 84 Resp 22 32 26 B/P (MAP) 117/43 (67) 107/68 (81) Pulse Ox 98 98 98 O2 Delivery NIV Bilevel NIV Bilevel O2 Flow Rate 40.00 40.00 40.00 07/14/23 07/14/23 07/14/23 07/14/23 03:00 04:00 04:00 05:00 Pulse 79 81 80 Resp 27 19 26 B/P (MAP) 115/72 (86) 118/54 (75) 118/87 (97) Pulse Ox 97 98 98 99 O2 Delivery NIV Bilevel NIV Bilevel NIV Bilevel NIV Bilevel O2 Flow Rate 40.00 40.00 40.00 FiO2 40 07/14/23 07/14/23 07/14/23 07/14/23 05:14 06:00 06:30 07:00 Pulse 89 84 Resp 20 29 B/P (MAP) 116/85 (95) 144/84 (110) Pulse Ox 99 100 O2 Delivery Nasal Cannula Nasal Cannula NIV Bilevel NIV Bilevel O2 Flow Rate 4.00 4.00 40.00 40.00 07/14/23 07/14/23 07/14/23 07/14/23 07:00 07:25 08:00 08:00 Temp 36.5 Pulse 80 87 Resp 32 B/P (MAP) 145/35 (95) Pulse Ox 99 100 O2 Delivery Nasal Cannula Nasal Cannula Nasal Cannula O2 Flow Rate 4.00 4.00 4.00 07/14/23 07/14/23 07/14/23 07/14/23 09:00 10:00 10:46 11:00 Pulse 93 89 89 Resp 35 36 26 B/P (MAP) 131/102 (112) 158/73 (87) 131/78 (99) Pulse Ox 98 100 96 99 O2 Delivery Nasal Cannula Nasal Cannula Nasal Cannula Nasal Cannula O2 Flow Rate 4.00 4.00 4.00 4.00 07/14/23 07/14/23 07/14/23 07/14/23 11:43 11:48 12:00 12:00 Temp 37.0 37.2 Pulse 87 92 Resp 22 33 B/P (MAP) 138/73 99/81 (86) Pulse Ox 99 99 100 O2 Delivery Nasal Cannula Nasal Cannula Nasal Cannula O2 Flow Rate 4.00 4.00 4.00 07/14/23 07/14/23 12:02 12:41 Temp 36.9 Pulse 91 94 Resp 32 B/P (MAP) 99/81 Pulse Ox 99 O2 Delivery Nasal Cannula O2 Flow Rate 4.00 07/13/23 23:59 Intake Total 2474.2 ml Output Total 2900 ml Balance -425.8 ml Weight (Pounds): 163 Weight (Ounces): 0.0 Weight (Calculated Kilograms): 73.194190 Constitutional: AAO x 3, well-developed, well-nourished Respiratory: other Cardiovascular: regular rate-rhythm, S1 and S2, systolic murmur Gastrointestional: soft, audible bowel sounds Extremities: other, no lower extremity edema bilateral Neurologic/Psychiatric: oriented x 3, other (moves all limbs) Skin: normal color, warm/dry Results/Procedures: Labs Laboratory Tests 07/13/23 17:48: Glucometer 277H 07/14/23 00:57: Glucometer 133H 07/14/23 04:06: White Blood Count 10.8, Red Blood Count 2.58L, Hemoglobin 8.5L, Hematocrit 25L, Mean Corpuscular Volume 97, Mean Corpuscular Hemoglobin 33, Mean Corpuscular Hemoglobin Concent 34, Red Cell Distribution Width 19.1H, Platelet Count 139, Mean Platelet Volume 11.2, Immature Granulocyte % (Auto) 1, Neutrophils (%) (Auto) 80H, Lymphocytes (%) (Auto) 4L, Monocytes (%) (Auto) 14H, Eosinophils (%) (Auto) 0, Basophils (%) (Auto) 0, Neutrophils # (Auto) 8.7H, Lymphocytes # (Auto) 0.5L, Monocytes # (Auto) 1.5H, Eosinophils # (Auto) 0.0, Basophils # (Au to) 0.0, Immature Granulocyte # (Auto) 0.1, Percent Immature Platelet Fraction 8.2H, Sodium Level 139, Potassium Level 3.5L, Chloride Level 109H, Carbon Dioxide Level 20L, Anion Gap 10, Blood Urea Nitrogen 27H, Creatinine 0.96, Estimat Glomerular Filtration Rate 86, BUN/Creatinine Ratio 28, Glucose Level 133H, Calcium Level 6.9L, Corrected Calcium 7.8L, Phosphorus Level 2.6, Magnesium Level 2.2, Total Bilirubin 2.4H, Aspartate Amino Transf (AST/SGOT) 131H, Alanine Aminotransferase (ALT/SGPT) 91H, Alkaline Phosphatase 104, Total Protein 5.4L, Albumin 2.9L 07/14/23 12:07: Glucometer 157H Microbiology 07/12/23 MRSA Screen - Final, Complete MRSA not isolated 07/12/23 Blood Culture - Preliminary, Resulted 07/12/23 Urine Culture - Final, Complete NO GROWTH Laboratory Tests 07/12/23 18:58 07/13/23 02:01 07/14/23 04:06 A/P: Assessment: GIB - management per medical/eICU services Sepsis - management per medical/eICU services Pneumonia - management per medical services NSTEMI - likely Type 2 d/t profound anemia (reduced supply, increased demand) H/O PAF - h/o SHAWN ligation at time of CABG 06-11-2018 at [facility] - PAF seen on EKG on 07-12 and 07/13/2023 CAD - Cardiac cath by Dr. Thomason 05-30-2018: Distal left main disease with severe ostial LAD disease. Severe aortic stenosis with normal LV function. Referred for CABG/AoVR at that time - H/O 3 vessel CABG 06-11-2018 (RSVG to the first OM; RSVG to the first diagonal; ANTHONY to the mid-distal LAD) with ligation SHAWN; AoV replacement with 23 mm pericardial tissue valve with Maya Magna ease, model 3300TFX by Dr. Wren at [facility] H/O AoVR - AoV replacement with 23 mm pericardial tissue valve with Maya Magna ease, model 3300TFX by Dr. Wren at [facility] - Echo on 07-13-23: LVEF 45-50%, mod to severe MAC, mod MR, mod TR, PASP 60-65 mmHg H/O methamphetamine use - smokes per ED report Marijuana use - (+) at the time of this admission ETOH abuse - PER ED report: DRINKS AT LEAST 2 PINTS OF HARD LIQUOR / DAY. HAS NOT HAD ANY ALCOHOL FOR 2 OR 3 DAYS Plan: * Appears to have continuing bleed. Hgb has not improved to the goal of 10 despite 4 units PRBCs. Recommend 2 more units of PRBCs * Furosemide to precede transfusions (given mildly impaired LV systolic function and large volume load since admission) * Replenish K * Continue amiodarone. Change to oral * Monitor labs closely JACINTA MCNULTY MD [facility] Jul 14, 2023 12:52
--- NOTE | 2023-07-14 13:39 | Physical Therapy Evaluation ---
PT Evaluation-General Medical Diagnosis Admission Date Jul 12, 2023 at 21:39 Medical Diagnosis: sepsis Onset Date: Jul 12, 2023 Therapy Diagnosis Therapy Diagnosis: debility Height/Weight Height (Feet): 5 Height (Inches): 6.00 Weight (Pounds): 163 Weight (Ounces): 0.0 Precautions Precautions/Isolations: Fall Prevention, Standard Precautions Weight Bear Status Full Weight Bearing Full Weight Bearing Referral Physician: Chip Reason for Referral: Evaluation/Treatment Social History Home: Single Level Current Living Status: Other Family PT Steps Into Home: 2 Prior Prior Level of Function SCALE: Activities may be completed with or without assistive devices. 1-Uhkzzklixo-sebrqct completes the activity by him/herself with no assistance from a helper. 5-Set-up or Clean-up Assistance-helper sets up or cleans up; patient completes activity. [place] assists only prior to or following the activity. 4-Supervision or Touching Assistance-helper provides verbal cues and/or touching/steadying and/or contact guard assistance as patient completes activity. Assistance may be provided throughout the activity or intermittently. 3-Partial/Moderate Assistance-helper does LESS THAN HALF the effort. [place] lifts, holds or supports trunk or limbs, but provides less than half the effort. 2-Substantial/Maximal Assistance-helper does MORE THAN HALF the effort. [place] lifts or holds trunk or limbs and provides more than half the effort. 3-Arhnyxfsp-oidwnt does ALL the effort. Patient does none of the effort to complete the activity. Or, the assistance of 2 or more helpers is required for the patient to complete the activity. If activity was not attempted, code reason: 7-Patient Refused. 9-Not Applicable-not attempted and the patient did not perform the activity before the current illness, exacerbation or injury. 10-Not Attempted due to Environmental Limitations-(lack of equipment, weather restraints, etc.). 88-Not Attempted due to Medical Conditions or Safety Concerns. Bed Mobility: 6 Transfers (B,C,W/C): 6 Gait: 6 Stairs: 6 Indoor Mobility (Ambulation): Independent Stairs: Independent PT Evaluation-Current Subjective The patient had some confusion so difficult to obtain good subjective info. Pain Numeric Pain Scale: 5-Moderate Pain ROM/Strength Strength Lower Extremities 5/5 strength except in (L) ankle that is splinted Transfers no transfers performed secondary to nursing advising staying in bed secondary to getting blood Gait Does the Patient Walk?: No and Walking Goal IS indicated Mode of Locomotion: Walk Assessment/Needs 68 y.o. with a diagnosis of sepsis. He has a recent left ankle fracture that is splinted. The patient has functional mobility limitations that require skilled therapy. Rehab Potential: Good PT Machine Sander Goals Penitentiary Goals PT Penitentiary Goals Time Frame: Jul 21, 2023 Roll Left & Right (QC): 6 Sit to Lying (QC): 6 Lying-Sitting on Side/Bed(QC): 6 Sit to Stand (QC): 6 Chair/Bzr-ny-Xuomy Xfer(QC): 6 Toilet Transfer (QC): 6 Car Transfer (QC): 6 Does the Patient Walk: Yes Walk 10 feet (QC): 6 Walk 50ft with 2 Turns (QC): 6 Walk 150 ft (QC): 6 Walking 10ft on Uneven Surface: 6 1 Step (curb) (QC): 6 4 Steps (QC): 6 12 Steps (QC): 6 Picking up an Object (QC): 6 PT Plan Problem List Problem List: Activity Tolerance, Functional Strength, Safety, Balance, Gait, Transfer, Bed Mobility, ROM Treatment/Plan Treatment Plan: Continue Plan of Care Treatment Plan: Bed Mobility, Education, Functional Activity Dennise, Functional Strength, Gait, Safety, Therapeutic Exercise, Transfers Treatment Duration: Jul 21, 2023 Frequency: 11 times per week Estimated Hrs Per Day: 1 hour per day Time Time In: 1320 Time Out: 1330 DATE: Jul 14, 2023 Total Billed Treatment Time: 10 Total Billed Treatment 1, EV low complexity x 10' JERRY SUE PT Jul 14, 2023 13:39
[2023-07-14] MEDS: PANTOPRAZOLE DRIP 200 MG/NS 100 ML IV SCH ×2 (20:52)
[2023-07-15] MEDS: CEFEPIME 1,000 MG/NS 50 ML IVPB IV SCH ×4 (01:46→06:29)
[2023-07-15] MEDS: RT-Ipratropium/Albuterol NEB 3 ML VIAL INH SCH ×6 (02:50→22:24)
[2023-07-15] MEDS: NS + KCL 20 MEQ/L 1000 ML 1,000 ML IV SCH (03:09)
[2023-07-15] MEDS: inSUlin ASPART 1 UNIT/0.01 ML (PER UNIT) SQ SCH ×5 (03:53→23:21)
[2023-07-15] MEDS: NOREPINEPHRINE 8 MG/250 ML 250 ML IV SCH (03:53)
[2023-07-15 04:57] LABS: BASOPHILS % (AUTO) 0 % (0-10); EOSINOPHILS # (AUTO) 0.1 10^3/uL (0.0-0.3); EOSINOPHILS % (AUTO) 1 % (0-10); HEMATOCRIT 32 % (40-54); HEMOGLOBIN 10.7 g/dL (13.3-17.7); LYMPHOCYTES # (AUTO) 0.7 10^3/uL (1.0-4.0); LYMPHOCYTES % (AUTO) 8 % (12-44); MEAN CORPUSCULAR HEMOGLOBIN 32 pg (25-34); MEAN CORPUSCULAR HGB CONC 33 g/dL (32-36); MEAN CORPUSCULAR VOLUME 95 fL (80-99); MEAN PLATELET VOLUME 10.9 fL (9.0-12.2); MONOCYTES # (AUTO) 1.6 10^3/uL (0.0-1.0); MONOCYTES % (AUTO) 17 % (0-12); NEUTROPHILS # (AUTO) 6.7 10^3/uL (1.8-7.8); NEUTROPHILS % (AUTO) 73 % (42-75); PLATELET COUNT 154 10^3/uL (130-400); WHITE BLOOD COUNT 9.1 10^3/uL (4.3-11.0)
[2023-07-15 05:10] LABS: POTASSIUM 3.6 MMOL/L (3.6-5.0)
[2023-07-15 05:11] LABS: CALCIUM 6.5 MG/DL (8.5-10.1)
[2023-07-15 05:13] LABS: TOTAL PROTEIN 5.4 GM/DL (6.4-8.2)
[2023-07-15 05:14] LABS: BILIRUBIN,TOTAL 3.9 MG/DL (0.1-1.0)
[2023-07-15 05:16] LABS: PHOSPHORUS 1.8 MG/DL (2.3-4.7)
[2023-07-15 05:17] LABS: CREATININE SERUM 0.97 MG/DL (0.60-1.30)
[2023-07-15 05:19] LABS: MAGNESIUM 1.6 MG/DL (1.6-2.4)
[2023-07-15] MEDS: POTASSIUM CHLORIDE 20 MEQ TABLET PO SCH (05:51)
[2023-07-15] MEDS: POTASSIUM CL 10MEQ/50ML IVPB 50 ML IV SCH (05:51)
[2023-07-15] MEDS: POTASSIUM BICARB 20 MEQ effervescent TABLET PO SCH (05:51)
[2023-07-15] MEDS: MAGNESIUM 1 GM/100 ML IVPB 100 ML IV SCH ×4 (05:51→08:15)
[2023-07-15] MEDS: VASOPRESSIN INJECTION 20 UNIT in NS (IVPB) 100 ML 100 ML IV SCH (05:52)
[2023-07-15] MEDS ORDERED: MAGNESIUM 1 GM/100 ML IVPB 400 ML IV ONE (06:29)
--- NOTE | 2023-07-15 06:54 | Progress Note - Hospitalist ---
Subjective HPI/CC On Admission Date Seen by Provider: Jul 15, 2023 Pt is a 68yoCM with a PMH of a -fib, CAD s/p CABG, HTN, HLD, Labes who presented to the emergency department due to weakness. He was seen in the emergency department on the first due to a fall and ankle pain. He apparently had fallen on the and did not seek care until his grandson got home and brought him to the hospital. He was found to have a left left ankle fracture. This was splinted and he was discharged and sent home. It is unclear what exactly happened since that time as the grandson had left for work and thought he had been fine after leaving the ER. He returned to the emergency department with weakness. He was found to have a GI bleed and his hemoglobin was 5.7. The patient is unable to provide me any of this history and this all comes from the records and from his son Armin. He was also found to have a lactic acidosis of 9.06. He had an elevated troponin of 0.618. He was requiring nasal cannula in the ER but needed BiPAP upon arrival to the ICU. He had reported shortness of breath to the emergency department but did not to me. He states he wants BiPAP off but did say he would be okay with a tube in his throat to help him breathe if it was needed. He was ultimately willing to put BiPAP back on. He has been given a unit of blood nad Hgb has increased to 7.1. Subjective/Events-last exam Pt reports doing well. No complaints other than being thirsty. Was on BiPAP overnight. RN with no concerns. Off amio gtt. Focused Exam Lactate Level 07/12/23 18:58: Lactic Acid Level 9.06*H 07/12/23 21:26: Lactic Acid Level 3.63*H 07/12/23 22:27: Lactic Acid Level 1.69 Time of Focused Exam: 21:30 Objective Exam Vital Signs Vital Signs Date Time Temp Pulse Resp B/P (MAP) Pulse Ox O2 Delivery O2 Flow Rate FiO2 07/15/23 06:00 88 15 163/93 (116) 90 NIV Bilevel 35.00 07/15/23 04:00 36.2 07/14/23 17:00 35 Capillary Refill : Less Than 3 Seconds General Appearance: No Apparent Distress, Chronically ill Respiratory: Lungs Clear, No Respiratory Distress Cardiovascular: Regular Rate, Rhythm, No Murmur Gastrointestinal: Normal Bowel Sounds, Soft Neurologic/Psychiatric: Alert, Oriented x3 Results/Procedures Lab Laboratory Tests 07/15/23 04:47 Patient resulted labs reviewed. Imaging: Reviewed Imaging Report Assessment/Plan Assessment and Plan Assess & Plan/Chief Complaint GI Bleed Alcohol abuse Lactic acidosis 6 units of pRBCs given total, Hgb 10.7 Telemetry CIWA Surgery consulted, appreciate recs Protonix Banana Bag transaminitis stable Acute respiratory failure Off BiPAP this AM- only used overnight TeleICU consulted MAT protocol Cefepime prophylactically given but will DC and monitor off abx as cultures negative A fib CAD/so CABG HTN NSTEMI- type II HI Cardiology consulted, appreciate recs Amiodarone gtt- transitioned to oral yesterday, doing well No anticoagulation due to GI bleed Telemetry Anklel fracture-POA Ortho consulted, appreciate recs DVT ppx: SCDs only due to GI bleed but high risk Critical Care Critically Ill Patient DEON SKINNER MD Jul 15, 2023 06:54
[2023-07-15] MEDS ORDERED: POTASSIUM CHLORIDE 20 MEQ TABLET PO ONE (08:00)
[2023-07-15] MEDS: AMIODARONE 200 MG TABLET PO SCH ×2 (08:15→21:14)
[2023-07-15] MEDS: THIAMINE INJECTION 100 MG, FOLIC ACID INJECTION 1 MG, MAGNESIUM SULFATE 2 GM, MULTIVITA... IV SCH ×5 (08:48)
--- NOTE | 2023-07-15 09:18 | Tele-ICU Progress Note ---
Subjective Date Seen by a Provider: Jul 15, 2023 Subjective/Events-last exam This virtual visit was conducted using real time audio/video. Thank you for asking us to see this patient for respiratory insufficiency, GIB and alc withdrawal. Recent events: Now on NC 4 LPM PE: VSS. O2 sat 95% on 4 LPM. HEENT: No obvious masses, adenopathy or JVD. Chest: coarse on auscultation. CV: RRR S1 S2 No murmur or added sounds. Abd: Non-tender. Bowel sounds Y. : Unremarkable. Epps Y. SAILMAKER/psychiatric: Grossly intact. No obvious focal findings. Extremities: No edema. Capillary refill < 3 seconds. Skin: unremarkable. Results: Elevated Troponin 0.496. Decreased Hb 10.7, improved after 6 Units PRBCs. CXR: Stable with chronic elevated R hemidiaphragm. Available chart/ vitals / labs / images reviewed. Video assessment done using teleICU camera, rest of exam as per RN. A/P: Respiratory insufficiency: Continue present management with NC, duonebs, PRN BiPAP Monitor for increasing oxygenation needs and/or need for intubation. Critical Care: critically ill patient. Cont.SCDs, CIWA, PPI, IVF, Amiodarone. Discussed with RN EARNESTINE. Asked RN to reach out to eICU if any questions or concerns later. Time spent with patient/coordination of care with other health professionals (mins): 18 Sepsis Event Evaluation Height, Weight, BMI Height: 5'6.00" Weight: 163lbs. 0.0oz. [id number]; 28.47 BMI Method:Stated Focused Exam Lactate Level 07/12/23 18:58: Lactic Acid Level 9.06*H 07/12/23 21:26: Lactic Acid Level 3.63*H 07/12/23 22:27: Lactic Acid Level 1.69 Time of Focused Exam: 21:30 Exam Exam Patient acknowledged, consented, and participated in this virtual visit which was conducted using real time audio/video Vital Signs Date Time Temp Pulse Resp B/P (MAP) Pulse Ox O2 Delivery O2 Flow Rate FiO2 07/15/23 08:00 95 31 127/81 (91) 93 NIV Bilevel 35.00 07/15/23 08:00 37.2 07/15/23 07:00 89 07/15/23 07:00 87 27 147/98 (116) 96 NIV Bilevel 35.00 07/15/23 06:55 94 Nasal Cannula 4.00 07/15/23 06:00 88 15 163/93 (116) 90 NIV Bilevel 35.00 07/15/23 05:00 85 28 141/87 (105) 97 NIV Bilevel 35.00 07/15/23 04:00 36.2 07/15/23 04:00 92 14 135/93 (107) 92 NIV Bilevel 35.00 07/15/23 03:58 96 Nasal Cannula 4.00 07/15/23 03:00 88 39 125/88 (100) 97 NIV Bilevel 35.00 07/15/23 02:50 94 Nasal Cannula 4.00 07/15/23 02:00 86 11 147/78 (101) 97 NIV Bilevel 35.00 07/15/23 01:00 86 28 133/112 (119) 95 NIV Bilevel 35.00 07/15/23 00:04 112 07/15/23 00:00 92 15 142/76 (98) 98 NIV Bilevel 35.00 07/15/23 00:00 96 Nasal Cannula 4.00 07/14/23 23:00 109 30 143/95 (111) 97 NIV Bilevel 35.00 07/14/23 22:04 97 31 98 35.00 07/14/23 22:00 97 17 146/74 (98) 96 Nasal Cannula 4.00 07/14/23 22:00 NIV Bilevel 35.00 07/14/23 21:00 97 24 128/78 (95) 97 Nasal Cannula 4.00 07/14/23 20:00 37.9 96 30 145/101 (116) 90 Nasal Cannula 4.00 07/14/23 19:43 97 Nasal Cannula 4.00 07/14/23 19:00 96 15 155/88 (110) 97 Nasal Cannula 4.00 07/14/23 18:58 97 07/14/23 18:56 97 Nasal Cannula 4.00 07/14/23 18:00 98 33 162/98 (131) 96 Nasal Cannula 4.00 07/14/23 17:53 Nasal Cannula 4.00 07/14/23 17:00 92 20 156/92 (114) 96 NIV Bilevel 35.00 07/14/23 17:00 36.7 95 30 156/92 96 NIV Bilevel 35 07/14/23 16:44 97 NIV Bilevel 35 07/14/23 16:00 37.2 07/14/23 16:00 90 30 153/76 (110) 96 NIV Bilevel 35.00 07/14/23 15:15 36.9 88 30 148/93 97 NIV Bilevel 35 07/14/23 15:09 NIV Bilevel 35.00 07/14/23 15:00 87 33 144/90 (101) 98 NIV Bilevel 40.00 07/14/23 14:56 37.2 86 30 153/87 98 NIV Bilevel 40 07/14/23 14:39 NIV Bilevel 40.00 07/14/23 14:30 86 29 98 35.00 07/14/23 14:00 100 33 146/91 (111) 95 Nasal Cannula 4.00 07/14/23 13:42 36.8 88 30 145/95 96 Nasal Cannula 4.00 07/14/23 13:00 92 28 132/94 (101) Nasal Cannula 4.00 07/14/23 12:41 94 07/14/23 12:02 36.9 91 32 99/81 99 Nasal Cannula 4.00 07/14/23 12:00 37.2 07/14/23 12:00 92 33 99/81 (86) 100 Nasal Cannula 4.00 07/14/23 11:48 99 Nasal Cannula 4.00 07/14/23 11:43 37.0 87 22 138/73 99 Nasal Cannula 4.00 07/14/23 11:00 89 26 131/78 (99) 99 Nasal Cannula 4.00 07/14/23 10:46 96 Nasal Cannula 4.00 07/14/23 10:00 89 36 158/73 (87) 100 Nasal Cannula 4.00 I & O 07/15/23 07:00 Intake Total 5604.2 ml Output Total 5900 ml Balance -295.8 ml Height & Weight Height: 5'6.00" Weight: 163lbs. 0.0oz. [id number]; 28.47 BMI Method:Stated General Appearance: No Apparent Distress, Chronically ill HEENT: PERRL/EOMI, Normal ENT Inspection; No Scleral Icterus (L), No Scleral Icterus (R) Neck: Full Range of Motion, Normal Inspection Respiratory: Lungs Clear, No Respiratory Distress Cardiovascular: Regular Rate, Rhythm, No Murmur Capillary Refill: Less Than 3 Seconds Gastrointestinal: non tender, soft Extremity: Normal Capillary Refill, Other (left leg splinted) Neurologic/Psychiatric: Alert, Oriented x3 Skin: Normal Color, Warm/Dry Lymphatic: No Adenopathy Results Lab Laboratory Tests 07/14/23 04:06 07/15/23 04:47 Assessment/Plan Assessment/Plan See free text. Critical Care: Critically Ill Patient FOUZIA HAMLIN MD Jul 15, 2023 09:17
--- NOTE | 2023-07-15 09:46 | Diagnostic Imaging Report ---
INDICATION: Dyspnea, sepsis, ICU management. TECHNIQUE: Single view chest 3:49 AM CORRELATION STUDY: 07/14/2023 FINDINGS: Prior sternotomy change. Marked elevated right diaphragm with right lower lung volume loss. Increasing particularly left perihilar opacity favors edema. Heart partially obscured but appears generally stable with the prior sternotomy and atrial clipping device. IMPRESSION: 1. Increasing left perihilar opacities favors probable edema. Dictated by: Dictated on workstation # [id number]
--- NOTE | 2023-07-15 09:49 | Progress Note - Surgery ---
Subjective Date Seen by a Provider: Jul 15, 2023 Time Seen by a Provider: 09:27 Subjective/Events-last exam Having shortness of breath still. On nasal canula at this time. No abdominal pain. Hgb 10.7. Some dark stools. Was given 2 units of prbc yesterday to get hgb to goal of 10. No new complaints. Denies n/v fever sweats chills or chest pain. Focused Exam Lactate Level 07/12/23 18:58: Lactic Acid Level 9.06*H 07/12/23 21:26: Lactic Acid Level 3.63*H 07/12/23 22:27: Lactic Acid Level 1.69 Time of Focused Exam: 21:30 Objective Exam Vital Signs Date Time Temp Pulse Resp B/P (MAP) Pulse Ox O2 Delivery O2 Flow Rate FiO2 07/15/23 09:00 93 16 165/100 (123) 95 NIV Bilevel 35.00 07/15/23 08:00 95 31 127/81 (91) 93 NIV Bilevel 35.00 07/15/23 08:00 37.2 07/15/23 08:00 100 Nasal Cannula 4.00 07/15/23 07:00 89 07/15/23 07:00 87 27 147/98 (116) 96 NIV Bilevel 35.00 07/15/23 06:55 94 Nasal Cannula 4.00 07/15/23 06:00 88 15 163/93 (116) 90 NIV Bilevel 35.00 07/15/23 05:00 85 28 141/87 (105) 97 NIV Bilevel 35.00 07/15/23 04:00 36.2 07/15/23 04:00 92 14 135/93 (107) 92 NIV Bilevel 35.00 07/15/23 03:58 96 Nasal Cannula 4.00 07/15/23 03:00 88 39 125/88 (100) 97 NIV Bilevel 35.00 07/15/23 02:50 94 Nasal Cannula 4.00 07/15/23 02:00 86 11 147/78 (101) 97 NIV Bilevel 35.00 07/15/23 01:00 86 28 133/112 (119) 95 NIV Bilevel 35.00 07/15/23 00:04 112 07/15/23 00:00 92 15 142/76 (98) 98 NIV Bilevel 35.00 07/15/23 00:00 96 Nasal Cannula 4.00 07/14/23 23:00 109 30 143/95 (111) 97 NIV Bilevel 35.00 07/14/23 22:04 97 31 98 35.00 07/14/23 22:00 97 17 146/74 (98) 96 Nasal Cannula 4.00 07/14/23 22:00 NIV Bilevel 35.00 07/14/23 21:00 97 24 128/78 (95) 97 Nasal Cannula 4.00 07/14/23 20:00 37.9 96 30 145/101 (116) 90 Nasal Cannula 4.00 07/14/23 19:43 97 Nasal Cannula 4.00 07/14/23 19:00 96 15 155/88 (110) 97 Nasal Cannula 4.00 07/14/23 18:58 97 07/14/23 18:56 97 Nasal Cannula 4.00 07/14/23 18:00 98 33 162/98 (131) 96 Nasal Cannula 4.00 07/14/23 17:53 Nasal Cannula 4.00 07/14/23 17:00 92 20 156/92 (114) 96 NIV Bilevel 35.00 07/14/23 17:00 36.7 95 30 156/92 96 NIV Bilevel 35 07/14/23 16:44 97 NIV Bilevel 35 07/14/23 16:00 37.2 07/14/23 16:00 90 30 153/76 (110) 96 NIV Bilevel 35.00 07/14/23 15:15 36.9 88 30 148/93 97 NIV Bilevel 35 07/14/23 15:09 NIV Bilevel 35.00 07/14/23 15:00 87 33 144/90 (101) 98 NIV Bilevel 40.00 07/14/23 14:56 37.2 86 30 153/87 98 NIV Bilevel 40 07/14/23 14:39 NIV Bilevel 40.00 07/14/23 14:30 86 29 98 35.00 07/14/23 14:00 100 33 146/91 (111) 95 Nasal Cannula 4.00 07/14/23 13:42 36.8 88 30 145/95 96 Nasal Cannula 4.00 07/14/23 13:00 92 28 132/94 (101) Nasal Cannula 4.00 07/14/23 12:41 94 07/14/23 12:02 36.9 91 32 99/81 99 Nasal Cannula 4.00 07/14/23 12:00 37.2 07/14/23 12:00 92 33 99/81 (86) 100 Nasal Cannula 4.00 07/14/23 11:48 99 Nasal Cannula 4.00 07/14/23 11:43 37.0 87 22 138/73 99 Nasal Cannula 4.00 07/14/23 11:00 89 26 131/78 (99) 99 Nasal Cannula 4.00 07/14/23 10:46 96 Nasal Cannula 4.00 07/14/23 10:00 89 36 158/73 (87) 100 Nasal Cannula 4.00 I & O 07/15/23 07:00 Intake Total 5604.2 ml Output Total 5900 ml Balance -295.8 ml Capillary Refill : Less Than 3 Seconds General Appearance: No Apparent Distress, Chronically ill HEENT: PERRL/EOMI, Normal ENT Inspection; No Scleral Icterus (L), No Scleral Icterus (R) Neck: Full Range of Motion, Normal Inspection Respiratory: Chest Non Tender, No Accessory Muscle Use, No Respiratory Distress Cardiovascular: Regular Rate, Rhythm, No Murmur Gastrointestinal: non tender, soft Extremity: Normal Capillary Refill, Other (left leg splinted) Neurologic/Psychiatric: Alert, Oriented x3 Skin: Normal Color, Warm/Dry Lymphatic: No Adenopathy Results Lab Laboratory Tests 07/14/23 12:07: Glucometer 157H 07/14/23 17:35: Glucometer 118H 07/15/23 04:47: White Blood Count 9.1, Red Blood Count 3.39L, Hemoglobin 10.7#L, Hematocrit 32L, Mean Corpuscular Volume 95, Mean Corpuscular Hemoglobin 32, Mean Corpuscular Hemoglobin Concent 33, Red Cell Distribution Width 19.1H, Platelet Count 154, Mean Platelet Volume 10.9, Immature Granulocyte % (Auto) 1, Neutrophils (%) (Auto) 73, Lymphocytes (%) (Auto) 8L, Monocytes (%) (Auto) 17H, Eosinophils (%) (Auto) 1, Basophils (%) (Auto) 0, Neutrophils # (Auto) 6.7, Lymphocytes # (Auto) 0.7L, Monocytes # (Auto) 1.6H, Eosinophils # (Auto) 0.1, Basophils # (Auto) 0.0, Immature Granulocyte # (Auto) 0.1, Sodium Level 135, Potassium Level 3.6, Chloride Level 103, Carbon Dioxide Level 22, Anion Gap 10, Blood Urea Nitrogen 19H, Creatinine 0.97, Estimat Glomerular Filtration Rate 85, BUN/Creatinine Ratio 20, Glucose Level 105, Calcium Level 6.5L, Corrected Calcium 7.3L, Phosphorus Level 1.8L, Magnesium Level 1.6, Total Bilirubin 3.9H, Aspartate Amino Transf (AST/SGOT) 136H, Alanine Aminotransferase (ALT/SGPT) 106H, Alkaline Phosphatase 119, Total Protein 5.4L, Albumin 3.0L Microbiology 07/12/23 MRSA Screen - Final, Complete MRSA not isolated 07/12/23 Blood Culture - Preliminary, Resulted 07/12/23 Urine Culture - Final, Complete NO GROWTH Assessment/Plan Assessment/Plan Assessment/Plan anemia possible gi bleed etoh withdrawal left ankle fracture off bipap follow hgb and transfuse as needed - 6 units prbc have been given may need EGD if needing further transfusion, goal of hgb was 10 and hgb responded appropriately, since off bipap now safer if needs to be done. protonix bid clears KORY GHOSH DO Jul 15, 2023 09:49
--- NOTE | 2023-07-15 14:39 | Progress Note - Cardiology ---
Cardiology SOAP Progress Note Subjective: Gen weakness and malaise No cp or palp or syncope No shortness of breath at rest No n/v/d Denies focal weakness Objective: I&O/Vital Signs 07/15/23 07/15/23 07/15/23 07/15/23 02:50 03:00 03:58 04:00 Pulse 88 92 Resp 39 14 B/P (MAP) 125/88 (100) 135/93 (107) Pulse Ox 94 97 96 92 O2 Delivery Nasal Cannula NIV Bilevel Nasal Cannula NIV Bilevel O2 Flow Rate 4.00 35.00 4.00 35.00 07/15/23 07/15/23 07/15/23 07/15/23 04:00 05:00 06:00 06:55 Temp 36.2 Pulse 85 88 Resp 28 15 B/P (MAP) 141/87 (105) 163/93 (116) Pulse Ox 97 90 94 O2 Delivery NIV Bilevel NIV Bilevel Nasal Cannula O2 Flow Rate 35.00 35.00 4.00 07/15/23 07/15/23 07/15/23 07/15/23 07:00 07:00 08:00 08:00 Temp 37.2 Pulse 87 89 Resp 27 B/P (MAP) 147/98 (116) Pulse Ox 96 100 O2 Delivery Nasal Cannula Nasal Cannula O2 Flow Rate 4.00 4.00 07/15/23 07/15/23 07/15/23 07/15/23 08:00 09:00 10:00 10:49 Pulse 95 93 90 Resp 31 16 28 B/P (MAP) 127/81 (91) 165/100 (123) 154/105 (122) Pulse Ox 93 95 96 95 O2 Delivery Nasal Cannula Nasal Cannula Nasal Cannula Nasal Cannula O2 Flow Rate 4.00 4.00 4.00 2.00 07/15/23 07/15/23 07/15/23 07/15/23 11:00 12:00 12:00 12:12 Temp 36.8 Pulse 91 98 B/P (MAP) 153/94 (119) 154/102 (123) Pulse Ox 95 100 95 O2 Delivery Nasal Cannula Nasal Cannula Nasal Cannula O2 Flow Rate 4.00 4.00 4.00 4.00 07/15/23 12:41 Pulse 92 07/15/23 00:00 Intake Total 3545.2 ml Output Total 5325 ml Balance -1779.8 ml Weight (Pounds): 163 Weight (Ounces): 0.0 Weight (Calculated Kilograms): 73.641133 Constitutional: AAO x 3, well-developed, well-nourished Respiratory: other Cardiovascular: regular rate-rhythm, S1 and S2, systolic murmur Gastrointestional: soft, audible bowel sounds Extremities: other, no lower extremity edema bilateral Neurologic/Psychiatric: oriented x 3, other (moves all limbs) Skin: normal color, warm/dry Results/Procedures: Labs Laboratory Tests 07/14/23 17:35: Glucometer 118H 07/15/23 04:47: White Blood Count 9.1, Red Blood Count 3.39L, Hemoglobin 10.7#L, Hematocrit 32L, Mean Corpuscular Volume 95, Mean Corpuscular Hemoglobin 32, Mean Corpuscular Hemoglobin Concent 33, Red Cell Distribution Width 19.1H, Platelet Count 154, Mean Platelet Volume 10.9, Immature Granulocyte % (Auto) 1, Neutrophils (%) (Auto) 73, Lymphocytes (%) (Auto) 8L, Monocytes (%) (Auto) 17H, Eosinophils (%) (Auto) 1, Basophils (%) (Auto) 0, Neutrophils # (Auto) 6.7, Lymphocytes # (Auto) 0.7L, Monocytes # (Auto) 1.6H, Eosinophils # (Auto) 0.1, Basophils # (Auto) 0.0, Immature Granulocyte # (Auto) 0.1, Sodium Level 135, Potassium Level 3.6, Chloride Level 103, Carbon Dioxide Level 22, Anion Gap 10, Blood Urea Nitrogen 19H, Creatinine 0.97, Estimat Glomerular Filtration Rate 85, BUN/Creatinine Ratio 20, Glucose Level 105, Calcium Level 6.5L, Corrected Calcium 7.3L, Phosphorus Level 1.8L, Magnesium Level 1.6, Total Bilirubin 3.9H, Aspartate Amino Transf (AST/SGOT) 136H, Alanine Aminotransferase (ALT/SGPT) 106H, Alkaline Phosphatase 119, Total Protein 5.4L, Albumin 3.0L 07/15/23 12:07: Glucometer 115H Microbiology 07/12/23 MRSA Screen - Final, Complete MRSA not isolated 07/12/23 Blood Culture - Preliminary, Resulted 07/12/23 Urine Culture - Final, Complete NO GROWTH Laboratory Tests 07/14/23 04:06 07/15/23 04:47 A/P: Assessment: GIB - management per medical/eICU services Sepsis - management per medical/eICU services Pneumonia - management per medical services NSTEMI - likely Type 2 d/t profound anemia (reduced supply, increased demand) H/O PAF - h/o SHAWN ligation at time of CABG 06-11-2018 at [facility] - PAF seen on EKG on 07-12 and 07/13/2023 CAD - Cardiac cath by Dr. Thomason 05-30-2018: Distal left main disease with severe ostial LAD disease. Severe aortic stenosis with normal LV function. Referred for CABG/AoVR at that time - H/O 3 vessel CABG 06-11-2018 (RSVG to the first OM; RSVG to the first diagonal; ANTHONY to the mid-distal LAD) with ligation SHAWN; AoV replacement with 23 mm pericardial tissue valve with Maya Magna ease, model 3300TFX by Dr. Wren at [facility] H/O AoVR - AoV replacement with 23 mm pericardial tissue valve with Maya Magna ease, model [id number] by Dr. Wren at [facility] - Echo on 07-13-23: LVEF 45-50%, mod to severe MAC, mod MR, mod TR, PASP 60-65 mmHg H/O methamphetamine use - smokes per ED report Marijuana use - (+) at the time of this admission H/o ETOH abuse Plan: * Considerable clinical improvement following blood tansfurison * We recommend localization and elimination of bleeding source (Hosp and Surg svces managing) * Continue amiodarone orally * Monitor labs closely JACINTA MCNULTY MD FACP [facility] Jul 15, 2023 14:39
[2023-07-15] MEDS ORDERED: MELATONIN 3 MG TABLET PO PRN (20:45)
[2023-07-15 22:24] VITALS: BP 156/97
[2023-07-16] MEDS: RT-Ipratropium/Albuterol NEB 3 ML VIAL INH SCH ×3 (02:57→10:32)
[2023-07-16 04:41] LABS: BASOPHILS % (AUTO) 0 % (0-10); EOSINOPHILS # (AUTO) 0.1 10^3/uL (0.0-0.3); EOSINOPHILS % (AUTO) 2 % (0-10); HEMATOCRIT 33 % (40-54); HEMOGLOBIN 11.1 g/dL (13.3-17.7); LYMPHOCYTES # (AUTO) 0.5 10^3/uL (1.0-4.0); LYMPHOCYTES % (AUTO) 7 % (12-44); MEAN CORPUSCULAR HEMOGLOBIN 32 pg (25-34); MEAN CORPUSCULAR HGB CONC 34 g/dL (32-36); MEAN CORPUSCULAR VOLUME 96 fL (80-99); MEAN PLATELET VOLUME 10.7 fL (9.0-12.2); MONOCYTES # (AUTO) 1.2 10^3/uL (0.0-1.0); MONOCYTES % (AUTO) 15 % (0-12); NEUTROPHILS # (AUTO) 5.8 10^3/uL (1.8-7.8); NEUTROPHILS % (AUTO) 75 % (42-75); PLATELET COUNT 166 10^3/uL (130-400); WHITE BLOOD COUNT 7.8 10^3/uL (4.3-11.0)
[2023-07-16 05:18] LABS: ALBUMIN 2.9 GM/DL (3.2-4.5)
[2023-07-16 05:19] LABS: POTASSIUM 3.9 MMOL/L (3.6-5.0)
[2023-07-16 05:20] LABS: CALCIUM 6.5 MG/DL (8.5-10.1)
[2023-07-16 05:21] LABS: TOTAL PROTEIN 5.9 GM/DL (6.4-8.2)
[2023-07-16 05:23] LABS: BILIRUBIN,TOTAL 3.9 MG/DL (0.1-1.0)
[2023-07-16 05:24] LABS: PHOSPHORUS 1.6 MG/DL (2.3-4.7)
[2023-07-16] MEDS: POTASSIUM CHLORIDE 20 MEQ TABLET PO SCH (05:24)
[2023-07-16] MEDS: inSUlin ASPART 1 UNIT/0.01 ML (PER UNIT) SQ SCH (05:24)
[2023-07-16] MEDS: POTASSIUM BICARB 20 MEQ effervescent TABLET PO SCH (05:24)
[2023-07-16] MEDS: POTASSIUM CL 10MEQ/50ML IVPB 50 ML IV SCH (05:24)
[2023-07-16] MEDS: MAGNESIUM 1 GM/100 ML IVPB 100 ML IV SCH (05:24)
[2023-07-16 05:25] LABS: CREATININE SERUM 0.79 MG/DL (0.60-1.30)
[2023-07-16 05:27] LABS: MAGNESIUM 2.1 MG/DL (1.6-2.4)
[2023-07-16] MEDS ORDERED: POT Phosphate/NA Phosphate TABLET PO NR (08:00)
[2023-07-16] MEDS: AMIODARONE 200 MG TABLET PO SCH ×2 (08:10→20:28)
[2023-07-16] MEDS ORDERED: OMEP-254 PO (08:47)
[2023-07-16] MEDS ORDERED: ASPI-1238 PO (08:47)
[2023-07-16] MEDS ORDERED: MAGN250C PO (08:47)
[2023-07-16] MEDS ORDERED: MULT-1136 PO (08:47)
--- NOTE | 2023-07-16 11:18 | Progress Note - Surgery ---
MARK STEELE 07/16/23 1118: Subjective Date Seen by a Provider: Jul 16, 2023 Time Seen by a Provider: 10:50 Subjective/Events-last exam Pt is feeling well, but is still complaining of shortness of breath with rest. Has not ambulated. Hgb is 11.1 today. BM is brown and no visible blood per RN. O2 sats is 95% on 2L NC, though patient c/o wearing O2 NC and was not wearing it while I was in room and O2 sats were above 95% the entire time. No chest pain, nausea, vomiting, abdominal pain, fever. Is having issues sleeping. Review of Systems General: No Chills, No Night Sweats HEENT: No Head Aches, No Sore Throat Pulmonary: Dyspnea, Cough Cardiovascular: No: Chest Pain, Palpitations Gastrointestinal: No: Nausea, Vomiting Genitourinary: No Hematuria Musculoskeletal: leg pain; No: back pain Neurological: No: Weakness, Numbness Focused Exam Time of Focused Exam: 21:30 Objective Exam Vital Signs Date Time Temp Pulse Resp B/P (MAP) Pulse Ox O2 Delivery O2 Flow Rate FiO2 07/16/23 10:32 94 Nasal Cannula 2.00 07/16/23 08:32 95 Nasal Cannula 2.00 07/16/23 07:41 36.7 86 13 145/88 (107) 95 Nasal Cannula 2.00 07/16/23 07:21 85 07/16/23 07:07 94 Nasal Cannula 2.00 07/16/23 04:00 82 13 149/83 (105) 95 Nasal Cannula 2.00 07/16/23 03:00 78 16 135/95 (108) 95 Nasal Cannula 2.00 07/16/23 02:58 96 Nasal Cannula 2.00 07/16/23 02:28 80 17 96 Nasal Cannula 2.00 07/16/23 02:00 78 21 167/95 (119) 98 NIV Bilevel 35.00 07/16/23 01:00 86 07/16/23 00:00 83 19 107/84 (93) 100 NIV Bilevel 35.00 07/15/23 23:43 36.8 07/15/23 22:30 NIV Bilevel 35.00 07/15/23 22:24 86 26 97 35.00 07/15/23 22:00 87 154/103 (125) 92 Nasal Cannula 2.00 07/15/23 20:00 88 29 166/94 (115) 86 Nasal Cannula 2.00 07/15/23 20:00 95 Nasal Cannula 4.00 07/15/23 20:00 36.6 07/15/23 19:17 95 Nasal Cannula 2.00 07/15/23 19:00 90 07/15/23 16:00 86 33 146/99 (121) Nasal Cannula 4.00 07/15/23 12:41 92 07/15/23 12:12 36.8 Nasal Cannula 4.00 07/15/23 12:00 98 154/102 (123) 95 Nasal Cannula 4.00 07/15/23 12:00 100 Nasal Cannula 4.00 I & O 07/16/23 07:00 Intake Total 970 ml Output Total 1450 ml Balance -480 ml Capillary Refill : Less Than 3 Seconds General Appearance: No Apparent Distress, Chronically ill HEENT: PERRL/EOMI, Normal ENT Inspection; No Scleral Icterus (L), No Scleral Icterus (R) Neck: Full Range of Motion, Normal Inspection Respiratory: Chest Non Tender, No Accessory Muscle Use, No Respiratory Distress Cardiovascular: Regular Rate, Rhythm, No Murmur Gastrointestinal: non tender, soft Extremity: Normal Capillary Refill, Other (left leg splinted) Neurologic/Psychiatric: Alert, Oriented x3 Skin: Normal Color, Warm/Dry Lymphatic: No Adenopathy Results Lab Laboratory Tests 07/15/23 12:07: Glucometer 115H 07/15/23 17:54: Glucometer 118H 07/15/23 23:20: Glucometer 105 07/16/23 04:27: White Blood Count 7.8, Red Blood Count 3.46L, Hemoglobin 11.1L, Hematocrit 33L, Mean Corpuscular Volume 96, Mean Corpuscular Hemoglobin 32, Mean Corpuscular Hemoglobin Concent 34, Red Cell Distribution Width 18.2H, Platelet Count 166, Mean Platelet Volume 10.7, Immature Granulocyte % (Auto) 1, Neutrophils (%) (Auto) 75, Lymphocytes (%) (Auto) 7L, Monocytes (%) (Auto) 15H, Eosinophils (%) (Auto) 2, Basophils (%) (Auto) 0, Neutrophils # (Auto) 5.8, Lymphocytes # (Auto) 0.5L, Monocytes # (Auto) 1.2H, Eosinophils # (Auto) 0.1, Basophils # (Auto) 0.0, Immature Granulocyte # (Auto) 0.1, Sodium Level 134L, Potassium Level 3.9, Chloride Level 103, Carbon Dioxide Level 20L, Anion Gap 11, Blood Urea Nitrogen 11, Creatinine 0.79, Estimat Glomerular Filtration Rate 96, BUN/Creatinine Ratio 14, Glucose Level 97, Calcium Level 6.5L, Corrected Calcium 7.4L, Phosphorus L evel 1.6L, Magnesium Level 2.1, Total Bilirubin 3.9H, Aspartate Amino Transf (AST/SGOT) 120H, Alanine Aminotransferase (ALT/SGPT) 100H, Alkaline Phosphatase 112, Total Protein 5.9L, Albumin 2.9L Microbiology 07/12/23 MRSA Screen - Final, Complete MRSA not isolated 07/12/23 Blood Culture - Preliminary, Resulted 07/12/23 Urine Culture - Final, Complete NO GROWTH Assessment/Plan Assessment/Plan Assessment/Plan anemia possible gi bleed etoh withdrawal left ankle fracture 2L NC O2 follow hgb and transfuse as needed - 6 units prbc have been given Hgb is 11.1 and no blood/black tarry stools noted this morning. EGD if hgb declines protonix bid clears Ambulate with assisted device as tolerated Move to 4th floor KORY GHOSH DO 07/16/23 1334: Subjective Subjective/Events-last exam Still with shortness of breath. Hgb stable. No abdominal pain. No blood per rectum. Denies any new complaints. Denies n/v fever sweats chills or chest pain. Objective Exam General Appearance: No Apparent Distress, Chronically ill HEENT: PERRL/EOMI, Normal ENT Inspection Neck: Full Range of Motion, Normal Inspection Respiratory: Chest Non Tender, No Accessory Muscle Use, No Respiratory Distress Cardiovascular: Regular Rate, Rhythm, No JVD Gastrointestinal: non tender, soft Extremity: Normal Capillary Refill, Other (left leg splinted) Neurologic/Psychiatric: Alert, Oriented x3 Skin: Normal Color, Warm/Dry Lymphatic: No Adenopathy Assessment/Plan Assessment/Plan Assessment/Plan anemia possible gi bleed etoh withdrawal left ankle fracture 2L NC O2 follow hgb and transfuse as needed - 6 units prbc have been given Hgb is 11.1 and no blood/black tarry stools noted this morning. EGD if hgb declines protonix bid clears can advance diet today/tomorrow Ambulate with assisted device as tolerated Move to 4th floor CIWA Discussed with patient and social work he would like information regarding etoh cessation. Supervisory-Addendum Brief Verification & Attestation Participated in pt care: history, MDM, physical Personally performed: exam, history, MDM, supervision of care Care discussed with: Medical Student Procedures: n/a Results interpretation: Verified all documentation Verification and Attestation of Medical Student E/M Service A medical student performed and documented this service in my presence. I reviewed and verified all information documented by the medical student and made modifications to such information, when appropriate. I personally performed the physical exam and medical decision making. Kory Vazquez, Jul 16, 2023,13:34 MARK STEELE Jul 16, 2023 11:18 KORY VAZQUEZ DO Jul 16, 2023 13:34
--- NOTE | 2023-07-16 12:41 | Progress Note - Cardiology ---
Cardiology SOAP Progress Note Subjective: No cp or palp or syncope or shortness of breath at rest No n/v/d No focal weakness Gen weakness and malaise present Objective: I&O/Vital Signs 07/16/23 07/16/23 07/16/23 07/16/23 01:00 02:00 02:28 02:58 Pulse 86 78 80 Resp 21 17 B/P (MAP) 167/95 (119) Pulse Ox 98 96 96 O2 Delivery NIV Bilevel Nasal Cannula Nasal Cannula O2 Flow Rate 35.00 2.00 2.00 07/16/23 07/16/23 07/16/23 07/16/23 03:00 04:00 07:07 07:21 Pulse 78 82 85 Resp 16 13 B/P (MAP) 135/95 (108) 149/83 (105) Pulse Ox 95 95 94 O2 Delivery Nasal Cannula Nasal Cannula Nasal Cannula O2 Flow Rate 2.00 2.00 2.00 07/16/23 07/16/23 07/16/23 07:41 08:32 10:32 Temp 36.7 Pulse 86 Resp 13 B/P (MAP) 145/88 (107) Pulse Ox 95 95 94 O2 Delivery Nasal Cannula Nasal Cannula Nasal Cannula O2 Flow Rate 2.00 2.00 2.00 07/16/23 00:00 Intake Total 630 ml Output Total 900 ml Balance -270 ml Weight (Pounds): 163 Weight (Ounces): 0.0 Weight (Calculated Kilograms): [id number] Constitutional: AAO x 3, well-developed, well-nourished Respiratory: other Cardiovascular: regular rate-rhythm, S1 and S2, systolic murmur Gastrointestional: soft, audible bowel sounds Extremities: other, no lower extremity edema bilateral Neurologic/Psychiatric: oriented x 3, other (moves all limbs) Skin: normal color, warm/dry Results/Procedures: Labs Laboratory Tests 07/15/23 17:54: Glucometer 118H 07/15/23 23:20: Glucometer 105 07/16/23 04:27: White Blood Count 7.8, Red Blood Count 3.46L, Hemoglobin 11.1L, Hematocrit 33L, Mean Corpuscular Volume 96, Mean Corpuscular Hemoglobin 32, Mean Corpuscular Hemoglobin Concent 34, Red Cell Distribution Width 18.2H, Platelet Count 166, Mean Platelet Volume 10.7, Immature Granulocyte % (Auto) 1, Neutrophils (%) (Auto) 75, Lymphocytes (%) (Auto) 7L, Monocytes (%) (Auto) 15H, Eosinophils (%) (Auto) 2, Basophils (%) (Auto) 0, Neutrophils # (Auto) 5.8, Lymphocytes # (Auto) 0.5L, Monocytes # (Auto) 1.2H, Eosinophils # (Auto) 0.1, Basophils # (Auto) 0.0, Immature Granulocyte # (Auto) 0.1, Sodium Level 134L, Potassium Level 3.9, Chloride Level 103, Carbon Dioxide Level 20L, Anion Gap 11, Blood Urea Nitrogen 11, Creatinine 0.79, Estimat Glomerular Filtration Rate 96, BUN/Creatinine Ratio 14, Glucose Level 97, Calcium Level 6.5L, Corrected Calcium 7.4L, Phosphorus Level 1.6L, Magnesium Level 2.1, Total Bilirubin 3.9H, Aspartate Amino Transf (AST/SGOT) 120H, Alanine Aminotransferase (ALT/SGPT) 100H, Alkaline Phosphatase 112, Total Protein 5.9L, Albumin 2.9L Microbiology 07/12/23 MRSA Screen - Final, Complete MRSA not isolated 07/12/23 Blood Culture - Preliminary, Resulted 07/12/23 Urine Culture - Final, Complete NO GROWTH Laboratory Tests 07/15/23 04:47 07/16/23 04:27 A/P: Assessment: GIB - management per medical/eICU services Sepsis - management per medical/eICU services Pneumonia - management per medical services NSTEMI - likely Type 2 d/t profound anemia (reduced supply, increased demand) H/O PAF - h/o SHAWN ligation at time of CABG 06-11-2018 at [facility] - PAF seen on EKG on 07-12 and 07/13/2023 CAD - Cardiac cath by Dr. Thomason 05-30-2018: Distal left main disease with severe ostial LAD disease. Severe aortic stenosis with normal LV function. Referred for CABG/AoVR at that time - H/O 3 vessel CABG 06-11-2018 (RSVG to the first OM; RSVG to the first diagonal; ANTHONY to the mid-distal LAD) with ligation SHAWN; AoV replacement with 23 mm pericardial tissue valve with Maya Magna ease, model 3300TFX by Dr. Wren at [facility] H/O AoVR - AoV replacement with 23 mm pericardial tissue valve with Maya Magna ease, model 3300TFX by Dr. Wren at [facility] - Echo on 07-13-23: LVEF 45-50%, mod to severe MAC, mod MR, mod TR, PASP 60-65 mmHg H/O methamphetamine use - smokes per ED report Marijuana use - (+) at the time of this admission H/o ETOH abuse L ankle fracture - managed by Hosp and Surg svces Plan: * Considerable clinical improvement following blood tansfurison * We recommend localization and elimination of bleeding source (Hosp and Surg svces managing) * Continue amiodarone orally * Monitor labs closely JACINTA MCNULTY MD FACP [facility] Jul 16, 2023 12:41
--- NOTE | 2023-07-16 15:27 | Progress Note - Hospitalist ---
Subjective HPI/CC On Admission Date Seen by Provider: Jul 16, 2023 Time Seen by Provider: 10:00 Pt is a 68yoCM with a PMH of a -fib, CAD s/p CABG, HTN, HLD, Labes who presented to the emergency department due to weakness. He was seen in the emergency department on the first due to a fall and ankle pain. He apparently had fallen on the and did not seek care until his grandson got home and brought him to the hospital. He was found to have a left left ankle fracture. This was splinted and he was discharged and sent home. It is unclear what exactly happened since that time as the grandson had left for work and thought he had been fine after leaving the ER. He returned to the emergency department with weakness. He was found to have a GI bleed and his hemoglobin was 5.7. The patient is unable to provide me any of this history and this all comes from the records and from his son Armin. He was also found to have a lactic acidosis of 9.06. He had an elevated troponin of 0.618. He was requiring nasal cannula in the ER but needed BiPAP upon arrival to the ICU. He had reported shortness of breath to the emergency department but did not to me. He states he wants BiPAP off but did say he would be okay with a tube in his throat to help him breathe if it was needed. He was ultimately willing to put BiPAP back on. He has been given a unit of blood nad Hgb has increased to 7.1. Subjective/Events-last exam He has no complaints. He denies shortness of breath. He denies chest pain. Focused Exam Time of Focused Exam: 21:30 Objective Exam Vital Signs Vital Signs Date Time Temp Pulse Resp B/P (MAP) Pulse Ox O2 Delivery O2 Flow Rate FiO2 07/16/23 12:38 88 07/16/23 11:45 37.0 16 137/92 (107) 92 Nasal Cannula 2.00 07/14/23 17:00 35 Capillary Refill : Less Than 3 Seconds General Appearance: No Apparent Distress, WD/WN Respiratory: Lungs Clear, No Respiratory Distress Cardiovascular: Regular Rate, Rhythm, No Murmur Gastrointestinal: Normal Bowel Sounds, Non Tender, Soft Extremity: Normal Inspection, No Pedal Edema Neurologic/Psychiatric: Alert, Normal Mood/Affect Skin: Normal Color, Warm/Dry Results/Procedures Lab Laboratory Tests 07/16/23 04:27 Patient resulted labs reviewed. Imaging: Reviewed Imaging Report Assessment/Plan Assessment and Plan Assess & Plan/Chief Complaint GI Bleed Acute blood loss anemia Alcohol abuse Acute alcoholic hepatitis Hepatic steatosis s/p 6 units PRBC Hgb stable, improved CIWA Surgery following Protonix Banana Bag LFTs improving Acute respiratory failure s/p BiPAP MAT protocol No evidence of pneumonia or other infectious etiology on imaging A fib CAD s/p CABG HTN NSTEMI- type II CT Cardiology fpllowing Amiodarone No anticoagulation due to GI bleed Telemetry Ankle fracture, present on admission Ortho consulted, appreciate recs DVT ppx: SCDs only due to GI bleed but high risk Lactic acidosis, resolved Diagnosis/Problems Diagnosis/Problems (1) GI bleed Status: Acute (2) ABLA (acute blood loss anemia) Status: Acute (3) Hepatic steatosis Status: Acute (4) Acute alcoholic hepatitis Status: Acute (5) Alcohol abuse Status: Acute (6) Acute respiratory failure with hypoxia Status: Acute (7) NSTEMI (non-ST elevation myocardial infarction) Status: Acute (8) Ankle fracture Status: Acute ALEX WILL MD Jul 16, 2023 15:27
--- NOTE | 2023-07-16 15:43 | Physical Therapy Daily Note ---
PT Daily Note-Current Subjective Pt reports this has been a wake up call for him and his health. Reports no pain in the ankle at rest. Pain Section J - Health Conditions 1. Rarely or not at all 2. Occasionally 3. Frequently 4. Almost constantly 8. Unable to answer Pain Effect on Sleep: 1 Pain Interference with Therapy: 1 Pain Interference w/Day-to-Day: 1 Mental Status Patient Orientation: Normal For Age Transfers SCALE: Activities may be completed with or without assistive devices. 7-Utucwnzzvq-edugitg completes the activity by him/herself with no assistance from a helper. 5-Set-up or Clean-up Assistance-helper sets up or cleans up; patient completes activity. [place] assists only prior to or following the activity. 4-Supervision or Touching Assistance-helper provides verbal cues and/or touching/steadying and/or contact guard assistance as patient completes activity. Assistance may be provided throughout the activity or intermittently. 3-Partial/Moderate Assistance-helper does LESS THAN HALF the effort. Shalimar lifts, holds or supports trunk or limbs, but provides less than half the effort. 2-Substantial/Maximal Assistance-helper does MORE THAN HALF the effort. [place] lifts or holds trunk or limbs and provides more than half the effort. 0-Sbrvhhxsc-jdsvvb does ALL the effort. Patient does none of the effort to c omplete the activity. Or, the assistance of 2 or more helpers is required for the patient to complete the activity. If activity was not attempted, code reason: 7-Patient Refused. 9-Not Applicable-not attempted and the patient did not perform the activity before the current illness, exacerbation or injury. 10-Not Attempted due to Environmental Limitations-(lack of equipment, weather restraints, etc.). 88-Not Attempted due to Medical Conditions or Safety Concerns. Roll Left & Right (QC): 6 Sit to Lying (QC): 6 Lying to Sitting/Side of Bed(Q: 6 Sit to Stand (QC): 4 Chair/Qip-tu-Anedd Xfer(QC): 4 steadying assist for transfers and standing activities Weight Bearing Full Weight Bearing Full Weight Bearing Gait Training Does the Patient Walk?: Yes Distance: 10 Walk 10 feet (QC): 4 Gait Persons Needed: 1 Gait Assistive Device: FWW Ambulate 10ft with FWW, TTWB and verbal cues. Steadying assist for balance. Assessment Current Status: Fair Progress Pt was anxious about being upright. Attempted to ambulate nonwt bearin but pt was unable. Practiced TTWB with FWW. Pt will benefit from continued therapy to work on mobility. PT Senior Care Goals Senior Care Goals PT Senior Care Goals Time Frame: Jul 21, 2023 Roll Left & Right (QC): 6 Sit to Lying (QC): 6 Lying-Sitting on Side/Bed(QC): 6 Sit to Stand (QC): 6 Chair/Nnf-hy-Pjino Xfer(QC): 6 Toilet Transfer (QC): 6 Car Transfer (QC): 6 Does the Patient Walk: Yes Walk 10 feet (QC): 6 Walk 50ft with 2 Turns (QC): 6 Walk 150 ft (QC): 6 Walking 10ft on Uneven Surface: 6 1 Step (curb) (QC): 6 4 Steps (QC): 6 12 Steps (QC): 6 Picking up an Object (QC): 6 PT Plan Treatment/Plan Treatment Plan: Continue Plan of Care Treatment Plan: Bed Mobility, Education, Functional Activity Dennise, Functional Strength, Gait, Safety, Therapeutic Exercise, Transfers Treatment Duration: Jul 21, 2023 Frequency: 11 times per week Estimated Hrs Per Day: 1 hour per day Time Time In: 1530 Time Out: 1545 DATE: Jul 16, 2023 Total Billed Treatment Time: 15 Total Billed Treatment visit, Gait 15 min DAGOBERTO BONNER PT Jul 16, 2023 15:43
--- NOTE | 2023-07-16 16:14 | Occ Therapy Progress Note ---
Therapy Progress Note OT attempted in am, patient reports he is not to bear weight, OT education for WBAT, patient declined and OT attempted again in afternoon w/ TTWB. Patient declined stating he had therapy, OT education for PT/OT.Patient would like to try tomorrow RACHANA HARVEY OT Jul 16, 2023 16:14
[2023-07-17 03:23] LABS: BASOPHILS % (AUTO) 0 % (0-10); EOSINOPHILS # (AUTO) 0.1 10^3/uL (0.0-0.3); EOSINOPHILS % (AUTO) 1 % (0-10); HEMATOCRIT 34 % (40-54); HEMOGLOBIN 11.1 g/dL (13.3-17.7); LYMPHOCYTES # (AUTO) 0.5 10^3/uL (1.0-4.0); LYMPHOCYTES % (AUTO) 6 % (12-44); MEAN CORPUSCULAR HEMOGLOBIN 31 pg (25-34); MEAN CORPUSCULAR HGB CONC 33 g/dL (32-36); MEAN CORPUSCULAR VOLUME 96 fL (80-99); MEAN PLATELET VOLUME 10.8 fL (9.0-12.2); MONOCYTES # (AUTO) 1.6 10^3/uL (0.0-1.0); MONOCYTES % (AUTO) 17 % (0-12); NEUTROPHILS # (AUTO) 7.2 10^3/uL (1.8-7.8); NEUTROPHILS % (AUTO) 76 % (42-75); PLATELET COUNT 204 10^3/uL (130-400); WHITE BLOOD COUNT 9.5 10^3/uL (4.3-11.0)
[2023-07-17] MEDS ORDERED: ASPIRIN 325 MG TABLET PO ONE (03:30)
[2023-07-17 03:32] LABS: POTASSIUM 3.8 MMOL/L (3.6-5.0)
[2023-07-17 03:33] LABS: CALCIUM 6.6 MG/DL (8.5-10.1)
[2023-07-17 03:36] LABS: BILIRUBIN,TOTAL 3.1 MG/DL (0.1-1.0)
[2023-07-17 03:38] LABS: CREATININE SERUM 0.79 MG/DL (0.60-1.30)
[2023-07-17 03:41] LABS: MAGNESIUM 1.6 MG/DL (1.6-2.4)
[2023-07-17] MEDS: POTASSIUM CL 10MEQ/50ML IVPB 50 ML IV SCH (05:39)
[2023-07-17] MEDS: MAGNESIUM 1 GM/100 ML IVPB 100 ML IV SCH (05:39)
[2023-07-17] MEDS: POTASSIUM BICARB 20 MEQ effervescent TABLET PO SCH (05:40)
[2023-07-17] MEDS: POTASSIUM CHLORIDE 20 MEQ TABLET PO SCH (05:40)
[2023-07-17] MEDS: RT-Ipratropium/Albuterol NEB 3 ML VIAL INH SCH ×4 (06:31→20:06)
--- NOTE | 2023-07-17 07:59 | Progress Note - Surgery ---
MARK STEELE 07/17/23 0759: Subjective Date Seen by a Provider: Jul 17, 2023 Time Seen by a Provider: 07:10 Subjective/Events-last exam Pt states that he is feeling better today. Pt has been able to ambulate to chair and bathroom multiple times yesterday/ States that bipap helps significantly wit h shortness of breath. Hgb is stable at 11.1. Pt denies nausea, vomiting, diarrhea, constipation, fever, SOA, chest pain, abdominal pain. Review of Systems General: No Chills, No Night Sweats HEENT: No Head Aches, No Sinus Congestion Pulmonary: No Dyspnea, No Cough Cardiovascular: No: Chest Pain, Palpitations Gastrointestinal: No: Nausea, Vomiting Genitourinary: No Dysuria, No Frequency Musculoskeletal: foot pain; No: neck pain, shoulder pain Neurological: No: Weakness, Numbness Focused Exam Time of Focused Exam: 21:30 Objective Exam Vital Signs Date Time Temp Pulse Resp B/P (MAP) Pulse Ox O2 Delivery O2 Flow Rate FiO2 07/17/23 06:31 79 22 98 35.00 07/17/23 03:44 76 19 165/98 (130) 99 NIV Bilevel 35.00 07/17/23 03:25 36.9 07/17/23 02:11 77 23 96 35.00 07/17/23 01:52 NIV Bilevel 35.00 07/17/23 01:00 83 07/17/23 00:31 81 27 123/105 (110) 96 Nasal Cannula 2.00 07/16/23 23:56 36.3 07/16/23 20:24 36.4 80 18 142/99 (113) 97 Nasal Cannula 2.00 07/16/23 20:00 97 Nasal Cannula 2.00 07/16/23 19:02 94 28 07/16/23 19:00 80 07/16/23 18:51 94 Nasal Cannula 2.00 07/16/23 15:46 36.6 80 18 127/92 (104) 96 Nasal Cannula 2.00 07/16/23 12:38 88 07/16/23 11:45 37.0 85 16 137/92 (107) 92 Nasal Cannula 2.00 07/16/23 10:32 94 Nasal Cannula 2.00 07/16/23 08:32 95 Nasal Cannula 2.00 I & O 07/17/23 07:00 Intake Total 350 ml Output Total 800 ml Balance -450 ml Capillary Refill : Less Than 3 Seconds General Appearance: No Apparent Distress, WD/WN HEENT: PERRL/EOMI, Normal ENT Inspection Neck: Full Range of Motion, Normal Inspection Respiratory: Lungs Clear, No Respiratory Distress Cardiovascular: Regular Rate, Rhythm, No Murmur Gastrointestinal: non tender, soft Extremity: Normal Inspection, No Pedal Edema Neurologic/Psychiatric: Alert, Oriented x3, Normal Mood/Affect Skin: Normal Color, Warm/Dry Lymphatic: No Adenopathy Results Lab Laboratory Tests 07/16/23 13:53: Lab Scanned Report Transfusion Reaction Form 07/17/23 03:15: White Blood Count 9.5, Red Blood Count 3.54L, Hemoglobin 11.1L, Hematocrit 34L, Mean Corpuscular Volume 96, Mean Corpuscular Hemoglobin 31, Mean Corpuscular Hemoglobin Concent 33, Red Cell Distribution Width 17.5H, Platelet Count 204, Mean Platelet Volume 10.8, Immature Granulocyte % (Auto) 1, Neutrophils (%) (Auto) 76H, Lymphocytes (%) (Auto) 6L, Monocytes (%) (Auto) 17H, Eosinophils (%) (Auto) 1, Basophils (%) (Auto) 0, Neutrophils # (Auto) 7.2, Lymphocytes # (Auto) 0.5L, Monocytes # (Auto) 1.6H, Eosinophils # (Auto) 0.1, Basophils # (Auto) 0.0, Immature Granulocyte # (Auto) 0.1, Sodium Level 136, Potassium Level 3.8, Chloride Level 104, Carbon Dioxide Level 22, Anion Gap 10, Blood Urea Nitrogen 8, Creatinine 0.79, Estimat Glomerular Filtration Rate 96, BUN/Creatinine Ratio 10, Glucose Level 95, Calcium Level 6.6L, Corrected Calcium 7.4L, Phosphorus Level 2.0L, Magnesium Level 1.6, Total Bilirubin 3.1H, Aspartate Amino Transf (AST/SGOT) 92H, Alanine Aminotransferase (ALT/SGPT) 91H, Alkaline Phosphatase 116, Total Protein 6.0L, Albumin 3.0L Microbiology 07/12/23 MRSA Screen - Final, Complete MRSA not isolated 07/12/23 Blood Culture - Preliminary, Resulted 07/12/23 Urine Culture - Final, Complete NO GROWTH Assessment/Plan Assessment/Plan Assessment/Plan anemia possible gi bleed etoh withdrawal left ankle fracture 2L NC O2 follow hgb and transfuse as needed - 6 units prbc have been given Hgb is 11.1 and no blood/black tarry stools noted this morning protonix bid clears can advance diet today Ambulate with assisted device as tolerated Move to 4th floor CIWA Discussed with patient and social work he would like information regarding etoh cessation. KORY MOORE DO 07/17/232130: Subjective Subjective/Events-last exam Breathing better but still labored. Hgb stable. Tolerating diet. No new complaints. Denies n/v fever sweats chills or chest pain. Objective Exam General Appearance: No Apparent Distress, WD/WN HEENT: PERRL/EOMI, Normal ENT Inspection Neck: Normal Inspection, Non Tender Respiratory: Chest Non Tender, No Accessory Muscle Use, No Respiratory Distress Cardiovascular: Regular Rate, Rhythm, No JVD Gastrointestinal: non tender, soft Extremity: Normal Inspection, Other (left leg splinted) Neurologic/Psychiatric: Alert, Oriented x3, Normal Mood/Affect Skin: Normal Color, Warm/Dry Lymphatic: No Adenopathy Assessment/Plan Assessment/Plan Assessment/Plan anemia possible gi bleed etoh withdrawal left ankle fracture 2L NC O2 follow hgb and transfuse as needed - 6 units prbc have been given Hgb is 11.1 and no blood/black tarry stools noted this morning protonix bid advance diet as tolerated CIWA Discussed with patient and social work he would like information regarding etoh cessation. Supervisory-Addendum Brief Verification & Attestation Participated in pt care: history, MDM, physical Personally performed: exam, history, MDM, supervision of care Care discussed with: Medical Student Procedures: n/a Results interpretation: Verified all documentation Verification and Attestation of Medical Student E/M Service A medical student performed and documented this service in my presence. I reviewed and verified all information documented by the medical student and made modifications to such information, when appropriate. I personally performed the physical exam and medical decision making. Kory Moore, Jul 17, 2023,21:31 MARK STEELE Jul 17, 2023 07:59 KORY MOORE DO Jul 17, 2023 21:31
[2023-07-17] MEDS: AMIODARONE 200 MG TABLET PO SCH ×2 (08:20→19:58)
[2023-07-17] MEDS ORDERED: ACETAMINOPHEN 500 MG TABLET PO PRN (08:45)
--- NOTE | 2023-07-17 08:55 | Progress Note - Cardiology ---
Cardiology SOAP Progress Note Objective: I&O/Vital Signs 07/17/23 07/17/23 07/18/23 07/18/23 23:03 23:44 02:50 03:10 Temp 37.1 36.1 Pulse 79 81 76 Resp 20 20 19 19 B/P (MAP) 133/89 (104) 143/97 (112) Pulse Ox 94 86 96 O2 Delivery Nasal Cannula NIV Bilevel O2 Flow Rate 2.00 35.00 35.00 35.00 2.00 35.00 07/18/23 07/18/23 07:16 07:44 Temp 35.6 Pulse 73 Resp 16 B/P (MAP) 129/84 (99) Pulse Ox 99 93 O2 Delivery NIV Bilevel Nasal Cannula O2 Flow Rate 2.00 07/18/23 00:00 Intake Total 815 ml Output Total 450 ml Balance 365 ml Weight (Pounds): 163 Weight (Ounces): 0.0 Weight (Calculated Kilograms): 73.445806 Constitutional: AAO x 3, well-developed, well-nourished Respiratory: other Cardiovascular: regular rate-rhythm, S1 and S2, systolic murmur Gastrointestional: soft, audible bowel sounds Extremities: other, no lower extremity edema bilateral Neurologic/Psychiatric: oriented x 3, other (moves all limbs) Skin: normal color, warm/dry Results/Procedures: Labs Laboratory Tests 07/18/23 05:45: White Blood Count 8.7, Red Blood Count 3.36L, Hemoglobin 10.9L, Hematocrit 33L, Mean Corpuscular Volume 97, Mean Corpuscular Hemoglobin 32, Mean Corpuscular Hemoglobin Concent 34, Red Cell Distribution Width 17.1H, Platelet Count 217, Mean Platelet Volume 10.8, Immature Granulocyte % (Auto) 1, Neutrophils (%) (Auto) 74, Lymphocytes (%) (Auto) 8L, Monocytes (%) (Auto) 15H, Eosinophils (%) (Auto) 2, Basophils (%) (Auto) 0, Neutrophils # (Auto) 6.4, Lymphocytes # (Auto) 0.7L, Monocytes # (Auto) 1.3H, Eosinophils # (Auto) 0.2, Basophils # (Auto) 0.0, Immature Granulocyte # (Auto) 0.1, Sodium Level 135, Potassium Level 3.4L, Chloride Level 103, Carbon Dioxide Level 23, Anion Gap 9, Blood Urea Nitrogen 9, Creatinine 0.72, Estimat Glomerular Filtration Rate 99, BUN/Creatinine Ratio 13, Glucose Level 95, Calcium Level 6.5L, Corrected Calcium 7.5L, Phosphorus Level 2.7, Magnesium Level 1.5L, Total Bilirubin 2.3H, Aspartate Amino Transf (AST/SGOT) 78H, Alanine Aminotransferase (ALT/SGPT) 75H, Alkaline Phosphatase 116, Total Protein 5.6L, Albumin 2.8L Microbiology 07/12/23 MRSA Screen - Final, Complete MRSA not isolated 07/12/23 Blood Culture - Preliminary, Resulted 07/12/23 Urine Culture - Final, Complete NO GROWTH Procedures NAME: LAURA NOYOLA [facility] REC#: [id number] PT STATUS: ADM IN : 1955 PHYSICIAN: YENI SPAIN MD ADMIT DATE: 07/12/23/ICU Signed Date of Exam:07/15/23 CHEST 1 VIEW, AP/PA ONLY INDICATION: Dyspnea, sepsis, ICU management. TECHNIQUE: Single view chest 3:49 AM CORRELATION STUDY: 07/14/2023 FINDINGS: Prior sternotomy change. Marked elevated right diaphragm with right lower lung volume loss. Increasing particularly left perihilar opacity favors edema. Heart partially obscured but appears generally stable with the prior sternotomy and atrial clipping device. IMPRESSION: 1. Increasing left perihilar opacities favors probable edema. Dictated by: Dictated on workstation # [id number] Dict: 07/15/23 0816 Trans: 07/15/23 1101 [id number] Interpreted by: KATIA BILL DO Electronically signed by: KATIA BILL DO 07/15/23 1101 A/P: Assessment: GIB - management per medical/eICU services Sepsis - management per medical/eICU services Pneumonia - management per medical services NSTEMI - likely Type 2 d/t profound anemia (reduced supply, increased demand) H/O PAF - h/o SHAWN ligation at time of CABG 06-11-2018 at [facility] - PAF seen on EKG on 07-12 and 07/13/2023 CAD - Cardiac cath by Dr. Thomason 05-30-2018: Distal left main disease with severe ostial LAD disease. Severe aortic stenosis with normal LV function. Referred for CABG/AoVR at that time - H/O 3 vessel CABG 06-11-2018 (RSVG to the first OM; RSVG to the first diagonal; ANTHONY to the mid-distal LAD) with ligation SHAWN; AoV replacement with 23 mm pericardial tissue valve with Maya Magna ease, model 3300TFX by Dr. Wren at [facility] H/O AoVR - AoV replacement with 23 mm pericardial tissue valve with Maya Magna ease, model 3300TFX by Dr. Wren at [facility] - Echo on 07-13-23: LVEF 45-50%, mod to severe MAC, mod MR, mod TR, PASP 60-65 mmHg H/O methamphetamine use - smokes per ED report Marijuana use - (+) at the time of this admission H/o ETOH abuse L ankle fracture - managed by Hosp and Surg svces Plan: * Considerable clinical improvement following blood tansfurison * We recommend localization and elimination of bleeding source (Hosp and Surg svces managing) * Continue amiodarone orally * Monitor labs closely AYDEE ANDERSON Jul 17, 2023 08:55
[2023-07-17] MEDS ORDERED: POT Phosphate/NA Phosphate TABLET PO NR (09:00)
[2023-07-17] MEDS: oxyCODONE IMMEDIATE RELEASE 5 MG TABLET PO PRN (10:08)
--- NOTE | 2023-07-17 11:00 | Occupational Therapy Eval ---
OT Evaluation-General/PLF Medical Diagnosis Admission Date Jul 12, 2023 at 21:39 Medical Diagnosis: sepsis Onset Date: Jul 12, 2023 Therapy Diagnosis Therapy Diagnosis: weakness Height/Weight Height (Feet): 5 Height (Inches): 6.00 Weight (Pounds): 163 Weight (Ounces): 0.0 Precautions Precautions/Isolations: Fall Prevention, Standard Precautions Weight Bear Status Weight Bearing Restriction: Touch Toe Bearing Location Restriction: L ARTIE Referral Physician: Chip Referral Reason: Self Care, Evaluation/Treatment Medical History Reviewed History: Yes Social History Home: Single Level Current Living Status: Other Family Steps Into Home: 2 ADL-Prior Level of Function SCALE: Activities may be completed with or without assistive devices. 0-Fetmrukgdl-yqsusrp completes the activity by him/herself with no assistance from a helper. 5-Set-up or Clean-up Assistance-helper sets up or cleans up; patient completes activity. [place] assists only prior to or following the activity. 4-Supervision or Touching Assistance-helper provides verbal cues and/or touching/steadying and/or contact guard assistance as patient completes activity. Assistance may be provided throughout the activity or intermittently. 3-Partial/Moderate Assistance-helper does LESS THAN HALF the effort. [place] lifts, holds or supports trunk or limbs, but provides less than half the effort. 2-Substantial/Maximal Assistance-helper does MORE THAN HALF the effort. [place] lifts or holds trunk or limbs and provides more than half the effort. 2-Fslusvkjd-eozqqw does ALL the effort. Patient does none of the effort to complete the activity. Or, the assistance of 2 or more helpers is required for the patient to complete the activity. If activity was not attempted, code reason: 7-Patient Refused. 9-Not Applicable-not attempted and the patient did not perform the activity before the current illness, exacerbation or injury. 10-Not Attempted due to Environmental Limitations-(lack of equipment, weather restraints, etc.). 88-Not Attempted due to Medical Conditions or Safety Concerns. Self Care: Independent Functional Cognition: Independent OT Current Status Subjective Patient required moderate encouragement for participation. OT reviewed with patient events of yesterday and agreement to work w/ OT today. OT provided additional recall information of PT scheduled for continued therapy. Mental Status/Objective Patient Orientation: Person, Place, Time, Situation Attachments: Epps Catheter, Oxygen Current Upper Extremity ROM BUE ROM WFLS Upper Extremity Coordination BUE WFLS Upper Extremity Sensation INTACT Upper Extremity Strength BUE WFLS, patient reports this therapist needs to go get help to get him out of bed, OT mirrored demonstrated the working of 3 extremities to transfer out of bed w/ FWW and swivel pivot right foot to recliner. Patient agrees and performs min assit pushing up from bed surface and slowly safely lowering self to recliner ADL-Treatment ADL-Current Patient adamantly refused to put socks, slippers or protective footwear on right foot. OT set patient up for breakfast liquid meal. relayed message from Izabela the nurse that she is working on his medication Eating (QC): 5 Oral Hygiene (QC): 7 (OT set up, patietn declined performance) Shower/Bathe Self (QC): 7 Upper Body Dressing (QC): 7 (declined changing gown) Lower Body Dressing (QC): 3 On/Off Footwear (QC): 7 Toileting Hygiene (QC): 7 Other Treatments OT demonstrated UE push ups using arm rest from recliner to increase BUE strength for FWW use and ambulation/transfers. Patient instructed to perform 10 x3 x day Education OT Patient Education: Correct positioning, Exercise program, Modified ADL techniques, Progress toward Goal/Update tx plan, Purpose of tx/functional a ctivities, Safety issues, Transfer techniques, Use of adapted equipment Teaching Recipient: Patient Teaching Methods: Demonstration, Discussion Response to Teaching: Reinforcement Needed OT Correction Goals Correction Goals Eating (QC): 6 Oral Hygiene (QC): 6 Toileting Hygiene (QC): 6 Shower/Bathe Self (QC): 6 Upper Body Dressing (QC): 6 Lower Body Dressing (QC): 6 On/Off Footwear (QC): 6 1=Demonstrate adherence to instructed precautions during ADL tasks. 2=Patient will verbalize/demonstrate understanding of assistive de vices/modifications for ADL. 3=Patient will improve strength/tolerance for activity to enable patient to perform ADL's. OT Education/Plan Problem List/Assessment Assessment: Decreased Activ Tolerance, Decreased Safety Aware, Decreased UE Strength, Impaired Coordination, Impaired Funct Balance, Impaired Self-Care Skills Discharge Recommendations Plan/Recommendations: Continue POC Treatment Plan/Plan of Care Patient would benefit from OT for education, treatment and training to promote independence in ADL's, mobility, safety and/or upper extremity function for ADL's. Plan of Care: ADL Retraining, Functional Mobility, Group Exercise/Act as Ind, UE Funct Exercise/Act Treatment Duration: Jul 20, 2023 Frequency: 3 times per week (3-5 times per week) Estimated Hrs Per Day: .25 hour per day Agreement: Yes Rehab Potential: Good Time Start Time: 08:18 Stop Time: 08:50 DATE: Jul 17, 2023 Total Time Billed (hr/min): 28 Billed Treatment Time EVM, EX 28 min RACHANA HAREVY OT Jul 17, 2023 11:00
--- NOTE | 2023-07-17 11:05 | Progress Note - Hospitalist ---
Subjective HPI/CC On Admission Date Seen by Provider: Jul 17, 2023 Time Seen by Provider: 09:30 Pt is a 68yoCM with a PMH of a -fib, CAD s/p CABG, HTN, HLD, Labes who presented to the emergency department due to weakness. He was seen in the emergency department on the first due to a fall and ankle pain. He apparently had fallen on the and did not seek care until his grandson got home and brought him to the hospital. He was found to have a left left ankle fracture. This was splinted and he was discharged and sent home. It is unclear what exactly happened since that time as the grandson had left for work and thought he had been fine after leaving the ER. He returned to the emergency department with weakness. He was found to have a GI bleed and his hemoglobin was 5.7. The patient is unable to provide me any of this history and this all comes from the records and from his son Armin. He was also found to have a lactic acidosis of 9.06. He had an elevated troponin of 0.618. He was requiring nasal cannula in the ER but needed BiPAP upon arrival to the ICU. He had reported shortness of breath to the emergency department but did not to me. He states he wants BiPAP off but did say he would be okay with a tube in his throat to help him breathe if it was needed. He was ultimately willing to put BiPAP back on. He has been given a unit of blood nad Hgb has increased to 7.1. Subjective/Events-last exam He is having foot pain. He has no other complaints. Focused Exam Time of Focused Exam: 21:30 Objective Exam Vital Signs Vital Signs Date Time Temp Pulse Resp B/P (MAP) Pulse Ox O2 Delivery O2 Flow Rate FiO2 07/17/23 09:56 97 Nasal Cannula 2.00 07/17/23 08:00 36.7 81 16 115/84 (94) 07/16/23 19:02 28 Capillary Refill : Less Than 3 Seconds General Appearance: No Apparent Distress, WD/WN Respiratory: Lungs Clear, No Respiratory Distress Cardiovascular: Regular Rate, Rhythm, No Murmur Gastrointestinal: Normal Bowel Sounds, Soft Extremity: No Inflammation; Other (left leg/ankle/foot wrapped) Neurologic/Psychiatric: Alert, Normal Mood/Affect Results/Procedures Lab Laboratory Tests 07/17/23 03:15 Patient resulted labs reviewed. Imaging: Reviewed Imaging Report Assessment/Plan Assessment and Plan Assess & Plan/Chief Complaint GI Bleed Acute blood loss anemia Alcohol abuse Acute alcoholic hepatitis Hepatic steatosis s/p 6 units PRBC Hgb stable, improved CIWA Surgery following Protonix Banana Bag LFTs improving Acute respiratory failure s/p BiPAP MAT protocol No evidence of pneumonia or other infectious etiology on imaging A fib CAD s/p CABG HTN NSTEMI- type II [place] Cardiology fpllowing Amiodarone No anticoagulation due to GI bleed Telemetry Ankle fracture, present on admission Ortho consulted, recommended continued immobilization with transition to Cam boot when able, weight bearing as tolerated Add oxycodone as needed DVT ppx: SCDs only due to GI bleed but high risk Lactic acidosis, resolved Diagnosis/Problems Diagnosis/Problems (1) GI bleed Status: Acute (2) ABLA (acute blood loss anemia) Status: Acute (3) Hepatic steatosis Status: Acute (4) Acute alcoholic hepatitis Status: Acute (5) Alcohol abuse Status: Acute (6) Acute respiratory failure with hypoxia Status: Acute (7) NSTEMI (non-ST elevation myocardial infarction) Status: Acute (8) Ankle fracture Status: Acute ALEX WILL MD Jul 17, 2023 11:05
[2023-07-17 12:03] VITALS: BP 127/83
--- NOTE | 2023-07-17 13:14 | Progress Note - Cardiology ---
Cardiology SOAP Progress Note Subjective: No cp or palp or syncope No shortness of breath at rest No n/v/d No focal weakness Gen weakness present Objective: I&O/Vital Signs 07/17/23 07/17/23 07/17/23 07/17/23 01:52 02:11 03:25 03:44 Temp 36.9 Pulse 77 76 Resp 23 19 B/P (MAP) 165/98 (130) Pulse Ox 96 99 O2 Delivery NIV Bilevel NIV Bilevel O2 Flow Rate 35.00 35.00 35.00 07/17/23 07/17/23 07/17/23 07/17/23 06:31 07:14 08:00 08:00 Temp 36.7 Pulse 79 78 81 Resp 22 16 B/P (MAP) 115/84 (94) Pulse Ox 98 100 99 O2 Delivery NIV Bilevel NIV Bilevel O2 Flow Rate 35.00 35.00 FiO2 35 07/17/23 09:56 Pulse Ox 97 O2 Delivery Nasal Cannula O2 Flow Rate 2.00 07/17/23 00:00 Intake Total 250 ml Output Total 600 ml Balance -350 ml Weight (Pounds): 163 Weight (Ounces): 0.0 Weight (Calculated Kilograms): 73.339836 Constitutional: AAO x 3, well-developed, well-nourished Respiratory: other Cardiovascular: regular rate-rhythm, S1 and S2, systolic murmur Gastrointestional: soft, audible bowel sounds Extremities: other, no lower extremity edema bilateral Neurologic/Psychiatric: oriented x 3, other (moves all limbs) Skin: normal color, warm/dry Results/Procedures: Labs Laboratory Tests 07/16/23 13:53: Lab Scanned Report Transfusion Reaction Form 07/17/23 03:15: White Blood Count 9.5, Red Blood Count 3.54L, Hemoglobin 11.1L, Hematocrit 34L, Mean Corpuscular Volume 96, Mean Corpuscular Hemoglobin 31, Mean Corpuscular Hemoglobin Concent 33, Red Cell Distribution Width 17.5H, Platelet Count 204, Mean Platelet Volume 10.8, Immature Granulocyte % (Auto) 1, Neutrophils (%) (Auto) 76H, Lymphocytes (%) (Auto) 6L, Monocytes (%) (Auto) 17H, Eosinophils (%) (Auto) 1, Basophils (%) (Auto) 0, Neutrophils # (Auto) 7.2, Lymphocytes # (Auto) 0.5L, Monocytes # (Auto) 1.6H, Eosinophils # (Auto) 0.1, Basophils # (Auto) 0.0, Immature Granulocyte # (Auto) 0.1, Sodium Level 136, Potassium Level 3.8, Chloride Level 104, Carbon Dioxide Level 22, Anion Gap 10, Blood Urea Nitrogen 8, Creatinine 0.79, Estimat Glomerular Filtration Rate 96, BUN/Creatinine Ratio 10, Glucose Level 95, Calcium Level 6.6L, Corrected Calcium 7.4L, Phosphorus Level 2.0L, Magnesium Level 1.6, Total Bilirubin 3.1H, Aspartate Amino Transf (AST/SGOT) 92H, Alanine Aminotransferase (ALT/SGPT) 91H, Alkaline Phosphatase 116, Total Protein 6.0L, Albumin 3.0L Microbiology 07/12/23 MRSA Screen - Final, Complete MRSA not isolated 07/12/23 Blood Culture - Preliminary, Resulted 07/12/23 Urine Culture - Final, Complete NO GROWTH Laboratory Tests 07/16/23 04:27 07/17/23 03:15 A/P: Assessment: GIB - management per medical/eICU services Sepsis - management per medical/eICU services Pneumonia - management per medical services NSTEMI - likely Type 2 d/t profound anemia (reduced supply, increased demand) H/O PAF - h/o SHAWN ligation at time of CABG 06-11-2018 at [facility] - PAF seen on EKG on 07-12 and 07/13/2023 CAD - Cardiac cath by Dr. Thomason 05-30-2018: Distal left main disease with severe ostial LAD disease. Severe aortic stenosis with normal LV function. Referred for CABG/AoVR at that time - H/O 3 vessel CABG 06-11-2018 (RSVG to the first OM; RSVG to the first diagonal; ANTHONY to the mid-distal LAD) with ligation SHAWN; AoV replacement with 23 mm pericardial tissue valve with Maya Magna ease, model 3300TFX by Dr. Wren at [facility] H/O AoVR - AoV replacement with 23 mm pericardial tissue valve with Maya Magna ease, model 3300TFX by Dr. Wren at [facility] - Echo on 07-13-23: LVEF 45-50%, mod to severe MAC, mod MR, mod TR, PASP 60-65 mmHg H/O methamphetamine use - smokes per ED report Marijuana use - (+) at the time of this admission H/o ETOH abuse L ankle fracture - managed by Hosp and Surg svces Plan: * Considerable clinical improvement following blood transfusion * We recommend localization and elimination of bleeding source (Hosp and Surg svces managing) * Continue amiodarone orally * Monitor labs JACINTA MCNULTY MD FACP [facility] Jul 17, 2023 13:14
--- NOTE | 2023-07-17 13:58 | Physical Therapy Daily Note ---
PT Daily Note-Current Subjective Pt found seated in recliner upon entry. Agreed to PT. Reports that he is not having any pain today. Pain Section J - Health Conditions 1. Rarely or not at all 2. Occasionally 3. Frequently 4. Almost constantly 8. Unable to answer Pain Effect on Sleep: 1 Pain Interference with Therapy: 1 Pain Interference w/Day-to-Day: 1 Mental Status Patient Orientation: Person Attachments: Oxygen, Epps Catheter 2L Transfers SCALE: Activities may be completed with or without assistive devices. 7-Yyelansfxf-dklcbff completes the activity by him/herself with no assistance from a helper. 5-Set-up or Clean-up Assistance-helper sets up or cleans up; patient completes activity. [place] assists only prior to or following the activity. 4-Supervision or Touching Assistance-helper provides verbal cues and/or touching/steadying and/or contact guard assistance as patient completes activity. Assistance may be provided throughout the activity or intermittently. 3-Partial/Moderate Assistance-helper does LESS THAN HALF the effort. [place] li fts, holds or supports trunk or limbs, but provides less than half the effort. 2-Substantial/Maximal Assistance-helper does MORE THAN HALF the effort. [place] lifts or holds trunk or limbs and provides more than half the effort. 7-Pkuazilhg-fdfybf does ALL the effort. Patient does none of the effort to complete the activity. Or, the assistance of 2 or more helpers is required for the patient to complete the activity. If activity was not attempted, code reason: 7-Patient Refused. 9-Not Applicable-not attempted and the patient did not perform the activity before the current illness, exacerbation or injury. 10-Not Attempted due to Environmental Limitations-(lack of equipment, weather restraints, etc.). 88-Not Attempted due to Medical Conditions or Safety Concerns. Weight Bearing Full Weight Bearing Full Weight Bearing Gait Training Does the Patient Walk?: Yes Distance: 10, 10 Walk 10 feet (QC): 4 Gait Persons Needed: 1 Gait Assistive Device: FWW Assessment Current Status: Fair Progress Pt performs sit to stand transfer from recliner and edge of bed /c CGA for safety due to strength deficits. He ambulates /c use of a FWW up to 10 feet before requesting a seated rest break. Pt displays no loss of balance during ambulation but does require CGA due to functional deficits. Increased fatigue reported post-treatment. Pt left in recliner /c call light in place and all needs met post-treatment. Continue to progress pt per POC. PT Fdc Goals Mate Ship Goals PT Fdc Goals Time Frame: Jul 21, 2023 Roll Left & Right (QC): 6 Sit to Lying (QC): 6 Lying-Sitting on Side/Bed(QC): 6 Sit to Stand (QC): 6 Chair/Dvo-ws-Ledvz Xfer(QC): 6 Toilet Transfer (QC): 6 Car Transfer (QC): 6 Does the Patient Walk: Yes Walk 10 feet (QC): 6 Walk 50ft with 2 Turns (QC): 6 Walk 150 ft (QC): 6 Walking 10ft on Uneven Surface: 6 1 Step (curb) (QC): 6 4 Steps (QC): 6 12 Steps (QC): 6 Picking up an Object (QC): 6 PT Plan Treatment/Plan Treatment Plan: Continue Plan of Care Treatment Plan: Bed Mobility, Education, Functional Activity Dennise, Functional Strength, Gait, Safety, Therapeutic Exercise, Transfers Treatment Duration: Jul 21, 2023 Frequency: 11 times per week Estimated Hrs Per Day: 1 hour per day Time Time In: 1315 Time Out: 1339 DATE: Jul 17, 2023 Total Billed Treatment Time: 24 Total Billed Treatment 1 visit GT x 1 FA x 1 [facility] Jul 17, 2023 13:58
[2023-07-17 16:38] VITALS: BP 106/73
[2023-07-17 20:31] VITALS: BP 121/79
[2023-07-17 23:03] VITALS: BP 133/89
[2023-07-18 03:10] VITALS: BP 143/97
[2023-07-18] MEDS: oxyCODONE IMMEDIATE RELEASE 5 MG TABLET PO PRN (03:24)
[2023-07-18 05:59] LABS: BASOPHILS % (AUTO) 0 % (0-10); EOSINOPHILS # (AUTO) 0.2 10^3/uL (0.0-0.3); EOSINOPHILS % (AUTO) 2 % (0-10); HEMATOCRIT 33 % (40-54); HEMOGLOBIN 10.9 g/dL (13.3-17.7); LYMPHOCYTES # (AUTO) 0.7 10^3/uL (1.0-4.0); LYMPHOCYTES % (AUTO) 8 % (12-44); MEAN CORPUSCULAR HEMOGLOBIN 32 pg (25-34); MEAN CORPUSCULAR HGB CONC 34 g/dL (32-36); MEAN CORPUSCULAR VOLUME 97 fL (80-99); MEAN PLATELET VOLUME 10.8 fL (9.0-12.2); MONOCYTES # (AUTO) 1.3 10^3/uL (0.0-1.0); MONOCYTES % (AUTO) 15 % (0-12); NEUTROPHILS # (AUTO) 6.4 10^3/uL (1.8-7.8); NEUTROPHILS % (AUTO) 74 % (42-75); PLATELET COUNT 217 10^3/uL (130-400); WHITE BLOOD COUNT 8.7 10^3/uL (4.3-11.0)
[2023-07-18 06:32] LABS: ALBUMIN 2.8 GM/DL (3.2-4.5); POTASSIUM 3.4 MMOL/L (3.6-5.0)
[2023-07-18 06:33] LABS: CALCIUM 6.5 MG/DL (8.5-10.1)
[2023-07-18 06:35] LABS: TOTAL PROTEIN 5.6 GM/DL (6.4-8.2)
[2023-07-18 06:36] LABS: BILIRUBIN,TOTAL 2.3 MG/DL (0.1-1.0)
[2023-07-18 06:38] LABS: CREATININE SERUM 0.72 MG/DL (0.60-1.30); PHOSPHORUS 2.7 MG/DL (2.3-4.7)
[2023-07-18 06:41] LABS: MAGNESIUM 1.5 MG/DL (1.6-2.4)
[2023-07-18 07:16] VITALS: BP 129/84
--- NOTE | 2023-07-18 07:20 | Progress Note - Surgery ---
MARK STEELE 07/18/23 0720: Subjective Date Seen by a Provider: Jul 18, 2023 Time Seen by a Provider: 06:55 Subjective/Events-last exam Pt is resting comfortably in bed. Not c/o shortness of breath. States that BIPAP helps breathing significantly. Having right leg pain currently, but states that pain medicine given for it yesterday has helped. Hgb is stable at 10.9. No BM since yesterday. Denies nausea, vomiting, abdominal pain, chest pain, fever, dysuria. Review of Systems General: No Chills, No Night Sweats HEENT: No Head Aches, No Visual Changes Pulmonary: No Dyspnea, No Cough Cardiovascular: No: Chest Pain, Palpitations Gastrointestinal: No: Nausea, Vomiting, Abdominal Pain Genitourinary: No Dysuria, No Frequency Musculoskeletal: leg pain (Rt more than left); No: neck pain Neurological: No: Weakness, Numbness Focused Exam Time of Focused Exam: 21:30 Objective Exam Vital Signs Date Time Temp Pulse Resp B/P (MAP) Pulse Ox O2 Delivery O2 Flow Rate FiO2 07/18/23 03:10 36.1 76 19 143/97 (112) 96 NIV Bilevel 35.00 35.00 07/18/23 02:50 19 35.00 07/17/23 23:44 81 20 86 35.00 07/17/23 23:03 37.1 79 20 133/89 (104) 94 Nasal Cannula 2.00 2.00 07/17/23 20:31 36.7 80 20 121/79 (93) 98 Nasal Cannula 2.00 07/17/23 20:07 96 Nasal Cannula 2.00 07/17/23 20:00 Nasal Cannula 2.00 07/17/23 16:38 36.5 77 20 106/73 (84) 98 Nasal Cannula 2.00 07/17/23 15:12 96 Nasal Cannula 2.00 07/17/23 12:03 36.5 73 20 127/83 (98) 97 Nasal Cannula 2.00 07/17/23 09:56 97 Nasal Cannula 2.00 07/17/23 08:00 99 NIV Bilevel 35 07/17/23 08:00 36.7 81 16 115/84 (94) 100 NIV Bilevel 35.00 I & O 07/18/23 07:00 Intake Total 1015 ml Output Total 850 ml Balance 165 ml Capillary Refill : Less Than 3 Seconds General Appearance: No Apparent Distress, WD/WN HEENT: PERRL/EOMI, Normal ENT Inspection Neck: Normal Inspection, Non Tender Respiratory: Chest Non Tender, No Accessory Muscle Use, No Respiratory Distress Cardiovascular: Regular Rate, Rhythm, No JVD Gastrointestinal: non tender, soft Extremity: Normal Inspection, Other (left leg splinted. Right leg is tender to palpation. No obvious deformities, lesions, or bruising of Rt LE) Neurologic/Psychiatric: Alert, Oriented x3, Normal Mood/Affect Skin: Normal Color, Warm/Dry Lymphatic: No Adenopathy Results Lab Laboratory Tests 07/18/23 05:45: White Blood Count 8.7, Red Blood Count 3.36L, Hemoglobin 10.9L, Hematocrit 33L, Mean Corpuscular Volume 97, Mean Corpuscular Hemoglobin 32, Mean Corpuscular Hemoglobin Concent 34, Red Cell Distribution Width 17.1H, Platelet Count 217, Mean Platelet Volume 10.8, Immature Granulocyte % (Auto) 1, Neutrophils (%) (Auto) 74, Lymphocytes (%) (Auto) 8L, Monocytes (%) (Auto) 15H, Eosinophils (%) (Auto) 2, Basophils (%) (Auto) 0, Neutrophils # (Auto) 6.4, Lymphocytes # (Auto) 0.7L, Monocytes # (Auto) 1.3H, Eosinophils # (Auto) 0.2, Basophils # (Auto) 0.0, Immature Granulocyte # (Auto) 0.1, Sodium Level 135, Potassium Level 3.4L, Chloride Level 103, Carbon Dioxide Level 23, Anion Gap 9, Blood Urea Nitrogen 9, Creatinine 0.72, Estimat Glomerular Filtration Rate 99, BUN/Creatinine Ratio 13, Glucose Level 95, Calcium Level 6.5L, Corrected Calcium 7.5L, Phosphorus Level 2.7, Magnesium Level 1.5L, Total Bilirubin 2.3H, Aspartate Amino Transf (AST/SGOT) 78H, Alanine Aminotransferase (ALT/SGPT) 75H, Alkaline Phosphatase 116, Total Protein 5.6L, Albumin 2.8L Microbiology 07/12/23 MRSA Screen - Final, Complete MRSA not isolated 07/12/23 Blood Culture - Preliminary, Resulted 07/12/23 Urine Culture - Final, Complete NO GROWTH Assessment/Plan Assessment/Plan Assessment/Plan anemia possible gi bleed etoh withdrawal left ankle fracture 2L NC O2 and BIPAP at night follow hgb and transfuse as needed - 6 units prbc have been given Hgb is 10.9 and no BM today. advance diet as tolerated CIWA Discussed with patient and social work he would like information regarding etoh cessation. KORY MOORE DO 07/18/23 1418: Subjective Subjective/Events-last exam Patient doing well. No shortness of breath today. Left leg pain from fx. Hgb stable. Tolerating diet. Denies n/v fever sweats chills shortness of breath or chest pain. Objective Exam General Appearance: No Apparent Distress, WD/WN HEENT: PERRL/EOMI, Normal ENT Inspection Neck: Normal Inspection, Non Tender Respiratory: Chest Non Tender, No Accessory Muscle Use, No Respiratory Distress Cardiovascular: Regular Rate, Rhythm, No JVD Gastrointestinal: non tender, soft Extremity: Normal Inspection, Other (left leg splinted. No obvious deformities, lesions, or bruising of Rt LE) Neurologic/Psychiatric: Alert, Oriented x3 Skin: Normal Color, Warm/Dry Lymphatic: No Adenopathy Assessment/Plan Assessment/Plan Assessment/Plan anemia possible gi bleed etoh withdrawal left ankle fracture 2L NC O2 and BIPAP at night follow hgb and transfuse as needed - 6 units prbc have been given Hgb is stable 10.9 diet as tolerated CIWA Discussed with patient and social work he would like information regarding etoh cessation. Endoscopy outpatient Supervisory-Addendum Brief Verification & Attestation Participated in pt care: history, MDM, physical Personally performed: exam, history, MDM, supervision of care Care discussed with: Medical Student Procedures: n/a Results interpretation: Verified all documentation Verification and Attestation of Medical Student E/M Service A medical student performed and documented this service in my presence. I reviewed and verified all information documented by the medical student and made modifications to such information, when appropriate. I personally performed the physical exam and medical decision making. Kory Moore, Jul 18, 2023,14:18 MARK STEELE Jul 18, 2023 07:20 KORY MOORE DO Jul 18, 2023 14:18
[2023-07-18] MEDS: RT-Ipratropium/Albuterol NEB 3 ML VIAL INH SCH ×4 (07:42→18:47)
[2023-07-18] MEDS: AMIODARONE 200 MG TABLET PO SCH ×2 (08:52→20:14)
--- NOTE | 2023-07-18 10:14 | Progress Note - Cardiology ---
Cardiology SOAP Progress Note Subjective: Sitting up in recliner at the bedside Feels breathing is better No c/o CP Objective: I&O/Vital Signs 07/17/23 07/17/23 07/18/23 07/18/23 23:03 23:44 02:50 03:10 Temp 37.1 36.1 Pulse 79 81 76 Resp 20 20 19 19 B/P (MAP) 133/89 (104) 143/97 (112) Pulse Ox 94 86 96 O2 Delivery Nasal Cannula NIV Bilevel O2 Flow Rate 2.00 35.00 35.00 35.00 2.00 35.00 07/18/23 07/18/23 07:16 07:44 Temp 35.6 Pulse 73 Resp 16 B/P (MAP) 129/84 (99) Pulse Ox 99 93 O2 Delivery NIV Bilevel Nasal Cannula O2 Flow Rate 2.00 07/18/23 00:00 Intake Total 815 ml Output Total 450 ml Balance 365 ml Weight (Pounds): 163 Weight (Ounces): 0.0 Weight (Calculated Kilograms): 73.994443 Constitutional: AAO x 3, well-developed, well-nourished Respiratory: other Cardiovascular: regular rate-rhythm, S1 and S2, systolic murmur Gastrointestional: soft, audible bowel sounds Genital/Rectal: other (urinary catheter) Extremities: other, no lower extremity edema bilateral Neurologic/Psychiatric: oriented x 3, other (moves all limbs) Skin: normal color, warm/dry Results/Procedures: Labs Laboratory Tests 07/18/23 05:45: White Blood Count 8.7, Red Blood Count 3.36L, Hemoglobin 10.9L, Hematocrit 33L, Mean Corpuscular Volume 97, Mean Corpuscular Hemoglobin 32, Mean Corpuscular Hemoglobin Concent 34, Red Cell Distribution Width 17.1H, Platelet Count 217, Mean Platelet Volume 10.8, Immature Granulocyte % (Auto) 1, Neutrophils (%) (Auto) 74, Lymphocytes (%) (Auto) 8L, Monocytes (%) (Auto) 15H, Eosinophils (%) (Auto) 2, Basophils (%) (Auto) 0, Neutrophils # (Auto) 6.4, Lymphocytes # (Auto) 0.7L, Monocytes # (Auto) 1.3H, Eosinophils # (Auto) 0.2, Basophils # (Auto) 0.0, Immature Granulocyte # (Auto) 0.1, Sodium Level 135, Potassium Level 3.4L, Chloride Level 103, Carbon Dioxide Level 23, Anion Gap 9, Blood Urea Nitrogen 9, Creatinine 0.72, Estimat Glomerular Filtration Rate 99, BUN/Creatinine Ratio 13, Glucose Level 95, Calcium Level 6.5L, Corrected Calcium 7.5L, Phosphorus Level 2.7, Magnesium Level 1.5L, Total Bilirubin 2.3H, Aspartate Amino Transf (AST/SGOT) 78H, Alanine Aminotransferase (ALT/SGPT) 75H, Alkaline Phosphatase 116, Total Protein 5.6L, Albumin 2.8L Microbiology 07/12/23 MRSA Screen - Final, Complete MRSA not isolated 07/12/23 Blood Culture - Preliminary, Resulted 07/12/23 Urine Culture - Final, Complete NO GROWTH Laboratory Tests 07/17/23 03:15 07/18/23 05:45 A/P: Assessment: GIB - management per medical/eICU services Sepsis - management per medical/eICU services Pneumonia - management per medical services NSTEMI - likely Type 2 d/t profound anemia (reduced supply, increased demand) H/O PAF - h/o SHAWN ligation at time of CABG 06-11-2018 at [facility] - PAF seen on EKG on 07-12 and 07/13/2023 CAD - Cardiac cath by Dr. Thomason 05-30-2018: Distal left main disease with severe ostial LAD disease. Severe aortic stenosis with normal LV function. Referred for CABG/AoVR at that time - H/O 3 vessel CABG 06-11-2018 (RSVG to the first OM; RSVG to the first diagonal; ANTHONY to the mid-distal LAD) with ligation SHAWN; AoV replacement with 23 mm pericardial tissue valve with Maya Magna ease, model 3300TFX by Dr. Wren at [facility] H/O AoVR - AoV replacement with 23 mm pericardial tissue valve with Maya Magna ease, model 3300TFX by Dr. Wren at [facility] - Echo on 07-13-23: LVEF 45-50%, mod to severe MAC, mod MR, mod TR, PASP 60-65 mmHg H/O methamphetamine use - smokes per ED report Marijuana use - (+) at the time of this admission H/o ETOH abuse L ankle fracture - managed by [facility] Elevated AST/ALT - improving Plan: * Considerable clinical improvement following blood transfusion * We recommend localization and elimination of bleeding source ([facility] managing) * Continue amiodarone orally * Replace electrolytes * Monitor labs AYDEE ANDERSONP Jul 18, 2023 10:14
--- NOTE | 2023-07-18 10:16 | Physical Therapy Daily Note ---
PT Daily Note-Current Subjective Pt is agreeable to PT. Denies pain. Pain Numeric Pain Scale: 0-No Pain Location: No Pain Reported Section J - Health Conditions 1. Rarely or not at all 2. Occasionally 3. Frequently 4. Almost constantly 8. Unable to answer Pain Effect on Sleep: 1 Pain Interference with Therapy: 1 Pain Interference w/Day-to-Day: 1 Mental Status Attachments: Oxygen (2.5L ) Transfers SCALE: Activities may be completed with or without assistive devices. 0-Lzndwapzwv-kgbfrlg completes the activity by him/herself with no assistance from a helper. 5-Set-up or Clean-up Assistance-helper sets up or cleans up; patient completes activity. [place] assists only prior to or following the activity. 4-Supervision or Touching Assistance-helper provides verbal cues and/or touching/steadying and/or contact guard assistance as patient completes activity. Assistance may be provided throughout the activity or intermittently. 3-Partial/Moderate Assistance-helper does LESS THAN HALF the effort. [place] lifts, holds or supports trunk or limbs, but provides less than half the effort. 2-Substantial/Maximal Assistance-helper does MORE THAN HALF the effort. [place] lifts or holds trunk or limbs and provides more than half the effort. 1-Ofdjrkdxi-duoxox does ALL the effort. Patient does none of the effort to complete the activity. Or, the assistance of 2 or more helpers is required for the patient to complete the activity. If activity was not attempted, code reason: 7-Patient Refused. 9-Not Applicable-not attempted and the patient did not perform the activity before the current illness, exacerbation or injury. 10-Not Attempted due to Environmental Limitations-(lack of equipment, weather restraints, etc.). 88-Not Attempted due to Medical Conditions or Safety Concerns. Lying to Sitting/Side of Bed(Q: 6 Sit to Stand (QC): 3 Chair/[place]qdav Xfer(QC): 4 Weight Bearing Right Lower Extremity: Right Full Weight Bearing Left Lower Extremity: Left Touch Toe Bearing Gait Training Does the Patient Walk?: Yes Distance: 30ft Walk 10 feet (QC): 4 Gait Assistive Device: FWW Treatments Pt was Mod I with bed mobility. Pt required Mod A for sit to stand from low bed. Pt ambulated 30ft with the FWW and CGA (v/c for TTWB to the L LE). After treatment, pt was sitting up in the recliner with call light in reach and all needs met. Assessment Current Status: Good Progress Pt tolerated PT well, with good effort. PT Fdc Goals Fdc Goals PT Plate Embosser Goals Time Frame: Jul 21, 2023 Roll Left & Right (QC): 6 Sit to Lying (QC): 6 Lying-Sitting on Side/Bed(QC): 6 Sit to Stand (QC): 6 Chair/Kdo-mc-Rxtur Xfer(QC): 6 Toilet Transfer (QC): 6 Car Transfer (QC): 6 Does the Patient Walk: Yes Walk 10 feet (QC): 6 Walk 50ft with 2 Turns (QC): 6 Walk 150 ft (QC): 6 Walking 10ft on Uneven Surface: 6 1 Step (curb) (QC): 6 4 Steps (QC): 6 12 Steps (QC): 6 Picking up an Object (QC): 6 PT Plan Problem List Problem List: Activity Tolerance, Functional Strength, Safety, Balance, Gait, Transfer, Bed Mobility, ROM Treatment/Plan Treatment Plan: Continue Plan of Care Treatment Plan: Bed Mobility, Education, Functional Activity Dennise, Functional Strength, Gait, Safety, Therapeutic Exercise, Transfers Treatment Duration: Jul 21, 2023 Frequency: 11 times per week Estimated Hrs Per Day: 1 hour per day Safety Risks/Education Patient Education: Gait Training, Transfer Techniques, Correct Positioning, Safety Issues Teaching Recipient: Patient Teaching Methods: Demonstration, Discussion Response to Teaching: Reinforcement Needed Discharge Recommendations Therapy Discharge Recommendati: Post Acute PT Time Time In: 935 Time Out: 950 DATE: Jul 18, 2023 Total Billed Treatment Time: 15 Total Billed Treatment 15 min 1 visit GT x 1 KOKO CAMACHO PT Jul 18, 2023 10:16
[2023-07-18] MEDS ORDERED: POTASSIUM CHLORIDE 20 MEQ TABLET PO NR (11:00)
[2023-07-18] MEDS: MAGNESIUM 1 GM/100 ML IVPB 100 ML IV SCH ×2 (11:11→12:10)
[2023-07-18 11:45] VITALS: BP 122/82
--- NOTE | 2023-07-18 12:34 | Occupational Ther Daily Note ---
OT Current Status-Daily Note Subjective Agreeable to OT Mental Status/Objective Patient Orientation: Person, Place, Time, Situation Attachments: Epps Catheter TTWB LLE. ADL-Treatment Sock on RLE, TTWB LLE w/ casted splint. Patient declined change of garments, agreeable to oral care in recliner following ambulation in room w/ FWW, patient maintains WB 50% of time Therapy Code Descriptions/Definitions Functional [place] Measure: 0=Not Assessed/NA 4=Minimal Assistance 1=Total Assistance 5=Supervision or Setup 2=Maximal Assistance 6=Modified [place] 3=Moderate Assistance 7=Complete IndependenceSCALE: Activities may be completed with or without assistive devices. 6-Cktgljxokz-jmvrarq completes the activity by him/herself with no assistance from a helper. 5-Set-up or Clean-up Assistance-helper sets up or cleans up; patient completes activity. [place] assists only prior to or following the activity. 4-Supervision or Touching Assistance-helper provides verbal cues and/or touching/steadying and/or contact guard assistance as patient completes act ivity. Assistance may be provided throughout the activity or intermittently. 3-Partial/Moderate Assistance-helper does LESS THAN HALF the effort. [place] lifts, holds or supports trunk or limbs, but provides less than half the effort. 2-Substantial/Maximal Assistance-helper does MORE THAN HALF the effort. [place] lifts or holds trunk or limbs and provides more than half the effort. 7-Ajxhrykum-pekbwe does ALL the effort. Patient does none of the effort to complete the activity. Or, the assistance of 2 or more helpers is required for the patient to complete the activity. If activity was not attempted, code reason: 7-Patient Refused. 9-Not Applicable-not attempted and the patient did not perform the activity before the current illness, exacerbation or injury. 10-Not Attempted due to Environmental Limitations-(lack of equipment, weather restraints, etc.). 88-Not Attempted due to Medical Conditions or Safety Concerns. Oral Hygiene (QC): 5 Education OT Patient Education: Correct positioning, Exercise program, Modified ADL techniques, Progress toward Goal/Update tx plan, Purpose of tx/functional activities, Reviewed precautions, Rehab process, Safety issues Teaching Recipient: Patient Teaching Methods: Demonstration Response to Teaching: Return Demonstration OT Mcc Goals Mcc Goals Eating (QC): 6 Oral Hygiene (QC): 6 Toileting Hygiene (QC): 6 Shower/Bathe Self (QC): 6 Upper Body Dressing (QC): 6 Lower Body Dressing (QC): 6 On/Off Footwear (QC): 6 1=Demonstrate adherence to instructed precautions during ADL tasks. 2=Patient will verbalize/demonstrate understanding of assistive d evices/modifications for ADL. 3=Patient will improve strength/tolerance for activity to enable patient to perform ADL's. OT Education/Plan Discharge Recommendations Plan/Recommendations: Continue POC Treatment Plan/Plan of Care Treatment,Training & Education: Yes Patient would benefit from OT for education, treatment and training to promote independence in ADL's, mobility, safety and/or upper extremity function for ADL's. Plan of Care: ADL Retraining, Functional Mobility, Group Exercise/Act as Ind, UE Funct Exercise/Act Treatment Duration: Jul 20, 2023 Frequency: 3 times per week (3-5 times per week) Estimated Hrs Per Day: .25 hour per day Agreement: Yes Rehab Potential: Good Remains in recliner, all needs met Time Start Time: 09:35 Stop Time: 09:50 DATE: Jul 18, 2023 Total Time Billed (hr/min): 15 Billed Treatment Time ADL 15 min RACHANA HARVEY OT Jul 18, 2023 12:34
[2023-07-18 16:44] VITALS: BP 120/76
--- NOTE | 2023-07-18 17:57 | Progress Note - Hospitalist ---
Subjective HPI/CC On Admission Date Seen by Provider: Jul 18, 2023 Time Seen by Provider: 10:45 Pt is a 68yoCM with a PMH of a -fib, CAD s/p CABG, HTN, HLD, Labes who presented to the emergency department due to weakness. He was seen in the emergency department on the first due to a fall and ankle pain. He apparently had fallen on the and did not seek care until his grandson got home and brought him to the hospital. He was found to have a left left ankle fracture. This was splinted and he was discharged and sent home. It is unclear what exactly happened since that time as the grandson had left for work and thought he had been fine after leaving the ER. He returned to the emergency department with weakness. He was found to have a GI bleed and his hemoglobin was 5.7. The patient is unable to provide me any of this history and this all comes from the records and from his son Armin. He was also found to have a lactic acidosis of 9.06. He had an elevated troponin of 0.618. He was requiring nasal cannula in the ER but needed BiPAP upon arrival to the ICU. He had reported shortness of breath to the emergency department but did not to me. He states he wants BiPAP off but did say he would be okay with a tube in his throat to help him breathe if it was needed. He was ultimately willing to put BiPAP back on. He has been given a unit of blood nad Hgb has increased to 7.1. Subjective/Events-last exam He is still not getting around very well. He has no other complaints. Focused Exam Time of Focused Exam: 21:30 Objective Exam Vital Signs Vital Signs Date Time Temp Pulse Resp B/P (MAP) Pulse Ox O2 Delivery O2 Flow Rate FiO2 07/18/23 16:44 36.5 73 18 120/76 (91) 98 Nasal Cannula 2.50 07/17/23 08:00 35 Capillary Refill : Less Than 3 Seconds General Appearance: No Apparent Distress, WD/WN Respiratory: Lungs Clear, No Respiratory Distress Cardiovascular: Regular Rate, Rhythm, No Murmur Gastrointestinal: Normal Bowel Sounds, Soft Extremity: Normal Inspection, No Pedal Edema Neurologic/Psychiatric: Alert, Normal Mood/Affect Skin: Normal Color, Warm/Dry Results/Procedures Lab Laboratory Tests 07/18/23 05:45 Patient resulted labs reviewed. Imaging: Reviewed Imaging Report Assessment/Plan Assessment and Plan Assess & Plan/Chief Complaint GI Bleed Acute blood loss anemia Alcohol abuse Acute alcoholic hepatitis Hepatic steatosis s/p 6 units PRBC Hgb stable, improved CIWA Surgery following Protonix Banana Bag LFTs improving Acute respiratory failure s/p BiPAP MAT protocol No evidence of pneumonia or other infectious etiology on imaging Debility PT/OT Swing bed evaluation A fib CAD s/p CABG HTN NSTEMI- type II [place] [facility] fpllowing Amiodarone No anticoagulation due to GI bleed Telemetry Ankle fracture, present on admission Ortho consulted, recommended continued immobilization with transition to Cam boot when able, weight bearing as tolerated Oxycodone as needed DVT ppx: SCDs only due to GI bleed but high risk Lactic acidosis, resolved Diagnosis/Problems Diagnosis/Problems (1) GI bleed Status: Acute (2) ABLA (acute blood loss anemia) Status: Acute (3) Hepatic steatosis Status: Acute (4) Acute alcoholic hepatitis Status: Acute (5) Alcohol abuse Status: Acute (6) Acute respiratory failure with hypoxia Status: Acute (7) NSTEMI (non-ST elevation myocardial infarction) Status: Acute (8) Ankle fracture Status: Acute ALEX WILL MD Jul 18, 2023 17:57
[2023-07-18 20:01] VITALS: BP 124/79
--- NOTE | 2023-07-18 22:33 | Progress Note - Cardiology ---
Cardiology SOAP Progress Note Subjective: No cp or palp or syncope No n/v/d No focal weakness Gen weakness and malaise No shortness of breath at rest Objective: I&O/Vital Signs 07/18/23 07/18/23 07/18/23 07/18/23 11:13 11:45 14:59 16:44 Temp 36.7 36.5 Pulse 75 73 Resp 16 18 B/P (MAP) 122/82 (95) 120/76 (91) Pulse Ox 98 98 O2 Delivery Nasal Cannula Nasal Cannula Nasal Cannula Nasal Cannula O2 Flow Rate 2.00 2.00 2.00 2.50 07/18/23 07/18/23 07/18/23 18:48 20:01 20:15 Temp 36.7 Pulse 75 Resp 16 B/P (MAP) 124/79 (94) Pulse Ox 97 98 O2 Delivery Nasal Cannula Nasal Cannula Nasal Cannula O2 Flow Rate 2.50 2.50 2.50 07/18/23 00:00 Intake Total 815 ml Output Total 450 ml Balance 365 ml Weight (Pounds): 163 Weight (Ounces): 0.0 Weight (Calculated Kilograms): 73.197009 Constitutional: AAO x 3, well-developed, well-nourished Respiratory: other Cardiovascular: regular rate-rhythm, S1 and S2, systolic murmur Gastrointestional: soft, audible bowel sounds Genital/Rectal: other (urinary catheter) Extremities: other, no lower extremity edema bilateral Neurologic/Psychiatric: oriented x 3, other (moves all limbs) Skin: normal color, warm/dry Results/Procedures: Labs Laboratory Tests 07/18/23 05:45: White Blood Count 8.7, Red Blood Count 3.36L, Hemoglobin 10.9L, Hematocrit 33L, Mean Corpuscular Volume 97, Mean Corpuscular Hemoglobin 32, Mean Corpuscular Hemoglobin Concent 34, Red Cell Distribution Width 17.1H, Platelet Count 217, Mean Platelet Volume 10.8, Immature Granulocyte % (Auto) 1, Neutrophils (%) (Auto) 74, Lymphocytes (%) (Auto) 8L, Monocytes (%) (Auto) 15H, Eosinophils (%) (Auto) 2, Basophils (%) (Auto) 0, Neutrophils # (Auto) 6.4, Lymphocytes # (Auto) 0.7L, Monocytes # (Auto) 1.3H, Eosinophils # (Auto) 0.2, Basophils # (Auto) 0.0, Immature Granulocyte # (Auto) 0.1, Sodium Level 135, Potassium Level 3.4L, Chloride Level 103, Carbon Dioxide Level 23, Anion Gap 9, Blood Urea Nitrogen 9, Creatinine 0.72, Estimat Glomerular Filtration Rate 99, BUN/Creatinine Ratio 13, Glucose Level 95, Calcium Level 6.5L, Corrected Calcium 7.5L, Phosphorus Level 2.7, Magnesium Level 1.5L, Total Bilirubin 2.3H, Aspartate Amino Transf (AST/SGOT) 78H, Alanine Aminotransferase (ALT/SGPT) 75H, Alkaline Phosphatase 116, Total Protein 5.6L, Albumin 2.8L Microbiology 07/12/23 MRSA Screen - Final, Complete MRSA not isolated 07/12/23 Blood Culture - Final, Complete 07/12/23 Urine Culture - Final, Complete NO GROWTH A/P: Assessment: GIB - management per medical/eICU services Sepsis - management per medical/eICU services Pneumonia - management per medical services NSTEMI - likely Type 2 d/t profound anemia (reduced supply, increased demand) H/O PAF - h/o SHAWN ligation at time of CABG 06-11-2018 at [facility] - PAF seen on EKG on 07-12 and 07/13/2023 CAD - Cardiac cath by Dr. Thomason 05-30-2018: Distal left main disease with severe ostial LAD disease. Severe aortic stenosis with normal LV function. Referred for CABG/AoVR at that time - H/O 3 vessel CABG 06-11-2018 (RSVG to the first OM; RSVG to the first diagonal; ANTHONY to the mid-distal LAD) with ligation SHAWN; AoV replacement with 23 mm pericardial tissue valve with Maya Magna ease, model [id number] by Dr. Wren at [facility] H/O AoVR - AoV replacement with 23 mm pericardial tissue valve with Maya Magna ease, model [id number] by Dr. Wren at [facility] - Echo on 07-13-23: LVEF 45-50%, mod to severe MAC, mod MR, mod TR, PASP 60-65 mmHg H/O methamphetamine use - smokes per ED report Marijuana use - (+) at the time of this admission H/o ETOH abuse L ankle fracture - managed by [facility] Elevated AST/ALT - improving Plan: * Considerable clinical improvement following blood transfusion * We recommend localization and elimination of bleeding source ([facility]osp [facility] Surg [facility] managing) * Continue amiodarone orally * Replace electrolytes * Monitor labs JACINTA MCNULTY MD FACP FAC CCDS Jul 18, 2023 22:33
[2023-07-18 23:03] VITALS: BP 124/84
[2023-07-19 03:21] VITALS: BP 144/92
[2023-07-19 05:37] LABS: BASOPHILS # (AUTO) 0.1 10^3/uL (0.0-0.1); BASOPHILS % (AUTO) 0 % (0-10); EOSINOPHILS # (AUTO) 0.2 10^3/uL (0.0-0.3); EOSINOPHILS % (AUTO) 1 % (0-10); HEMATOCRIT 34 % (40-54); HEMOGLOBIN 11.2 g/dL (13.3-17.7); LYMPHOCYTES # (AUTO) 0.7 10^3/uL (1.0-4.0); LYMPHOCYTES % (AUTO) 7 % (12-44); MEAN CORPUSCULAR HEMOGLOBIN 32 pg (25-34); MEAN CORPUSCULAR HGB CONC 33 g/dL (32-36); MEAN CORPUSCULAR VOLUME 97 fL (80-99); MEAN PLATELET VOLUME 10.7 fL (9.0-12.2); MONOCYTES # (AUTO) 1.4 10^3/uL (0.0-1.0); MONOCYTES % (AUTO) 13 % (0-12); NEUTROPHILS # (AUTO) 8.7 10^3/uL (1.8-7.8); NEUTROPHILS % (AUTO) 79 % (42-75); PLATELET COUNT 248 10^3/uL (130-400); WHITE BLOOD COUNT 11.2 10^3/uL (4.3-11.0)
[2023-07-19 05:44] LABS: POTASSIUM 3.8 MMOL/L (3.6-5.0)
[2023-07-19 05:46] LABS: CALCIUM 6.9 MG/DL (8.5-10.1)
[2023-07-19 05:47] LABS: TOTAL PROTEIN 6.1 GM/DL (6.4-8.2)
[2023-07-19 05:49] LABS: BILIRUBIN,TOTAL 2.1 MG/DL (0.1-1.0)
[2023-07-19 05:50] LABS: PHOSPHORUS 2.2 MG/DL (2.3-4.7)
[2023-07-19 05:51] LABS: CREATININE SERUM 0.72 MG/DL (0.60-1.30)
[2023-07-19 05:54] LABS: MAGNESIUM 1.6 MG/DL (1.6-2.4)
[2023-07-19 06:43] LABS: EOSINOPHILS % (MANUAL) 5 %; LYMPHOCYTES % (MANUAL) 7 %; MONOCYTES % (MANUAL) 10 %; NEUTROPHILS % (MANUAL) 78 %
[2023-07-19 06:44] LABS: RBC MORPH NORMAL
[2023-07-19] MEDS: RT-Ipratropium/Albuterol NEB 3 ML VIAL INH SCH ×2 (07:17→10:46)
[2023-07-19 07:23] VITALS: BP 134/86
--- NOTE | 2023-07-19 07:29 | Progress Note - Surgery ---
MARK STEELE 07/19/23 0729: Subjective Date Seen by a Provider: Jul 19, 2023 Time Seen by a Provider: 06:40 Subjective/Events-last exam Pt is feeling well overall. No c/o of pain. Is ambulating with assistance to bathroom and chair in room. Wants to start physical therapy. Denies n/v/d, chest pain, SOA, dysuria, fever, constipation. Review of Systems General: No Chills, No Night Sweats HEENT: No Head Aches, No Visual Changes Pulmonary: No Dyspnea, No Cough Cardiovascular: No: Chest Pain, Palpitations Gastrointestinal: No: Nausea, Vomiting Genitourinary: No Dysuria, No Frequency Musculoskeletal: No: neck pain, shoulder pain Neurological: No: Weakness, Numbness Focused Exam Time of Focused Exam: 21:30 Objective Exam Vital Signs Date Time Temp Pulse Resp B/P (MAP) Pulse Ox O2 Delivery O2 Flow Rate FiO2 07/19/23 03:21 36.9 78 16 144/92 (109) 98 Nasal Cannula 2.50 2.50 07/18/23 23:03 36.7 78 16 124/84 (97) 93 Nasal Cannula 2.50 2.50 07/18/23 20:15 Nasal Cannula 2.50 07/18/23 20:01 36.7 75 16 124/79 (94) 98 Nasal Cannula 2.50 07/18/23 18:48 97 Nasal Cannula 2.50 07/18/23 16:44 36.5 73 18 120/76 (91) 98 Nasal Cannula 2.50 07/18/23 14:59 Nasal Cannula 2.00 07/18/23 11:45 36.7 75 16 122/82 (95) 98 Nasal Cannula 2.00 07/18/23 11:13 Nasal Cannula 2.00 07/18/23 09:00 Nasal Cannula 2.00 07/18/23 07:44 93 Nasal Cannula 2.00 I & O 07/19/23 07:00 Intake Total 1400 ml Output Total 875 ml Balance 525 ml Capillary Refill : Less Than 3 Seconds General Appearance: No Apparent Distress, WD/WN HEENT: PERRL/EOMI, Normal ENT Inspection Neck: Normal Inspection, Non Tender Respiratory: Lungs Clear, No Respiratory Distress Cardiovascular: Regular Rate, Rhythm, No Murmur Gastrointestinal: non tender, soft Extremity: Normal Inspection, No Pedal Edema Neurologic/Psychiatric: Alert, Normal Mood/Affect Skin: Normal Color, Warm/Dry Lymphatic: No Adenopathy Results Lab Laboratory Tests 07/19/23 05:30: White Blood Count 11.2H, Red Blood Count 3.53L, Hemoglobin 11.2L, Hematocrit 34L , Mean Corpuscular Volume 97, Mean Corpuscular Hemoglobin 32, Mean Corpuscular Hemoglobin Concent 33, Red Cell Distribution Width 16.8H, Platelet Count 248, Mean Platelet Volume 10.7, Immature Granulocyte % (Auto) 0, Neutrophils (%) (Auto) 79H, Lymphocytes (%) (Auto) 7L, Monocytes (%) (Auto) 13H, Eosinophils (%) (Auto) 1, Basophils (%) (Auto) 0, Neutrophils # (Auto) 8.7H, Lymphocytes # (Auto) 0.7L, Monocytes # (Auto) 1.4H, Eosinophils # (Auto) 0.2, Basophils # (Auto) 0.1, Immature Granulocyte # (Auto) 0.0, Neutrophils % (Manual) 78, Lymphocytes % (Manual) 7, Monocytes % (Manual) 10, Eosinophils % (Manual) 5, Blood Morphology Comment NORMAL, Sodium Level 135, Potassium Level 3.8, Chloride Level 102, Carbon Dioxide Level 24, Anion Gap 9, Blood Urea Nitrogen 7, Creatinine 0.72, Estimat Glomerular Filtration Rate 99, BUN/Creatinine Ratio 10, Glucose Level 101, Calcium Level 6.9L, Corrected Calcium 7.7L, Phosphorus Level 2.2L, Magnesium Level 1.6, Total Bilirubin 2.1H, Aspartate Amino Transf (AST/SGOT) 84H, Alanine Aminotransferase (ALT/SGPT) 78H, Alkaline Phosphatase 141H, Total Protein 6.1L, Albumin 3.0L Microbiology 07/12/23 MRSA Screen - Final, Complete MRSA not isolated 07/12/23 Blood Culture - Final, Complete 07/12/23 Urine Culture - Final, Complete NO GROWTH Assessment/Plan Assessment/Plan Assessment/Plan anemia possible gi bleed etoh withdrawal left ankle fracture 2L NC O2 and BIPAP at night follow hgb and transfuse as needed - 6 units prbc have been given Hgb is stable 11.2 diet as tolerated CIWA Discussed with patient and social work he would like information regarding etoh cessation. Endoscopy outpatient KORY MOORE DO 07/19/23 2310: Subjective Subjective/Events-last exam Feeling good. Sitting in chair. No pain. Tolerating diet. Hgb stable. Denies n/v fever sweats chills shortness of breath or chest pain. Objective Exam General Appearance: No Apparent Distress, WD/WN HEENT: PERRL/EOMI, Normal ENT Inspection Neck: Normal Inspection, Non Tender Respiratory: Chest Non Tender, No Accessory Muscle Use, No Respiratory Distress Cardiovascular: Regular Rate, Rhythm, No JVD Gastrointestinal: non tender, soft Extremity: Non Tender, Other (left leg splinted) Neurologic/Psychiatric: Alert, Normal Mood/Affect Skin: Normal Color, Warm/Dry Lymphatic: No Adenopathy Assessment/Plan Assessment/Plan Assessment/Plan anemia possible gi bleed etoh withdrawal left ankle fracture 2L NC O2 and BIPAP at night follow hgb and transfuse as needed - 6 units prbc have been given Hgb is stable 11.2 diet as tolerated CIWA Discussed with patient and social work he would like information regarding etoh cessation. Endoscopy outpatient Will sign off, outpatient follow up Call if needed. Supervisory-Addendum Brief Verification & Attestation Participated in pt care: history, MDM, physical Personally performed: exam, history, MDM, supervision of care Care discussed with: Medical Student Procedures: n/a Results interpretation: Verified all documentation Verification and Attestation of Medical Student E/M Service A medical student performed and documented this service in my presence. I reviewed and verified all information documented by the medical student and made modifications to such information, when appropriate. I personally performed the physical exam and medical decision making. Kory Moore, Jul 19, 2023,22:49 MARK STEELE Jul 19, 2023 07:29 KORY MOORE DO Jul 19, 2023 23:10
[2023-07-19] MEDS: AMIODARONE 200 MG TABLET PO SCH (08:27)
[2023-07-19 11:20] VITALS: BP 135/79
--- NOTE | 2023-07-19 16:59 | Progress Note - Cardiology ---
Cardiology SOAP Progress Note Subjective: No cp or palp or syncope No n/v/d No focal weakness No gen weakness No shortness of breath Objective: I&O/Vital Signs 07/19/23 07/19/23 07/19/23 07/19/23 07:17 07:23 08:00 10:46 Temp 36.5 Pulse 74 Resp 16 B/P (MAP) 134/86 (102) Pulse Ox 96 98 98 96 O2 Delivery Nasal Cannula Nasal Cannula Nasal Cannula Nasal Cannula O2 Flow Rate 2.50 2.00 2.00 2.50 07/19/23 11:20 Temp 36.6 Pulse 75 Resp 16 B/P (MAP) 135/79 (97) Pulse Ox 97 O2 Delivery Nasal Cannula O2 Flow Rate 2.00 07/19/23 00:00 Intake Total 1000 ml Output Total 675 ml Balance 325 ml Weight (Pounds): 163 Weight (Ounces): 0.0 Weight (Calculated Kilograms): 73.988935 Constitutional: AAO x 3, well-developed, well-nourished Respiratory: other Cardiovascular: regular rate-rhythm, S1 and S2, systolic murmur Gastrointestional: soft, audible bowel sounds Genital/Rectal: other (urinary catheter) Extremities: other, no lower extremity edema bilateral Neurologic/Psychiatric: oriented x 3, other (moves all limbs) Skin: normal color, warm/dry Results/Procedures: Labs Laboratory Tests 07/19/23 05:30: White Blood Count 11.2H, Red Blood Count 3.53L, Hemoglobin 11.2L, Hematocrit 34L , Mean Corpuscular Volume 97, Mean Corpuscular Hemoglobin 32, Mean Corpuscular Hemoglobin Concent 33, Red Cell Distribution Width 16.8H, Platelet Count 248, Mean Platelet Volume 10.7, Immature Granulocyte % (Auto) 0, Neutrophils (%) (Auto) 79H, Lymphocytes (%) (Auto) 7L, Monocytes (%) (Auto) 13H, Eosinophils (%) (Auto) 1, Basophils (%) (Auto) 0, Neutrophils # (Auto) 8.7H, Lymphocytes # (Auto) 0.7L, Monocytes # (Auto) 1.4H, Eosinophils # (Auto) 0.2, Basophils # (Auto) 0.1, Immature Granulocyte # (Auto) 0.0, Neutrophils % (Manual) 78, Lymphocytes % (Manual) 7, Monocytes % (Manual) 10, Eosinophils % (Manual) 5, Blood Morphology Comment NORMAL, Sodium Level 135, Potassium Level 3.8, Chloride Level 102, Carbon Dioxide Level 24, Anion Gap 9, Blood Urea Nitrogen 7, Creatinine 0.72, Estimat Glomerular Filtration Rate 99, BUN/Creatinine Ratio 10, Glucose Level 101, Calcium Level 6.9L, Corrected Calcium 7.7L, Phosphorus Level 2.2L, Magnesium Level 1.6, Total Bilirubin 2.1H, Aspartate Amino Transf (AST/SGOT) 84H, Alanine Aminotransferase (ALT/SGPT) 78H, Alkaline Phosphatase 141H, Total Protein 6.1L, Albumin 3.0L Microbiology 07/12/23 MRSA Screen - Final, Complete MRSA not isolated 07/12/23 Blood Culture - Final, Complete 07/12/23 Urine Culture - Final, Complete NO GROWTH Laboratory Tests 07/18/23 05:45 07/19/23 05:30 A/P: Assessment: GIB - management per medical/eICU services Sepsis - management per medical/eICU services Pneumonia - management per medical services NSTEMI - likely Type 2 d/t profound anemia (reduced supply, increased demand) H/O PAF - h/o SHAWN ligation at time of CABG 06-11-2018 at [facility] - PAF seen on EKG on 07-12 and 07/13/2023 CAD - Cardiac cath by Dr. Thomason 05-30-2018: Distal left main disease with severe ostial LAD disease. Severe aortic stenosis with normal LV function. Referred for CABG/AoVR at that time - H/O 3 vessel CABG 06-11-2018 (RSVG to the first OM; RSVG to the first diagonal; ANTHONY to the mid-distal LAD) with ligation SHAWN; AoV replacement with 23 mm pericardial tissue valve with Maya Magna ease, model 3300TFX by Dr. Wren at [facility] H/O AoVR - AoV replacement with 23 mm pericardial tissue valve with Maya Magna ease, model [id number] by Dr. Wren at [facility] - Echo on 07-13-23: LVEF 45-50%, mod to severe MAC, mod MR, mod TR, PASP 60-65 mmHg H/O methamphetamine use - smokes per ED report Marijuana use - (+) at the time of this admission H/o ETOH abuse L ankle fracture - managed by Hosp and Surg svces Elevated AST/ALT - improving Plan: * Considerable clinical improvement following blood transfusion * We recommend localization and elimination of bleeding source (Hosp and Surg svces managing) * Continue amiodarone orally * Monitor labs JACINTA MCNULTY MD FACP FAC CCDS Jul 19, 2023 16:59
--- NOTE | 2023-07-19 19:37 | Discharge Summary ---
Discharge Summary Hospital Course Problems/Dx: (1) GI bleed Status: Acute (2) ABLA (acute blood loss anemia) Status: Acute (3) Hepatic steatosis Status: Acute (4) Acute alcoholic hepatitis Status: Acute (5) Alcohol abuse Status: Acute (6) Acute respiratory failure with hypoxia Status: Acute (7) NSTEMI (non-ST elevation myocardial infarction) Status: Acute (8) Ankle fracture Status: Acute Hospital Course Date of Admission: Jul 12, 2023 at 21:39 Admission Diagnosis : Acute blood loss anemia due to GI bleed Family Physician/Provider: Flaco Lovett Physician Date of Discharge: 07/19/23 Discharge Diagnosis: Acute blood loss anemia due to GI bleed Hospital Course: Evelio Lopes is a 68 year old male with HTN, CAD s/p CABG, history of aortic valve replacement, alcohol abuse, polysubstance abuse, who was admitted with acute blood loss anemia due to GI bleeding. Surgery was consulted and assisted with his care. He was given IV PPI. He required 6 units PRBC transfusion. His bleeding resolved and his hemoglobin stabilized. He will need to undergo an endoscopic evaluation as an outpatient. His course was complicated by acute alcoholic hepatitis. His liver enzymes were significantly elevated but did trend down during his stay. He was treated with the CIWA protocol for alcohol withdrawal. Alcohol cessation was advised and social work provided available resources. He also had elevated troponin. Cardiology was consulted and assisted with his care. This was thought to represent a type II NSTEMI due to demand ischemia related to anemia. He was also debilitated and worked with physical and occupational therapy. He has an ankle fracture and orthopedic surgery was consulted. They recommended immobilization and weight bearing as tolerated. He can be transitioned to a tall Cam walker boot. He should follow up with Dr. Horner once he discharges from the hospital. He was discharged to swing bed and will continue therapy. Labs and Pending Lab Test: Laboratory Tests 07/19/23 05:30: White Blood Count 11.2H, Red Blood Count 3.53L, Hemoglobin 11.2L, Hematocrit 34L , Mean Corpuscular Volume 97, Mean Corpuscular Hemoglobin 32, Mean Corpuscular Hemoglobin Concent 33, Red Cell Distribution Width 16.8H, Platelet Count 248, Mean Platelet Volume 10.7, Immature Granulocyte % (Auto) 0, Neutrophils (%) (Auto) 79H, Lymphocytes (%) (Auto) 7L, Monocytes (%) (Auto) 13H, Eosinophils (%) (Auto) 1, Basophils (%) (Auto) 0, Neutrophils # (Auto) 8.7H, Lymphocytes # (Auto) 0.7L, Monocytes # (Auto) 1.4H, Eosinophils # (Auto) 0.2, Basophils # (Auto) 0.1, Immature Granulocyte # (Auto) 0.0, Neutrophils % (Manual) 78, Lymphocytes % (Manual) 7, Monocytes % (Manual) 10, Eosinophils % (Manual) 5, Blood Morphology Comment NORMAL, Sodium Level 135, Potassium Level 3.8, Chloride Level 102, Carbon Dioxide Level 24, Anion Gap 9, Blood Urea Nitrogen 7, Creatinine 0.72, Estimat Glomerular Filtration Rate 99, BUN/Creatinine Ratio 10, Glucose Level 101, Calcium Level 6.9L, Corrected Calcium 7.7L, Phosphorus Level 2.2L, Magnesium Level 1.6, Total Bilirubin 2.1H, Aspartate Amino Transf (AST/SGOT) 84H, Alanine Aminotransferase (ALT/SGPT) 78H, Alkaline Phosphatase 141H, Total Protein 6.1L, Albumin 3.0L Microbiology 07/12/23 MRSA Screen - Final, Complete MRSA not isolated 07/12/23 Blood Culture - Final, Complete 07/12/23 Urine Culture - Final, Complete NO GROWTH Home Meds Active Reported Magnesium (Magnesium Citrate and Oxide) 250 Mg Capsule 250 Mg PO DAILY Multivitamin 1 Each Tablet 1 Each PO DAILY Omeprazole Magnesium 20 Mg Capsule.dr 20 Mg PO DAILY PRN Aspirin EC (Aspirin) 81 Mg Tablet.dr 81 Mg PO DAILY Assessment/Pt Instructions see instructions Discharge Planning: >30 minutes discharge planning Discharge Instructions Discharge Diet: Low Sodium Diet Activity as Tolerated: Yes Consultations Cardiology, Surgery, TeleICU Discharge Physical Examination Vital Signs Vital Signs Date Time Temp Pulse Resp B/P (MAP) Pulse Ox O2 Delivery O2 Flow Rate FiO2 07/19/23 11:20 36.6 75 16 135/79 (97) 97 Nasal Cannula 2.00 07/17/23 08:00 35 General Appearance: No Apparent Distress, WD/WN Respiratory: Lungs Clear, No Respiratory Distress Cardiovascular: Regular Rate, Rhythm, No Murmur Gastrointestinal: Normal Bowel Sounds, Soft Extremity: Normal Inspection, No Pedal Edema Skin: Normal Color, Warm/Dry Neurologic/Psychiatric: Alert, Normal Mood/Affect Allergies: Coded Allergies: No Known Drug Allergies (Unverified , 02/11/12) Discharge Summary Date of Admission Jul 12, 2023 at 21:39 Date of Discharge Jul 19, 2023 at 12:29 Discharge Date: Jul 19, 2023 Discharge Time: 12:29 Admission Diagnosis GI Bleed Discharge Diagnosis GI Bleed Acute blood loss anemia Alcohol abuse Acute alcoholic hepatitis Hepatic steatosis Acute respiratory failure Debility A fib CAD s/p CABG HTN NSTEMI- type II VA Ankle fracture, present on admission Lactic acidosis (1) GI bleed Status: Acute (2) ABLA (acute blood loss anemia) Status: Acute (3) Hepatic steatosis Status: Acute (4) Acute alcoholic hepatitis Status: Acute (5) Alcohol abuse Status: Acute (6) Acute respiratory failure with hypoxia Status: Acute (7) NSTEMI (non-ST elevation myocardial infarction) Status: Acute (8) Ankle fracture Status: Acute ALEX WILL MD Jul 19, 2023 19:31
--- NOTE | 2023-07-23 16:49 | Physician Query Clarification ---
PQ-Uncertain Diagnosis Admission/Discharge Admission Date: Jul 12, 2023 at 21:39 Discharge Date: Jul 19, 2023 at 12:29 Dr. Will, The medical record reflects the following clinical scenario: History/Risk Factors: GI bleed, [place] 2, Acute hypoxic respiratory failure Clinical Findings: : Minimal discoid atelectasis and/or pneumonitis in the left lung base. Lactic acidosis 9.06, WBC 18.8, T 37.6, P 117, R 22 Treatment: IV Cefepime Question: Is severe sepsis and pneumonia a clinically valid diagnosis? Severe sepsis and pneumonia was documented in the Dr. Sahni and Dr. Arriola's PN's with no further documentation in the DS. Please document a response in Progress Note or Discharge Summary. 1. Yes, clinically valid, condition resolved. 2. No, condition ruled out. 3. Other, with explanation of clinical findings. 4. Undetermined, no explanation for clinical findings. PHYSICIAN RESPONSE Diagnosis clinically valid: No, conditon ruled out In responding to this query, please exercise your independent professional judgment. The purpose of this communication is to more accurately reflect the complexity of your patients condition. The fact that a question is asked does not imply that any particular answer is desired or expected. Thank you for your timely response to this clarification. Requestors name: [employer] Phone # [phone] THIS PHYSICIAN QUERY FORM IS A PERMANENT PART OF THE MEDICAL RECORD AIXA ARGUETA Jul 23, 2023 16:49 ALEX WILL MD Jul 26, 2023 10:00
== END 2023-07-19 12:29 | disposition swing bed (61) | DRG 377 ==
LOC: EDUNIT# 18:47 → ER 18:48 → ICU 21:39 → CSD 07-15 16:39 → 4TH 07-17 12:00
PROVIDERS: ADMIT Internal Medicine; ATTEND Internal Medicine
PROC: 5A09357 Assistance with Respiratory Ventilation, Less than 24 Consecutive Hours, Continuous Positive Airway Pressure (ICD-10-PCS; principal; 2023-07-13)
DX: K92.2 Gastrointestinal hemorrhage, unspecified (principal); I21.A1 Myocardial infarction type 2; J96.01 Acute respiratory failure with hypoxia; D62 Acute posthemorrhagic anemia; F10.231 Alcohol dependence with withdrawal delirium; E87.20 Acidosis, unspecified; N17.9 Acute kidney failure, unspecified; S82.62XD Displaced fracture of lateral malleolus of left fibula, subsequent encounter for closed fracture with routine healing; I48.0 Paroxysmal atrial fibrillation; K70.10 Alcoholic hepatitis without ascites; K76.0 Fatty (change of) liver, not elsewhere classified; I35.0 Nonrheumatic aortic (valve) stenosis; I25.10 Atherosclerotic heart disease of native coronary artery without angina pectoris; I11.0 Hypertensive heart disease with heart failure; I50.9 Heart failure, unspecified; F17.290 Nicotine dependence, other tobacco product, uncomplicated; E78.00 Pure hypercholesterolemia, unspecified; M10.9 Gout, unspecified; F41.9 Anxiety disorder, unspecified; E80.6 Other disorders of bilirubin metabolism; F12.90 Cannabis use, unspecified, uncomplicated; F15.90 Other stimulant use, unspecified, uncomplicated; H54.7 Unspecified visual loss; Z95.2 Presence of prosthetic heart valve; Z95.1 Presence of aortocoronary bypass graft
CPT/HCPCS: 36415; 36430; 36569; 36600; 51702; 71045; 71275; 73610; 74177; 76937; 80053; 80061; 80074; 80306; 80320; 81000; 82140; 82150; 82274; 82550; 82553; 82805; 82947; 83605; 83690; 83735; 83874; 83880; 84100; 84484; 85007; 85025; 85027; 85379; 85610; 85652; 85730; 86141; 86850; 86900; 86901; 86920; 87040; 87081; 87088; 87389; 87636; 93005; 93041; 93306; 94640; 94660; 94664; 94760; 96361; 96374; 96375; 96376

== ENCOUNTER 2023-07-19 12:33 | Inpatient (IN) | payer MEDICARE ==
[~2023-07-19] VITALS: Ht 170.2 cm; Wt 84.0 kg
[~2023-07-19 12:33] MED LIST changes: +ACETAMINOPHEN 500 MG TABLET PO PRN; +ANTACID SUSPENSION 30 ML UDC PO PRN; +ASPI-1238 PO; +MAGN250C PO; +MELATONIN 3 MG TABLET PO PRN; +MULT-1136 PO; +OMEP-254 PO; +ONDANSETRON 4 MG ORAL DISSOLVE TABLET SL PRN; +ONDANSETRON INJECTION 4 MG/2 ML (SDV) IV PRN; +RT-ALBUTEROL SULF 2.5 MG/3 ML PRE-MIX VIAL INH PRN; +SENNA W/DOCUSATE TABLET PO PRN; +oxyCODONE IMMEDIATE RELEASE 5 MG TABLET PO PRN
--- OUTSIDE RECORDS SUMMARY | 2023-07-19 12:51 | XMS REPORT | Clinical Summary ---
Author Author [facility] Organization [facility] Address Unknown Phone Unavailable Care Team Providers Care Application Security Engineer Name Role Phone Estrada Moran MD PCP [phone] Source Comments Some departments are not documenting in the electronic medical record. If you do not see the information that you expected, contact Release of Information in the Health Information Management department at [phone] for further assistance in locating additional records.[facility] Allergies No known active allergies Medications Medication Sig Dispensed Refills Start Date End Date Status aspirin 81 mg chewable tablet Chew 81 mg by mouth daily. Take with food. 0 Active oxyCODONE/acetaminop hen (PERCOCET) 5/325 mg tablet Take one tablet to two tablets by mouth every 6 hours as needed for Pain Earliest Fill Date: 06/17/18 40 tablet 0 06/17/2018 Active atorvastatin (LIPITOR) 40 mg tablet Take one tablet by mouth daily. 90 tablet 3 06/18/2018 Active Active Problems Problem Noted Date Diagnosed Date COPD (chronic obstructive pulmonary disease) 04/2018 S/P CABG x 3 06/12/2018 Overview: S/p AVR/CABG x 3/Maze/LAAL S/P AVR 06/12/2018 S/P Maze operation for atrial fibrillation 06/12 Orthostasis 06/12/2018 Chronic right shoulder pain 06/11/2018 Bigeminy 06/11/2018 Coagulopathy 06/11/2018 Acute blood loss anemia 06/11/2018 Family history of premature CAD 06/04/2018 Atrial fibrillation with RVR 05/24/2018 Overview: Treated in ER Non-rheumatic mitral regurgitation Coronary artery disease invo lving barrow coronary artery of barrow heart without angina pectoris History of alcohol abuse Chronically elevated hemidiaphragm Overview: Right Chronic diastolic heart failure, NYHA class 2 Anemia LVH (left ventricular hypertrophy) Back pain Resolved Problems Problem Noted Date Diagnosed Date Resolved Date Vaso vagal episode 06/12/2018 8 Vasogenic shock 06/11/2018 06/14/2018 Aortic stenosis 06/12/2018 Surgical History Surgery Date Site/Laterality Comments HX CARPAL TUNNEL RELEASE Right HX FEMUR FRACTURE TX Left COLONOSCOPY HEART CATHETERIZATION CORONARY ARTERY BYPASS GRAFT 06/11/2018 N/A CORONARY ARTERY BYPASS WITH ARTERIAL GRAFT - 3 GRAFTS (Internal Mammary Artery and Endoscopic Vein Pelican) Maze, Aortic Valve Replacement, and Atrial Appendage ligation. performed by Rigoberto Franco MD at [facility] Medical devices from this surgery are in the Medical Devices section. AORTIC VALVE REPLACEMENT 06/11/2018 N/A REPLACEMENT AORTIC VALVE WITH PROSTHETIC VALVE AND CARDIOPULMONARY BYPASS performed by Rigoberto Franco MD at [facility] devices from this surgery are in the Medical Devices section. HX MAZE 06/11/2018 N/A MAZE ENDOSCOPY PROCEDURE performed by Rigoberto Franco MD at [facility] devices from this surgery are in the Medical Devices section. Medical History Medical History Date Comments Aortic stenosis Mitral regurgitation Atrial fibrillation with RVR (HCC) 05/24/2018 Treated in ER CAD in barrow artery History of alcohol abuse Chronically elevated hemidiaphragm Right Chronic diastolic heart failure, NYHA class 2 (H CC) Anemia LVH (left ventricular hypertrophy) Back pain Hyperlipidemia Arthritis Sciatic nerve pain, right History of depression Rosacea Family History Medical History Relation Name Comments Arrhythmia Brother 1 atrial flutter/ ablation Heart Attack Brother 2 Cancer-Prostate Father Coronary Artery Disease Father Relation Name Status Comments Brother 1 Alive Brother 2 Alive Father (Age 84) Mother Alive Social History Tobacco Use Types Packs/Day Years Used Date Smoking Tobacco: Former Cigarettes 1 Q uit: 06/10/1998 Smokeless Tobacco: Current Chew Alcohol Use Standard Drinks/Week Comments Yes 0 (1 standard drink = 0.6 oz pure alcohol) 1 pint of vodka daily. Last drink 05/23/18 Sex and Gender Information Value Date Recorded Sex Assigned at Not on file Gender Identity Not on file Sexual Orientation Not on file Obstetrics History Last Filed Vital Signs Vital Sign Reading Time Taken Comments Blood Pressure 130/90 07/29/2018 12:28 PM HERBARIUM WORKER Pulse 89 07/29/2018 12:28 PM HERBARIUM WORKER Temperature 36.4 C (97.5 F) 06/17/2018 11:23 AM C DT Respiratory Rate - - Oxygen Saturation 98% 07/29/2018 12:28 PM HERBARIUM WORKER Inhaled Oxygen Concentration - - Weight 75.3 kg (166 lb) 07/29/2018 12:28 PM HERBARIUM WORKER Height 162.6 cm (5' 4") 07/29/2018 12:28 PM HERBARIUM WORKER Body Mass Index 28.49 07/29/2018 12:28 PM HERBARIUM WORKER Plan of Treatment Health Maintenance Due Date Last Done Comments DTAP/TDAP VACCINES (1 - Tdap) 02/01/1972 HEPATITIS C SCREENING 02/01/1972 PHYSICAL (COMPREHENSIVE) EXAM 02/01/1972 COLORECTAL CANCER SCREENING 1999 SHINGLES RECOMBINANT VACCINE (1 of 2) 02/01/2004 RSV VACCINE (60 YEARS AND OL MARGIE) (1 - 1-dose 60+ series) 2014 ABDOMINAL AORTIC ANEURYSM SCREENING 2019 PNEUMOCOCCAL VACCINE 65+ YRS (1 - PCV) 2019 DEPRESSION SCREENING 09/10/2022 INFLUENZA VACCINE (#1) 2023 COVID-19 VACCINE (2 - 2022- season) 05/11/202309/2020 Medical Devices Implanted Type Area Washer Engineer Helper Device Identifier Shelf Expiration Date Model / Serial / Lot Device Tissue Closure Low Profile 35mm Atriclip - [id number] Implanted:Qty: 1 on 06/11/2018 by Rigoberto Franco MD at [facility] Clip N/A: Heart ATRICURE 03/10/2021 [id number] / [id number] / [id number] Valve Aortic 23mm Trish-[employer]w [employer] Magna Ease - [id number] Implanted:Qty: 1 on 06/11/2018 by Rigoberto Franco MD at [facility] Heart Valve N/A: Heart [employer] 02/10/2022 [id number] / [id number] / [id number] Advance Directives Documents on File Type Date Recorded Patient Dehydrator Expl anation Advance Directive/DPOA 06/11/2018 12:00 AM Latest Code Status on File Code Status Date Activated Date Inactivated Comments Full Code 06/11/2018 6:49 AM 06/17/2018 3:58 PM Question Answer Comments Provider has discussed Code Status w/Patient or Family? Yes Care Teams Application Security Engineer Relationship Specialty Start Date End Date Estrada Moran MD [address] [place] [phone] PCP - General Family Medicine 06/03/18
--- NOTE | 2023-07-19 13:43 | Physical Therapy Evaluation ---
PT Evaluation-General Medical Diagnosis Admission Date Jul 19, 2023 at 12:33 Medical Diagnosis: Left fibula fracture Onset Date: Jul 12, 2023 Therapy Diagnosis Therapy Diagnosis: Gait deficit Height/Weight Height (Feet): 5 Height (Inches): 6.00 Weight (Pounds): 163 Weight (Ounces): 0.0 Precautions Precautions/Isolations: Fall Prevention, Standard Precautions Weight Bear Status Right Lower Extremity: Right Weight Bearing/Tolerated Left Lower Extremity: Left Weight Bearing/Tolerated Per Dr. Aguero orders Referral Physician: Dr. Aguero Reason for Referral: Evaluation/Treatment Medical History Reviewed History: Yes Social History Home: Single Level Current Living Status: Alone Entry Into Home: Stairs With Railing PT Steps Into Home: 2 Prior Prior Level of Function SCALE: Activities may be completed with or without assistive devices. 0-Dtubqbwlke-twikfjv completes the activity by him/herself with no assistance from a helper. 5-Set-up or Clean-up Assistance-helper sets up or cleans up; patient completes activity. [place] assists only prior to or following the activity. 4-Supervision or Touching Assistance-helper provides verbal cues and/or touching/steadying and/or contact guard assistance as patient completes activity. Assistance may be provided throughout the activity or intermittently. 3-Partial/Moderate Assistance-helper does LESS THAN HALF the effort. [place] lifts, holds or supports trunk or limbs, but provides less than half the effort. 2-Substantial/Maximal Assistance-helper does MORE THAN HALF the effort. [place] lifts or holds trunk or limbs and provides more than half the effort. 9-Dzsvsiink-vjlzxp does ALL the effort. Patient does none of the effort to complete the activity. Or, the assistance of 2 or more helpers is required for the patient to complete the activity. If activity was not attempted, code reason: 7-Patient Refused. 9-Not Applicable-not attempted and the patient did not perform the activity before the current illness, exacerbation or injury. 10-Not Attempted due to Environmental Limitations-(lack of equipment, weather restraints, etc.). 88-Not Attempted due to Medical Conditions or Safety Concerns. Bed Mobility: 6 Transfers (B,C,W/C): 6 Gait: 6 Stairs: 6 Indoor Mobility (Ambulation): Independent Stairs: Independent Prior Devices Use: None Patient reports he has a caregiver that comes in daily to do cooking, cleaning, food shopping and drives him anywhere if needed. PT Evaluation-Current Subjective Patient sitting in chair upon PT arrival, agreeable to treatment. Patient rates pain at 0/10 currently. Pain Section J - Health Conditions 1. Rarely or not at all 2. Occasionally 3. Frequently 4. Almost constantly 8. Unable to answer Pain Effect on Sleep: 1 Pain Interference with Therapy: 1 Pain Interference w/Day-to-Day: 1 Objective Patient Orientation: Person, Place, Time, Situation ROM/Strength ROM Lower Extremities WFLs BLEs all planes except left ankle. Strength Lower Extremities 4/5 BLEs all planes except left ankle Sensory Vision: Wears Glasses Hearing: Functional Sensation Right Lower Extremit: Intact Sensation Left Lower Extremity: Intact Transfers Roll Left & Right (QC): 4 Sit to Lying (QC): 4 Lying to Sitting/Side of Bed(Q: 4 Sit to Stand (QC): 4 Chair/Tou-lb-Kumck Xfer(QC): 4 Toilet Transfer (QC): 4 Car Transfer (QC): 88 Gait Does the Patient Walk?: Yes Mode of Locomotion: Walk Anticipated Mode of Locomotion: Walk Walk 10 feet (QC): 4 Walk 50 ft with 2 Turns(QC): 88 Walk 150 ft (QC): 88 Walking 10ft/uneven surface-QC: 88 Distance: 30' Gait Assistive Device: FWW Wheelchair Training Does the Pt Use a Wheelchair?: No Wheel 50 ft with 2 turns (QC): 9 Wheel 150 ft (QC): 9 Stairs #of Steps: 0 1 Step (curb) (QC): 88 4 Steps (QC): 88 12 Steps (QC): 88 Balance Sitting Static: Normal Sitting Dynamic: Normal Standing Static: Fair Standing Dynamic: Fair Picking up an Object (QC): 88 Assessment/Needs Patient performs all bed mobility and transfers with SBA. Patient ambulates 30' with FWW, with CGA and verbal cues for path, safety and progression. Patient places near full weight through left LE. double checked order to ensure WBAT left LE was correct. Patient in chair post treatment with all needs met, nursing notified, call light in reach. Rehab Potential: Fair PT Mri Technician Goals [facility] Goals PT Mri Technician Goals Time Frame: Aug 09, 2023 Roll Left to Right (QC): 6 Sit to Lying (QC): 6 Lying-Sitting on Side/Bed(QC): 6 Sit to Stand (QC): 6 Chair/Hvh-sw-Oyvqd Xfer(QC): 6 Toilet/Commode Transfer (QC): 6 Car Transfer (QC): 6 Does the Patient Walk: Yes Walk 10 feet (QC): 6 Walk 10ft-Uneven Surface(QC): 6 Walk 50ft with 2 Turns (QC): 6 Walk 150 ft (QC): 6 Does the Pt use WC or Scooter?: No Wheel 50 feet with 2 turns (QC: 9 Wheel 150 feet: 9 1 Step (curb) (QC): 3 4 Steps (QC): 3 12 Steps (QC): 9 Picking up an Object (QC): 4 PT Plan Problem List Problem List: Activity Tolerance, Functional Strength, Safety, Balance, Gait, Transfer, Bed Mobility, ROM Treatment/Plan Treatment Plan: Continue Plan of Care Treatment Plan: Bed Mobility, Education, Functional Activity Dennise, Functional Strength, Group Therapy, Gait, Safety, Therapeutic Exercise, Transfers Treatment Duration: Aug 09, 2023 Frequency: 6 times per week Estimated Hrs Per Day: .25 hour per day Patient and/or Family Agrees t: Yes Safety Risks/Education Patient Education: Gait Training, Transfer Techniques Teaching Recipient: Patient Teaching Methods: Demonstration, Discussion Response to Teaching: Verbalize Understanding, Return Demonstration Time Time In: 1315 Time Out: 1340 DATE: Jul 19, 2023 Total Billed Treatment Time: 25 Total Billed Treatment Visit, CHRISTINA REID JOHN A PT Jul 19, 2023 13:43
[2023-07-19] MEDS: RT-Ipratropium/Albuterol NEB 3 ML VIAL INH SCH ×2 (14:45→18:54)
[2023-07-19 17:14] VITALS: BP 153/93
[2023-07-19] MEDS: AMIODARONE 200 MG TABLET PO SCH (20:23)
[2023-07-20 05:16] VITALS: BP 147/88
[2023-07-20] MEDS: RT-Ipratropium/Albuterol NEB 3 ML VIAL INH SCH ×2 (06:47→21:06)
[2023-07-20 07:33] VITALS: BP 147/88
[2023-07-20] MEDS: AMIODARONE 200 MG TABLET PO SCH ×2 (08:18→20:35)
[2023-07-20] MEDS ORDERED: RT-ALBUTEROL SULF 2.5 MG/3 ML PRE-MIX VIAL INH PRN (09:00)
--- NOTE | 2023-07-20 09:57 | Physical Therapy Daily Note ---
PT Daily Note-Current Subjective Patient sitting in chair upon PT arrival, nurse in the room, both agreeable to treatment. Patient rates pain at 0/10. Pain Section J - Health Conditions 1. Rarely or not at all 2. Occasionally 3. Frequently 4. Almost constantly 8. Unable to answer Pain Effect on Sleep: 1 Pain Interference with Therapy: 1 Pain Interference w/Day-to-Day: 1 Transfers SCALE: Activities may be completed with or without assistive devices. 3-Bjnirivvsc-xiangxs completes the activity by him/herself with no assistance from a helper. 5-Set-up or Clean-up Assistance-helper sets up or cleans up; patient completes activity. [place] assists only prior to or following the activity. 4-Supervision or Touching Assistance-helper provides verbal cues and/or touching/steadying and/or contact guard assistance as patient completes activity. Assistance may be provided throughout the activity or intermittently. 3-Partial/Moderate Assistance-helper does LESS THAN HALF the effort. [place] lifts, holds or supports trunk or limbs, but provides less than half the effort. 2-Substantial/Maximal Assistance-helper does MORE THAN HALF the effort. [place] lifts or holds trunk or limbs and provides more than half the effort. 0-Xvdzyzfxe-werkoi does ALL the effort. Patient does none of the effort to complete the activity. Or, the assistance of 2 or more helpers is required for the patient to complete the activity. If activity was not attempted, code reason: 7-Patient Refused. 9-Not Applicable-not attempted and the patient did not perform the activity before the current illness, exacerbation or injury. 10-Not Attempted due to Environmental Limitations-(lack of equipment, weather restraints, etc.). 88-Not Attempted due to Medical Conditions or Safety Concerns. Roll Left & Right (QC): 4 Sit to Lying (QC): 4 Lying to Sitting/Side of Bed(Q: 4 Sit to Stand (QC): 4 Chair/Kmd-cp-Wrrhs Xfer(QC): 4 Weight Bearing Right Lower Extremity: Right Weight Bearing/Tolerated Left Lower Extremity: Left Weight Bearing/Tolerated Per Dr. Aguero orders Gait Training Does the Patient Walk?: Yes Distance: 120' Walk 10 feet (QC): 4 Walk 50 ft with 2 Turns(QC): 4 Gait Assistive Device: FWW Assessment Current Status: Good Progress Patient performs all bed mobility and transfers with SBA. Patient ambulates 120' with FWW, with CGA and verbal cues for path, safety and progression. Patient places near full weight through left LE. double checked order with nu rse to ensure WBAT left LE was correct. Patient in bed post treatment with all needs met, nursing notified, call light in reach. PT Senior Living Goals Milling Machine Operator Goals PT Milling Machine Operator Goals Time Frame: Aug 09, 2023 Roll Left & Right (QC): 6 Sit to Lying (QC): 6 Lying-Sitting on Side/Bed(QC): 6 Sit to Stand (QC): 6 Chair/Odm-ma-Fwsrp Xfer(QC): 6 Toilet Transfer (QC): 6 Car Transfer (QC): 6 Does the Patient Walk: Yes Walk 10 feet (QC): 6 Walk 50ft with 2 Turns (QC): 6 Walk 150 ft (QC): 6 Walking 10ft on Uneven Surface: 6 1 Step (curb) (QC): 3 4 Steps (QC): 3 12 Steps (QC): 9 Picking up an Object (QC): 4 Does the Pt use WC or Scooter?: No Wheel 50 feet with 2 turns (QC: 9 Wheel 150 feet: 9 PT Plan Treatment/Plan Treatment Plan: Continue Plan of Care Treatment Plan: Bed Mobility, Education, Functional Activity Dennise, Functional Strength, Group Therapy, Gait, Safety, Therapeutic Exercise, Transfers Treatment Duration: Aug 09, 2023 Frequency: 6 times per week Estimated Hrs Per Day: .25 hour per day Patient and/or Family Agrees t: Yes Safety Risks/Education Patient Education: Gait Training, Transfer Techniques Teaching Recipient: Patient Teaching Methods: Demonstration, Discussion Response to Teaching: Verbalize Understanding, Return Demonstration Time Time In: 834 Time Out: 850 DATE: Jul 20, 2023 Total Billed Treatment Time: 16 Total Billed Treatment Visit, GT MEGAN MISHRA PT Jul 20, 2023 09:57
[2023-07-20] MEDS ORDERED: PANTOPRAZOLE 40 MG TABLET PO ONE (10:45)
--- NOTE | 2023-07-20 10:46 | Progress Note - Hospitalist ---
Subjective HPI/CC On Admission Date Seen by Provider: Jul 20, 2023 Time Seen by Provider: 09:40 Subjective/Events-last exam He is laying in bed. He has been up walking in the halls with therapy. He has no complaints. Objective Exam Vital Signs Vital Signs Date Time Temp Pulse Resp B/P (MAP) Pulse Ox O2 Delivery O2 Flow Rate FiO2 07/20/23 09:00 95 Room Air 07/20/23 07:33 36.6 77 21 07/20/23 06:53 0.00 07/20/23 05:16 20 147/88 (107) Capillary Refill : General Appearance: No Apparent Distress, WD/WN Respiratory: Lungs Clear, No Respiratory Distress Cardiovascular: Regular Rate, Rhythm, No Murmur Gastrointestinal: Normal Bowel Sounds, Soft Extremity: Normal Inspection, No Pedal Edema Neurologic/Psychiatric: Alert, Normal Mood/Affect Results/Procedures Lab Patient resulted labs reviewed. Assessment/Plan Assessment and Plan Assess & Plan/Chief Complaint GI Bleed Acute blood loss anemia Alcohol abuse Acute alcoholic hepatitis Hepatic steatosis s/p 6 units PRBC Hgb stable, improved Protonix and Carafate LFTs improving Ankle fracture, present on admission Debility Ortho consulted, recommended continued immobilization with transition to Cam boot when able, weight bearing as tolerated Oxycodone as needed PT/OT A fib CAD s/p CABG HTN Amiodarone No anticoagulation due to GI bleed DVT ppx: SCDs only due to GI bleed but high risk Lactic acidosis, resolved Acute respiratory failure, resolved NSTEMI, type II, resolved Diagnosis/Problems Diagnosis/Problems (1) GI bleed Status: Acute (2) ABLA (acute blood loss anemia) Status: Acute (3) NSTEMI (non-ST elevation myocardial infarction) Status: Resolved Resolution Date/Time: 07/20/23 @ 10:46 (4) Hepatic steatosis Status: Acute (5) Acute alcoholic hepatitis Status: Acute (6) Ankle fracture Status: Acute ALEX WILL MD Jul 20, 2023 10:46
[2023-07-20] MEDS: SUCRALFATE 1 GM TABLET PO SCH ×3 (10:52→20:35)
--- NOTE | 2023-07-20 14:28 | Occupational Therapy Eval ---
OT Evaluation-General/PLF Medical Diagnosis Admission Date Jul 19, 2023 at 12:33 Medical Diagnosis: Left fibula fracture Onset Date: Jul 12, 2023 Therapy Diagnosis Therapy Diagnosis: decr self care, weakness, decr act rj, decr funct mobility Height/Weight Height (Feet): 5 Height (Inches): 6.00 Weight (Pounds): 163 Weight (Ounces): 0.0 Precautions Precautions/Isolations: Fall Prevention, Standard Precautions Weight Bear Status Weight Bearing Restriction: Weight Bearing/Tolerated Location Restriction: L LE Per PT eval, WBAT confirmed Referral Physician: Dr. Aguero Referral Reason: Evaluation/Treatment Medical History Pertinent Medical History: Atrial Fib, Back Injury, CAD, COPD (per pt report), HTN Additional Medical History Acute alcohol abuse. Acute alcohol hepatitis. "bad back" per pt report Current History L fibula fx. from fall -. Treated in ER and sent home. Brought back with weakness. GI bleed, low hemoglobin. Sepsis Reviewed History: Yes Social History Home: Single Level Current Living Status: Alone Entry Into Home: Stairs With Railing Steps Into Home: 2 ADL-Prior Level of Function SCALE: Activities may be completed with or without assistive devices. 7-Bkabuqxiaj-cjmjwpi completes the activity by him/herself with no assistance from a helper. 5-Set-up or Clean-up Assistance-helper sets up or cleans up; patient completes activity. [place] assists only prior to or following the activity. 4-Supervision or Touching Assistance-helper provides verbal cues and/or touching/steadying and/or contact guard assistance as patient completes activity. Assistance may be provided throughout the activity or intermittently. 3-Partial/Moderate Assistance-helper does LESS THAN HALF the effort. [place] lifts, holds or supports trunk or limbs, but provides less than half the effort. 2-Substantial/Maximal Assistance-helper does MORE THAN HALF the effort. [place] lifts or holds trunk or limbs and provides more than half the effort. 4-Njmxpkuig-xkmizs does ALL the effort. Patient does none of the effort to complete the activity. Or, the assistance of 2 or more helpers is required for the patient to complete the activity. If activity was not attempted, code reason: 7-Patient Refused. 9-Not Applicable-not attempted and the patient did not perform the activity before the current illness, exacerbation or injury. 10-Not Attempted due to Environmental Limitations-(lack of equipment, weather restraints, etc.). 88-Not Attempted due to Medical Conditions or Safety Concerns. ADL PLOF Comments Pt reported that he was able to manage all of his basic ADLs. he has someone who helps with cooking, cleaning, laundry, grocery shopping but said he can do it. 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 Self Care: Needed Some Help Functional Cognition: Independent DME/Equipment: Shower OT Current Status Subjective pt seen in room, up in recliner, agreeable to OT. Pain rated 0/10 Appearance Alert, cooperative Mental Status/Objective Patient Orientation: Person, Place, Time, Situation Current Glasses/Contacts: Yes Hearing Aids: No Dentures/Partials: No Hand Dominance: Right Upper Extremity ROM Grossly WFL bilat Upper Extremity Coordination Grossly intact. Some tremors observed in bilat UEs Upper Extremity Sensation Pt reported occasional tingling in fingers. R big toe is numb and L big toe is becoming numb Upper Extremity Strength Grossly 4/5 bilat ADL-Treatment ADL-Current Pt reported that he is able to feed himself but sometimes needs a little help opening packages. He brushes his teeth at bedside and doesn't need setup. He was able to take R slipper sock off and put it back on but doesn't have one on L foot which is in fariba wraps and plaster splint. He declined bathing and changing clothes but was willing to walk into bathroom. CGA getting up from recliner, CGA walking into and back from bathroom, CGA toilet transfer, with cues. Able to manage clothing and hygiene with SBA. Cues to use grab bars instead of walker for getting up. Pt left in recliner, all needs met Eating (QC): 5 Oral Hygiene (QC): 6 Shower/Bathe Self (QC): 7 Upper Body Dressing (QC): 7 Lower Body Dressing (QC): 7 On/Off Footwear (QC): 5 Toileting Hygiene (QC): 4 Education OT Patient Education: Modified ADL techniques, Purpose of tx/functional activities, Rehab process, Safety issues, Transfer techniques Teaching Recipient: Patient Teaching Methods: Discussion Response to Teaching: Verbalize Understanding, Return Demonstration, Reinforcement Needed BIMS CAM BIMS Expression of Ideas and Wants: Without Difficulty Understanding Verbal Content: Understands Brief Interview/Mental Status: Yes IRF TERESA BIMS: IRF TERESA BIMS Response (Comments) Value Repitition of Three Words Three 3 Recalls Socks Yes, No Cue Required 2 Recalls Blue Yes, No Cue Required 2 Recalls Bed Yes, No Cue Required 2 Year Correct 3 Month Accurate Within 5 Days 2 Day Correct 1 Total 15 Patient Normally Able to Recal: Current Session, Staff Names and faces, That he/she in a hsp Should Staff Asses. Mental St.: No Memory/Recall Ability: Current Season, Staff Names and Faces, That He/She in Hospitall CAM Mental Status Change/Baseline: 0 Inattention: 0 Disorganized thinkin Altered level of consciousness: 0 OT Investigator Utility Bill Complaints Goals Halfway Goals Time Frame: Aug 03, 2023 Acute change in mental status: 0 Inattention: 0 Disorganized thinkin Altered level of consciousness: 0 Eating (QC): 6 Oral Hygiene (QC): 6 Toileting Hygiene (QC): 5 Shower/Bathe Self (QC): 5 Upper Body Dressing (QC): 5 Lower Body Dressing (QC): 5 On/Off Footwear (QC): 5 Additional Goals: 1-Demonstrate ADL Tasks, 2-Verbalize Understanding, 3- ImproveStrength/Dennise 1=Demonstrate adherence to instructed precautions during ADL tasks. 2=Patient will verbalize/demonstrate understanding of assistive devices/modifications for ADL. 3=Patient will improve strength/tolerance for activity to enable patient to perform ADL's. OT Education/Plan Problem List/Assessment Assessment: Decreased Activ Tolerance, Decreased UE Strength, Dependent Tr ansfers, Impaired Funct Balance, Impaired Self-Care Skills Pt would benefit from skilled OT to increase his independence in basic self care and to decrease caregiver burden Discharge Recommendations Plan/Recommendations: Continue POC Treatment Plan/Plan of Care Treatment,Training & Education: Yes Patient would benefit from OT for education, treatment and training to promote independence in ADL's, mobility, safety and/or upper extremity function for ADL's. Plan of Care: ADL Retraining, Functional Mobility, UE Funct Exercise/Act Treatment Duration: Aug 03, 2023 Frequency: 5 times per week Estimated Hrs Per Day: .25 hour per day Agreement: Yes Rehab Potential: Fair Time Start Time: 13:50 Stop Time: 14:19 DATE: Jul 20, 2023 Total Time Billed (hr/min): 29 Billed Treatment Time visit, 10 minutes OT evaluation mod intensity, 5 minutes activities assessment, 14 minutes ADL ROBERTO TURNER OT Jul 20, 2023 14:28
[2023-07-20 17:49] VITALS: BP 139/89
[2023-07-20] MEDS: PANTOPRAZOLE 40 MG TABLET PO SCH (20:35)
[2023-07-21] MEDS: SUCRALFATE 1 GM TABLET PO SCH ×4 (05:41→20:20)
[2023-07-21 06:00] VITALS: BP 136/81
[2023-07-21] MEDS: RT-Ipratropium/Albuterol NEB 3 ML VIAL INH SCH ×2 (07:33→22:17)
--- NOTE | 2023-07-21 08:57 | Physical Therapy Daily Note ---
PT Daily Note-Current Subjective Pt. in chair, agrees to PT. Pt. denies pain. Pain Section J - Health Conditions 1. Rarely or not at all 2. Occasionally 3. Frequently 4. Almost constantly 8. Unable to answer Pain Effect on Sleep: 1 Pain Interference with Therapy: 1 Pain Interference w/Day-to-Day: 1 Mental Status Patient Orientation: Person, Place, Time, Situation Transfers SCALE: Activities may be completed with or without assistive devices. 0-Srjkptvall-nfjfqwh completes the activity by him/herself with no assistance from a helper. 5-Set-up or Clean-up Assistance-helper sets up or cleans up; patient completes activity. [place] assists only prior to or following the activity. 4-Supervision or Touching Assistance-helper provides verbal cues and/or touching/steadying and/or contact guard assistance as patient completes activity. Assistance may be provided throughout the activity or intermittently. 3-Partial/Moderate Assistance-helper does LESS THAN HALF the effort. Lamy lifts, holds or supports trunk or limbs, but provides less than half the effort. 2-Substantial/Maximal Assistance-helper does MORE THAN HALF the effort. [place] lifts or holds trunk or limbs and provides more than half the effort. 2-Hgexvmaki-gtuwzs does ALL the effort. Patient does none of the effort to complete the activity. Or, the assistance of 2 or more helpers is required for the patient to complete the activity. If activity was not attempted, code reason: 7-Patient Refused. 9-Not Applicable-not attempted and the patient did not perform the activity before the current illness, exacerbation or injury. 10-Not Attempted due to Environmental Limitations-(lack of equipment, weather restraints, etc.). 88-Not Attempted due to Medical Conditions or Safety Concerns. Sit to Stand (QC): 4 Weight Bearing Right Lower Extremity: Right Weight Bearing/Tolerated Left Lower Extremity: Left Weight Bearing/Tolerated Per Dr. Aguero orders Gait Training Does the Patient Walk?: Yes Distance: 200 ft Walk 150 ft (QC): 4 Gait Persons Needed: 1 Gait Assistive Device: FWW Treatments gait training Assessment Current Status: Good Progress Able to increase ambulation distance today and pt. had no c/o pain. Pt. up in chair post session with call light and all needs met. PT Manager Loss Prevention Goals Manager Loss Prevention Goals PT Alf Goals Time Frame: Aug 09, 2023 Roll Left & Right (QC): 6 Sit to Lying (QC): 6 Lying-Sitting on Side/Bed(QC): 6 Sit to Stand (QC): 6 Chair/Xfa-mm-Oatds Xfer(QC): 6 Toilet Transfer (QC): 6 Car Transfer (QC): 6 Does the Patient Walk: Yes Walk 10 feet (QC): 6 Walk 50ft with 2 Turns (QC): 6 Walk 150 ft (QC): 6 Walking 10ft on Uneven Surface: 6 1 Step (curb) (QC): 3 4 Steps (QC): 3 12 Steps (QC): 9 Picking up an Object (QC): 4 Does the Pt use WC or Scooter?: No Wheel 50 feet with 2 turns (QC: 9 Wheel 150 feet: 9 PT Plan Treatment/Plan Treatment Plan: Continue Plan of Care Treatment Plan: Bed Mobility, Education, Functional Activity Dennise, Functional Strength, Group Therapy, Gait, Safety, Therapeutic Exercise, Transfers Treatment Duration: Aug 09, 2023 Frequency: 6 times per week Estimated Hrs Per Day: .25 hour per day Patient and/or Family Agrees t: Yes Time Time In: 0842 Time Out: 0857 DATE: Jul 21, 2023 Total Billed Treatment Time: 15 Total Billed Treatment 1, GT 15' MARY THOMPSON PT Jul 21, 2023 08:57
[2023-07-21] MEDS: PANTOPRAZOLE 40 MG TABLET PO SCH ×2 (09:38→20:20)
[2023-07-21] MEDS: AMIODARONE 200 MG TABLET PO SCH ×2 (09:39→20:20)
[2023-07-21 17:57] VITALS: BP 163/99
[2023-07-21 18:05] VITALS: BP 152/92
[2023-07-22] MEDS: SUCRALFATE 1 GM TABLET PO SCH ×4 (06:08→20:10)
[2023-07-22 07:24] VITALS: BP 157/92
[2023-07-22] MEDS: PANTOPRAZOLE 40 MG TABLET PO SCH ×2 (08:08→20:10)
[2023-07-22] MEDS: AMIODARONE 200 MG TABLET PO SCH ×2 (08:08→20:10)
[2023-07-22] MEDS: RT-Ipratropium/Albuterol NEB 3 ML VIAL INH SCH ×2 (15:01→21:30)
[2023-07-22 19:50] VITALS: BP 143/89
[2023-07-23] MEDS: SUCRALFATE 1 GM TABLET PO SCH ×2 (05:50→11:52)
[2023-07-23 07:13] VITALS: BP 153/86
[2023-07-23] MEDS: RT-Ipratropium/Albuterol NEB 3 ML VIAL INH SCH (08:14)
[2023-07-23 08:16] VITALS: BP 153/86
[2023-07-23] MEDS: PANTOPRAZOLE 40 MG TABLET PO SCH (08:24)
[2023-07-23] MEDS: AMIODARONE 200 MG TABLET PO SCH (08:24)
--- NOTE | 2023-07-23 11:15 | Discharge Summary ---
Diagnosis/Chief Complaint Date of Admission Jul 19, 2023 at 12:33 Date of Discharge Primary Care No,Local Physician Discharge Diagnosis (1) GI bleed Status: Acute (2) ABLA (acute blood loss anemia) Status: Acute (3) NSTEMI (non-ST elevation myocardial infarction) Status: Resolved (4) Hepatic steatosis Status: Acute (5) Acute alcoholic hepatitis Status: Acute (6) Ankle fracture Status: Acute Discharge Summary Discharge Physical Exam Allergies: Coded Allergies: No Known Drug Allergies (Unverified , 02/11/12) Vitals & I&Os Vital Signs Date Time Temp Pulse Resp B/P (MAP) Pulse Ox O2 Delivery O2 Flow Rate FiO2 07/23/23 12:40 07/23/23 08:41 Room Air 07/23/23 08:16 36.0 71 95 07/23/23 08:14 0.00 07/23/23 07:13 18 07/20/23 07:33 21 General Appearance: No Apparent Distress, WD/WN Cardiovascular: Regular Rate, Rhythm, No Murmur Gastrointestinal: Normal Bowel Sounds, Soft Neurologic/Psychiatric: Alert, Oriented x3 Hospital Course Patient was admitted to swing bed following critical illness with GI bleed. He was admitted for continued physical therapy and Occupational Therapy and he did very well. He was up ambulating with a walker and off oxygen. He was able to be discharged home with home health. He is to follow-up with Dr. Moore, Dr. Arriola, Dr. Horner, and primary care at [facility] to follow-up this hospital stay. Home health is to continue PT/OT. Social work was consulted to assist with discharge planning and resources for alcohol treatment but he declined these. Labs (last 24 hrs) Patient resulted labs reviewed. Discussion & Recommendations Discharge Planning: >30 minutes discharge planning Discharge Home Medications: Active Scripts Active Sucralfate 1 Gram Tablet 1 Gm PO ACHS Amiodarone HCl 200 Mg Tablet 400 Mg PO BID Reported Magnesium (Magnesium Citrate and Oxide) 250 Mg Capsule 250 Mg PO DAILY Multivitamin 1 Each Tablet 1 Each PO DAILY Omeprazole Magnesium 20 Mg Capsule. 20 Mg PO DAILY PRN Aspirin EC (Aspirin) 81 Mg Tablet. 81 Mg PO DAILY Instructions to patient/family Please see electronic discharge instructions given to patient. Copy Copies To 1: [facility]/DEON MILLER MD Jul 23, 2023 11:15
[2023-07-23] MEDS ORDERED: AMIO200T65 PO ×2 (11:18)
[2023-07-23] MEDS ORDERED: SUCR1TAB PO ×2 (11:18)
--- NOTE | 2023-07-23 11:20 | D/C HH Face to Face Order ---
D/C Face to Face Orders Instructions for Patient Via [facility], Patient Instructions/FollowUp: Please continue to take your medications as written. Please follow up with your primary care doctor to follow up this hospital stay. Physician to follow Patient: [facility] Discharge Diet for Home: Cardiac Diet Patient Data-Allergies,Ht & Wt Patient Allergies: Coded Allergies: No Known Drug Allergies (Unverified , 02/11/12) Height (Feet): 5 Height (Inches): 6.00 Weight (Pounds): 163 Weight (Ounces): 0.0 Home Health Need/Face to Face Date of Face to Face: Jul 23, 2023 Clinical Findings: Generalized weakness and fatigue I have seen Pt ejgu-ga-lkng: Yes Discharged To: Home Diagnosis/Conditions: GI Bleed, A fib, ankle fracture Patient is Homebound due to: Matthew fall risk due to instabilty, Muscle weakness Homebound Status Due to the above stated illness, injury or surgical procedure (medical condition or diagnosis) and associated clinical findings, the patient is jeffrey ebound because of his/her inability to leave home except with aid of a supportive device and/or person AND leaving the home requires a considerable and taxing effort or is medically contraindicated. Pt req the following assistanc: Walker Home Health Nursing Orders Home Health Services Order: Nursing Services, Cad Intern-Evaluate & Treat, Physical Therapy-Evaluate & Treat Therapy Orders Therapy Orders: OT (must have SN or PT order), Physical Therapy Therapy Specific Orders: Eval assistive deivces, Teach enviro modifi cations/safety, Gait training, Increase strength/endurance Certify Stmt I certify that this patient is under my care and that I, a nurse practitioner or a physician; a health information assistant working with me, had a face to face encounter that -alyssa ts the physician face to face encounter requirements with this patient as dated. DEON SKINNER MD Jul 23, 2023 11:20
--- NOTE | 2023-07-23 12:03 | Physical Therapy Daily Note ---
PT Daily Note-Current Pain Section J - Health Conditions 1. Rarely or not at all 2. Occasionally 3. Frequently 4. Almost constantly 8. Unable to answer Pain Effect on Sleep: 1 Pain Interference with Therapy: 1 Pain Interference w/Day-to-Day: 1 Transfers SCALE: Activities may be completed with or without assistive devices. 1-Cupqpsyvqy-umyxobk completes the activity by him/herself with no assistance from a helper. 5-Set-up or Clean-up Assistance-helper sets up or cleans up; patient completes activity. [place] assists only prior to or following the activity. 4-Supervision or Touching Assistance-helper provides verbal cues and/or touching/steadying and/or contact guard assistance as patient completes activity. Assistance may be provided throughout the activity or intermittently. 3-Partial/Moderate Assistance-helper does LESS THAN HALF the effort. [place] lifts, holds or supports trunk or limbs, but provides less than half the effort. 2-Substantial/Maximal Assistance-helper does MORE THAN HALF the effort. [place] lifts or holds trunk or limbs and provides more than half the effort. 7-Kqoglstde-lhtnvi does ALL the effort. Patient does none of the effort to complete the activity. Or, the assistance of 2 or more helpers is required for the patient to complete the activity. If activity was not attempted, code reason: 7-Patient Refused. 9-Not Applicable-not attempted and the patient did not perform the activity before the current illness, exacerbation or injury. 10-Not Attempted due to Environmental Limitations-(lack of equipment, weather restraints, etc.). 88-Not Attempted due to Medical Conditions or Safety Concerns. Roll Left & Right (QC): 6 Sit to Lying (QC): 6 Lying to Sitting/Side of Bed(Q: 6 Sit to Stand (QC): 6 Chair/Pkk-ev-Slufc Xfer(QC): 6 Toilet Transfer (QC): 6 Car Transfer (QC): 6 Weight Bearing Right Lower Extremity: Right Weight Bearing/Tolerated Left Lower Extremity: Left Weight Bearing/Tolerated Per Dr. Aguero orders Gait Training Distance: 250' Walk 10 feet (QC): 6 Walk 50 ft with 2 Turns(QC): 6 Walk 150 ft (QC): 6 Walking 10ft/uneven surface-QC: 6 Gait Assistive Device: FWW slightly unsteady with self correct/CAM boot left foot in place Wheelchair Training Wheel 50 ft with 2 turns (QC): 9 Wheel 150 ft (QC): 9 Stair Training 1 Step (curb) (QC): 7 4 Steps (QC): 7 12 Steps (QC): 9 Balance Picking up an Object (QC): 4 Assessment Patient to dismiss to home on this date. Patient has progressed with treatment plan and is currently at independent LOF. Patient instructed to take his time to complete tasks and to be aware of safety concerns. Patient remains a high fall risk. PT Director Of Program Management Goals Director Of Program Management Goals PT Director Of Program Management Goals Time Frame: Aug 09, 2023 Roll Left & Right (QC): 6 Sit to Lying (QC): 6 Lying-Sitting on Side/Bed(QC): 6 Sit to Stand (QC): 6 Chair/Gpm-yl-Zjwmk Xfer(QC): 6 Toilet Transfer (QC): 6 Car Transfer (QC): 6 Does the Patient Walk: Yes Walk 10 feet (QC): 6 Walk 50ft with 2 Turns (QC): 6 Walk 150 ft (QC): 6 Walking 10ft on Uneven Surface: 6 1 Step (curb) (QC): 3 4 Steps (QC): 3 12 Steps (QC): 9 Picking up an Object (QC): 4 Does the Pt use WC or Scooter?: No Wheel 50 feet with 2 turns (QC: 9 Wheel 150 feet: 9 PT Plan Treatment/Plan Treatment Plan: Discontinue PT Treatment Plan: Bed Mobility, Education, Functional Activity Dennise, Functional Strength, Group Therapy, Gait, Safety, Therapeutic Exercise, Transfers Treatment Duration: Aug 09, 2023 Frequency: 6 times per week Estimated Hrs Per Day: .25 hour per day Patient and/or Family Agrees t: Yes Time Time In: 1121 Time Out: 1131 DATE: Jul 23, 2023 Total Billed Treatment Time: 10 Total Billed Treatment 1 visit FA 10 min RICCO BORRERO PT Jul 23, 2023 12:02
--- NOTE | 2023-07-23 12:03 | Therapy Team Discharge Summary ---
Therapy Discharge Summary Discharge Recommendations Date of Discharge Physical Therapy Patient to dismiss to home on this date. Patient has progressed with treatment plan and is currently at independent LOF. Patient instructed to take his time to complete tasks and to be aware of safety concerns. Patient remains a high fall risk. Roll Left to Right (QC): 6 Sit to Lying (QC): 6 Lying to Sitting/Side of Bed(Q: 6 Sit to Stand (QC): 6 Chair/Myv-ip-Obvuc Xfer(QC): 6 Toilet Transfer (QC): 6 Car Transfer (QC): 6 Does the Patient Walk: Yes Mode of Locomotion: Walk Anticipated Mode of Locomotion: Walk Walk 10 feet (QC): 6 Walk 50 ft with 2 Turns(QC): 6 Walk 150 ft (QC): 6 Walking 10ft on uneven surface: 6 Distance: 250' Gait Assistive Device: FWW Does the Pt Use a Wheelchair: No Wheel 50 ft with 2 turns (QC): 9 Wheel 150 ft (QC): 9 #of Steps: 0 1 Step (curb) (QC): 7 4 Steps (QC): 7 12 Steps (QC): 9 Balance Sitting Static: Normal Balance Sitting Dynamic: Normal Balance-Standing Static: Fair Picking up an Object (QC): 4 Occupational Therapy Decreased Activ Tolerance, Decreased UE Strength, Dependent Transfers, Impaired Funct Balance, Impaired Self-Care Skills Eating (QC): 5 Oral Hygiene (QC): 6 Shower/Bathe Self (QC): 7 Upper Body Dressing (QC): 7 Lower Body Dressing (QC): 7 On/Off Footwear (QC): 5 Toileting Hygiene (QC): 4 PT Custodial Goals Rotary Drier Operator Goals PT Custodial Goals Time Frame: Aug 09, 2023 Roll Left to Right (QC): 6 Sit to Lying (QC): 6 Lying-Sitting on Side/Bed(QC): 6 Sit to Stand (QC): 6 Chair/Ojj-vk-Slqrq Xfer(QC): 6 Toilet/Commode Transfer (QC): 6 Car Transfer (QC): 6 Does the Patient Walk: Yes Walk 10 feet (QC): 6 Walk 10ft-Uneven Surface(QC): 6 Walk 50ft with 2 Turns (QC): 6 Walk 150 ft (QC): 6 Does the Pt use WC or Scooter?: No Wheel 50 feet with 2 turns (QC: 9 Wheel 150 feet: 9 1 Step (curb) (QC): 3 4 Steps (QC): 3 12 Steps (QC): 9 Picking up an Object (QC): 4 OT Custodial Goals Rotary Drier Operator Goals Time Frame: Aug 03, 2023 Acute change in mental status: 0 Inattention: 0 Disorganized thinkin Altered level of consciousness: 0 Eating (QC): 6 Oral Hygiene (QC): 6 Toileting Hygiene (QC): 5 Shower/Bathe Self (QC): 5 Upper Body Dressing (QC): 5 Lower Body Dressing (QC): 5 On/Off Footwear (QC): 5 Additional Goals: 1-Demonstrate ADL Tasks, 2-Verbalize Understanding, 3- ImproveStrength/Dennise 1=Demonstrate adherence to instructed precautions during ADL tasks. 2=Patient will verbalize/demonstrate understanding of assistive devices/modifications for ADL. 3=Patient will improve strength/tolerance for activity to enable patient to perform ADL's. RICCO BORRERO PT Jul 23, 2023 12:03
--- NOTE | 2023-07-23 13:08 | Therapy Team Discharge Summary ---
Therapy Discharge Summary Discharge Recommendations Date of Discharge Jul 23, 2023 at 12:46 Physical Therapy Roll Left to Right (QC): 6 Sit to Lying (QC): 6 Lying to Sitting/Side of Bed(Q: 6 Sit to Stand (QC): 6 Chair/Nib-cm-Saxur Xfer(QC): 6 Toilet Transfer (QC): 6 Car Transfer (QC): 6 Does the Patient Walk: Yes Mode of Locomotion: Walk Anticipated Mode of Locomotion: Walk Walk 10 feet (QC): 6 Walk 50 ft with 2 Turns(QC): 6 Walk 150 ft (QC): 6 Walking 10ft on uneven surface: 6 Distance: 250' Gait Assistive Device: FWW Does the Pt Use a Wheelchair: No Wheel 50 ft with 2 turns (QC): 9 Wheel 150 ft (QC): 9 #of Steps: 0 1 Step (curb) (QC): 7 4 Steps (QC): 7 12 Steps (QC): 9 Balance Sitting Static: Normal Balance Sitting Dynamic: Normal Balance-Standing Static: Fair Picking up an Object (QC): 4 Occupational Therapy At evaluation Pt reported that he is able to feed himself but sometimes needs a little help opening packages. He brushes his teeth at bedside and doesn't need setup. He was able to take R slipper sock off and put it back on but doesn't have one on L foot which is in fariba wraps and plaster splint. He declined bathing and changing clothes but was willing to walk into bathroom. CGA getting up from recliner, CGA walking into and back from bathroom, CGA toilet transfer, with cues. Able to manage clothing and hygiene with SBA. Cues to use grab bars inste ad of walker for getting up. Patient currently completes ADL tasks and transfers with impulsive rapid movements. Decreased Activ Tolerance, Decreased UE Strength, Dependent Transfers, Impaired Funct Balance, Impaired Self-Care Skills Eating (QC): 6 Oral Hygiene (QC): 6 (sitting) Shower/Bathe Self (QC): 7 Upper Body Dressing (QC): 5 (Garments handed to patient does not perform tranportion of items w/ FWW and CAM BOOT ) Lower Body Dressing (QC): 5 On/Off Footwear (QC): 5 (VC for CAM BOOT) Toileting Hygiene (QC): 45 PT Can Technician Goals Group Home Goals PT Can Technician Goals Time Frame: Aug 09, 2023 Roll Left to Right (QC): 6 Sit to Lying (QC): 6 Lying-Sitting on Side/Bed(QC): 6 Sit to Stand (QC): 6 Chair/Zbr-ub-Qqteq Xfer(QC): 6 Toilet/Commode Transfer (QC): 6 Car Transfer (QC): 6 Does the Patient Walk: Yes Walk 10 feet (QC): 6 Walk 10ft-Uneven Surface(QC): 6 Walk 50ft with 2 Turns (QC): 6 Walk 150 ft (QC): 6 Does the Pt use WC or Scooter?: No Wheel 50 feet with 2 turns (QC: 9 Wheel 150 feet: 9 1 Step (curb) (QC): 3 4 Steps (QC): 3 12 Steps (QC): 9 Picking up an Object (QC): 4 OT Can Technician Goals Can Technician Goals Time Frame: Aug 03, 2023 Acute change in mental status: 0 Inattention: 0 Disorganized thinkin Altered level of consciousness: 0 Eating (QC): 6 Oral Hygiene (QC): 6 Toileting Hygiene (QC): 5 Shower/Bathe Self (QC): 5 Upper Body Dressing (QC): 5 Lower Body Dressing (QC): 5 On/Off Footwear (QC): 5 Additional Goals: 1-Demonstrate ADL Tasks, 2-Verbalize Understanding, 3-ImproveStrength/Dennise 1=Demonstrate adherence to instructed precautions during ADL tasks. 2=Patient will verbalize/demonstrate understanding of assistive devices/modifications for ADL. 3=Patient will improve strength/tolerance for activity to enable patient to perform ADL's. RACHANA HARVEY OT Jul 23, 2023 13:08
== END 2023-07-23 12:46 | disposition home health service (06) | DRG 377 ==
LOC: 4TH 12:33
PROVIDERS: ADMIT Internal Medicine; ATTEND Internal Medicine
DX: K92.2 Gastrointestinal hemorrhage, unspecified (principal); I21.A1 Myocardial infarction type 2; J96.00 Acute respiratory failure, unspecified whether with hypoxia or hypercapnia; D62 Acute posthemorrhagic anemia; E87.20 Acidosis, unspecified; K70.10 Alcoholic hepatitis without ascites; K76.0 Fatty (change of) liver, not elsewhere classified; S82.899A Other fracture of unspecified lower leg, initial encounter for closed fracture; R53.81 Other malaise; I48.91 Unspecified atrial fibrillation; I25.10 Atherosclerotic heart disease of native coronary artery without angina pectoris; Z95.1 Presence of aortocoronary bypass graft; I10 Essential (primary) hypertension; F17.200 Nicotine dependence, unspecified, uncomplicated; E78.00 Pure hypercholesterolemia, unspecified; M10.9 Gout, unspecified
CPT/HCPCS: 94640; 94760

== ENCOUNTER 2023-07-23 18:03 | Emergency (ER) | payer MEDICARE ==
[~2023-07-23 18:03] MED LIST changes: -ACETAMINOPHEN 500 MG TABLET PO PRN; +AMIO200T65 PO; -ANTACID SUSPENSION 30 ML UDC PO PRN; -MELATONIN 3 MG TABLET PO PRN; -ONDANSETRON 4 MG ORAL DISSOLVE TABLET SL PRN; -ONDANSETRON INJECTION 4 MG/2 ML (SDV) IV PRN; -RT-ALBUTEROL SULF 2.5 MG/3 ML PRE-MIX VIAL INH PRN; -SENNA W/DOCUSATE TABLET PO PRN; +SUCR1TAB PO; -oxyCODONE IMMEDIATE RELEASE 5 MG TABLET PO PRN
--- NOTE | 2023-07-23 18:20 | ED General ---
General Chief Complaint: General Problems/Pain Stated Complaint: PULLED OUT PICCLINE Nursing Triage Note: PT ARRIVED PER EMS, PT STATES WHEN REPOSTIONED HIMSELF WHEN GOING TO BATHROOM PT PREVIOUS PICC SITE STARTED BLEEDING, NO BLEEDING AT PRESENT. EMS ESTIMATED 250CC BLOOD LOSS. PT DENIES ANY WEAKNESS AT THIS X. EMS STATES PT HAD 2X2 AND TEGADERM OVER SITE THAT WAS BLEEDING. PT RELEASED FROM HOSPITAL TODAY Source of Information: Patient Exam Limitations: No Limitations History of Present Illness Date Seen by Provider: Jul 23, 2023 Time Seen by Provider: 18:05 Initial Comments Patient is a 68-year-old male who presents to the emergency department with a chief complaint of bleeding from PICC line site in the left upper arm. He was released from the hospital, here at [facility] today. The site was bandaged and he believes when he was using some exertion to get up and down off the toilet just prior to arrival the site started bleeding. EMS apparently reported potentially 250 mL of fresh blood on the floor. Patient states that he is having no pain, he is not short of breath, he is not nauseated. He does not feel lightheaded or dizzy. He is not anticoagulated. He was recently treated f or a peptic ulcer during this hospitalization. No complaints of numbness tingling or weakness to the left upper extremity (the site of the former picc line). Bleeding is controlled on arrival. Timing/Duration: 1/2 Hour Severity: Moderate Associated Systoms: Denies Symptoms Allergies and Home Medications Allergies Coded Allergies: No Known Drug Allergies (Unverified , 02/11/12) Patient Home Medication List Home Medication List Reviewed: Yes Amiodarone HCl (Amiodarone HCl) 200 Mg Tablet, 400 MG PO BID Prescribed by: DEON SKINNER on 07/23/23 1118 Aspirin (Aspirin EC) 81 Mg Tablet.dr, 81 MG PO DAILY, (Reported) Entered as Reported by: AIMEE SANTAMARIA on 07/16/23 0847 Magnesium Citrate and Oxide (Magnesium) 250 Mg Capsule, 250 MG PO DAILY, (Reported) Entered as Reported by: AIMEE SANTAMARIA on 07/16/23 0847 Multivitamin (Multivitamin) 1 Each Tablet, 1 EACH PO DAILY, (Reported) Entered as Reported by: AIMEE SANTAMARIA on 07/16/23 0847 Omeprazole Magnesium (Omeprazole Magnesium) 20 Mg Capsule.dr, 20 MG PO DAILY PRN for HEARTBURN, (Reported) Entered as Reported by: AIMEE SANTAMARIA on 07/16/23 0847 Sucralfate (Sucralfate) 1 Gram Tablet, 1 GM PO ACHS Prescribed by: DEON SKINNER on 07/23/23 1118 Discontinued Medications Albuterol Sulfate (Ventolin Hfa) 1 Puff Puff, 2 PUFF IH Q4H PRN for shortness of breath Discontinued Reason: No Longer Taking Prescribed by: CHIQUITA THOMPSON on 01/14/22 190 Amoxicillin/Potassium Clav (Amox Tr-K Clv 875-125 mg Tab) 875 Mg-125 Mg Tablet, 1 EACH PO BID Discontinued Reason: No Longer Taking Prescribed by: CHIQUITA THOMPSON on 01/14/221901 Aspirin (Aspirin EC) 325 Mg Tablet., 325 MG PO DAILY Discontinued Reason: No Longer Taking Prescribed by: VIOLETA TURK on 05/25/18 1300 Atorvastatin Calcium (Lipitor) 40 Mg Tablet, 40 MG PO DAILY Discontinued Reason: No Longer Taking Prescribed by: Sukhjinder MUJICA on 05/30/18 1111 Azithromycin (Azithromycin) 250 Mg Tablet, 250 MG PO UD Discontinued Reason: No Longer Taking Prescribed by: CHIQUITA THOMPSON on 01/14/22 190 Colchicine (Colchicine) 0.6 Mg Tablet, 0.6 MG PO BID Discontinued Reason: No Longer Taking Prescribed by: JACQUIE CHOUDHURY on 10/21/20 1020 Furosemide (Lasix) 20 Mg Tablet, 20 MG PO DAILY Discontinued Reason: No Longer Taking Prescribed by: CHIQUITA THOMPSON on 01/14/22 190 Hydrocodone/Acetaminophen (Hydrocodone-Acetamin 5-325 mg) 1 Each Tablet, 1 TAB PO Q6H PRN for PAIN-MODERATE (5-7) Discontinued Reason: No Longer Taking Prescribed by: JACQUIE CHOUDHURY on 10/21/20 1021 Lisinopril (Lisinopril) 5 Mg Tablet, 5 MG PO DAILY Discontinued Reason: No Longer Taking Prescribed by: Sukhjinder MUJICA on 05/30/18 1113 Methylprednisolone (Methylprednisolone Dose Pack) 4 Mg Tab.ds.pk, 4 MG PO UD Discontinued Reason: No Longer Taking Prescribed by: JACQUIE CHOUDHURY on 10/21/20 1020 Metoprolol Tartrate (Metoprolol Tartrate) 25 Mg Tablet, 25 MG PO BID Discontinued Reason: No Longer Taking Prescribed by: Sukhjinder MUJICA on 05/30/18 1112 Milk Thistle Seed Extract (Milk Thistle) 140 Mg Capsule, 140 MG PO DAILY PRN for NEEDED, (Reported) Discontinued Reason: No Longer Taking Entered as Reported by: KENROY CLEANING on 05/24/18 1419 Trazodone HCl (Trazodone HCl) 50 Mg Tablet, 50 MG PO HS Discontinued Reason: No Longer Taking Prescribed by: GREY DUMONT on 09/18/21 1742 Vit B2/Niacin/B-6/B-12/D-Panth (B Complex Sublingual Liquid) 59 Ml Liquid, 1 TBS SL DAILY PRN for VITAMINS, (Reported) Discontinued Reason: No Longer Taking Entered as Reported by: KENROY CLEANING on 05/24/18 1419 Review of Systems Review of Systems Constitutional: see HPI Respiratory: no symptoms reported Cardiovascular: other (bleeding from left arm) Gastrointestinal: no symptoms reported Genitourinary: no symptoms reported Musculoskeletal: no symptoms reported Skin: no symptoms reported Psychiatric/Neurological: No Symptoms Reported Past Skpcxqd-Rrpspx-Dybpen Hx Patient Social History Tobacco Use?: No Substance use?: No Alcohol Use?: Yes Alcohol Frequency: Daily Pt feels they are or have been: No Immunizations Up To Date Tetanus Booster (TDap): Less than 5yrs First/Initial COVID19 Vaccinat: MARCH 2021 Second COVID19 Vaccination Navdeep: MARCH 2021 Third COVID19 Vaccination Date: MARCH 2021 Past Medical History Surgery/Hospitalization HX: LEFT HIP ORIF, L LOWER EXT SURG, GI BLEED, HX ALCOHOLISM, CABG, Surgeries: Yes (BROKEN FEMUR 08/1992, REPEATED 05/1993, CARPAL TUNNEL RIGHT X2) Abdominal, Cardiac, CABG, Orthopedic, Valve Replacement Respiratory: No Cardiac: Yes (CABG) Atrial Fibrillation, Coronary Artery Disease, High Cholesterol, Hypertension, Valvular Heart Disease Neurological: No Genitourinary: No Gastrointestinal: No Musculoskeletal: Yes (Carpal tunnel syndrome;LEFT HIP FX/ORIF-SURGERY X 2;GOUT/PSEUDOGOUT) Fractures, Gout Endocrine: No HEENT: No Cancer: No Psychosocial: Yes Anxiety Integumentary: No Blood Disorders: No Family Medical History No Pertinent Family Hx Physical Exam Vital Signs Vital Signs - First Documented 07/23/23 18:03 Pulse 76 Resp 18 B/P (MAP) 135/89 (104) Pulse Ox 97 Capillary Refill : Less Than 3 Seconds Height, Weight, BMI Height: 5'6.00" Weight: 163lbs. 0.0oz. 73.050235tz; 28.99 BMI Method:Stated General Appearance: No Apparent Distress, WD/WN Eyes: Bilateral Eye Normal Inspection, Bilateral Eye PERRL HEENT: PERRL/EOMI Respiratory: No Accessory Muscle Use, No Respiratory Distress Cardiovascular: Other (1+ bilateral radial pulses) Gastrointestinal: Non Tender, Soft Extremity: Normal Inspection, Other (LLE in immobilizing boot; 2-3+ edema LLE) Neurologic/Psychiatric: Alert, Oriented x3, No Motor/Sensory Deficits, Normal Mood/Affect Skin: Normal Color, Warm/Dry Progress/Results/Core Measures Suspected Sepsis SIRS Temperature: Pulse: 76 Respiratory Rate: 18 Blood Pressure 135 /89 Mean: 104 Results/Orders Vital Signs/I&O 07/23/23 18:03 Pulse 76 Resp 18 B/P (MAP) 135/89 (104) Pulse Ox 97 Capillary Refill : Less Than 3 Seconds Blood Pressure Mean: 104 Progress Note : Time: 18:52 Progress Note Patient seen and evaluated by me. Evaluation today includes history and physical exam. Pertinent physical exam findings well-developed well-nourished male with stable vital signs, no acute distress or no acute complaints. He has obvious PICC line insertion site medial aspect of the left upper arm. No active bleeding. The skin around the site is soft, nondistended, not ecchymotic, nontender. There is no bleeding whatsoever. He has no swelling to the left upper extremity. Distal pulses, sensation and strength are intact. He was monitored in the emergency department for approximately 1 hour with no deterioration in his condition and no recurrence of bleeding. The dressing placed by EMS initially had been removed by nursing staff on arrival. I removed their dressing after monitoring for an hour and the wound is as described. Patient is comfortable with the plan of care. Differential diagnosis includes coagulopathy secondary to his chronic alcoholism with bleeding from the PICC line site. Also hematoma to the left upper extremity nerve compression. He has no concerning findings whatsoever for bleeding recurrence or hematoma or nerve compression. As stated above neurovascularly intact to the left upper extremity. Reassurance provided to the patient along with return precautions. A clean dry bandage was reapplied with paper tape over the PICC line insertion site. He has a friend at the bedside for transfer to home and to lean on if he has any further difficulties at home. All questions were sought and answered. Patient is stable for discharge. Departure Impression Primary Impression: bleeding from PICC line bao Disposition: HOME, SELF-CARE Condition: Stable Departure-Patient Inst. Decision time for Depature: 18:54 Referrals: NO,LOCAL PHYSICIAN (PCP/Family) Primary Care Physician Patient Instructions: Wound Care ED Add. Discharge Instructions: Please keep the wound dressing in place for the next 24 hours. If you have any concerning recurrence of bleeding please return to the emergency department for reevaluation. Please follow-up with your physicians as instructed on your discharge instructions from earlier today. JAIME BESS MD Jul 23, 2023 18:20
[2023-07-23 19:06] VITALS: BP 146/102
[2023-07-30] MEDS ORDERED: RT-ALBUINH INH (09:43)
== END 2023-07-23 19:05 | disposition home or self-care (01) ==
LOC: EDUNIT# 18:03 → ER 18:05
DX: T82.838A Hemorrhage due to vascular prosthetic devices, implants and grafts, initial encounter (principal)
CPT/HCPCS: 99281

== ENCOUNTER → 2023-07-26 | Outpatient (CLI) | payer MEDICARE ==
[~2023-07-26] VITALS: Ht 167.7 cm; Wt 74.1 kg
[~2023-07-26] MED LIST changes: +RT-ALBUINH INH
== END | disposition home or self-care (01) ==
LOC: PREOP 14:02
PROVIDERS: ATTEND Orthopaedic Surgery
DX: Z01.818 Encounter for other preprocedural examination (principal)

== ENCOUNTER 2023-08-01 06:27 | Day surgery (SDC) | payer MEDICARE ==
--- NOTE | 2023-07-27 08:00 | HISTORY AND PHYSICAL ---
DATE OF SERVICE: 08/01/2023 This will be for outpatient surgery on 08/01/2023 for open reduction and internal fixation of the left lateral malleolus. HISTORY: The patient is a 68-year-old gentleman who had a fall and was found to have a Dhaliwal type B lateral malleolus fracture. He was admitted to the hospital for medical issues. He presented for followup and there had been widening of his mortise noted radiographically with widening of his fracture line. Because of this, it was recommended the patient undergo operative fixation. REVIEW OF SYSTEMS: No chest pain. No shortness of breath. No dysuria. PAST MEDICAL HISTORY: Significant for hyperlipidemia, alcoholism, anxiety, coronary artery disease, aortic valve stenosis, atrial fibrillation, polymyalgia rheumatica. PAST SURGICAL HISTORY: Colonoscopy, left wrist, left femur, right carpal tunnel, tricuspid valve replacement, coronary artery bypass. FAMILY HISTORY: Significant for diabetes. SOCIAL HISTORY: The patient chews tobacco and has had problems with alcohol. MEDICATIONS: Aspirin [ ], lisinopril, acidophilus. PHYSICAL EXAMINATION: GENERAL: The patient is well-developed, well-nourished, in no acute distress. HEENT: Normocephalic, atraumatic. Pupils are equal, round, reactive to light. Oropharynx is clear. NECK: Supple. No lymphadenopathy. LUNGS: Clear to auscultation bilaterally. HEART: Regular rate and rhythm. ABDOMEN: Soft, nontender, nondistended. EXTREMITIES: Left ankle demonstrates moderate edema. There are no skin lesions noted. He has intact dorsiflexion and plantarflexion of the toes with intact sensation distally. Radiographs reveal Dhaliwal type B lateral malleolus fracture with widening of the mortise. IMPRESSION: Unstable left lateral malleolus fracture. PLAN: Open reduction and internal fixation, left lateral malleolus. We discussed risks, benefits, options, ramifications and recovery. He understands and wishes to proceed. Job ID: [id number] DocumentID: [id number] Dictated Date: 07/26/2023 12:44:05 Instructional Technology Facilitator Date: 07/26/2023 13:07:00 Dictated By: CHANNING JOHNSON MD
[2023-08-01] VITALS (11 sets, daily range): BP systolic 95–133; BP diastolic 58–93
[~2023-08-01] VITALS: Ht 167.7 cm; Wt 74.1 kg
[2023-08-01] MEDS ORDERED: oxyCODONE/ACETAMINOPHEN 5/325MG TABLET PO PRN (07:30)
--- NOTE | 2023-08-01 07:36 | Progress Note-Pre Operative ---
Pre-Operative Progress Note Date of Available H&P: Jul 27, 2023 Date H&P Reviewed: Aug 01, 2023 Time H&P Reviewed: 07:35 Changes from last HP none Pre-Operative Diagnosis: left lateral malleolus fracture CHANNING JOHNSON MD Aug 01, 2023 07:36
--- NOTE | 2023-08-01 07:37 | Progress Note-Post Operative ---
Post-Operative Progess Note Surgeon (s)/Custom Clothier (s) Surgeon CHANNING JOHNSON MD Custom Clothier: Jb Singletary Pre-Operative Diagnosis left lateral malleolus fracture Post-Operative Diagnosis left lateral malleolus fracture Procedure & Operative Findings Date of Procedure 08/01/23 Procedure Performed/Findings ORIF left lateral malleolus Anesthesia Type GETA Estimated Blood Loss Estimated blood loss (mL): minimal Specimens/Packing Specimens Removed none Packing: none CHANNING JOHNSON MD Aug 01, 2023 07:36
[2023-08-01] MEDS ORDERED: ceFAZolin INJECTION 2,000 MG in NS (IVPB) 50 ML 50 ML IV ONE (08:00)
[2023-08-01] MEDS ORDERED: proPOfol INJECTION 200 MG/20 ML VIAL IV ONE (08:14)
[2023-08-01] MEDS ORDERED: LIDOCAINE PF 2% 5 ML VIAL ONE (08:14)
[2023-08-01] MEDS ORDERED: fentaNYL INJECTION 100 MCG/2 ML VIAL ONE (08:15)
[2023-08-01] MEDS ORDERED: BUPIVACAINE 0.5% 30 ML VIAL ONE (08:23)
[2023-08-01] MEDS ORDERED: ONDANSETRON INJECTION 4 MG/2 ML (SDV) IV ONE (08:45)
[2023-08-01] MEDS ORDERED: FAMOTIDINE INJ 20MG/2ML VIAL IV ONE (08:45)
[2023-08-01] MEDS ORDERED: LACTATED RINGERS 1,000 ML 1,000 ML IV PRN (08:45)
[2023-08-01] MEDS ORDERED: FAMOTIDINE INJ 20MG/2ML VIAL ONE (08:48)
[2023-08-01] MEDS ORDERED: MIDAZOLAM INJ 2 MG/2 ML VIAL ONE (09:38)
[2023-08-01] MEDS ORDERED: SEVOFLURANE (ULTANE) 15 ML INHAL SOLN ONE (10:19)
[2023-08-01] MEDS ORDERED: BUPIVACAINE 0.5% 30 ML VIAL INJ ONE (10:40)
--- NOTE | 2023-08-01 10:52 | Anesthesia-General Post-Op ---
General Patient Condition Mental Status/LOC: Same as Preop Cardiovascular: Satisfactory Nausea/Vomiting: Absent Respiratory: Satisfactory Pain: Controlled Complications: Absent Post Op Complications Complications None Follow Up Care/Instructions Patient Instructions None needed. Anesthesia/Patient Condition Patient Condition Patient is doing well, no complaints, stable vital signs, no apparent adverse anesthesia problems. No complications reported per nursing. OBED KOCH CRNA Aug 01, 2023 10:52
[2023-08-01] MEDS ORDERED: fentaNYL INJECTION 100 MCG/2 ML VIAL IVP ONE (11:00)
[2023-08-01] MEDS ORDERED: morphine INJ 10 MG/ML 1ML (SYR OR VIAL) IVP ONE (11:00)
[2023-08-01] MEDS ORDERED: ONDANSETRON INJECTION 4 MG/2 ML (SDV) IVP PRN (11:00)
[2023-08-01] MEDS ORDERED: MEPERIDINE INJ 50 MG/ML VIAL IVP ONE (11:00)
--- NOTE | 2023-08-01 15:16 | Diagnostic Imaging Report ---
INDICATION: Ankle fracture. Status post ORIF. COMPARISON: 07/11/2023. TOTAL NUMBER FLUOROSCOPIC IMAGES SAVED: 3. FINDINGS: Fluoroscopic guidance was provided intraoperatively during ORIF. Images provided show orthopedic sideplate and screws along the distal lateral margins of the left fibula. Major fracture fragments appear appropriately aligned, although evaluation is suboptimal due to fluoroscopic modality. Please note, interpreting radiologist was not present during the procedure. IMPRESSION: Fluoroscopic guidance provided intraoperatively. Dictated by: Dictated on workstation # [id number]
--- NOTE | 2023-08-01 16:42 | OPERATIVE REPORT ---
DATE OF SERVICE: 08/01/2023 PREOPERATIVE DIAGNOSIS: Closed displaced left lateral malleolus fracture. POSTOPERATIVE DIAGNOSIS: Closed displaced left lateral malleolus fracture. PROCEDURE: Open reduction and internal fixation, left lateral malleolus. SURGEON: Meet Johnson MD BLOW OFF WORKER: Jb Singletary, who assisted throughout the procedure and closed the incision. ANESTHESIA: General endotracheal by Jb Levine CRNA. TOURNIQUET TIME: Approximately 28 minutes at 300 mmHg. ESTIMATED BLOOD LOSS: Minimal. DRAINS: None. COMPLICATIONS: None. POSTOPERATIVE PLAN: Ambulation with a walker and boot. The patient was transferred to recovery room awake and stable condition. STATEMENT OF MEDICAL NECESSITY: The patient is a 68-year-old gentleman who sustained a left lateral malleolus fracture almost 3 weeks ago. He was admitted to the hospital for significant medical issues and discharged home. At followup, radiographs were obtained, which revealed widening of the mortise. Therefore, it was counseled that the patient undergo operative fixation. DESCRIPTION OF PROCEDURE: After risks and benefits of the procedure were discussed and questions were answered and informed consent was signed and placed on the chart, the operative site was confirmed in the preoperative holding area initialed by the surgeon. The patient was then transferred to the operating room. After adequate levels of general endotracheal anesthetic were obtained, a timeout was called, confirming the operative site. The left lower extremity was prepped and draped in the usual sterile fashion. With the leg elevated, tourniquet inflated to 300 mmHg. A standard lateral approach was utilized. There was some early callus. No other fractures noted at the fracture site, which was resected. The fracture was reduced anatomically and a 3.5 lag screw was placed. The [employer] ankle trauma plate was used with four 2.7 screws distally and two 2.7 and one 3.5 screw proximally all with excellent purchase. Fluoroscopy in AP and lateral, oblique planes revealed anatomic reduction of the fracture with well-placed hardware [ ] stressed under fluoroscopy. There was no widening of the syndesmosis. The tourniquet was deflated. The wound was copiously irrigated. A 0 Vicryl was used for deep subcutaneous layer, 3-0 Vicryl for the superficial subcutaneous layer and jesus used on the skin. A soft dressing and boot were applied. The patient was transported to recovery room awake and stable condition. Job ID: [id number] DocumentID: [id number] Dictated Date: 08/01/2023 10:49:01 Semiconductor Processing Technician Date: 08/01/2023 16:40:00 Dictated By: MEET JOHNSON MD
== END 2023-08-01 13:35 | disposition home or self-care (01) ==
LOC: SDC 06:27
PROVIDERS: ATTEND Orthopaedic Surgery
DX: S82.62XA Displaced fracture of lateral malleolus of left fibula, initial encounter for closed fracture (principal); F17.220 Nicotine dependence, chewing tobacco, uncomplicated; W19.XXXA Unspecified fall, initial encounter
CPT/HCPCS: 76000; 87081